=== PATIENT | female | born 1950 | race Caucasian/White ===

== ENCOUNTER → 2016-09-14 | Outpatient (CLI) | payer MEDICARE, BC ==
[2016-09-14 14:17] LABS: Basophils % (A) 0 %; CH 30.9; CHCM 32.2; Eosinophils # (A) 0.3 k/uL (0-0.7); Eosinophils % (A) 4 %; HCT 43.9 % (34.0-46.0); HDW 2.76; HGB 14.2 gm/dL (11.4-16.0); Luc # (Auto) 0.19; Luc % (Auto) 2; Lymphocytes % (A) 49 %; MCH 31.2 pg (25.0-35.0); MCHC 32.4 g/dL (31.0-37.0); MCV 96.4 fL (80.0-100.0); Mean Platelet Volume 8.1; Monocytes # (A) 0.5 k/uL (0-1.0); Monocytes % (A) 6 %; Neutrophils # (A) 3.3 k/uL (1.3-7.7); Neutrophils % (A) 39 %; RBC 4.56 m/uL (3.80-5.40); RDW 13.3 % (11.5-15.5); WBC 8.3 k/uL (3.8-10.6); WBC (Perox) 8.13
== END | disposition home or self-care (01) ==
LOC: LABWHC1 13:35
PROVIDERS: ATTEND Internal Medicine
DX: D72.820 Lymphocytosis (symptomatic) (principal)
CPT/HCPCS: 36415; 85025

== ENCOUNTER 2016-09-19 17:29 | Inpatient (IN) | payer MEDICARE, BC ==
[2016-09-19] MEDS ORDERED: ALBUTEROL NEBULIZED 2.5 MG/3 ML INHALATION STA (17:47)
[2016-09-19] MEDS ORDERED: SODIUM CHLORIDE 0.9% 1,000 ML IV STA ×2 (17:47)
[2016-09-19] MEDS ORDERED: methylPREDNISolone SOD SUCCI 125 MG/2 ML VIAL IV STA (17:47)
[2016-09-19] MEDS ORDERED: IPRATROPIUM 0.5 MG/2.5 ML NEBU INHALATION STA (17:47)
[2016-09-19] MEDS ORDERED: KETOROLAC 30 MG/ML 1 ML VIAL IVP STA (18:07)
[2016-09-19] MEDS ORDERED: ACETAMINOPHEN IV (For NPO) 1,000 MG in EMPTY BAG 1 BAG IVPB STA (18:07)
[2016-09-19] MEDS ORDERED: AZITHROMYCIN 500 MG in SODIUM CHLORIDE 0.9% 250 ML IVPB STA (18:15)
[2016-09-19 18:24] LABS: Basophils % (A) 0 %; CH 31.4; CHCM 32.8; Eosinophils # (A) 0.1 k/uL (0-0.7); Eosinophils % (A) 1 %; HCT 41.5 % (34.0-46.0); HDW 2.64; Luc # (Auto) 0.08; Luc % (Auto) 1; Lymphocytes # (A) 1.1 k/uL (1.0-4.8); Lymphocytes % (A) 13 %; MCH 30.1 pg (25.0-35.0); MCHC 31.3 g/dL (31.0-37.0); MCV 96.2 fL (80.0-100.0); Mean Platelet Volume 9.1; Monocytes # (A) 0.5 k/uL (0-1.0); Monocytes % (A) 6 %; Neutrophils # (A) 6.7 k/uL (1.3-7.7); Neutrophils % (A) 79 %; RBC 4.31 m/uL (3.80-5.40); RDW 13.3 % (11.5-15.5); WBC 8.5 k/uL (3.8-10.6); WBC (Perox) 8.89
[2016-09-19 18:35] LABS: ALT 36 U/L (9-52); AST 23 U/L (14-36); Alkaline Phosphatase 122 U/L (38-126); Anion Gap 9 mmol/L; Blood Urea Nitrogen 11 mg/dL (7-17); Calcium 8.6 mg/dL (8.4-10.2); Carbon Dioxide 28 mmol/L (22-30); Chloride 103 mmol/L (98-107); Glucose 106 mg/dL (74-99); Magnesium 1.7 mg/dL (1.6-2.3); Non-African American GFR(MDRD) 58 (>60 ml/min/1.73 sqM); Potassium 4.3 mmol/L (3.5-5.1); Sodium 140 mmol/L (137-145); Total Bilirubin 0.4 mg/dL (0.2-1.3)
[2016-09-19 18:37] LABS: INR 2.9 (<1.1); Partial Thromboplastin Time 43.1 sec (22.0-30.0); Prothrombin Time 28.2 sec (9.0-12.0)
[2016-09-19 18:47] LABS: Creatine Kinase 139 U/L (30-135)
--- NOTE | 2016-09-19 18:53 | ED ---
General Adult HPI - General Chief complaint: Shortness of Breath Stated complaint: respiratory Time Seen by Provider: 09/19/16 17:34 Source: EMS, RN notes reviewed, old records reviewed Mode of arrival: EMS Limitations: no limitations - History of Present Illness Initial comments: This is a 58-year-old female to the ER for severe cough and congestion and fever as well as, severe shortness with cough and congestion. Patient has significant history of COPD, states is worse than normal COPD exacerbation, patient also notes fever and coughing up sputum. No travel history no sick contacts, no modifying factors for sent home male - Related Data Home Medications Medication Instructions Recorded Confirmed Atorvastatin [Lipitor] 20 mg PO HS 10/04/14 09/19/16 Primidone [Mysoline] 50 mg PO QID 10/04/14 09/19/16 Aspirin 81 mg PO DAILY 04/17/15 09/19/16 Albuterol Sulfate [Proair Hfa] 2 puff INHALATION RT-Q6H PRN 09/19/16 09/19/16 DULoxetine HCL [Cymbalta] 60 mg PO DAILY 09/19/16 09/19/16 Dofetilide [Tikosyn] 250 mcg PO Q12HR 09/19/16 09/19/16 Ipratropium Nebulized [Atrovent 0.5 mg INHALATION RT-QID 09/19/16 09/19/16 Nebulized] Levalbuterol Nebulized [Xopenex 1.25 mg INHALATION RT-QID 09/19/16 09/19/16 Nebulized] Methocarbamol [Robaxin-750] 750 mg PO TID PRN 09/19/16 09/19/16 Metoprolol Tartrate [Lopressor] 25 mg PO BID 09/19/16 09/19/16 Mirtazapine [Remeron] 15 mg PO HS 09/19/16 09/19/16 Potassium Chloride ER [K-Dur 20] 20 meq PO DAILY 09/19/16 09/19/16 Warfarin Sodium [Coumadin] 10 mg PO HS 09/19/16 09/19/16 clonazePAM [KlonoPIN] 1 mg PO BID 09/19/16 09/19/16 oxyCODONE HCL [Oxyir] 5 mg PO Q6H PRN 09/19/16 09/19/16 Previous Rx's Medication Instructions Recorded Budesonide-Formot 160-4.5 Mcg 2 puff INHALATION RT-BID #1 puff 10/06/14 [Symbicort 160-4.5 Mcg Inhaler] Furosemide [Lasix] 40 mg PO DAILY tab 09/02/15 Allergies Allergy/AdvReac Type Severity Reaction Status Date / Time adhesive Allergy Rash/Hives Verified 09/19/16 17:54 latex Allergy Rash/Hives Verified 09/19/16 17:54 Penicillins Allergy Unknown Verified 09/19/16 17:54 Childhood alendronate sodium AdvReac Nausea & Verified 09/19/16 17:54 [From Fosamax] Vomiting Review of Systems ROS Statement: Those systems with pertinent positive or pertinent negative responses have been documented in the HPI. ROS Other: All systems not noted in ROS Statement are negative. Past Medical History Past Medical History: Atrial Fibrillation, Atrial Flutter, Heart Failure, COPD, CVA/TIA, GERD/Reflux, Hyperlipidemia, Myocardial Infarction ([place]), Pneumonia Additional Past Medical History / Comment(s): stroke 1996 still does'nt have control of left leg or rt ankle-has balance issues, start of glaucoma rt eye not on meds yet. hiatal hernia. essential tremors takes mysoline.psoriases, Last Myocardial Infarction Date:: unk History of Any Multi-Drug Resistant Organisms: None Reported Past Surgical History: Adenoidectomy, Bladder Surgery, Heart Catheterization With Stent, Hysterectomy, Pacemaker, Tonsillectomy Additional Past Surgical History / Comment(s): repaired mitral valve ,,had rectal prolapse sx 3 years before bowel surgury d/t chronic diarrhea which left pt with a colostomy, cardioverted 10-01-14 at [facility], lt ear drum replaced. Past Anesthesia/Blood Transfusion Reactions: No Reported Reaction Additional Past Anesthesia/Blood Transfusion Reaction / Comment(s): clausterpbobia Date of Last Stent Placement:: unk Type of Cardiac Device: Unknown Device Placement Date:: unknown Past Psychological History: No Psychological Hx Reported Smoking Status: Current every day smoker Past Alcohol Use History: None Reported Additional Past Alcohol Use History / Comment(s): started smoking at age 16 smoked 1 ppd, quit last 2 Past Drug Use History: None Reported - Past Family History Father Family Medical History: CVA/TIA Additional Family Medical History / Comment(s): was an alcoholic, rheumatic fever as child,lost 2/3rds of stomach d/t etoh. age 61 Mother Additional Family Medical History / Comment(s): comitted suicide at age 54 General Exam Limitations: no limitations General appearance: alert, in no apparent distress, anxious, lethargic Head exam: Present: atraumatic, normocephalic, normal inspection Eye exam: Present: normal appearance, PERRL, EOMI. Absent: scleral icterus, conjunctival injection, periorbital swelling ENT exam: Present: normal exam, mucous membranes moist Neck exam: Present: normal inspection. Absent: tenderness, meningismus, lymphadenopathy Respiratory exam: Present: normal lung sounds bilaterally, wheezes, chest wall tenderness, accessory muscle use, decreased breath sounds, prolonged expiratory. Absent: respiratory distress, rales, rhonchi, stridor Cardiovascular Exam: Present: regular rate, normal rhythm, normal heart sounds. Absent: systolic murmur, diastolic murmur, rubs, gallop, clicks GI/Abdominal exam: Present: soft, normal bowel sounds. Absent: distended, tenderness, guarding, rebound, rigid Extremities exam: Present: normal inspection, full ROM, normal capillary refill. Absent: tenderness, pedal edema, joint swelling, calf tenderness Back exam: Present: normal inspection Neurological exam: Present: alert, oriented X3, CN II-XII intact Psychiatric exam: Present: normal affect, normal mood Skin exam: Present: warm, dry, intact, normal color. Absent: rash Course Vital Signs 09/19/16 09/19/16 09/19/16 17:42 18:14 18:18 Temperature 101.1 F H Pulse Rate 83 78 80 Respiratory 20 Rate Blood Pressure 98/58 95/53 O2 Sat by Pulse 92 L 96 Oximetry 09/19/16 09/19/16 18:51 20:00 Temperature 99.2 F Pulse Rate 80 79 Respiratory 18 Rate Blood Pressure 89/50 O2 Sat by Pulse 96 Oximetry - Reevaluation(s) Reevaluation #1: 09/19/16 19:26 Patient with minimal improvement after prolonged breathing treatment EKG Findings - EKG Comments: EKG Findings:: EKG shows sinus rhythm rate of 82, GA 152, QRS 90, QTC 486 Medical Decision Making - Medical Decision Making 58 female in to ER with severe COPD exacerbation and CHF. Patient will be placed on pulmonary status, monitoring of breathing issues, possible BiPAP., breathing treatments [id number]. Monitoring of cardiopulmonary and hemodynamic status. - Lab Data Result diagrams: 09/19/16 18:09 09/19/16 18:09 Lab Results 09/19/16 09/19/16 09/19/16 Range/Units 18:09 18:09 18:09 WBC 8.5 (3.8-10.6) k/uL RBC 4.31 (3.80-5.40) m/uL Hgb 13.0 (11.4-16.0) gm/dL Hct 41.5 (34.0-46.0) % MCV 96.2 (80.0-100.0) fL MCH 30.1 (25.0-35.0) pg MCHC 31.3 (31.0-37.0) g/dL RDW 13.3 (11.5-15.5) % Plt Count 198 (150-450) k/uL Neutrophils % 79 % Lymphocytes % 13 % Monocytes % 6 % Eosinophils % 1 % Basophils % 0 % Neutrophils # 6.7 (1.3-7.7) k/uL Lymphocytes # 1.1 (1.0-4.8) k/uL Monocytes # 0.5 (0-1.0) k/uL Eosinophils # 0.1 (0-0.7) k/uL Basophils # 0.0 (0-0.2) k/uL PT (9.0-12.0) sec INR (<1.1) APTT (22.0-30.0) sec Sodium 140 (137-145) mmol/L Potassium 4.3 (3.5-5.1) mmol/L Chloride 103 (98-107) mmol/L Carbon Dioxide 28 (22-30) mmol/L Anion Gap 9 mmol/L BUN 11 (7-17) mg/dL Creatinine 0.96 (0.52-1.04) mg/dL Est GFR (MDRD) Af Amer >60 (>60 ml/min/1.73 sqM) Est GFR (MDRD) Non-Af 58 (>60 ml/min/1.73 sqM) Glucose 106 H (74-99) mg/dL Plasma Lactic Acid Porter (0.7-2.0) mmol/L Calcium 8.6 (8.4-10.2) mg/dL Magnesium 1.7 (1.6-2.3) mg/dL Total Bilirubin 0.4 (0.2-1.3) mg/dL AST 23 (14-36) U/L ALT 36 (9-52) U/L Alkaline Phosphatase 122 (38-126) U/L Total Creatine Kinase 139 H (30-135) U/L CK-MB (CK-2) 1.0 (0.0-2.4) ng/mL CK-MB (CK-2) Rel Index 0.7 Troponin I <0.012 (0.000-0.034) ng/mL NT-Pro-B Natriuret Pep pg/mL Total Protein 7.0 (6.3-8.2) g/dL Albumin 3.9 (3.5-5.0) g/dL Influenza Type A RNA (Not Detectd) Influenza Type B (PCR) (Not Detectd) 09/19/16 09/19/16 09/19/16 Range/Units 18:09 18:09 18:09 WBC (3.8-10.6) k/uL RBC (3.80-5.40) m/uL Hgb (11.4-16.0) gm/dL Hct (34.0-46.0) % MCV (80.0-100.0) fL MCH (25.0-35.0) pg MCHC (31.0-37.0) g/dL RDW (11.5-15.5) % Plt Count (150-450) k/uL Neutrophils % % Lymphocytes % % Monocytes % % Eosinophils % % Basophils % % Neutrophils # (1.3-7.7) k/uL Lymphocytes # (1.0-4.8) k/uL Monocytes # (0-1.0) k/uL Eosinophils # (0-0.7) k/uL Basophils # (0-0.2) k/uL PT 28.2 H (9.0-12.0) sec INR 2.9 (<1.1) APTT 43.1 H (22.0-30.0) sec Sodium (137-145) mmol/L Potassium (3.5-5.1) mmol/L Chloride (98-107) mmol/L Carbon Dioxide (22-30) mmol/L Anion Gap mmol/L BUN (7-17) mg/dL Creatinine (0.52-1.04) mg/dL Est GFR (MDRD) Af Amer (>60 ml/min/1.73 sqM) Est GFR (MDRD) Non-Af (>60 ml/min/1.73 sqM) Glucose (74-99) mg/dL Plasma Lactic Acid Porter 1.3 (0.7-2.0) mmol/L Calcium (8.4-10.2) mg/dL Magnesium (1.6-2.3) mg/dL Total Bilirubin (0.2-1.3) mg/dL AST (14-36) U/L ALT (9-52) U/L Alkaline Phosphatase (38-126) U/L Total Creatine Kinase (30-135) U/L CK-MB (CK-2) (0.0-2.4) ng/mL CK-MB (CK-2) Rel Index Troponin I (0.000-0.034) ng/mL NT-Pro-B Natriuret Pep 2000 pg/mL Total Protein (6.3-8.2) g/dL Albumin (3.5-5.0) g/dL Influenza Type A RNA (Not Detectd) Influenza Type B (PCR) (Not Detectd) 09/19/16 Range/Units 18:09 WBC (3.8-10.6) k/uL RBC (3.80-5.40) m/uL Hgb (11.4-16.0) gm/dL Hct (34.0-46.0) % MCV (80.0-100.0) fL MCH (25.0-35.0) pg MCHC (31.0-37.0) g/dL RDW (11.5-15.5) % Plt Count (150-450) k/uL Neutrophils % % Lymphocytes % % Monocytes % % Eosinophils % % Basophils % % Neutrophils # (1.3-7.7) k/uL Lymphocytes # (1.0-4.8) k/uL Monocytes # (0-1.0) k/uL Eosinophils # (0-0.7) k/uL Basophils # (0-0.2) k/uL PT (9.0-12.0) sec INR (<1.1) APTT (22.0-30.0) sec Sodium (137-145) mmol/L Potassium (3.5-5.1) mmol/L Chloride (98-107) mmol/L Carbon Dioxide (22-30) mmol/L Anion Gap mmol/L BUN (7-17) mg/dL Creatinine (0.52-1.04) mg/dL Est GFR (MDRD) Af Amer (>60 ml/min/1.73 sqM) Est GFR (MDRD) Non-Af (>60 ml/min/1.73 sqM) Glucose (74-99) mg/dL Plasma Lactic Acid Porter (0.7-2.0) mmol/L Calcium (8.4-10.2) mg/dL Magnesium (1.6-2.3) mg/dL Total Bilirubin (0.2-1.3) mg/dL AST (14-36) U/L ALT (9-52) U/L Alkaline Phosphatase (38-126) U/L Total Creatine Kinase (30-135) U/L CK-MB (CK-2) (0.0-2.4) ng/mL CK-MB (CK-2) Rel Index Troponin I (0.000-0.034) ng/mL NT-Pro-B Natriuret Pep pg/mL Total Protein (6.3-8.2) g/dL Albumin (3.5-5.0) g/dL Influenza Type A RNA Not Detected (Not Detectd) Influenza Type B (PCR) Not Detected (Not Detectd) - Radiology Data Radiology results: report reviewed (Chest x-ray is positive for CHF), image reviewed Disposition Clinical Impression: Acute exacerbation of chronic obstructive airways disease, Fever, Congestive heart failure Disposition: ADMITTED IP TO THIS HOSP Condition: Fair
[2016-09-19 19:00] LABS: Troponin I <0.012 ng/mL (0.000-0.034)
[2016-09-19] MEDS ORDERED: PNEUMONIA PROTOCOL UTILIZED 1 EACH MISC PO PRN (19:27)
--- NOTE | 2016-09-19 20:02 | XR ---
EXAMINATION TYPE: XR chest 2V DATE OF EXAM: 09/19/2016 7:55 PM COMPARISON: 09/01/2015 HISTORY: Productive cough TECHNIQUE: Frontal and lateral views of the chest are obtained. FINDINGS: There is pulmonary interstitial edema. Heart size is normal. There are sternal wires. Ther e is a valve prosthesis noted. There is very small pleural effusions. IMPRESSION: Pulmonary edema with very small pleural effusions. Edema is improved compared to 09/01/19 16. This is consistent with congestive heart failure that is improved compared to last exam.
[2016-09-19] MEDS ORDERED: CEFEPIME 2 GM in SODIUM CHLORIDE 0.9% 50 ML IVPB STA (20:17)
[2016-09-19] MEDS ORDERED: SODIUM CHLORIDE 0.9% 500 ML IV ONE (20:17)
[2016-09-19] MEDS ORDERED: SODIUM CHLORIDE 0.9% 1,000 ML IV ONE (20:17)
[2016-09-19] MEDS: IPRATROPIUM-ALBUTEROL 3 ML NEB INHALATION SCH (20:41)
[2016-09-19] MEDS: SODIUM CHLORIDE 0.9% 1,000 ML IV SCH (21:54)
[2016-09-19] MEDS ORDERED: clonazePAM 1 MG TAB PO STA (22:12)
[2016-09-19] MEDS ORDERED: DOFETILIDE 250 MCG CAP PO STA (22:13)
[2016-09-19] MEDS ORDERED: MIRTAZAPINE 15 MG TAB PO STA (22:14)
[2016-09-19] MEDS ORDERED: WARFARIN 10 MG TAB PO ONE (22:15)
[2016-09-19 23:42] VITALS: BMI 27.4
[2016-09-20] MEDS: METOPROLOL TARTRATE 25 MG TAB PO SCH ×3 (00:18→21:44)
[2016-09-20] MEDS: NICOTINE 21MG/24HR PATCH TRANSDERM SCH ×2 (00:24→09:43)
[2016-09-20] MEDS: SODIUM CHLORIDE 0.9% 1,000 ML IV SCH ×2 (00:27→15:00)
[2016-09-20] MEDS ORDERED: SODIUM CHLORIDE 0.9% 1,000 ML IV ONE (01:32)
[2016-09-20 03:16] LABS: Glucose,Whole Blood 135 mg/dL (75-99)
[2016-09-20] MEDS ORDERED: NOREPINEPHRINE 4 MG-0.9% NS PMX 250 ML IV ONE (03:18)
[2016-09-20] MEDS ORDERED: NALOXONE 0.4 MG/ML 1 ML VIAL IV PRN (03:21)
[2016-09-20] MEDS ORDERED: NOREPINEPHRINE 4 MG in SODIUM CHLORIDE 0.9% 250 ML IV SCH (03:30)
[2016-09-20 04:02] LABS: Appearance,Urine Clear (Clear); Bilirubin,Urine Negative (Negative); Glucose,Urine (UA) Negative (Negative); Ketones,Urine Trace (Negative); Leukocyte Esterase,Urine Negative (Negative); Nitrite,Urine Negative (Negative); PH, Urine 5.5 (5.0-8.0); Protein,Urine Trace (Negative); Specific Gravity,Urine 1.017 (1.001-1.035); UA Billing (MACRO vs. MICRO) CHEM; Urobilinogen,Urine <2.0 mg/dL (<2.0)
[2016-09-20 05:26] LABS: Basophils % (A) 0 %; CH 30.5; CHCM 30.9; Eosinophils % (A) 0 %; HCT 36.2 % (34.0-46.0); HDW 2.64; HGB 11.2 gm/dL (11.4-16.0); Hypochromasia Slight; Luc # (Auto) 0.05; Luc % (Auto) 1; Lymphocytes # (A) 0.8 k/uL (1.0-4.8); Lymphocytes % (A) 13 %; MCH 30.8 pg (25.0-35.0); MCV 99.4 fL (80.0-100.0); Mean Platelet Volume 8.1; Monocytes # (A) 0.2 k/uL (0-1.0); Monocytes % (A) 3 %; Neutrophils # (A) 4.9 k/uL (1.3-7.7); Neutrophils % (A) 83 %; RBC 3.65 m/uL (3.80-5.40); RDW 13.2 % (11.5-15.5); WBC 5.9 k/uL (3.8-10.6); WBC (Perox) 6.38
[2016-09-20 05:34] LABS: INR 2.4 (<1.1); Prothrombin Time 22.7 sec (9.0-12.0)
[2016-09-20 05:40] LABS: Anion Gap 11 mmol/L; Blood Urea Nitrogen 17 mg/dL (7-17); Carbon Dioxide 20 mmol/L (22-30); Chloride 109 mmol/L (98-107); Glucose 148 mg/dL (74-99); Magnesium 1.7 mg/dL (1.6-2.3); Non-African American GFR(MDRD) >60 (>60 ml/min/1.73 sqM); Phosphorous 3.8 mg/dL (2.5-4.5); Potassium 4.4 mmol/L (3.5-5.1); Sodium 140 mmol/L (137-145)
[2016-09-20] MEDS ORDERED: Magnesium Replacement Protocol 1 EACH MISC MISCELLANE PRN (06:12)
[2016-09-20] MEDS: IPRATROPIUM-ALBUTEROL 3 ML NEB INHALATION SCH ×2 (07:50→11:35)
[2016-09-20] MEDS: MAGNESIUM SULFATE-D5W PMX 1 GM in DEXTROSE/WATER 1 100ML.BAG IVPB SCH ×2 (08:13→08:58)
--- NOTE | 2016-09-20 08:43 | XR ---
EXAMINATION TYPE: XR chest 1V DATE OF EXAM: 09/20/2016 6:38 AM COMPARISON: 09/19/2016 HISTORY: Difficulty breathing TECHNIQUE: Single frontal view of the chest is obtained. FINDINGS: Heart is enlarged. Postoperative changes are seen. Coarsened interstitium is stable. No pl eural effusion or pneumothorax. IMPRESSION: 1. COPD with cardiomegaly and interstitial pattern likely representing a combination of pulmonary fib rosis and superimposed venous congestion.
[2016-09-20] MEDS ORDERED: ENOXAPARIN 40 MG/0.4 ML SYRINGE SQ SCH (09:00)
[2016-09-20] MEDS: PANTOPRAZOLE 40 MG/10 ML VIAL IV SCH (09:39)
--- NOTE | 2016-09-20 11:36 | P.CNPUL ---
History of Present Illness Consult date: 09/20/16 Reason for consult: dyspnea History of present illness: 66-year-old female patient with known history of COPD, pulmonary fibrosis, chronic cardiac disease with paroxysmal atrial fibrillation/flutter with previous amiodarone treatment it got discontinued because of pulmonary fibrosis and the patient was replaced with a consent and was maintained on long-term articulation with warfarin, presents to the emergency department because of progressive worsening shortness of breath. The patient is still smoking about 1 pack of cigarettes a day. She was having increased chest congestion, sputum production, wheezing and a sense and she was found to be hypotensive. Based on that, she was initially admitted to the medical floor and then got moved to the intensive care unit. At this point in time, the patient's history of any chest pain however she is having still cough and congestion and wheezing. She was given IV fluids and the patient got a total of 2 L in the emergency department and 1 L. ICU and currently she is on IV fluids maintenance at 100 mL an hour of normal saline and the patient is on 5 mics of norepinephrine infusion. Urine output is adequate and the patient is producing 50-100 mL an hour. We are the process of weaning the pressors. The patient was given 1 dose of Solu Medrol in the emergency pH was also given a dose of cefepime and Zithromax. Chest x-ray showing chronic interstitial changes and fibrosis and lung bases bilaterally and there is no evidence of any acute consolidation. No change in mental status. No hemoptysis. No pleurisy. No major swelling lower extremities. She is quite anxious. She has chronic history of depression/ anxiety and insomnia.. The most recent echocardiogram that was obtained here in the hospital was from 2016 and it showed a preserved LV function and mild aortic stenosis. The rest of the valvular structures were essentially within normal limits. Note that her cardiac surgery was performed at [facility] back in 2013. Review of Systems 12 point review of system was done and the positive findings are almost above in history of present illness Past Medical History Past Medical History: Atrial Fibrillation, Atrial Flutter, Coronary Artery Disease (CAD), Heart Failure, COPD, CVA/TIA, GERD/Reflux, Hyperlipidemia, Myocardial Infarction ([place]), Pneumonia Additional Past Medical History / Comment(s): History of mitral regurgitation with a previous mitral valve replacement and tricuspid valve repair, coronary artery disease with previous cardiac catheterization and stenting, chronic atrial fibrillation/flutter, AICD placement, COPD, pulmonary fibrosis, glucoma, hiatal hernia, psoriasis, tremors, stroke 1996 still does'nt have control of left leg or rt ankle-has balance issues Last Myocardial Infarction Date:: unk History of Any Multi-Drug Resistant Organisms: None Reported Past Surgical History: Adenoidectomy, Bladder Surgery, Bowel Resection, Heart Catheterization With Stent, Hysterectomy, Tonsillectomy Additional Past Surgical History / Comment(s): repaired mitral valve, rectal prolapse sx 3 years before bowel surgury d/t chronic diarrhea which left pt with a colostomy, AICD placement, cardioverted 10-01-14 at [facility], lt ear drum replaced, mitral valve replacement and tricuspid valve repair, cardiac catheterization with insertion of a coronary stent, hysterectomy, tonsillectomy Past Anesthesia/Blood Transfusion Reactions: No Reported Reaction Additional Past Anesthesia/Blood Transfusion Reaction / Comment(s): clausterpbobia Date of Last Stent Placement:: unk Type of Cardiac Device: Unknown Device Placement Date:: unknown Past Psychological History: No Psychological Hx Reported Smoking Status: Current every day smoker Past Alcohol Use History: None Reported Additional Past Alcohol Use History / Comment(s): started smoking at age 16 smoked 1 ppd Past Drug Use History: None Reported - Past Family History Father Family Medical History: CVA/TIA Additional Family Medical History / Comment(s): was an alcoholic, rheumatic fever as child,lost 2/3rds of stomach d/t etoh. age 61 Mother Additional Family Medical History / Comment(s): comitted suicide at age 54 Medications and Allergies Home Medications Medication Instructions Recorded Confirmed Type Atorvastatin [Lipitor] 20 mg PO HS 10/04/14 09/19/16 History Primidone [Mysoline] 50 mg PO QID 10/04/14 09/19/16 History Aspirin 81 mg PO DAILY 04/17/15 09/19/16 History Albuterol Sulfate [Proair Hfa] 2 puff INHALATION RT-Q6H PRN 09/19/16 09/19/16 History DULoxetine HCL [Cymbalta] 60 mg PO DAILY 09/19/16 09/19/16 History Dofetilide [Tikosyn] 250 mcg PO Q12HR 09/19/16 09/19/16 History Ipratropium Nebulized [Atrovent 0.5 mg INHALATION RT-QID 09/19/16 09/19/16 History Nebulized] Levalbuterol Nebulized [Xopenex 1.25 mg INHALATION RT-QID 09/19/16 09/19/16 History Nebulized] Methocarbamol [Robaxin-750] 750 mg PO TID PRN 09/19/16 09/19/16 History Metoprolol Tartrate [Lopressor] 25 mg PO BID 09/19/16 09/19/16 History Mirtazapine [Remeron] 15 mg PO HS 09/19/16 09/19/16 History Potassium Chloride ER [K-Dur 20] 20 meq PO DAILY 09/19/16 09/19/16 History Warfarin Sodium [Coumadin] 10 mg PO HS 09/19/16 09/19/16 History clonazePAM [KlonoPIN] 1 mg PO BID 09/19/16 09/19/16 History oxyCODONE HCL [Oxyir] 5 mg PO Q6H PRN 09/19/16 09/19/16 History Allergies Allergy/AdvReac Type Severity Reaction Status Date / Time adhesive Allergy Rash/Hives Verified 09/19/16 17:54 latex Allergy Rash/Hives Verified 09/19/16 17:54 Penicillins Allergy Unknown Verified 09/19/16 17:54 Childhood alendronate sodium AdvReac Nausea & Verified 09/19/16 17:54 [From Fosamax] Vomiting Physical Exam Vitals: Vital Signs Temp Pulse Pulse Resp BP BP BP 09/20/16 09:00 98.3 F 99 28 H 89/49 09/20/16 08:06 88 09/20/16 08:00 94 26 H 105/56 09/20/16 07:50 84 09/20/16 07:00 74 21 119/61 09/20/16 06:00 68 24 107/53 09/20/16 05:00 64 20 76/48 09/20/16 04:00 96.1 F L 66 17 116/70 09/20/16 03:00 64 20 76/42 09/20/16 02:39 76 16 76/43 09/20/16 01:38 72 81/46 09/20/16 01:20 72/43 76/50 09/19/16 23:27 97.7 F 78 16 86/51 09/19/16 23:06 78 16 93/50 09/19/16 21:54 74 16 95/58 09/19/16 21:06 78 16 96/54 09/19/16 20:57 74 09/19/16 20:43 74 09/19/16 20:41 97.7 F 78 16 86/51 09/19/16 20:00 99.2 F 79 18 89/50 Pulse Ox 09/20/16 09:00 99 09/20/16 08:06 09/20/16 08:00 99 09/20/16 07:50 09/20/16 07:00 97 09/20/16 06:00 98 09/20/16 05:00 97 09/20/16 04:00 98 09/20/16 03:00 97 09/20/16 02:39 96 09/20/16 01:38 96 09/20/16 01:20 09/19/16 23:27 92 L 09/19/16 23:06 95 09/19/16 21:54 97 09/19/16 21:06 09/19/16 20:57 09/19/16 20:43 09/19/16 20:41 92 L 09/19/16 20:00 96 Intake and Output 09/19/16 09/20/16 09/20/16 22:59 06:59 14:59 Intake Total 540 391.44 Output Total 200 140 Balance 340 251.44 Intake: Intake, IV Titration 300 391.44 Amount Magnesium Sulfate-D5w Pmx 100 1 gm In Dextrose/Water 1 100ml.bag @ 100 mls/hr IVPB Q1H SHERRIE Rx#: [id number] Norepinephrine 4 mg In 91.44 Sodium Chloride 0.9% 250 ml @ Titrate IV .Q0M SHERRIE Rx#:[id number] Sodium Chloride 0.9% 1, 300 200 000 ml @ 100 mls/hr IV . Q10H SHERRIE Rx#:[id number] Oral 240 Output: Urine 200 140 Other: Voiding Method Indwelling Catheter Indwelling Catheter # Bowel Movements 0 Weight 68.039 kg Head exam was generally normal. There was no scleral icterus or corneal arcus. Mucous membranes were moist. Neck is supple and the patient has bilateral JVDs and there is no goiter or neck masses. Lungs sounds are diminished in lung bases. There is diffuse extremity wheezes throughout the lung is bilaterally. The patient has significant prolongation of expiratory phase of breathing. Crackles can be also appreciated the lung bases bilaterally. Heart sounds are regular, positive since 2, and there is accentuation of the second heart sound. Abdominal exam revealed normal bowel sounds. The abdomen was soft, non-tender , and without masses, organomegaly, or appreciable enlargement of the abdominal aorta.Examination of the extremities revealed easily palpable radial, femoral and pedal pulses. There was no cyanosis, clubbing or edema. Skin the patient has a scar of previous thoracotomy over the anterior chest area. Results - Laboratory Findings CBC and BMP: 09/20/16 05:08 09/20/16 05:08 PT/INR, D-dimer PT 22.7 sec (9.0-12.0) H 09/20/16 05:08 INR 2.4 (<1.1) 09/20/16 05:08 Abnormal lab findings: Abnormal Labs 09/20/16 09/20/16 09/20/16 03:07 03:40 05:08 RBC 3.65 L Hgb 11.2 L Lymphocytes # 0.8 L PT Chloride Carbon Dioxide Glucose POC Glucose (mg/dL) 135 H Calcium Urine Protein Trace H Urine Ketones Trace H 09/20/16 09/20/16 05:08 05:08 RBC Hgb Lymphocytes # PT 22.7 H Chloride 109 H Carbon Dioxide 20 L Glucose 148 H POC Glucose (mg/dL) Calcium 8.0 L Urine Protein Urine Ketones - Diagnostic Findings Chest x-ray: image reviewed Assessment and Plan Plan: Assessment 1 acute shortness of breath, secondary to an acute COPD exacerbation with 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 Chest x-ray shows no acute pulmonary infiltrates or pneumonias and the findings are essentially chronic and consistent with pulmonary fibrosis. 2 acute hypotension, rule out underlying sepsis. No evidence of any cardiogenic shock and the patient is currently on 5 mics of norepinephrine infusion for for blood pressure control 3 paroxysmal atrial fibrillation/flutter and the patient is on anticoagulants with a therapeutic PT/INR. 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 6 valvular heart disease with mitral valve replacement and tricuspid valve repair 7 CVA/TIA, 1996 left side without any major residual deficits for now 8 glucoma 9 hiatal hernia 10 tremors 11 psoriasis 12 chronic anxiety/depression/insomnia. Plan Start the patient Xopenex and Atrovent of breast units [id number]. Put the patient IV Solu Medrol 60 every 6 hours. Continue the same antibiotic coverage which included a combination of cefepime and Zithromax. Resume the Tykosin and the Lopressor for rate control. Continued deterioration with Coumadin and monitor the patient's PT/INR maintaining INR between 2 and 3. Repeat the echocardiogram. Smoking cessation counseling was done. Resume all of the outpatient medications including the Cymbalta and clonazepam. Stop the Lovenox for now as the patient is fully anticoagulated. Keep the patient intensive care unit. Consult cardiology. We'll continue to follow.
[2016-09-20] MEDS ORDERED: METHOCARBAMOL 750 MG TAB PO PRN (11:39)
[2016-09-20] MEDS: LEVALBUTEROL NEB (CONC) 1.25 MG/0.5 ML AMP INHALATION SCH ×3 (11:43→21:06)
[2016-09-20] MEDS: IPRATROPIUM 0.5 MG/2.5 ML NEBU INHALATION SCH ×3 (11:44→21:06)
[2016-09-20] MEDS ORDERED: DOFETILIDE 250 MCG CAP PO SCH (11:45)
[2016-09-20] MEDS: ACETAMINOPHEN TAB 325 MG TAB PO PRN ×2 (11:53→17:28)
[2016-09-20] MEDS ORDERED: CEFEPIME 2 GM in SODIUM CHLORIDE 0.9% 50 ML IVPB SCH (12:00)
[2016-09-20] MEDS: methylPREDNISolone SOD SUCCI 125 MG/2 ML VIAL IV SCH ×3 (12:17→23:21)
[2016-09-20] MEDS: PRIMIDONE 50 MG TAB PO SCH ×3 (12:17→21:47)
[2016-09-20] MEDS: DULoxetine HCL 60 MG CAPSULE.DR PO SCH (12:17)
[2016-09-20] MEDS: ASPIRIN 81 MG CHEW PO SCH (12:17)
[2016-09-20] MEDS: clonazePAM 1 MG TAB PO SCH ×2 (12:18→15:09)
[2016-09-20] MEDS ORDERED: TIGECYCLINE 100 MG in SODIUM CHLORIDE 0.9% 100 ML IVPB ONE (16:00)
[2016-09-20] MEDS: OSELTAMIVIR 75 MG CAP PO SCH (18:39)
[2016-09-20] MEDS: ATORVASTATIN 20 MG TAB PO SCH (21:45)
[2016-09-20] MEDS: MIRTAZAPINE 15 MG TAB PO SCH (21:46)
--- NOTE | 2016-09-20 23:31 | HP ---
DATE OF ADMISSION: DATE OF SERVICE: 09/20/2016 CHIEF COMPLAINT: Shortness of breath. HISTORY OF PRESENT ILLNESS: This 66-year-old woman with a past medical history of multiple medical problems, including COPD, history of pulmonary fibrosis, history of possible CHF, history of multi-valvular heart disease, being followed by a primary physician in the outpatient setting, was having shortness of breath and cough for the past several weeks, according to her, which has worsened over the past couple of days, and the patient came to [facility] and was admitted for further evaluation and treatment. Patient was also found to be hypotensive and the possibility of CHF is also considered. Chest x-ray showed significant pulmonary fibrosis, and pneumonia is also a possibility. Patient was started on broad-spectrum antibiotics. Multiple members of the family around her had flu symptoms, according to her, even though no one was diagnosed positively. However, the patient also had a flu shot this year, according to her. There is no history of any headache, loss of consciousness, seizures. Patient was given 2 L or IV fluid bolus in the ER and started on Levophed, about 2 mcg, at this time. PAST MEDICAL HISTORY: 1. History of pulmonary fibrosis. 2. History of atrial flutter/fibrillation. 3. History of CAD. 4. History of COPD. 5. History of CHF. 6. CVA. 7. TIA. 8. GERD. 9. Myocardial infarction. 10. History of pneumonia. 11. History of adenoidectomy. 12. Bladder surgery. HOME MEDICATIONS: 1. Oxyir 5 mg q.6 p.r.n. 2. Klonopin 1 mg p.o. b.i.d. 3. Coumadin 10 mg p.o. at bedtime. 4. Mysoline 50 mg p.o. q.i.d. 5. K-Dur 20 mEq p.o. daily. 6. Remeron 15 mg at bedtime. 7. Lopressor 25 mg p.o. b.i.d. 8. Robaxin 750 mg p.o. t.i.d. p.r.n. 9. Xopenex 1.25 q.i.d. 10. Atrovent 0.5 q.i.d. 11. Lasix 40 mg p.o. daily. 12. Tikosyn 250 mcg p.o. b.i.d. 13. Cymbalta 60 mg p.o. daily. 14. Symbicort 160/4.5 two puffs b.i.d. 15. Lipitor 20 mg at bedtime. 16. Aspirin 81 mg p.o. daily. 17. Albuterol 2 puffs q.6 p.r.n. ALLERGIES: 1. ADHESIVES. 2. LATEX. 3. PENICILLIN. 4. FOSAMAX. FAMILY HISTORY: History of CVA, TIA. History of alcohol. SOCIAL HISTORY: History of smoking on a daily basis. No history of alcohol intake. REVIEW OF SYSTEMS: ENT: No diminished hearing. No diminished vision. CARDIOVASCULAR: As mentioned earlier. RESPIRATORY SYSTEM: As mentioned earlier. GI: No nausea. : No dysuria. NERVOUS SYSTEM: No numbness or weakness. ALLERGY/IMMUNOLOGY: No asthma or hayfever. MUSCULOSKELETAL: As mentioned earlier. HEMATOLOGY/ONCOLOGY: No history of anemia. ENDOCRINE: No history of diabetes, hypothyroidism. CONSTITUTIONAL: As mentioned earlier. DERMATOLOGY: Negative. RHEUMATOLOGY: Negative. PSYCHIATRY: As mentioned earlier. PHYSICAL EXAM: Patient is alert and oriented x3. Pulse is 85. Blood pressure is 117/74 on pressor support. Respiration 26. Temperature 97.6. Pulse ox is 96%. The blood pressure was down to 86/51. Temperature was 101 on admission. HEENT: Conjunctivae normal. Oral mucosa moist. NECK: Accessory muscles of respiration are acting. No lymph node enlargement. No carotid bruit. CARDIOVASCULAR: S1, S2 muffled. No S3. No S4. Regular. RESPIRATORY SYSTEM: Breath sounds diminished at the bases. Breathing efforts are markedly increased. Bilateral scattered rhonchi and expiratory wheezing and a few crackles are also heard. ABDOMEN: Soft, obese, nontender. No mass palpable. LEGS: Minimal edema. NERVOUS SYSTEM: Higher function as mentioned earlier. Moves all 4 limbs. No focal motor or sensory deficit. LYMPHATICS: No lymph node palpable in neck, axilla or groin. SKIN: No ulcer, rash, bleeding. JOINTS: No active deformity or arthropathy. LABS: WBC 5.9, hemoglobin 11.2. Otherwise, sodium 140, potassium 4.3. Creatine kinase glucose 106. ASSESSMENT: 1. Shortness of breath, probably multifactorial, including chronic obstructive pulmonary disease, acute exacerbation, as well as pulmonary fibrosis, acute exacerbation, with possible acute pneumonia, possibly Gram-negative with severe sepsis and septic shock and hypotension, present on admission with acute respiratory failure. 2. Coumadin monitoring. 3. Anemia, normocytic. 4. Atrial flutter/fibrillation. 5. History of congestive heart failure. 6. History of coronary artery disease. 7. History of cerebrovascular accident, transient ischemic attack. 8. Gastroesophageal reflux disease. 9. Hyperlipidemia. 10. History of myocardial infarction. 11. History of pneumonia. 12. History of mitral valve replacement and tricuspid valve repair for mitral regurgitation. 13. History of coronary artery disease and stent. 14. History of automatic implantable cardioverter defibrillator. 15. History of glaucoma. 16. History of hiatal hernia. 17. History of psoriasis. 18. History of adenoidectomy. 19. History of claustrophobia. 20. Continued ongoing nicotine dependence. 21. FULL CODE. RECOMMENDATIONS AND DISCUSSION: In this 66-year-old woman who presented with multiple complex medical issues, we will monitor the patient closely, continue the current medications, continue symptomatic treatment. Continue with pressor support, broad-spectrum IV antibiotics. Patient was started on Zithromax and cefepime. Dr. Silva was consulted. Otherwise, beta blockers cautiously. Smoking cessation, Habitrol. DVT prophylaxis. Monitor PT, INR closely. Solu-Medrol. Monitor blood sugars closely. Overall prognosis is extremely guarded because of multiple complex medical issues. Further recommendations to follow. I will consult Cardiology as well. See orders for further details. ZOILAD
[2016-09-21] MEDS: ACETAMINOPHEN TAB 325 MG TAB PO PRN (00:33)
[2016-09-21] MEDS: NICOTINE 21MG/24HR PATCH TRANSDERM SCH (00:33)
[2016-09-21] MEDS: SODIUM CHLORIDE 0.9% 1,000 ML IV SCH ×3 (03:24→21:48)
[2016-09-21 05:13] LABS: Basophils % (A) 0 %; CH 30.9; CHCM 31.7; Eosinophils % (A) 0 %; HCT 34.2 % (34.0-46.0); HDW 2.76; HGB 11.1 gm/dL (11.4-16.0); Luc # (Auto) 0.03; Luc % (Auto) 1; Lymphocytes # (A) 0.8 k/uL (1.0-4.8); Lymphocytes % (A) 13 %; MCH 31.6 pg (25.0-35.0); MCHC 32.3 g/dL (31.0-37.0); MCV 97.9 fL (80.0-100.0); Mean Platelet Volume 8.8; Monocytes # (A) 0.2 k/uL (0-1.0); Monocytes % (A) 3 %; Neutrophils # (A) 5.1 k/uL (1.3-7.7); Neutrophils % (A) 84 %; RDW 13.6 % (11.5-15.5); WBC 6.1 k/uL (3.8-10.6)
[2016-09-21 05:19] LABS: INR 1.7 (<1.1); Prothrombin Time 16.1 sec (9.0-12.0)
[2016-09-21 05:32] LABS: Anion Gap 6 mmol/L; Blood Urea Nitrogen 16 mg/dL (7-17); Calcium 8.2 mg/dL (8.4-10.2); Carbon Dioxide 26 mmol/L (22-30); Chloride 110 mmol/L (98-107); Glucose 149 mg/dL (74-99); Magnesium 2.2 mg/dL (1.6-2.3); Non-African American GFR(MDRD) >60 (>60 ml/min/1.73 sqM); Phosphorous 2.7 mg/dL (2.5-4.5); Potassium 4.7 mmol/L (3.5-5.1); Sodium 142 mmol/L (137-145)
[2016-09-21] MEDS: methylPREDNISolone SOD SUCCI 125 MG/2 ML VIAL IV SCH ×4 (05:57→23:50)
[2016-09-21 07:55] LABS: Glucose,Whole Blood 139 mg/dL (75-99)
[2016-09-21] MEDS: DULoxetine HCL 60 MG CAPSULE.DR PO SCH (08:28)
[2016-09-21] MEDS: OSELTAMIVIR 75 MG CAP PO SCH ×2 (08:28→21:45)
[2016-09-21] MEDS: ASPIRIN 81 MG CHEW PO SCH (08:28)
[2016-09-21] MEDS: PRIMIDONE 50 MG TAB PO SCH ×4 (08:28→21:45)
[2016-09-21] MEDS: clonazePAM 1 MG TAB PO SCH ×2 (08:28→21:50)
[2016-09-21] MEDS: PANTOPRAZOLE 40 MG/10 ML VIAL IV SCH (08:29)
--- NOTE | 2016-09-21 08:29 | XR ---
EXAMINATION TYPE: XR chest 1V DATE OF EXAM: 09/21/2016 6:20 AM COMPARISON: Prior chest x-ray August HISTORY: Congestive heart failure TECHNIQUE: Single frontal view of the chest is obtained. FINDINGS: Patient is post median sternotomy and cardiac valve replacement. The heart is enlarged. In terstitium and central vascularity are increased. No pneumothorax or pleural effusion. IMPRESSION: Findings are compatible with patient's history, follow-up to resolution.
[2016-09-21] MEDS: POTASSIUM CHLORIDE ER 20 MEQ TAB.ER PO SCH (08:30)
[2016-09-21] MEDS: METOPROLOL TARTRATE 25 MG TAB PO SCH ×2 (08:31→21:45)
[2016-09-21] MEDS: INSULIN LISPRO (humaLOG) 300 UNIT/3 ML VIAL SQ SCH ×4 (08:32→21:44)
[2016-09-21] MEDS: TIGECYCLINE 50 MG in SODIUM CHLORIDE 0.9% 50 ML IVPB SCH ×2 (08:35→21:45)
[2016-09-21] MEDS: LEVALBUTEROL NEB (CONC) 1.25 MG/0.5 ML AMP INHALATION SCH ×4 (08:39→19:59)
[2016-09-21] MEDS: IPRATROPIUM 0.5 MG/2.5 ML NEBU INHALATION SCH ×4 (08:39→19:59)
[2016-09-21] MEDS ORDERED: AZITHROMYCIN 500 MG in SODIUM CHLORIDE 0.9% 250 ML IVPB SCH (09:00)
--- NOTE | 2016-09-21 09:47 | ECHOF ---
Referral Reason:chf MEASUREMENTS -------- HEIGHT: 157.5 cm WEIGHT: 68.0 kg BP: 96/55 RVIDd: 2.4 cm (< 3.3) IVSd: 1.1 cm (0.6 - 1.1) LVIDd: 4.6 cm (3.9 - 5.3) LVPWd: 1.3 cm (0.6 - 1.1) IVSs: 1.8 cm LVIDs: 3.1 cm LVPWs: 1.5 cm LAESV Index (A-L): 36.58 ml/m Ao Diam: 3.1 cm (2.0 - 3.7) AV Cusp: 1.8 cm (1.5 - 2.6) LA Diam: 5.0 cm (2.7 - 3.8) MV E Francisco: 1.73 m/s MV DecT: 248 ms MV A Francisco: 1.07 m/s MV E/A Ratio: 1.61 AV maxP.89 mmHg AV meanP.11 mmHg RAP: 5.00 mmHg RVSP: 32.95 mmHg FINDINGS -------- Undetermined rhythm. AICD This was a technically good study. There is mild concentric left ventricular hypertrophy. Overall left ventricular systolic function is low-normal with, an EF between 50 - 55 %. There is paradoxical/dysynergic septal motion consistent with post-operative status. The right ventricle is normal in size and function. LA is moderately dilated 34-39 ml/m2 RA appears enlarged. Aortic valve is trileaflet and is mildly thickened. There is trace mitral regurgitation. Normal Mechanical prosthetic valve. Mild tricuspid regurgitation present. TVrepair. Trace/mild (physiologic) pulmonic regurgitation. The aortic root size is normal. The pericardium is normal. CONCLUSIONS -------- 1. Undetermined rhythm. 2. Aortic valve is trileaflet and is mildly thickened. 3. There is trace mitral regurgitation. 4. Normal Mechanical prosthetic valve. 5. Mild tricuspid regurgitation present. 6. TVrepair. 7. Trace/mild (physiologic) pulmonic regurgitation. 8. The aortic root size is normal. 9. The pericardium is normal. 10. AICD 11. This was a technically good study. 12. There is mild concentric left ventricular hypertrophy. 13. Overall left ventricular systolic function is low-normal with, an EF between 50 - 55 %. 14. There is paradoxical/dysynergic septal motion consistent with post-operative status. 15. The right ventricle is normal in size and function. 16. LA is moderately dilated 34-39 ml/m2 17. RA appears enlarged. E COMMERCE ANALYST: Kerrie Angel RDCS
--- NOTE | 2016-09-21 10:38 | P.PN ---
Subjective 66-year-old female patient with known history of COPD, pulmonary fibrosis, chronic cardiac disease with paroxysmal atrial fibrillation/flutter with previous amiodarone treatment it got discontinued because of pulmonary fibrosis and the patient was replaced with a consent and was maintained on long-term articulation with warfarin, presents to the emergency department because of progressive worsening shortness of breath. The patient is still smoking about 1 pack of cigarettes a day. She was having increased chest congestion, sputum production, wheezing and a sense and she was found to be hypotensive. Based on that, she was initially admitted to the medical floor and then got moved to the intensive care unit. At this point in time, the patient's history of any chest pain however she is having still cough and congestion and wheezing. She was given IV fluids and the patient got a total of 2 L in the emergency department and 1 L. ICU and currently she is on IV fluids maintenance at 100 mL an hour of normal saline and the patient is on 5 mics of norepinephrine infusion. Urine output is adequate and the patient is producing 50-100 mL an hour. We are the process of weaning the pressors. The patient was given 1 dose of Solu Medrol in the emergency pH was also given a dose of cefepime and Zithromax. Chest x-ray showing chronic interstitial changes and fibrosis and lung bases bilaterally and there is no evidence of any acute consolidation. No change in mental status. No hemoptysis. No pleurisy. No major swelling lower extremities. She is quite anxious. She has chronic history of depression/ anxiety and insomnia.. The most recent echocardiogram that was obtained here in the hospital was from 2016 and it showed a preserved LV function and mild aortic stenosis. The rest of the valvular structures were essentially within normal limits. Note that her cardiac surgery was performed at [facility] back in 2013. On 09/21/2016 the patient is being seen in follow-up. The patient was screened for influenza and she checked positive for influenza A. She was started on Tamiflu 75 mg by mouth twice a day. Note that there was a concern of an underlying pneumonia and for that reason the patient was started on tigecycline knowing that this antibiotic as the least amount of interaction with Tykosine. I further discussed the case with the journeyman meat cutter and I and up stopping the patient's Tykosine due to a series of interactions with various medications that we use in the intensive care unit. The patient's cardiac rhythm is still sinus for now. Note that the patient is improved compared to yesterday. The patient is off pressors since yesterday. She was briefly placed on norepinephrine infusion which was discontinued yesterday. Currently she is maintaining home blood pressure. She is currently on a normal saline infusion at the rate of 100 mL an hour. Afebrile. She is free of any chest pain. No nausea or vomiting. No abdominal pain. Chest x-ray today shows some chronic interstitial changes of fibrosis and lung bases with some limited infiltration of the left lung base and an underlying left lower lobe pneumonia cannot be completely excluded. Meanwhile, the patient's INR is dropped down to 1.7 and the patient was receiving 10 mg of Coumadin today. Objective - Vital Signs Vital signs: Vital Signs Temp 98.7 F 09/21/16 08:00 Pulse 57 L 09/21/16 10:00 Resp 20 09/21/16 10:00 BP 114/59 09/21/16 10:00 Pulse Ox 100 09/21/16 10:00 Intake & Output 09/20/16 09/21/16 09/21/16 18:59 06:59 18:59 Intake Total 1891.615 1991 400 Output Total 1290 2185 515 Balance 189.667 -985 -115 Weight 77.8 kg Intake: IV 1100 400 Sodium Chloride 0.9% 1, 1100 400 000 ml @ 20 mls/hr IV . Q24H [facility] Rx#:[id number] Intake, IV Titration 1479.667 100 Amount Magnesium Sulfate-D5w Pmx 200 1 gm In Dextrose/Water 1 100ml.bag @ 100 mls/hr IVPB Q1H [facility] Rx#: [id number] Norepinephrine 4 mg In 129.667 Sodium Chloride 0.9% 250 ml @ Titrate IV .Q0M [facility] Rx#:[id number] Sodium Chloride 0.9% 1, 1100 100 000 ml @ 20 mls/hr IV . Q24H [facility] Rx#:[id number] Tigecycline 50 mg In 50 Sodium Chloride 0.9% 50 ml @ 50 mls/hr IVPB Q12HR [facility] Rx#:[id number] Output: Urine 1290 2185 515 Other: Voiding Method Indwelling Catheter Indwelling Catheter Indwelling Catheter # Bowel Movements 0 - Exam Head exam was generally normal. There was no scleral icterus or corneal arcus. Mucous membranes were moist. Neck is supple and the patient has bilateral JVDs and there is no goiter or neck masses. Lungs sounds are diminished in lung bases. There is diffuse extremity wheezes throughout the lung is bilaterally. The patient has significant prolongation of expiratory phase of breathing. Crackles can be also appreciated the lung bases bilaterally. Heart sounds are regular, positive since 2, and there is accentuation of the second heart sound. Abdominal exam revealed normal bowel sounds. The abdomen was soft, non-tender , and without masses, organomegaly, or appreciable enlargement of the abdominal aorta.Examination of the extremities revealed easily palpable radial, femoral and pedal pulses. There was no cyanosis, clubbing or edema. Skin the patient has a scar of previous thoracotomy over the anterior chest area. - Labs CBC & Chem 7: 09/21/16 04:44 09/21/16 04:44 Labs: Abnormal Lab Results - Last 24 Hours (Table) 09/20/16 09/21/16 09/21/16 Range/Units 05:08 04:44 04:44 RBC 3.50 L (3.80-5.40) m/uL Hgb 11.1 L (11.4-16.0) gm/dL Lymphocytes # 0.8 L (1.0-4.8) k/uL PT 16.1 H (9.0-12.0) sec Chloride (98-107) mmol/L Glucose (74-99) mg/dL POC Glucose (mg/dL) (75-99) mg/dL Calcium (8.4-10.2) mg/dL C-Reactive Protein 44.0 H (<10.0) mg/L Influenza Type A RNA (Not Detectd) 09/21/16 09/21/16 09/21/16 Range/Units 04:44 07:53 08:17 RBC (3.80-5.40) m/uL Hgb (11.4-16.0) gm/dL Lymphocytes # (1.0-4.8) k/uL PT (9.0-12.0) sec Chloride 110 H (98-107) mmol/L Glucose 149 H (74-99) mg/dL POC Glucose (mg/dL) 139 H (75-99) mg/dL Calcium 8.2 L (8.4-10.2) mg/dL C-Reactive Protein (<10.0) mg/L Influenza Type A RNA Detected H (Not Detectd) Microbiology - Last 24 Hours (Table) 09/20/16 08:55 Gram Stain - Preliminary Sputum 09/20/16 03:40 Urine Culture - Preliminary Urine,Catheterized Assessment and Plan Plan: Assessment 1 acute shortness of breath, secondary to an acute COPD exacerbation with 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 Chest x-ray shows no acute pulmonary infiltrates or pneumonias and the findings are essentially chronic and consistent with pulmonary fibrosis. On 017 the patient shortness of breath has improved. The patient was diagnosed having an acute influenza taken bronchitis/pneumonia and the patient was started on Tamiflu. The patient was placed in respiratory isolation. She is less short of breath compared to yesterday. She is currently on 2 L of oxygen nasal cannula. 2 acute hypotension, rule out underlying sepsis. No evidence of any cardiogenic shock and the patient is currently on 5 mics of norepinephrine infusion for for blood pressure control On 09/21/2016, the patient's hemodynamics is stable and the patient is off pressors 3 paroxysmal atrial fibrillation/flutter and the patient is on anticoagulants with a therapeutic PT/INR. The patient is also on Tykosin and Lopressor for rate control On 09/21/2016, the patient is currently off TYKOSIN, and the patient is still in sinus rhythm with a subtherapeutic PT/INR. The patient will be given 10 mg of Coumadin today. 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 Plan Continue Xopenex and Atrovent about treatments around the clock. Continue insulin Medrol for another 24 hours. Continue the tigecycline. Continue the Tamiflu. Give the patient undergoes a Coumadin today to adjust the PT/INR and bring the INR above 2. The patient is off pressors. The patient can be moved to a telemetry unit today to be further monitored.
[2016-09-21 12:23] LABS: Hemoglobin A1C 5.7 % (4.2-6.1)
[2016-09-21 12:23] LABS: Glucose,Whole Blood 97 mg/dL (75-99)
[2016-09-21 16:58] LABS: Glucose,Whole Blood 142 mg/dL (75-99)
[2016-09-21 21:44] LABS: Glucose,Whole Blood 161 mg/dL (75-99)
[2016-09-21] MEDS: MIRTAZAPINE 15 MG TAB PO SCH (21:44)
[2016-09-21] MEDS: WARFARIN 10 MG TAB PO SCH (21:44)
[2016-09-21] MEDS: ATORVASTATIN 20 MG TAB PO SCH (21:44)
[2016-09-22] MEDS: methylPREDNISolone SOD SUCCI 125 MG/2 ML VIAL IV SCH ×2 (06:16→13:34)
--- NOTE | 2016-09-22 06:50 | PN ---
DATE OF SERVICE: 09/21/2016 This 66-year-old woman who was admitted with significant respiratory difficulties with possible pneumonia, Gram-negative and as well as hypotension significant cardiac and pulmonary including pulmonary fibrosis and COPD has been tested for positive for influenza A. The patient has also had pseudomonas grown from the sputum culture. Patient is being treated on antivirals and as well as . Patient is on Pulmonary and Cardiology are following the patient closely. PAST MEDICAL HISTORY: Reviewed. REVIEW OF SYSTEMS: CARDIOVASCULAR: As mentioned earlier.. RESPIRATORY: As mentioned earlier. Patient is still short of breath. GI: No nausea. : No dysuria. NERVOUS SYSTEM: No numbness or weakness. Current medications are reviewed and include: 1. Tylenol 650 q.4 p.r.n. 2. Aspirin 81 mg p.o. daily. 3. Lipitor 20 mg. 4. Klonopin 1 mg b.i.d. 5. Cymbalta. 6. Humalog. 7. Atrovent. 8. Xopenex. 9. Robaxin. 10. Solu-Medrol 60 IV q.6. 11. Lopressor 25 mg b.i.d. 12. Remeron 15 mg q.h.s. 13. Narcan. 14. Habitrol. 15. Tamiflu. 16. Protonix. 17. K-Dur. 18. Mysoline. 19. Tigecycline 50 mg b.i.d. 20. Coumadin 10 mg q.h.s. PHYSICAL EXAMINATION: The patient is alert and oriented x3. Pulse is 70, blood pressure 111/71, respirations 16, temperature normal, pulse ox 99% on 2 L. HEENT: Conjunctivae normal. NECK: No jugular venous distention. CARDIOVASCULAR: S1 and S2, muffled. RESPIRATORY: Breath sounds diminished at the bases. A few scattered rhonchi and crackles. Expiratory wheezing also present. ABDOMEN: Soft, nontender. No mass palpable. LEGS: No edema, no swelling. NERVOUS SYSTEM: Higher function as mentioned. Moves all 4 limbs. No focal motor or sensory deficits. LYMPHATICS: No lymphadenopathy of neck, axillae or groin. SKIN: No ulcer, rash or bleeding. LABS: WBC 6.1, hemoglobin 11.1. Chloride 110. Otherwise, glucose 149. Calcium is 8.2. Influenza A is positive. ASSESSMENT: 1. Shortness of breath possibly multifactorial including chronic obstructive pulmonary disease acute exacerbation as well as pulmonary fibrosis acute exacerbation with possible acute Gram-negative pneumonia, possibly secondary to pseudomonas with severe sepsis, septic shock and hypotension, present on admission with acute hypoxic respiratory failure. 2. Acute Influenza A. 3. Coumadin monitoring. 4. Anemia, normocytic. 5. Atrial flutter, fibrillation history. 6. History of congestive heart failure. 7. History of coronary artery disease. 8. History of cerebrovascular accident, transient ischemic attack. 9. Gastroesophageal reflux disease. 10. Hyperlipidemia. 11. History of myocardial infarction. 12. History of pneumonia. 13. History of mitral valve replacement and tricuspid valve repair mitral regurgitation. 14. History of coronary artery disease and stent. 15. Automatic implantable cardioverter-defibrillator history. 16. History of glaucoma. 17. History of hiatal hernia. 18. History of psoriasis. 19. History of adenoidectomy. 20. History of claustrophobia. 21. Continued ongoing nicotine dependence. 22. FULL CODE. RECOMMENDATIONS AND DISCUSSION: This 66-year-old woman who presented with multiple complex medical issues as dictated above has been closely monitored in the ICU. The patient currently on broad-spectrum IV antibiotics as mentioned earlier. Will continue to monitor. Continue with bronchodilators and pressor support also. The blood pressure significantly improving at this time off Levophed drip at this time. The Tikosyn has been stopped because of the multiple interactions per Dr. Silva. Otherwise, will continue to monitor. Repeat labs will be offered. Continue with flu treatment. The prognosis extremely guarded because of multiple complex medical issues. Discussed with the patient. Discussed with the staff. Further recommendations to follow. MTDD
[2016-09-22] MEDS: IPRATROPIUM 0.5 MG/2.5 ML NEBU INHALATION SCH ×4 (07:38→18:57)
[2016-09-22] MEDS: LEVALBUTEROL NEB (CONC) 1.25 MG/0.5 ML AMP INHALATION SCH ×4 (07:38→18:57)
[2016-09-22 08:01] LABS: Glucose,Whole Blood 126 mg/dL (75-99)
[2016-09-22] MEDS: INSULIN LISPRO (humaLOG) 300 UNIT/3 ML VIAL SQ SCH ×4 (08:23→21:57)
[2016-09-22] MEDS: ASPIRIN 81 MG CHEW PO SCH (08:24)
[2016-09-22] MEDS: METOPROLOL TARTRATE 25 MG TAB PO SCH ×2 (08:25→20:47)
[2016-09-22] MEDS: NICOTINE 21MG/24HR PATCH TRANSDERM SCH (08:25)
[2016-09-22] MEDS: DULoxetine HCL 60 MG CAPSULE.DR PO SCH (08:25)
[2016-09-22] MEDS: PRIMIDONE 50 MG TAB PO SCH ×3 (08:26→20:45)
[2016-09-22] MEDS: PANTOPRAZOLE 40 MG TABLET PO SCH (08:26)
[2016-09-22] MEDS: POTASSIUM CHLORIDE ER 20 MEQ TAB.ER PO SCH (08:26)
[2016-09-22] MEDS: OSELTAMIVIR 75 MG CAP PO SCH ×2 (08:26→20:46)
[2016-09-22] MEDS: clonazePAM 1 MG TAB PO SCH ×2 (08:27→20:58)
[2016-09-22 08:49] LABS: INR 1.2 (<1.1); Prothrombin Time 11.8 sec (9.0-12.0)
[2016-09-22 08:53] LABS: Basophils % (A) 0 %; CH 30.7; CHCM 31.7; Eosinophils % (A) 0 %; HCT 36.2 % (34.0-46.0); HDW 2.72; HGB 11.5 gm/dL (11.4-16.0); Hypochromasia Slight; Luc # (Auto) 0.05; Luc % (Auto) 1; Lymphocytes # (A) 1.3 k/uL (1.0-4.8); Lymphocytes % (A) 15 %; MCH 31.1 pg (25.0-35.0); MCHC 31.8 g/dL (31.0-37.0); MCV 97.7 fL (80.0-100.0); Mean Platelet Volume 8.5; Monocytes # (A) 0.2 k/uL (0-1.0); Monocytes % (A) 2 %; Neutrophils # (A) 7.3 k/uL (1.3-7.7); Neutrophils % (A) 82 %; RDW 13.5 % (11.5-15.5); WBC 8.8 k/uL (3.8-10.6); WBC (Perox) 9.75
[2016-09-22 09:02] LABS: Anion Gap 8 mmol/L; Blood Urea Nitrogen 23 mg/dL (7-17); Calcium 8.9 mg/dL (8.4-10.2); Carbon Dioxide 27 mmol/L (22-30); Chloride 108 mmol/L (98-107); Glucose 119 mg/dL (74-99); Non-African American GFR(MDRD) >60 (>60 ml/min/1.73 sqM); Phosphorous 3.8 mg/dL (2.5-4.5); Potassium 4.7 mmol/L (3.5-5.1); Sodium 143 mmol/L (137-145)
--- NOTE | 2016-09-22 10:17 | XR ---
EXAMINATION TYPE: XR chest 1V DATE OF EXAM: 09/22/2016 9:42 AM HISTORY: Difficulty breathing. REFERENCE: Previous study dated 09/21/2016. FINDINGS: There has been a midline sternotomy and mitral valvular replacement. The heart is mildly enlarged. There is vascular congestion and pulmonary edema. No definite pleural f luid is seen. There has been no interval change in the appearance of the chest. IMPRESSION: CONTINUING CHANGES OF PULMONARY EDEMA LIKELY ON THE BASIS OF HEART FAILURE.
[2016-09-22] MEDS: TIGECYCLINE 50 MG in SODIUM CHLORIDE 0.9% 50 ML IVPB SCH (10:39)
[2016-09-22] MEDS: SODIUM CHLORIDE 0.9% 1,000 ML IV SCH (10:40)
[2016-09-22 11:31] LABS: Glucose,Whole Blood 162 mg/dL (75-99)
[2016-09-22] MEDS ORDERED: FUROSEMIDE 10 MG/ML 4 ML VIAL IV STA (14:17)
[2016-09-22 17:20] LABS: Glucose,Whole Blood 113 mg/dL (75-99)
--- NOTE | 2016-09-22 17:49 | P.PN ---
Subjective 66-year-old female patient with known history of COPD, pulmonary fibrosis, chronic cardiac disease with paroxysmal atrial fibrillation/flutter with previous amiodarone treatment it got discontinued because of pulmonary fibrosis and the patient was replaced with a consent and was maintained on long-term articulation with warfarin, presents to the emergency department because of progressive worsening shortness of breath. The patient is still smoking about 1 pack of cigarettes a day. She was having increased chest congestion, sputum production, wheezing and a sense and she was found to be hypotensive. Based on that, she was initially admitted to the medical floor and then got moved to the intensive care unit. At this point in time, the patient's history of any chest pain however she is having still cough and congestion and wheezing. She was given IV fluids and the patient got a total of 2 L in the emergency department and 1 L. ICU and currently she is on IV fluids maintenance at 100 mL an hour of normal saline and the patient is on 5 mics of norepinephrine infusion. Urine output is adequate and the patient is producing 50-100 mL an hour. We are the process of weaning the pressors. The patient was given 1 dose of Solu Medrol in the emergency pH was also given a dose of cefepime and Zithromax. Chest x-ray showing chronic interstitial changes and fibrosis and lung bases bilaterally and there is no evidence of any acute consolidation. No change in mental status. No hemoptysis. No pleurisy. No major swelling lower extremities. She is quite anxious. She has chronic history of depression/ anxiety and insomnia.. The most recent echocardiogram that was obtained here in the hospital was from 2016 and it showed a preserved LV function and mild aortic stenosis. The rest of the valvular structures were essentially within normal limits. Note that her cardiac surgery was performed at [facility] back in 2013. On 09/21/2016 the patient is being seen in follow-up. The patient was screened for influenza and she checked positive for influenza A. She was started on Tamiflu 75 mg by mouth twice a day. Note that there was a concern of an underlying pneumonia and for that reason the patient was started on tigecycline knowing that this antibiotic as the least amount of interaction with Tykosine. I further discussed the case with the station mechanic apprentice and I and up stopping the patient's Tykosine due to a series of interactions with various medications that we use in the intensive care unit. The patient's cardiac rhythm is still sinus for now. Note that the patient is improved compared to yesterday. The patient is off pressors since yesterday. She was briefly placed on norepinephrine infusion which was discontinued yesterday. Currently she is maintaining home blood pressure. She is currently on a normal saline infusion at the rate of 100 mL an hour. Afebrile. She is free of any chest pain. No nausea or vomiting. No abdominal pain. Chest x-ray today shows some chronic interstitial changes of fibrosis and lung bases with some limited infiltration of the left lung base and an underlying left lower lobe pneumonia cannot be completely excluded. Meanwhile, the patient's INR is dropped down to 1.7 and the patient was receiving 10 mg of Coumadin today. On 09/22/2016 the patient is feeling better. She was moved out of the intensive care unit the patient is currently ambulating without any major difficulties. As mentioned earlier she checked positive for influenza A and she is on Tamiflu. I had started the patient on tigecycline and I'm going to discontinue the antibiotics. As for her Rx situation, the patient is still in a sinus rhythm. She was on Tikosyn as an outpatient basis and this medication will be restarted at a dose of 250 milligrams by mouth twice a day. No loading will be utilized. Meanwhile, the patient is on anticoagulation with warfarin. The PT/INR has dropped subtherapeutic and the patient will be given 10 mg of warfarin today. She is hemodynamically stable. Objective - Vital Signs Vital signs: Vital Signs Temp 96.3 F L 09/22/16 15:00 Pulse 57 L 09/22/16 15:00 Resp 16 09/22/16 15:00 BP 119/58 09/22/16 15:00 Pulse Ox 97 09/22/16 15:00 Intake & Output 09/21/16 09/22/16 09/22/16 18:59 06:59 18:59 Intake Total 920 480 500 Output Total 1645 2225 600 Balance -725 -1745 -100 Intake: IV 560 120 Sodium Chloride 0.9% 1, 560 120 000 ml @ 20 mls/hr IV . Q24H [facility] Rx#:[id number] Oral 360 360 500 Output: Urine 1645 2225 600 Uretheral (Velazquez) 200 Other: Voiding Method Indwelling Catheter Indwelling Catheter Indwelling Catheter # Voids 1 - Exam Head exam was generally normal. There was no scleral icterus or corneal arcus. Mucous membranes were moist. Neck is supple and the patient has bilateral JVDs and there is no goiter or neck masses. Lungs sounds are diminished in lung bases. There is diffuse extremity wheezes throughout the lung is bilaterally. The patient has significant prolongation of expiratory phase of breathing. Crackles can be also appreciated the lung bases bilaterally. Heart sounds are regular, positive since 2, and there is accentuation of the second heart sound. Abdominal exam revealed normal bowel sounds. The abdomen was soft, non-tender , and without masses, organomegaly, or appreciable enlargement of the abdominal aorta.Examination of the extremities revealed easily palpable radial, femoral and pedal pulses. There was no cyanosis, clubbing or edema. Skin the patient has a scar of previous thoracotomy over the anterior chest area. - Labs CBC & Chem 7: 09/22/16 07:56 09/22/16 07:56 Labs: Abnormal Lab Results - Last 24 Hours (Table) 09/21/16 09/22/16 09/22/16 Range/Units 21:43 07:55 07:56 RBC 3.70 L (3.80-5.40) m/uL Chloride (98-107) mmol/L BUN (7-17) mg/dL Glucose (74-99) mg/dL POC Glucose (mg/dL) 161 H 126 H (75-99) mg/dL 09/22/16 09/22/16 09/22/16 Range/Units 07:56 11:27 17:14 RBC (3.80-5.40) m/uL Chloride 108 H (98-107) mmol/L BUN 23 H (7-17) mg/dL Glucose 119 H (74-99) mg/dL POC Glucose (mg/dL) 162 H 113 H (75-99) mg/dL Assessment and Plan Plan: Assessment 1 acute shortness of breath, secondary to an acute COPD exacerbation with 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 Chest x-ray shows no acute pulmonary infiltrates or pneumonias and the findings are essentially chronic and consistent with pulmonary fibrosis. On the patient shortness of breath has improved. The patient was diagnosed having an acute influenza taken bronchitis/pneumonia and the patient was started on Tamiflu. The patient was placed in respiratory isolation. She is less short of breath compared to yesterday. She is currently on 2 L of oxygen nasal cannula. On 09/22/2016, the patient is even better. She is ambulating. Antibiotics will be continued and the patient will be taken off tigecycline. We'll continue the Tamiflu. She has no specific respiratory complaints at the time being. 2 acute hypotension, rule out underlying sepsis. No evidence of any cardiogenic shock and the patient is currently on 5 mics of norepinephrine infusion for for blood pressure control On 09/21/2016, the patient's hemodynamics is stable and the patient is off pressors On 09/22/2016 the patient is still hemodynamically stable without any hypotension. 3 paroxysmal atrial fibrillation/flutter and the patient is on anticoagulants with a therapeutic PT/INR. The patient is also on Tykosin and Lopressor for rate control On 09/21/2016, the patient is currently off TYKOSIN, and the patient is still in sinus rhythm with a subtherapeutic PT/INR. The patient will be given 10 mg of Coumadin today. On 09/22/2016, the patient will be restarted back on Tikosyn and the patient will be given 10 mg of Coumadin for a subtherapeutic PT/INR. 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 Plan Continue Xopenex and Atrovent about treatments around the clock. Restart Tikosyn at 250 mg by mouth twice a day. Discontinue the tigecycline. Continue the Tamiflu. His continue the Solu-Medrol and start the patient on a prednisone burst taper. Potential discharge in the next 24- orally 8 hours depending on the patient's overall clinical condition. As for the subtherapeutic INR, the patient will be given 10 mg of Coumadin today and follow -up PT/INR we'll continue the morning.
[2016-09-22] MEDS: DOFETILIDE 250 MCG CAP PO SCH (18:12)
[2016-09-22] MEDS: predniSONE 20 MG TAB PO SCH (18:12)
--- NOTE | 2016-09-22 19:47 | PN ---
DATE OF SERVICE: 09/22/2016 This 66-year-old woman who was admitted with significant respiratory difficulties as well as COPD, acute exacerbation, also had possible Gram-negative pneumonia. The patient also had pseudomonas grown from the culture. Patient is positive for influenza A also. The patient also has severe sepsis. She is still complaining of significant shortness of breath. A chest x-ray done today which is reviewed by me showed continuing pulmonary edema-like changes, reported as pulmonary edema-like changes. The patient is being followed by Dr. Silva as well. NT-proBNP is only 2000 and a 2-D echo showed ejection fraction about 50% to 55%. Past medical history reviewed. REVIEW OF SYSTEMS: CARDIOVASCULAR SYSTEM: As mentioned earlier. RESPIRATORY SYSTEM: As mentioned earlier. GI: No nausea. : No dysuria. NERVOUS SYSTEM: No numbness or weakness. Current medications are reviewed and include: 1. Tylenol 650 q.4 p.r.n. 2. Aspirin 81 mg daily. 3. Lipitor. 4. Klonopin. 5. Cymbalta. 6. Humalog. 7. Atrovent. 8. Xopenex. 9. Robaxin. 10. Solu-Medrol 60 IV q.6. 11. Remeron. 12. Habitrol 21. 13. Tamiflu. 14. Oxyir. 15. Protonix. 16. Tikosyn. PHYSICAL EXAMINATION: Patient is alert and oriented x3. Pulse is 53, blood pressure 124/61, respiratory rate 16, temperature 97.1, pulse ox 98% on 2 L. HEENT: Conjunctivae normal. NECK: No jugular venous distention. CARDIOVASCULAR SYSTEM: S1, S2 muffled. RESPIRATORY SYSTEM: Breath sounds diminished at the bases. Bilateral scattered rhonchi and crackles. ABDOMEN: Soft, non-tender. No mass palpable. LEGS: No edema. No swelling. NERVOUS SYSTEM: No focal deficit. LABS: Hemoglobin 11.5. INR 1.2. Glucose 162. UA noted. Influenza A is positive. ASSESSMENT: 1. Shortness of breath, possibly multifactorial, including chronic obstructive pulmonary disease, acute exacerbation, as well as pulmonary fibrosis, acute exacerbation, with possibly Gram-negative pneumonia possibly secondary to pseudomonas and severe sepsis, septic shock, hypotension, present on admission, with acute hypoxic respiratory failure, status post BiPAP. 2. Acute influenza A. 3. Coumadin monitoring. 4. Anemia, normocytic. 5. Atrial flutter/fibrillation history. 6. History of congestive heart failure. 7. History of coronary artery disease. 8. History of cerebrovascular accident, transient ischemic attack. 9. Gastroesophageal reflux disease. 10. Hyperlipidemia. 11. History of myocardial infarction. 12. History of pneumonia. 13. History of mitral replacement as well as tricuspid valve repair with mitral regurgitation. 14. History of coronary artery disease and stent. 15. Automatic implantable cardioverter defibrillator history. 16. History of glaucoma. 17. History of hiatal hernia. 18. History of psoriasis. 19. History of adenoidectomy. 20. History of claustrophobia. 21. Continued ongoing nicotine dependence. 22. FULL CODE. RECOMMENDATIONS AND DISCUSSION: I recommend to continue with the current medications, continue with the monitoring, symptomatic treatment. Otherwise, we will monitor the patient closely. Guarded prognosis because of multiple complex medical issues. Repeat labs. See orders for further details. Further recommendations to follow. I would also recommend a dose of Lasix. Monitor PT, INR closely.
[2016-09-22] MEDS: MIRTAZAPINE 15 MG TAB PO SCH (20:47)
[2016-09-22] MEDS: ATORVASTATIN 20 MG TAB PO SCH (20:47)
[2016-09-22] MEDS: WARFARIN 10 MG TAB PO SCH (20:48)
[2016-09-22 21:16] LABS: Glucose,Whole Blood 167 mg/dL (75-99)
[2016-09-23] MEDS: PRIMIDONE 50 MG TAB PO SCH ×3 (01:28→11:39)
[2016-09-23 07:45] LABS: Glucose,Whole Blood 148 mg/dL (75-99)
[2016-09-23] MEDS: LEVALBUTEROL NEB (CONC) 1.25 MG/0.5 ML AMP INHALATION SCH ×2 (07:49→11:03)
[2016-09-23] MEDS: IPRATROPIUM 0.5 MG/2.5 ML NEBU INHALATION SCH ×2 (07:49→11:03)
[2016-09-23] MEDS: DOFETILIDE 250 MCG CAP PO SCH (08:03)
[2016-09-23 08:06] VITALS: BP 91/41; RESP 16; TEMP 97.9
[2016-09-23] MEDS: PANTOPRAZOLE 40 MG TABLET PO SCH (08:07)
[2016-09-23] MEDS: POTASSIUM CHLORIDE ER 20 MEQ TAB.ER PO SCH (08:07)
[2016-09-23] MEDS: NICOTINE 21MG/24HR PATCH TRANSDERM SCH (08:07)
[2016-09-23] MEDS: INSULIN LISPRO (humaLOG) 300 UNIT/3 ML VIAL SQ SCH ×2 (08:07→11:56)
[2016-09-23] MEDS: METOPROLOL TARTRATE 25 MG TAB PO SCH (08:07)
[2016-09-23] MEDS: ASPIRIN 81 MG CHEW PO SCH (08:07)
[2016-09-23] MEDS: predniSONE 20 MG TAB PO SCH (08:07)
[2016-09-23] MEDS: clonazePAM 1 MG TAB PO SCH (08:07)
[2016-09-23] MEDS: OSELTAMIVIR 75 MG CAP PO SCH (08:07)
[2016-09-23] MEDS: DULoxetine HCL 60 MG CAPSULE.DR PO SCH (08:07)
[2016-09-23 09:31] LABS: Basophils % (A) 0 %; CH 30.9; CHCM 31.9; Eosinophils % (A) 0 %; HCT 40.3 % (34.0-46.0); HDW 2.77; HGB 12.7 gm/dL (11.4-16.0); Luc # (Auto) 0.15; Luc % (Auto) 2; Lymphocytes % (A) 20 %; MCH 30.7 pg (25.0-35.0); MCHC 31.4 g/dL (31.0-37.0); MCV 97.5 fL (80.0-100.0); Mean Platelet Volume 9.1; Monocytes # (A) 0.6 k/uL (0-1.0); Monocytes % (A) 7 %; Neutrophils % (A) 71 %; RBC 4.13 m/uL (3.80-5.40); RDW 13.5 % (11.5-15.5); WBC 9.8 k/uL (3.8-10.6); WBC (Perox) 10.07
[2016-09-23 09:50] LABS: INR 1.3 (<1.1); Prothrombin Time 12.7 sec (9.0-12.0)
[2016-09-23 10:00] LABS: Anion Gap 10 mmol/L; Blood Urea Nitrogen 27 mg/dL (7-17); Carbon Dioxide 29 mmol/L (22-30); Chloride 104 mmol/L (98-107); Glucose 134 mg/dL (74-99); Non-African American GFR(MDRD) >60 (>60 ml/min/1.73 sqM); Potassium 3.6 mmol/L (3.5-5.1); Sodium 143 mmol/L (137-145)
[2016-09-23 11:06] VITALS: PULSE 68
[2016-09-23 12:04] LABS: Glucose,Whole Blood 108 mg/dL (75-99)
--- NOTE | 2016-09-23 15:01 | P.PN ---
Subjective 66-year-old female patient with known history of COPD, pulmonary fibrosis, chronic cardiac disease with paroxysmal atrial fibrillation/flutter with previous amiodarone treatment it got discontinued because of pulmonary fibrosis and the patient was replaced with a consent and was maintained on long-term articulation with warfarin, presents to the emergency department because of progressive worsening shortness of breath. The patient is still smoking about 1 pack of cigarettes a day. She was having increased chest congestion, sputum production, wheezing and a sense and she was found to be hypotensive. Based on that, she was initially admitted to the medical floor and then got moved to the intensive care unit. At this point in time, the patient's history of any chest pain however she is having still cough and congestion and wheezing. She was given IV fluids and the patient got a total of 2 L in the emergency department and 1 L. ICU and currently she is on IV fluids maintenance at 100 mL an hour of normal saline and the patient is on 5 mics of norepinephrine infusion. Urine output is adequate and the patient is producing 50-100 mL an hour. We are the process of weaning the pressors. The patient was given 1 dose of Solu Medrol in the emergency pH was also given a dose of cefepime and Zithromax. Chest x-ray showing chronic interstitial changes and fibrosis and lung bases bilaterally and there is no evidence of any acute consolidation. No change in mental status. No hemoptysis. No pleurisy. No major swelling lower extremities. She is quite anxious. She has chronic history of depression/ anxiety and insomnia.. The most recent echocardiogram that was obtained here in the hospital was from 2016 and it showed a preserved LV function and mild aortic stenosis. The rest of the valvular structures were essentially within normal limits. Note that her cardiac surgery was performed at [facility] back in 2013. She is seen again today to 2016 in follow-up. She is awake and alert in no acute distress. She is maintaining a normal sinus rhythm. She denies any worsening shortness of breath, cough or congestion. His been up ambulating in the hallway without any distress. He is maintaining good O2 saturations in the upper 90s on room air. She is afebrile. Objective - Vital Signs Vital signs: Vital Signs Temp 97.9 F 09/23/16 07:00 Pulse 68 09/23/16 11:15 Resp 16 09/23/16 07:00 BP 91/41 09/23/16 07:00 Pulse Ox 97 09/23/16 07:45 Intake & Output 09/22/16 09/23/16 09/23/16 18:59 06:59 18:59 Intake Total 500 480 Output Total 600 402 Balance -100 78 Intake: Oral 500 480 Output: Urine 600 402 Uretheral (Velazquez) 200 Other: Voiding Method Indwelling Catheter Toilet # Voids 3 0 3 # Bowel Movements 0 - Exam GENERAL EXAM: Alert, active, comfortable in no apparent distress. HEAD: Normocephalic. EYES: Normal reaction of pupils, equal size. NOSE: Clear with pink turbinates. THROAT: No erythema or exudates. NECK: No masses, no JVD. CHEST: No chest wall deformity. LUNGS: Equal air entry with no crackles, wheeze, rhonchi or dullness. CVS: S1 and S2 normal with no audible mumurs, regular rhythm. ABDOMEN: No hepatosplenomegaly, normal bowel sounds, no guarding or rigidity. SPINE: No scoliosis or deformity SKIN: No rashes CENTRAL NERVOUS SYSTEM: No focal deficits, tone is normal in all 4 extremities. Extremities: There is no significant peripheral edema. No clubbing, no cyanosis. Peripheral pulses are intact. - Labs CBC & Chem 7: 09/23/16 08:58 09/23/16 08:58 Labs: Abnormal Lab Results - Last 24 Hours (Table) 09/22/16 09/22/16 09/23/16 Range/Units 17:14 21:14 07:25 PT (9.0-12.0) sec BUN (7-17) mg/dL Glucose (74-99) mg/dL POC Glucose (mg/dL) 113 H 167 H 148 H (75-99) mg/dL 09/23/16 09/23/16 09/23/16 Range/Units 08:58 08:58 11:54 PT 12.7 H (9.0-12.0) sec BUN 27 H (7-17) mg/dL Glucose 134 H (74-99) mg/dL POC Glucose (mg/dL) 108 H (75-99) mg/dL Microbiology - Last 24 Hours (Table) 09/20/16 08:55 Gram Stain - Preliminary Sputum Sputum Culture - Preliminary Pseudomonas aeruginosa Yeast species Assessment and Plan Plan: Assessment 1 acute shortness of breath, secondary to an acute COPD exacerbation with 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 Chest x-ray shows no acute pulmonary infiltrates or pneumonias and the findings are essentially chronic and consistent with pulmonary fibrosis. On the patient shortness of breath has improved. The patient was diagnosed having an acute influenza taken bronchitis/pneumonia and the patient was started on Tamiflu. The patient was placed in respiratory isolation. She is less short of breath compared to yesterday. She is currently on 2 L of oxygen nasal cannula. On 09/22/2016, the patient is even better. She is ambulating. Antibiotics will be continued and the patient will be taken off tigecycline. We'll continue the Tamiflu. She has no specific respiratory complaints at the time being. On 09/23/2016 the patient has been up and plating in the hallway. She denies any worsening shortness of breath, cough or congestion. No pulmonary complaints. She remains in sinus rhythm. 2 acute hypotension, rule out underlying sepsis. No evidence of any cardiogenic shock and the patient is currently on 5 mics of norepinephrine infusion for for blood pressure control On 09/21/2016, the patient's hemodynamics is stable and the patient is off pressors On 09/22/2016 the patient is still hemodynamically stable without any hypotension. 3 paroxysmal atrial fibrillation/flutter and the patient is on anticoagulants with a therapeutic PT/INR. The patient is also on Tykosin and Lopressor for rate control On 09/21/2016, the patient is currently off TYKOSIN, and the patient is still in sinus rhythm with a subtherapeutic PT/INR. The patient will be given 10 mg of Coumadin today. On 09/22/2016, the patient will be restarted back on Tikosyn and the patient will be given 10 mg of Coumadin for a subtherapeutic PT/INR. 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 Plan The patient was seen and evaluated by Dr. Silva. She'll continue with her current medications including her Tamiflu. We will increase her activity as tolerated. The patient is cleared for discharge from the pulmonary standpoint.
--- NOTE | 2016-09-24 08:47 | DS ---
DATE OF ADMISSION: 09/19/2016 DATE OF DISCHARGE: 09/23/2016 FINAL DIAGNOSES: 1. Shortness of breath, possible multifactorial including chronic obstructive pulmonary disease acute exacerbation, as well as pulmonary fibrosis acute exacerbation with possibly Gram-negative pneumonia, possibly secondary to pseudomonas and severe sepsis, septic shock, hypotension, present on admission, with acute hypoxic respiratory failure, status post BiPAP. 2. Acute influenza A. 3. Coumadin monitoring. 4. Anemia, normocytic. 5. Atrial fibrillation history. 6. History of congestive heart failure. 7. History of coronary artery disease. 8. History of cerebrovascular accident, transient ischemic attack. 9. Gastroesophageal reflux disease. 10. Hyperlipidemia. 11. History of myocardial infarction . 12. History of pneumonia. 13. History of mitral replacement as well as tricuspid valve repair with mitral regurgitation. 14. History of coronary artery disease and stent. 15. Automatic implantable cardioverter-defibrillator. 16. History of glaucoma. 17. History of hiatal hernia. 18. History of scoliosis. 19. History of adenoidectomy. 20. History of claustrophobia. 21. Continued ongoing nicotine dependence. 22. FULL CODE. 23. Chronic hypoxic respiratory failure on home oxygen nasal cannula. DISCHARGE DISPOSITION: The patient will be discharged in a stable condition with guarded prognosis. Total time taken 35 minutes. HISTORY OF PRESENT ILLNESS: This 66-year-old woman with a past medical history of multiple complex medical issues as mentioned earlier was admitted with shortness of breath which is probably multifactorial. The patient was treated with broad-spectrum IV antibiotics. The influenza A was positive also. The patient was monitored in the ICU. Pressor support was given. The patient was given Tamiflu also. The patient improved significantly. Dr. Silva saw the patient. On exam, vitals are stable. CARDIOVASCULAR SYSTEM: S1, S2 muffled. RESPIRATORY: A few scattered rhonchi and crackles. ABDOMEN: Soft. NERVOUS SYSTEM: No focal deficits. The patient had a nebulizer and oxygen at home. DISCHARGE ADVICE: 1. Diet is cardiac. 2. Activity limited until followup. 3. Follow up with Dr. Wong in 2 to 3 days. 4. Follow up with Dr. Toure as advised. 5. No smoking. Medications are: 1. ProAir HFA 2 puffs q.i.d. p.r.n. 2. Aspirin 81 mg daily. 3. Lipitor 20 mg q.h.s. 4. Symbicort 160/4.5 two puffs b.i.d. 5. Cymbalta 60 mg p.o. daily. 6. Tikosyn 250 mcg p.o. 7. Lasix 40 mg p.o. daily. 8. Albuterol and Xopenex updrafts q.i.d. and p.r.n. 9. Robaxin 750 mg p.o. t.i.d. 10. Lopressor 25 mg p.o. b.i.d. 11. Remeron 15 mg q.h.s. 12. Habitrol 21 daily. 13. Tamiflu 75 mg p.o. b.i.d. for 3 more days. 14. Protonix 40 mg p.o. daily. 15. K-Dur 20 mEq p.o. daily. 16. Mysoline 50 mg p.o. q.i.d. 17. Coumadin 10 mg p.o. q.h.s. CBC, BMP, PT, INR continue to monitor in the outpatient setting. 18. Klonopin 1 mg p.o. b.i.d. 19. OxyIR 5 mg q.6 p.r.n. 20. Prednisone taper that will 40 mg daily for 3 days; 30 for 3 days; 20 for 3 days; 10 for 3 days and then discontinue. Once again, the patient will be discharged in stable condition with guarded prognosis. MTDD
== END 2016-09-23 14:29 | disposition home or self-care (01) | DRG 871 ==
LOC: EC 17:29 → 5MS5E 19:27 → 6ICU 09-20 03:14 → 4MS4W 09-22 00:20
PROVIDERS: ADMIT Hospitalist; ATTEND Hospitalist
DX: A41.9 Sepsis, unspecified organism (principal); R65.21 Severe sepsis with septic shock; J96.21 Acute and chronic respiratory failure with hypoxia; J15.6 Pneumonia due to other Gram-negative bacteria; I95.9 Hypotension, unspecified; J84.10 Pulmonary fibrosis, unspecified; I50.9 Heart failure, unspecified; I48.92 Unspecified atrial flutter; J44.1 Chronic obstructive pulmonary disease with (acute) exacerbation; J44.0 Chronic obstructive pulmonary disease with (acute) lower respiratory infection; B96.5 Pseudomonas (aeruginosa) (mallei) (pseudomallei) as the cause of diseases classified elsewhere; I48.0 Paroxysmal atrial fibrillation; Z99.81 Dependence on supplemental oxygen; I48.2 Chronic atrial fibrillation; J11.1 Influenza due to unidentified influenza virus with other respiratory manifestations; I25.10 Atherosclerotic heart disease of native coronary artery without angina pectoris; D64.9 Anemia, unspecified; I34.0 Nonrheumatic mitral (valve) insufficiency; I69.398 Other sequelae of cerebral infarction; T46.2X5S Adverse effect of other antidysrhythmic drugs, sequela; F41.9 Anxiety disorder, unspecified; I35.0 Nonrheumatic aortic (valve) stenosis; F32.9 Major depressive disorder, single episode, unspecified; E78.5 Hyperlipidemia, unspecified; I25.2 Old myocardial infarction; M41.9 Scoliosis, unspecified; K44.9 Diaphragmatic hernia without obstruction or gangrene; K21.9 Gastro-esophageal reflux disease without esophagitis; H40.9 Unspecified glaucoma; G25.0 Essential tremor; G47.00 Insomnia, unspecified; F40.240 Claustrophobia; F17.210 Nicotine dependence, cigarettes, uncomplicated; L40.9 Psoriasis, unspecified; Z79.82 Long term (current) use of aspirin; Z79.01 Long term (current) use of anticoagulants; Z71.6 Tobacco abuse counseling; Z95.810 Presence of automatic (implantable) cardiac defibrillator; Z93.3 Colostomy status; Z95.5 Presence of coronary angioplasty implant and graft; Z87.01 Personal history of pneumonia (recurrent); Z95.2 Presence of prosthetic heart valve; Z78.9 Other specified health status; Z81.1 Family history of alcohol abuse and dependence; Z81.8 Family history of other mental and behavioral disorders; Z90.49 Acquired absence of other specified parts of digestive tract; Z90.710 Acquired absence of both cervix and uterus; Z82.3 Family history of stroke; Z91.040 Latex allergy status; Z88.0 Allergy status to penicillin; Z88.8 Allergy status to other drugs, medicaments and biological substances; Z91.048 Other nonmedicinal substance allergy status; Z79.51 Long term (current) use of inhaled steroids; Z79.899 Other long term (current) drug therapy; Z79.891 Long term (current) use of opiate analgesic; Z63.79 Other stressful life events affecting family and household
CPT/HCPCS: 36415; 71010; 71020; 80048; 80053; 81003; 82550; 82553; 83036; 83605; 83735; 83880; 84100; 84484; 85025; 85610; 85730; 86140; 87040; 87070; 87077; 87086; 87186; 87205; 87502; 93005; 93306; 94640; 94644; 94760; 96361; 96365; 96367; 96375; 99285

== ENCOUNTER → 2016-10-27 | Outpatient (CLI) | payer MEDICARE, BC ==
[2016-10-27 13:58] LABS: Basophils # (A) 0.1 k/uL (0-0.2); Basophils % (A) 1 %; CH 30.5; CHCM 31.8; Eosinophils # (A) 0.1 k/uL (0-0.7); Eosinophils % (A) 1 %; HCT 43.8 % (34.0-46.0); HDW 2.79; HGB 13.5 gm/dL (11.4-16.0); Hypochromasia Slight; Luc # (Auto) 0.24; Luc % (Auto) 3; Lymphocytes # (A) 4.3 k/uL (1.0-4.8); Lymphocytes % (A) 46 %; MCH 29.8 pg (25.0-35.0); MCHC 30.8 g/dL (31.0-37.0); MCV 96.5 fL (80.0-100.0); Monocytes # (A) 0.5 k/uL (0-1.0); Monocytes % (A) 6 %; Neutrophils # (A) 4.1 k/uL (1.3-7.7); Neutrophils % (A) 44 %; RBC 4.53 m/uL (3.80-5.40); RDW 13.4 % (11.5-15.5); WBC 9.3 k/uL (3.8-10.6); WBC (Perox) 9.07
== END | disposition home or self-care (01) ==
LOC: LABWHC1 12:01
PROVIDERS: ATTEND Internal Medicine
DX: D72.829 Elevated white blood cell count, unspecified (principal)
CPT/HCPCS: 36415; 85025

== ENCOUNTER → 2016-11-24 | Outpatient (CLI) | payer MEDICARE, BC ==
--- NOTE | 2016-11-24 18:27 | CT ---
EXAMINATION TYPE: CT sinus wo con DATE OF EXAM: 11/24/2016 5:57 PM COMPARISON: 07/03/2013 HISTORY: Facial pressure and congestion CT DLP: 556 mGycm Automated exposure control for dose reduction was used. FINDINGS: There is mild mucosal thickening in the right ethmoid sinus. There is mild mucosal thickening in the right maxillary sinus. There is bilateral patency of the ostiomeatal complex. There is been resection of the middle nasal turbinates. Nasal septum deviates slightly to the left side. The orbital margins are intact. The maxilla is intact. IMPRESSION: PREVIOUS SURGERY. MILD ETHMOID AND MAXILLARY SINUSITIS ON THE RIGHT SIDE. THE SINUSITIS APPEARS WORSE THAN OLD CT SCAN OF 07/03/2013. Nasal turbinate atrophy noted.
== END ==
LOC: RADCTMAIN 17:39
PROVIDERS: ATTEND Otolaryngology
DX: J32.8 Other chronic sinusitis (principal); Z98.890 Other specified postprocedural states
CPT/HCPCS: 70486

== ENCOUNTER 2016-12-15 09:17 | Day surgery (SDC) | payer MEDICARE, BC ==
[2016-12-13 13:39] VITALS: BMI 27.4
[~2016-12-15 09:17] MED LIST: DEXAMETHASONE SOD PHOSPHATE 10 MG/ML 1 ML VIAL IV ONE; HYDROmorphone 1 MG/ML 1 ML SYRINGE IVP PRN; LACTATED RINGERS 1,000 ML IV SCH; MIDAZOLAM 2 MG/2 ML VIAL IV PRN; ONDANSETRON 4 MG/2 ML VIAL IVP ONE; Pre Op ABX Message 1 EACH MISC MISCELLANE ONE
[2016-12-15] MEDS: OXYMETAZOLINE 0.05% NASL SPRAY 15 ML NASAL STA ×5 (10:17→10:38)
[2016-12-15] MEDS ORDERED: OXYMETAZOLINE 0.05% NASL SPRAY 15 ML EA NOSTRIL ONE (10:17)
[2016-12-15 10:42] VITALS: TEMP 97.5
[2016-12-15] MEDS ORDERED: LIDOCAINE 1%-EPI 1:100,000 20 ML VIAL SQ ONE (10:53)
[2016-12-15] MEDS ORDERED: ePHEDrine 50 MG/ML 1 ML AMP ONE (11:02)
[2016-12-15] MEDS ORDERED: SUCCINYLCHOLINE CHLORIDE 100 MG/5 ML SYR IV ONE (11:02)
[2016-12-15] MEDS ORDERED: PROPOFOL 10 MG/ML 20 ML VIAL IV ONE (11:02)
[2016-12-15] MEDS ORDERED: LIDOCAINE 1% INJ 10MG/ML (20 ML MDV) ONE (11:02)
[2016-12-15] MEDS ORDERED: fentaNYL (PF) 50 MCG/ML 2 ML AMP ONE (11:02)
[2016-12-15] MEDS ORDERED: MIDAZOLAM 2 MG/2 ML VIAL ONE (11:02)
--- NOTE | 2016-12-15 12:07 | P.OP ---
Date of Procedure: 12/15/16 Preoperative Diagnosis: Chronic sinusitis Postoperative Diagnosis: Same Procedure(s) Performed: Bilateral endoscopic sinus surgery including bilateral maxillary antrostomy bilateral anterior and posterior ethmoidectomy balloon sinus plasty of the frontal and sphenoid sinuses Anesthesia: [place] Surgeon: Timothy Mauro Estimated Blood Loss (ml): 10 Pathology: other (Sinus contents) Condition: stable Disposition: PACU Indications for Procedure: This 66-year-old white female whose had sinus surgery previously remotely but has had persistent difficulties with more recently anterior and posterior nasal drainage which was thick mucus more so right greater than left with evidence of chronic sinusitis on computed tomography scan Operative Findings: Well-healed nasal septal perforation which is large. Septum is deviated just mildly to the left posterior to this. Middle turbinates are lateralized bilaterally worse on the right than the left with scarring. Mucosal thickening bilateral maxillary sinuses and residual ethmoid sinuses with sinuses. Unremarkable mucosa in the sphenoid and frontal sinuses. Purulence left maxillary sinus also with was cultured maxillary ostia bilaterally were obstructed Description of Procedure: Patient was brought in the operative suite and placed in a supine position. The patient underwent induction of general anesthesia with oral endotracheal intubation without difficulty. The patient was prepped and draped in usual aseptic fashion. Orbits were in the operating field for monitoring The case and computed tomography scan was on the computer screen for monitoring throughout the case. 1% lidocaine with 1 100,000 epinephrine was infused submucosally lateral nasal wall and anterior tips the middle turbinates bilaterally. This allowed to work for 7 minutes vasoconstrictive effect. Full 0 endoscopic examination was performed bilaterally. Beginning on the left the middle turbinate was medialized with the [place] elevator. Max ostium was located a ballpoint probe and infundibulotomy was performed followed by uncinectomy. The maxillary ostium was enlarged at the expense of the anterior and posterior fontanelle taking care anteriorly not to injure the lacrimal bone. Anterior and posterior ethmoidectomy was then performed from anterior to posterior to the level of skull base. Balloon sinus plasty was performed of the sphenoid and frontal sinuses with the entellus light guided system. All sinuses were then explored endoscopically. Attention was then turned to the right where the procedures were followed as they had been on the right. There was purulence coming from the right maxillary sinus and therefore this was cultured. The infundibulotomy uncinectomy maxillary antrostomy anterior posterior ethmoidectomy and balloon sinus plasty of the bilateral frontal and sphenoid sinuses with the entellus light guided system and sinuses were explored. Once this completed a combination of standard and firm nasal pore nasal dressings were placed in the middle meatus under direct visualization. The patient was then suctioned in oral gastric fashion. The patient was allowed to emerge from general anesthesia was extubated in the operating suite having tolerated procedure well and was transferred to postop recovery area in satisfactory condition.
[2016-12-15 13:15] VITALS: RESP 16
[2016-12-15 13:30] VITALS: PULSE 73
[2016-12-15 13:35] VITALS: BP 91/63
== END 2016-12-15 13:50 | disposition home or self-care (01) ==
LOC: OR 09:17
PROVIDERS: ATTEND Otolaryngology
DX: J32.9 Chronic sinusitis, unspecified (principal); J32.4 Chronic pansinusitis; J34.2 Deviated nasal septum; F17.200 Nicotine dependence, unspecified, uncomplicated; M19.90 Unspecified osteoarthritis, unspecified site; J44.9 Chronic obstructive pulmonary disease, unspecified; K58.9 Irritable bowel syndrome, unspecified; I25.10 Atherosclerotic heart disease of native coronary artery without angina pectoris; I48.91 Unspecified atrial fibrillation; I49.9 Cardiac arrhythmia, unspecified; I10 Essential (primary) hypertension; E78.5 Hyperlipidemia, unspecified; J45.909 Unspecified asthma, uncomplicated; I69.354 Hemiplegia and hemiparesis following cerebral infarction affecting left non-dominant side; K21.9 Gastro-esophageal reflux disease without esophagitis; Z79.82 Long term (current) use of aspirin; Z79.2 Long term (current) use of antibiotics; Z79.01 Long term (current) use of anticoagulants; Z79.891 Long term (current) use of opiate analgesic; Z79.52 Long term (current) use of systemic steroids; Z79.899 Other long term (current) drug therapy; Z88.0 Allergy status to penicillin; Z88.8 Allergy status to other drugs, medicaments and biological substances; Z91.040 Latex allergy status
CPT/HCPCS: 88305; 85610; 87070; 87205; 87075; 87077; 87186; 31267; 31255; 31296; 31297; C1726; J2250; J1100; J2405; J2001; J3010; J0330; J2704

== ENCOUNTER → 2017-03-28 | Outpatient (CLI) | payer MEDICARE, BC ==
[2017-03-28 13:31] LABS: Anion Gap 11 mmol/L; Blood Urea Nitrogen 15 mg/dL (7-17); Calcium 9.2 mg/dL (8.4-10.2); Carbon Dioxide 28 mmol/L (22-30); Chloride 103 mmol/L (98-107); Glucose 98 mg/dL (74-99); Magnesium 2.1 mg/dL (1.6-2.3); Non-African American GFR(MDRD) 58 (>60 ml/min/1.73 sqM); Potassium 4.8 mmol/L (3.5-5.1); Sodium 142 mmol/L (137-145)
== END | disposition home or self-care (01) ==
LOC: LABWHC1 12:33
PROVIDERS: ATTEND Internal Medicine
DX: I48.1 Persistent atrial fibrillation (principal)
CPT/HCPCS: 36415; 80048; 83735

== ENCOUNTER → 2017-11-18 | Outpatient (CLI) | payer MEDICARE, BC ==
--- NOTE | 2017-11-18 11:19 | CTL ---
EXAMINATION TYPE: CT Low Dose Lung DATE OF EXAM ORDERED: 11/18/2017 HISTORY: Long-term tobacco use.. Lung cancer screening CT DLP: [address] CTDI: 2.68 mGy Automated exposure control for dose reduction was used. SCREENING VISIT: Initial study COMPARISON: CT chest and abdomen August 28, 2015 TECHNIQUE: Low dose computed tomography scan was performed through the chest at 1 mm thick sections a nd reconstructed images in the coronal plane at [address] DIAGNOSTIC QUALITY: Limited, but interpretable FINDINGS: LUNG NODULES: Present, detailed below: There is 3 mm nodule in the posterior aspect left upper lobe axial image 33 seen best MIP coronal ser ies 8 image 34 There is 4 x 3 mm nodule in the lateral aspect right upper lobe seen axial image 53 but best seen on the MIP coronal images 32 and 33. There is 5 mm nodule posterior lateral aspect right lower lobe axial image 173 seen best series 8 sharita ge 37. Just anterior medial and superior to this there is smaller 4 x 3 mm nodule axial image 166. There is right upper lobe lateral 5 x 3 mm nodule axial image 82 seen coronal series 8 image 24. There is 6 x 4 mm left upper lobe nodule axial image 72 seen coronal image 23 series 8. In the right midlung anterior aspect there is 8 x 3 mm oval nodular opacity axial image 138 There are additional scattered 4 mm smaller nodules bilateral upper lobes series 8 image 36, left mid lung series 8 image 21, left upper lung series 8 image 18 LUNGS: COPD: Severity: Severe Fibrosis: Severity: Moderate to severe apical fibrosis with some honeycombing. Moderate peripheral fi brosis bilaterally is prominent and upper lungs. Lymph nodes: No suspicious greater than 1 cm Other findings: No significant acute pulmonary process. 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 Bony thorax: Fairly moderate multilevel spurring in the thoracic spine. Supraclavicular region: No suspicious abnormality. Other: There is suspected metallic mitral valve. Main pulmonary artery at bifurcation measures 3.0 cm in diameter axial image 108, CT finding that is consistent with mild underlying pulmonary artery hyp ertension. IMPRESSION: Moderate to advanced underlying emphysematous change with fairly moderate fibrosis. No ac council pulmonary process. Scattered small nodules as detailed above, prior study had areas of infiltrate with small nodules making correlating for new or stable findings impossible or suboptimal. Largest m easured lesion is 5.5 mm mean axis. FOLLOW UP CT CHEST RECOMMENDATION: Annual low-dose lung screening CT CT LUNG RAD: Lung-Rad 2 Benign Appearance or Behavior
--- NOTE | 2017-11-18 14:05 | US ---
EXAMINATION TYPE: US abdomen complete DATE OF EXAM: 11/18/2017 COMPARISON: CT CLINICAL HISTORY: Elevated LFTS R94.5; RUQ pain radiating to back per patient EXAM MEASUREMENTS: Liver Length: 12.3 cm Gallbladder Wall: 0.2 cm CBD: 0.3 cm Spleen: 10.0 cm Right Kidney: 8.2 x 4.6 x 3.7 cm Left Kidney: 8.9 x 5.4 x 4.5 cm Pancreas: hyperechoic Liver: no masses seen Gallbladder: multiple, mobile shadowing stones Evidence for sonographic Thomas's sign: Yes CBD: wnl Spleen: wnl Right Kidney: superior cortical cyst = 1.4 x 1.4 x 0.9cm Left Kidney: wnl and cortical medullary differentiation is maintained bilaterally. Upper IVC: wnl Abd Aorta: size is wnl; irregular, intimal thickening is noted mid and distally There is no ascites. IMPRESSION: Cholelithiasis. Additional findings above.
--- NOTE | 2017-11-21 10:55 | MM ---
Reason for exam: screening (asymptomatic). Last mammogram was performed 4 years and 4 months ago. History: Patient is postmenopausal. Taking estrogen for 14 years. Physical Findings: A clinical breast exam by your physician is recommended on an annual basis and results should be correlated with mammographic findings. MG Screening Mammo w CAD Bilateral CC and MLO view(s) were taken. Prior study comparison: July 13, 2013, bilateral digital screening mammo w/CAD. The breast tissue is heterogeneously dense. This may lower the sensitivity of mammography. No suspicious abnormality. No significant changes when compared with prior studies. ASSESSMENT: Negative, BI-RAD 1 RECOMMENDATION: Routine screening mammogram of both breasts in 1 year.
== END | disposition home or self-care (01) ==
LOC: RADCTMAIN 09:34
PROVIDERS: ATTEND Internal Medicine
DX: Z12.31 Encounter for screening mammogram for malignant neoplasm of breast (principal); K80.20 Calculus of gallbladder without cholecystitis without obstruction; N28.1 Cyst of kidney, acquired; J84.10 Pulmonary fibrosis, unspecified; J43.9 Emphysema, unspecified; R91.8 Other nonspecific abnormal finding of lung field; Z12.2 Encounter for screening for malignant neoplasm of respiratory organs; Z87.891 Personal history of nicotine dependence
CPT/HCPCS: 77067; 76700; G0297

== ENCOUNTER → 2017-12-13 | Outpatient (CLI) | payer MEDICARE, BC ==
--- NOTE | 2017-12-14 08:44 | CT ---
EXAMINATION TYPE: CT abdomen pelvis w con DATE OF EXAM: 12/13/2017 HISTORY: Right sided abdominal pain and back pain. CT DLP: 1232mGycm Automated Exposure Control for Dose Reduction was Utilized. CONTRAST: CT scan of the abdomen and pelvis is performed with IV Contrast, patient injected with 100 mL of Isov ue 300. COMPARISON: 08/28/2015. FINDINGS: LUNG BASES: There is a 4 mm pulmonary nodule within the right lung base on image 1 adjacent to an add itional 4 mm pulmonary nodule on image 3. Subpleural pulmonary nodule anteriorly on image 5 measures 3 to 4 mm. Diffuse subpleural prominent reticulation and intralobular lobular septal thickening with subtle honeycombing relate to pulmonary fibrosis. LIVER/GB: No significant abnormality is appreciated. No cholelithiasis. No intrahepatic biliary ducta l dilatation. PANCREAS: No significant abnormality is seen. No ductal dilatation. SPLEEN: No significant abnormality is seen. No splenomegaly. ADRENALS: No significant abnormality is seen. No nodularity or thickening. KIDNEYS: There is a 1.5 cm right upper pole renal cyst and too small to accurately characterize 5 mm left lower pole hypoattenuated renal lesion. No hydronephrosis is seen. BOWEL: Diverting ostomy is seen within the left mid abdomen with decompression of the distal descendi ng colon. There is herniation of mesenteric fat into the ostomy site. Sutures are noted at the sigmoi d colon. Scattered colonic diverticula are present without pericolonic fat stranding. Appendix is air -filled and within normal limits. Small bowel demonstrates no focal bowel wall thickening. No dilatio n. UTERUS/ADNEXA: Surgically absent uterus. Ovaries are nonvisualized. LYMPH NODES: No greater than 1cm abdominal or pelvic lymph nodes are appreciated. OSSEOUS STRUCTURES: Minimal multilevel degenerative changes of the visualized thoracolumbar spine are noted. OTHER: Moderate calcific atheromatous changes are seen in the abdominal aorta and its branches. Abdom inal aorta is of normal course and caliber. IMPRESSION: 1. No significant CT finding is seen to account for patient's clinical symptoms. 2. Redemonstration of pulmonary fibrosis and multiple subcentimeter pulmonary nodules. Again follow-u p low dose CT is recommended in one year from the prior low-dose CT on 11/18/2017. 3. Colonic diverticulosis without evidence of diverticulitis and uncomplicated left paracentral ostom y.
== END | disposition home or self-care (01) ==
LOC: RADCTMAIN 17:21
PROVIDERS: ATTEND Surgery
DX: K57.30 Diverticulosis of large intestine without perforation or abscess without bleeding (principal)
CPT/HCPCS: 82565; 84520; 74177; 36415; Q9967

== ENCOUNTER → 2022-03-01 | Outpatient (CLI) | payer MEDICARE, BC ==
[2022-03-01 23:00] LABS: INR 1.26 (0.90-1.11); Prothrombin Time 14.1 sec (9.9-11.9)
[2022-03-02 00:15] LABS: African American GFR (CKD) 90.9 (60.0-200.0); Anion Gap 13.2 mmol/L (10.00-18.00); BUN/Creat Ratio 9.46 Ratio (12.00-20.00); Blood Urea Nitrogen 7.1 mg/dL (9.0-27.0); Calcium 9.5 mg/dL (8.7-10.3); Carbon Dioxide 23.4 mmol/L (20.0-27.5); Non-African American GFR(CKD) 78.4 (60.0-200.0); Potassium 5.4 mmol/L (3.5-5.5)
[2022-03-02 00:57] LABS: Basophils # (A) 0.02 X 10*3/uL (0.00-0.10); Basophils % (A) 0.2 %; Eosinophils # (A) 0.18 X 10*3/uL (0.04-0.35); Eosinophils % (A) 2.1 %; HCT 44.5 % (37.2-46.3); HGB 13.3 g/dL (12.0-15.0); Immature Grans, Automated 0.1 %; Lymphocytes # (A) 4.35 X 10*3/uL (0.90-5.00); Lymphocytes % (A) 50.6 %; MCH 28.5 pg (27.0-32.0); MCHC 29.9 g/dL (32.0-37.0); MCV 95.5 fL (80.0-97.0); Mean Platelet Volume 11.9 fL (9.5-12.2); Monocytes % (A) 5.8 %; NRBC Per 100 WBC 0 /100 WBCS (0.0-0.0); Neutrophils # (A) 3.54 X 10*3/uL (1.80-7.70); Neutrophils % (A) 41.2 %; Platelet Count 323 X 10*3/uL (140-440); RBC 4.66 X 10*6/uL (4.10-5.20); RDW 13.4 % (11.5-14.5)
== END | disposition home or self-care (01) ==
LOC: LABWHC1 15:06
PROVIDERS: ATTEND Internal Medicine
DX: I48.91 Unspecified atrial fibrillation (principal)
CPT/HCPCS: 36415; 80048; 85025; 85610

== ENCOUNTER → 2022-07-21 | Outpatient (CLI) | payer MEDICARE, BC ==
--- NOTE | 2022-07-21 10:19 | US ---
EXAMINATION TYPE: US abdomen complete DATE OF EXAM: 07/21/2022 COMPARISON: CLINICAL HISTORY: R10.11 RIGHT UPPER QUADRANT PAIN. Previous modality showed gall stones. RUQ pain. TECHNIQUE: Multiple sonographic images of the abdomen are obtained. FINDINGS: EXAM MEASUREMENTS: Liver Length: 13.5 cm Gallbladder Wall: 0.1 cm CBD: 0.3 cm Spleen: 9.0 cm Right Kidney: 9.0 x 3.9 x 3.4 cm Left Kidney: 8.9 x 3.9 x 4.6 cm Pancreas: wnl Liver: wnl Gallbladder: Multiple mobile stones Evidence for sonographic Thomas's sign: neg CBD: wnl Spleen: wnl Right Kidney: Upper lateral cortical simple appearing cyst = 1.7 x 1.6 x 1.4 cm Left Kidney: Mid cortical simple appearing cyst = 1.2 x 1.1 x 1.0 cm Upper IVC: wnl Abd Aorta: Plaque visualized. No AAA seen at time of scan. The liver is homogenous. The intrahepatic portion of the IVC and proximal abdominal aorta are within normal limits. Common bile duct is unremarkable. The visualized portions of the pancreas are homog enous. The spleen is unremarkable. Kidneys are symmetric and free of hydronephrosis. IMPRESSION: 1. Uncomplicated cholelithiasis. 2. Simple cysts bilateral kidneys.
== END | disposition home or self-care (01) ==
LOC: RADUSWWP 08:07
PROVIDERS: ATTEND Internal Medicine
DX: K80.20 Calculus of gallbladder without cholecystitis without obstruction (principal); N28.1 Cyst of kidney, acquired
CPT/HCPCS: 76700

== ENCOUNTER → 2022-07-21 | Outpatient (CLI) | payer MEDICARE, BC ==
--- NOTE | 2022-07-21 08:38 | CT ---
EXAMINATION TYPE: CT sinus wo con DATE OF EXAM: 07/21/2022 COMPARISON: 11/24/2016 HISTORY: 72-year-old female J32.9, Chronic sinusitis. CT DLP: 592 mGycm Automated exposure control for dose reduction was used. TECHNIQUE: Noncontrast axial views of the paranasal sinuses were obtained. Coronal and sagittal refor matted images were obtained from the axial views for evaluation of nasal cavity, osteomeatal complex and skull base integrity. FINDINGS: PARANASAL SINUSES: There is moderate to severe mucosal thickening throughout the right maxillary sinus with small air-fl uid level. Interval development of reactive new osteogenesis of the right maxillary sinus wall. There is extensive resection changes throughout the right nasal cavity. Additional resection of the l eft middle turbinate. Resection changes extending up into the bilateral ethmoid air cells. There is r esidual moderate mucosal thickening anterior ethmoid air cells on both sides. Mild mucosal thickening extends up into the bifrontal sinuses and also into the sphenoid sinuses. Overall changes have incre ased from 11/24/2016. Trace mucosal thickening within the left maxillary sinus with interval medial left maxillary antrecto my. THE NASAL CAVITY: Opacification of the right maxillary sinus extends to the level of the maxillary infundibulum. The le ft osteomeatal complex is widely patent. There is leftward nasal septal deviation. The visualized brain shows mild to moderate cerebral cortical volume loss. Skull base, sella, and orb its show no gross abnormality. Trace fluid is noted within the posterior left mastoid air cells. Mastoid air cells and middle ear ca vities are otherwise well pneumatized. Reformatted images confirm above findings. IMPRESSION: 1. 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 Additional resection changes of the left middle turbinate. Resection extends up into the bilateral e thmoid air cells. As compared to 2016, there has been interval medial left maxillary antrectomy. 2. Moderate to severe acute on chronic right maxillary sinusitis. Interval development of right maxil kp sinus reactive danette-osteogenesis. 3. Moderate mucosal thickening anterior ethmoid air cells and mild within the bifrontal sinuses, both sphenoid sinuses, left maxillary sinus. Overall changes have increased from 11/24/2016. 4. Prominent leftward nasal septal deviation.
== END | disposition home or self-care (01) ==
LOC: RADCTMAIN 08:04
PROVIDERS: ATTEND Otolaryngology
DX: J32.0 Chronic maxillary sinusitis (principal); J34.2 Deviated nasal septum; J34.89 Other specified disorders of nose and nasal sinuses
CPT/HCPCS: 70486

== ENCOUNTER 2022-09-03 20:03 | Emergency (ER) | payer MEDICARE, BC ==
[2022-09-03 20:11] VITALS: BP 112/74; PULSE 70; RESP 18; TEMP 97.2
[2022-09-03] MEDS ORDERED: ACETAMINOPHEN TAB 325 MG TAB PO STA (21:09)
[2022-09-03] MEDS ORDERED: TOPICAL SKIN ADHESIVE 1 EACH AMP TOPICAL ONE (21:22)
--- NOTE | 2022-09-03 21:39 | XR ---
EXAMINATION TYPE: XR chest 1V portable DATE OF EXAM: 09/03/2022 COMPARISON: 09/22/2016 HISTORY: Cough. Short of breath TECHNIQUE: Single view FINDINGS: There is no heart failure nor confluent pneumonic infiltrate. There are sternal wires. Ther e is left axillary pacemaker. No pleural effusion. IMPRESSION: No active cardiopulmonary disease. There is improved inspiration compared to old exam.
--- NOTE | 2022-09-03 21:41 | XR ---
EXAMINATION TYPE: XR hand complete LT DATE OF EXAM: 09/03/2022 COMPARISON: NONE HISTORY: Pain TECHNIQUE: 3 views FINDINGS: Metacarpals are intact. There is some narrowing of the IP joint spaces. There is narrowing and spurring at the scaphoid trapezium joint. No fracture seen. IMPRESSION: There is some osteoarthritis. No fracture seen. There is tiny metallic foreign body in th e soft tissues at the distal phalanx of the ring finger.
[2022-09-03 21:43] LABS: Basophils % (A) 0 %; Eosinophils # (A) 0.4 k/uL (0-0.7); Eosinophils % (A) 5 %; HCT 41.9 % (34.0-46.0); HGB 13.1 gm/dL (11.4-16.0); Lymphocytes # (A) 3.2 k/uL (1.0-4.8); Lymphocytes % (A) 43 %; MCH 30.2 pg (25.0-35.0); MCHC 31.3 g/dL (31.0-37.0); MCV 96.4 fL (80.0-100.0); Mean Platelet Volume 9.1; Monocytes # (A) 0.4 k/uL (0-1.0); Monocytes % (A) 6 %; Neutrophils # (A) 3.3 k/uL (1.3-7.7); Neutrophils % (A) 45 %; Platelet Count 224 k/uL (150-450); RBC 4.34 m/uL (3.80-5.40); RDW 12.9 % (11.5-15.5); WBC 7.4 k/uL (3.8-10.6)
--- NOTE | 2022-09-03 21:49 | XR ---
EXAMINATION TYPE: XR forearm LT DATE OF EXAM: 09/03/2022 COMPARISON: NONE HISTORY: Pain TECHNIQUE: 2 view FINDINGS: The radius and ulna appear intact. I see no fracture nor dislocation. Carpal bones are inta ct. There is narrowing and spurring at the scaphoid trapezium joint. Elbow joint is intact. IMPRESSION: No acute abnormality of the left forearm.
[2022-09-03 21:52] LABS: Potassium 4.1 mmol/L (3.5-5.1)
[2022-09-03 21:53] LABS: Calcium 8.9 mg/dL (8.4-10.2)
[2022-09-03 21:55] LABS: INR 1.3 (<1.2); Partial Thromboplastin Time 28.9 sec (22.0-30.0); Prothrombin Time 13.6 sec (9.0-12.0)
--- NOTE | 2022-09-03 21:58 | XR ---
EXAMINATION TYPE: XR tibia fibula LT DATE OF EXAM: 09/03/2022 COMPARISON: NONE HISTORY: Pain TECHNIQUE: 4 views FINDINGS: The tibia and fibula appear intact. No fracture seen. Knee joint and ankle joint appear int act. IMPRESSION: Negative left tibia and fibula exam. No fracture.
--- NOTE | 2022-09-03 22:00 | XR ---
EXAMINATION TYPE: XR pelvis AP view DATE OF EXAM: 09/03/2022 COMPARISON: NONE HISTORY: Fall. Pain TECHNIQUE: Single view FINDINGS: There is intact pelvic ring. There is deformity of the inferior pubic rami consistent with old fractures. There is reina and transverse screw fixing old intertrochanteric fracture left femur. No acute fracture seen. Sacroiliac joints are intact. IMPRESSION: No acute abnormality of the pelvis. No fracture.
--- NOTE | 2022-09-03 22:35 | CT ---
EXAMINATION TYPE: CT brain raymond bales con DATE OF EXAM: 09/03/2022 COMPARISON: None HISTORY: fall CT DLP: 1239.6 mGycm Automated exposure control for dose reduction was used. Images of the brain and cervical spine obtained with no contrast. There is cerebral cortical atrophy. There is no mass effect or midline shift. No sign of intracranial hemorrhage. Calvarium is intact. There is normal aeration of the mastoid sinuses. There is mucosal t hickening in the maxillary ethmoid and sphenoid sinuses. Sella turcica is normal. No evidence of orbital mass. The cervical vertebra have normal alignment. There is degenerative disc space narrowing at C5-6 and C 6-7 with spurring of the endplates. There is mild multilevel hypertrophic cervical facet arthropathy. No subluxation. Prevertebral soft tissues are intact. IMPRESSION: Cerebral atrophy. There is pansinusitis. Spondylotic changes in the lower cervical spine. No acute abnormality of the cervical spine. No acute intracranial abnormality.
[2022-09-03] MEDS ORDERED: DIPH,PERTUS(ACELL)TETVAC-LF 0.5 ML VIAL IM ONE (22:47)
--- NOTE | 2022-09-03 22:55 | ED ---
General Adult HPI - General Chief complaint: Skin/Abscess/Foreign Body Stated complaint: Fall, Arm & Leg Injury Time Seen by Provider: 09/03/22 20:49 Source: patient, RN notes reviewed, old records reviewed Mode of arrival: ambulatory Limitations: no limitations - History of Present Illness Initial comments: Patient is a 72-year-old female with past medical history remarkable for atrial fibrillation, asthma, CAD, COPD presents following a mechanical fall. Patient states she is doing going on steps and was slippery from the snow. States she lost her balance as she was opening a door and her leg got stuck in the door as well as her arm. Somehow fell forward onto her side. States she is lacerations located over her left forearm, left foreleg. States she is on Coumadin. Does not believe she hit her head. No loss consciousness. No neck pain. Denies any back pain otherwise, chest pain, shortness of breath. Denies any abdominal pain, nausea, vomiting. States she when she fell she did fall near garbage and was concerned for possible contamination the wounds. Wants to be reevaluated. Has no other acute complaints at this time. - Related Data Home Medications Medication Instructions Recorded Confirmed Atorvastatin [Lipitor] 20 mg PO HS 10/04/14 12/15/16 Primidone [Mysoline] 50 mg PO QID 10/04/14 12/15/16 Aspirin 81 mg PO DAILY 04/17/15 12/15/16 DULoxetine HCL [Cymbalta] 60 mg PO DAILY 09/19/16 12/15/16 Dofetilide [Tikosyn] 250 mcg PO BID 09/19/16 12/15/16 Ipratropium Nebulized [Atrovent 0.5 mg INHALATION RT-QID PRN 09/19/16 12/15/16 Nebulized 0.2 MG/ML] Levalbuterol Nebulized [Xopenex 1.25 mg INHALATION RT-QID 09/19/16 12/15/16 Nebulized] Metoprolol Tartrate [Lopressor] 25 mg PO BID-W/MEALS 09/19/16 12/15/16 Mirtazapine [Remeron] 30 mg PO HS 09/19/16 12/15/16 Potassium Chloride ER [K-Dur 20] 20 meq PO AC-LUNCH 09/19/16 12/15/16 Warfarin Sodium [Coumadin] 1 tab PO DIRECTED 09/19/16 12/15/16 clonazePAM [KlonoPIN] 1 mg PO TID 09/19/16 12/15/16 methocarbamoL [Robaxin-750] 750 mg PO TID PRN 09/19/16 12/15/16 oxyCODONE HCL [OxyIR] 5 mg PO Q6H PRN 09/19/16 12/15/16 Furosemide [Lasix] 40 mg PO W/LUNCH 12/13/16 12/15/16 Previous Rx's Medication Instructions Recorded Albuterol Sulfate [Proair Hfa] 2 puff INHALATION RT-Q6H PRN #0 09/23/16 Nicotine 21Mg/24Hr Patch [Habitrol] 1 patch TRANSDERM DAILY #30 patch 09/23/16 Allergies Allergy/AdvReac Type Severity Reaction Status Date / Time adhesive Allergy Rash/Hives Verified 09/03/22 20:11 latex Allergy Rash/Hives Verified 09/03/22 20:11 Penicillins Allergy Unknown Verified 09/03/22 20:11 Childhood alendronate sodium AdvReac Nausea & Verified 09/03/22 20:11 [From Fosamax] Vomiting Review of Systems ROS Statement: Those systems with pertinent positive or pertinent negative responses have been documented in the HPI. Review of Systems: CONST: Denies fever EYES: Denies blurry vision ENT: Denies nasal congestion C/V: Denies Chest pain RESP: Denies shortness of breath GI: Denies abdominal pain : Denies dysuria SKIN: Endorses lacerations MSK: Denies joint pain. NEURO: Denies headache ROS Other: All systems not noted in ROS Statement are negative. Past Medical History Past Medical History: Atrial Fibrillation, Atrial Flutter, Asthma, Coronary Artery Disease (CAD), Heart Failure, COPD, CVA/TIA, GERD/Reflux, Hyperlipidemia Additional Past Medical History / Comment(s): tremors. osteoporosis, compression fx. pulmonary fibrosis Last Myocardial Infarction Date:: unk History of Any Multi-Drug Resistant Organisms: None Reported Past Surgical History: Adenoidectomy, Bladder Surgery, Bowel Resection, Cardiac Valve Replacement, Ear Surgery, Heart Catheterization With Stent, Hysterectomy, Tonsillectomy Additional Past Surgical History / Comment(s): colostomy. open heart x2 Past Anesthesia/Blood Transfusion Reactions: No Reported Reaction Additional Past Anesthesia/Blood Transfusion Reaction / Comment(s): clausterpbobia. pt is combative when coming out of anesthesia Date of Last Stent Placement:: unk Type of Cardiac Device: Unknown Device Placement Date:: unknown Past Psychological History: No Psychological Hx Reported Smoking Status: Never smoker Past Alcohol Use History: None Reported Past Drug Use History: None Reported - Past Family History Father Family Medical History: CVA/TIA Additional Family Medical History / Comment(s): was an alcoholic, rheumatic fever as child,lost 2/3rds of stomach d/t etoh. age 61 Mother Additional Family Medical History / Comment(s): comitted suicide at age 54 General Exam - General Exam Comments Initial Comments: General: Appears in no acute distress. HEAD: Normal with no signs of head trauma. Negative magaña sign. Negative raccoon eyes. EYES: PERRLA, EOMI, conjunctiva normal, no discharge. Pupils are 3 mm and equal bilaterally. ENT: Hearing grossly intact, normal oropharynx. RESPIRATORY: Clear breath sounds bilaterally. No wheezes, rales, or rhonchi. C/V: Regular rate and rhythm. S1 and S2 auscultated. Peripheral pulses 2+ intact throughout. ABD: Abd is soft, nontender, nondistended EXT: Normal range of motion, no obvious deformity. Pelvis is stable. No midline cervical, thoracic, lumbar spine tenderness to palpation. SKIN: Superficial skin abrasions and tears located over the anterior tibia as well as the left posterior forearm and posterior hand. Not actively bleeding. NEURO: Alert and oriented x 4. Cranial nerves II-XII intact. No focal sensory or strength deficits. GCS of 15. NIH of 0. Limitations: no limitations Course Vital Signs 09/03/22 09/03/22 20:07 21:30 Temperature 97.2 F L Pulse Rate 70 70 Respiratory 18 18 Rate Blood Pressure 112/74 112/74 O2 Sat by Pulse 96 96 Oximetry Medical Decision Making - Medical Decision Making Was pt. sent in by a medical professional or institution ([facility], CONSUMER RECRUITER, urgent care, hospital, or usp...) When possible be specific @ -No Did you speak to anyone other than the patient for history (EMS, parent, family, police, friend...)? What history was obtained from this source @ -No Did you review nursing and triage notes (agree or disagree)? Why? @ -I reviewed and agree with nursing and triage notes Were old charts reviewed (outside hosp., previous admission, EMS record, old EKG, old radiological studies, urgent care reports/EKG's, usp records)? Report findings @ -No old charts were reviewed Differential Diagnosis (chest pain, altered mental status, abdominal pain women, abdominal pain men, vaginal bleeding, weakness, fever, dyspnea, syncope, headache, dizziness, GI bleed, back pain, seizure, CVA, palpatations, mental health)? @ -Mechanical fall, laceration, intracranial injury on blood thinners, supratherapeutic INR EKG interpreted by me (3pts min.). @ -None done X-rays interpreted by me (1pt min.). @ -Chest x-ray revealed no acute cardio palmar process, infiltrate, injury. Pelvic x-ray revealed no evidence of acute pelvic injury. X-rays of the left tib-fib, forearm, hand all negative for acute bony traumatic injuries. CT interpreted by me (1pt min.). @ -CT brain, C-spine revealed no acute intracranial process, injury, cervical spine injury. Radiology did note pansinusitis. U/S interpreted by me (1pt. min.). @ -None done What testing was considered but not performed or refused? (CT, X-rays, U/S, labs)? Why? @ -None What meds were considered but not given or refused? Why? @ -Will hold NSAIDs as there is concern for possible intracranial injury as she fell on blood thinners. Did you discuss the management of the patient with other professionals (dharmesh payne i.e. , PA, CONSUMER RECRUITER, lab, RT, psych nurse, health and social care teacher, motor vehicle licence examiner, teacher, staff readiness officer, case therapist)? Give summary @ -No Was smoking cessation discussed for >3mins.? @ -No Was critical care preformed (if so, how long)? @ -No Were there social determinants of health that impacted care today? How? (Homelessness, low income, unemployed, alcoholism, drug addiction, transportati on, low edu. Level, literacy, decrease access to med. care, senior care, rehab)? @ -No Was there de-escalation of care discussed even if they declined (Discuss DNR or withdrawal of care, Hospice)? DNR status @ -No What co-morbidities impacted this encounter? (DM, HTN, Smoking, COPD, CAD, Cancer, CVA, ARF, Chemo, Hep., AIDS, mental health diagnosis, sleep apnea, morbid obesity)? @ -Left-sided sensory deficits and weakness secondary to prior stroke which is chronic and affects her ability to ambulate. Was patient admitted / discharged? Hospital course, mention meds given and route, prescriptions, significant lab abnormalities, going to OR and other pertinent info. @ -Based on the patient's presentation and physical exam, I'm concerned for mechanical fall with possible injuries to her left lower leg, left forearm. Cannot rule out intracranial trauma she is on Coumadin. Last INR was 2.0 on Tuesday. We will repeat basic labs including INR and obtained x-rays of the left upper extremity and left lower extremity. Wounds will be cleaned. We will update her tetanus. CT brain and C-spine will be obtained. She was in agreement this plan. She'll receive Tylenol for pain control. Vital signs within acceptable limits. Exam is relatively unremarkable. Imaging revealed no obvious injuries. Laboratory studies revealed a subtherapeutic INR of 1.3. Remainder the labs are unremarkable. I discussed the workup with the patient. Wounds were cleaned by an educational program assistant mid-level provider. I believe it is safe for her to be discharged home at this time. She was in agreement with this plan. Discussed the obtaining INR in a few days and to continue Coumadin as prescribed. She was in agreement with this plan. Strict return precautions were discussed. I instructed the patient to follow up with their PCP in the next 1-3 days. I explained that the patient should return to the emergency department if they experience any worsening symptoms. Strict return precautions were discussed with the patient. The patient expressed understanding of these instructions. I answered all questions that the patient had. The patient was discharged home in good condition with their prescriptions and follow up information. Undiagnosed new problem with uncertain prognosis? @ -No Drug Therapy requiring intensive monitoring for toxicity (Heparin, Nitro, Insulin, Cardizem)? @ -No Were any procedures done? @ -No Diagnosis/symptom? @ -Acute lacerations Acute, or Chronic, or Acute on Chronic? @ -Acute Uncomplicated (without systemic symptoms) or Complicated (systemic symptoms)? @ -Uncomplicated Side effects of treatment? @ -No Exacerbation, Progression, or Severe Exacerbation? @ -No Poses a threat to life or bodily function? How? (Chest pain, [place], [place], pneumonia, PE, COPD, DKA, ARF, appy, cholecystitis, CVA, Diverticulitis, Homicidal, Suicidal, threat to staff... and all critical care pts) @ -No Diagnosis/symptom? @ -Mechanical fall Acute, or Chronic, or Acute on Chronic? @ -Acute Uncomplicated (without systemic symptoms) or Complicated (systemic symptoms)? @ -Uncomplicated Side effects of treatment? @ -none Exacerbation, Progression, or Severe Exacerbation] @ -no Poses a threat to life or bodily function? @ -no Diagnosis/symptom? @ -Subtherapeutic INR Acute, or Chronic, or Acute on Chronic? @ -Acute Uncomplicated (without systemic symptoms) or Complicated (systemic symptoms)? @ -Uncomplicated Side effects of treatment? @ -none Exacerbation, Progression, or Severe Exacerbation] @ -no Poses a threat to life or bodily function? @ -no - Lab Data Result diagrams: 09/03/22 21:28 09/03/22 21:28 Lab Results 09/03/22 09/03/22 09/03/22 Range/Units 21:28 21:28 21:28 WBC 7.4 (3.8-10.6) k/uL RBC 4.34 (3.80-5.40) m/uL Hgb 13.1 (11.4-16.0) gm/dL Hct 41.9 (34.0-46.0) % MCV 96.4 (80.0-100.0) fL MCH 30.2 (25.0-35.0) pg MCHC 31.3 (31.0-37.0) g/dL RDW 12.9 (11.5-15.5) % Plt Count 224 (150-450) k/uL MPV 9.1 Neutrophils % 45 % Lymphocytes % 43 % Monocytes % 6 % Eosinophils % 5 % Basophils % 0 % Neutrophils # 3.3 (1.3-7.7) k/uL Lymphocytes # 3.2 (1.0-4.8) k/uL Monocytes # 0.4 (0-1.0) k/uL Eosinophils # 0.4 (0-0.7) k/uL Basophils # 0.0 (0-0.2) k/uL PT 13.6 H (9.0-12.0) sec INR 1.3 H (<1.2) APTT 28.9 (22.0-30.0) sec Sodium 140 (137-145) mmol/L Potassium 4.1 (3.5-5.1) mmol/L Chloride 104 (98-107) mmol/L Carbon Dioxide 33 H (22-30) mmol/L Anion Gap 3 mmol/L BUN 17 (7-17) mg/dL Creatinine 0.83 (0.52-1.04) mg/dL Est GFR (CKD-EPI)AfAm 81 (>60 ml/min/1.73 sqM) Est GFR (CKD-EPI)NonAf 70 (>60 ml/min/1.73 sqM) Glucose 109 H (74-99) mg/dL Calcium 8.9 (8.4-10.2) mg/dL Disposition Clinical Impression: Fall, Abrasions of multiple sites, Subtherapeutic anticoagulation Disposition: HOME SELF-CARE Condition: Good Instructions (If sedation given, give patient instructions): Fall Prevention for Older Adults (ED) Is patient prescribed a controlled substance at d/c from ED?: No Referrals: Yoan Quiroz DO [Primary Care Provider] - 1-2 days Time of Disposition: 22:50
== END 2022-09-03 23:24 | disposition home or self-care (01) ==
LOC: EC 20:03
DX: S50.812A Abrasion of left forearm, initial encounter (principal); R79.1 Abnormal coagulation profile; E78.5 Hyperlipidemia, unspecified; I25.10 Atherosclerotic heart disease of native coronary artery without angina pectoris; I25.2 Old myocardial infarction; I48.91 Unspecified atrial fibrillation; I50.9 Heart failure, unspecified; J44.9 Chronic obstructive pulmonary disease, unspecified; K21.9 Gastro-esophageal reflux disease without esophagitis; Z79.01 Long term (current) use of anticoagulants; Z79.82 Long term (current) use of aspirin; Z79.899 Other long term (current) drug therapy; Z88.0 Allergy status to penicillin; Z91.040 Latex allergy status; Z23 Encounter for immunization; W10.9XXA Fall (on) (from) unspecified stairs and steps, initial encounter
CPT/HCPCS: 36415; 70450; 71045; 72125; 72170; 80048; 85025; 85610; 85730; 90471; 90715; 99284

== ENCOUNTER 2022-09-15 09:40 | Day surgery (SDC) | payer MEDICARE, BC ==
[2022-09-10 13:26] VITALS: BMI 19.5
[~2022-09-15 09:40] MED LIST changes: +CLINDAMYCIN 500 MG in DEXTROSE 5% IN WATER 50 ML IVPB ONE; -DEXAMETHASONE SOD PHOSPHATE 10 MG/ML 1 ML VIAL IV ONE; +DEXAMETHASONE SOD PHOSPHATE 4 MG/ML 1 ML VIAL IV PRN; +FAMOTIDINE 20 MG/2 ML VIAL IV PRN; -HYDROmorphone 1 MG/ML 1 ML SYRINGE IVP PRN; -LACTATED RINGERS 1,000 ML IV SCH; -MIDAZOLAM 2 MG/2 ML VIAL IV PRN; -ONDANSETRON 4 MG/2 ML VIAL IVP ONE; +ONDANSETRON 4 MG/2 ML VIAL IVP PRN; -Pre Op ABX Message 1 EACH MISC MISCELLANE ONE
[2022-09-15] MEDS: OXYMETAZOLINE 0.05% NASL SPRAY 1 SPRAY BOTTLE EA NOSTRIL PRN ×4 (10:30→10:45)
[2022-09-15] MEDS ORDERED: LACTATED RINGERS 1,000 ML IV ONE (10:30)
[2022-09-15] MEDS ORDERED: OXYMETAZOLINE 0.05% NASL SPRAY 1 SPRAY BOTTLE EA NOSTRIL ONE (10:50)
[2022-09-15] MEDS ORDERED: LIDOCAINE 1%-EPI 1:100,000 20 ML VIAL SUBMUCOSAL ONE ×2 (10:59→11:32)
[2022-09-15] MEDS ORDERED: BACITRACIN ZINC 500 UNIT/GM OINT 28.4 GM TUBE TOPICAL ONE ×2 (11:00→11:32)
[2022-09-15 11:08] LABS: INR 0.9 (<1.2); Prothrombin Time 9.8 sec (9.0-12.0)
[2022-09-15] MEDS ORDERED: MIDAZOLAM 2 MG/2 ML VIAL ONE (11:15)
[2022-09-15] MEDS ORDERED: PHENYLEPHRINE-0.9% NACL SYG 1,000 MCG/10 ML SYRINGE ONE (11:15)
[2022-09-15] MEDS ORDERED: ePHEDrine 50 MG/ML 1 ML VIAL ONE (11:15)
[2022-09-15] MEDS ORDERED: LIDOCAINE 2% INJ 20 MG/ML (2 ML VIAL) ONE (11:15)
[2022-09-15] MEDS ORDERED: SUCCINYLCHOLINE CHLORIDE 200 MG/10 ML VIAL IV ONE (11:15)
[2022-09-15] MEDS ORDERED: PROPOFOL 10 MG/ML 20 ML VIAL IV ONE (11:15)
[2022-09-15] MEDS ORDERED: CLINDAMYCIN 150 MG/ML 4 ML VIAL ONE (11:15)
[2022-09-15] MEDS ORDERED: fentaNYL (PF) 50 MCG/ML 2 ML AMP ONE (11:15)
--- NOTE | 2022-09-15 12:00 | P.PCN ---
Date of Procedure: 09/15/22 Preoperative Diagnosis: Chronic sinusitis Postoperative Diagnosis: Same Procedure(s) Performed: Bilateral revision endoscopic sinus surgery including right maxillary antrostomy, bilateral anterior and posterior ethmoidectomy with bilateral frontal exploration and bilateral sphenoidotomy with exploration Anesthesia: [place] Surgeon: Timothy Mauro Estimated Blood Loss (ml): 5 Pathology: other (Sinus contents) Condition: stable Disposition: PACU Indications for Procedure: This 72-year-old white female whose had difficulties with chronic and recurrent sinusitis. She's had sinus surgery previously but has had recurrent difficulties with sinusitis with evidence of this also on CT of chronic sinus disease Operative Findings: Diffuse inflammation of the right maxillary sinus bilateral anterior and posterior ethmoid sinuses frontal and sphenoid sinuses. Scarring in the middle meatus bilaterally with evidence of previous surgery with middle turbinate missing on the right. Purulence in the right maxillary sinus cultured Description of Procedure: The patient was brought in the operative suite and placed in a supine position. Patient underwent induction of general anesthesia with oral endotracheal intubation without difficulty. The patient was prepped and draped in usual aseptic fashion with the orbits in the operating field for monitoring throughout the case computed tomography scan was on the computer screen for review throughout the case. Percent lidocaine with 1-100,000 epinephrine was infused submucosally lateral nasal bravo bilaterally. This was left to work for 7 minutes vasoconstrictive effect. Full 0 endoscopic examination is performed bilaterally. Proceeding on the left the residual anterior posterior ethmoid air cells were opened with microdebrider frontal sinusotomy performed with giraffe forceps and curved suctioning and exploration performed sphenoidotomy performed with straight suction and straight Blakesley forceps. Exploration performed. Attention was then turned to the right where the ethmoidectomiesrevision, frontal sinusotomy and sphenoidotomy with exploration of both of the sinuses was performed as it was on the left. The right maxillary ostium was small and there was purulence coming from this which was cultured. The maxillary antrostomy was enlarged at the expense of the anterior and posterior fontanelle taking care anteriorly not to injure the lacrimal bone. Culture was performed and thickened mucosa removed from the posterior wall of the maxillary sinus. Good hemostasis was noted and therefore no packing was required. The patient was suctioned in oral gastric fashion and was allowed to emerge from general anesthesia having tolerated procedure well was extubated in the operating suite and transferred to postop recovery area in satisfactory condition
[2022-09-15 12:15] VITALS: TEMP 97
[2022-09-15] MEDS ORDERED: DEXAMETHASONE SOD PHOSPHATE 4 MG/ML 1 ML VIAL IV ONE (13:03)
[2022-09-15] MEDS ORDERED: LIDOCAINE 1% (10MG/ML) FOR IV START INTRADERMA PRN (13:03)
[2022-09-15] MEDS ORDERED: HYDROmorphone 0.5 MG/0.5 ML SYRINGE IVP PRN (13:03)
[2022-09-15] MEDS ORDERED: METOCLOPRAMIDE 5 MG/ML 2 ML VIAL IVP PRN (13:03)
[2022-09-15] MEDS ORDERED: LACTATED RINGERS 1,000 ML IV SCH (13:03)
[2022-09-15] MEDS ORDERED: ONDANSETRON 4 MG/2 ML VIAL IVP ONE (13:03)
[2022-09-15 13:14] VITALS: PULSE 60; RESP 18
[2022-09-15 13:15] VITALS: BP 108/73
== END 2022-09-15 13:35 | disposition home or self-care (01) ==
LOC: OR 09:40
PROVIDERS: ATTEND Otolaryngology
DX: J32.9 Chronic sinusitis, unspecified (principal); I11.0 Hypertensive heart disease with heart failure; I50.9 Heart failure, unspecified; I25.10 Atherosclerotic heart disease of native coronary artery without angina pectoris; J44.9 Chronic obstructive pulmonary disease, unspecified; I48.91 Unspecified atrial fibrillation; F17.210 Nicotine dependence, cigarettes, uncomplicated; I48.92 Unspecified atrial flutter; J84.10 Pulmonary fibrosis, unspecified; I69.354 Hemiplegia and hemiparesis following cerebral infarction affecting left non-dominant side; Z79.899 Other long term (current) drug therapy; Z98.890 Other specified postprocedural states; Z88.8 Allergy status to other drugs, medicaments and biological substances; Z88.0 Allergy status to penicillin; Z91.040 Latex allergy status
CPT/HCPCS: 85610; 87070; 87205; 87075; 31257; 31276; 31267; J2250; J0330; J1100; J2405; J3010; J2370; J2704; J2001; 87077; 87186; 88305

== ENCOUNTER 2022-09-18 14:47 | Emergency (ER) | payer MEDICARE, BC ==
[2022-09-18 15:05] VITALS: TEMP 97.5
--- NOTE | 2022-09-18 15:15 | ED ---
General Adult HPI - General Chief complaint: Extremity Injury, Lower Stated complaint: lt leg poss infection Time Seen by Provider: 09/18/22 15:12 Source: patient Mode of arrival: wheelchair Limitations: no limitations - History of Present Illness Initial comments: Patient presents to the ED with her friend for evaluation. Patient states that she had a mechanical fall 2 weeks ago, and she sustained a wound to her left jackson at that time. Patient had negative left tib/fib x-rays obtained in the ER at that time. Patient states over the past 10 days or so she has noticed increased pain and "puffiness" to the wound along her left jackson. Patient states that she has been applying a lubricant ointment without any improvement. Patient is concerned that the wound may be infected. Patient denies fever or chills, any other site of pain, dyspnea, dizziness, nausea or vomiting, or any other symptoms or complaints. Of note, patient states that she recently had sinus surgery, and she states that she just started on a 7-day course of doxycycline yesterday (post sinus surgery). - Related Data Home Medications Medication Instructions Recorded Confirmed Atorvastatin [Lipitor] 20 mg PO HS 10/04/14 09/15/22 Primidone [Mysoline] 100 mg PO QID 10/04/14 09/15/22 Aspirin 81 mg PO DAILY 04/17/15 09/15/22 DULoxetine HCL [Cymbalta] 60 mg PO QAM 09/19/16 09/15/22 Ipratropium Nebulized [Atrovent 0.5 mg INHALATION RT-QID PRN 09/19/16 09/15/22 Nebulized 0.2 MG/ML] Levalbuterol Nebulized [Xopenex 1.25 mg INHALATION RT-QID 09/19/16 09/15/22 Nebulized] Mirtazapine [Remeron] 30 mg PO HS 09/19/16 09/15/22 Warfarin Sodium [Coumadin] 10 mg PO DAILY 09/19/16 09/15/22 clonazePAM [KlonoPIN] 1 mg PO BID 09/19/16 09/15/22 methocarbamoL [Robaxin-750] 750 mg PO BID PRN 09/19/16 09/15/22 oxyCODONE HCL [OxyIR] 5 mg PO Q6H PRN 09/19/16 09/15/22 Sotalol [Betapace] 120 mg PO BID 09/10/22 09/15/22 Previous Rx's Medication Instructions Recorded Albuterol Sulfate [Proair Hfa] 2 puff INHALATION RT-Q6H PRN #0 09/23/16 Allergies Allergy/AdvReac Type Severity Reaction Status Date / Time adhesive Allergy Rash/Hives Verified 09/15/22 10:01 latex Allergy Rash/Hives Verified 09/15/22 10:01 Penicillins Allergy Unknown Verified 09/15/22 10:01 Childhood alendronate sodium AdvReac Nausea & Verified 09/15/22 10:01 [From Fosamax] Vomiting Review of Systems ROS Statement: Those systems with pertinent positive or pertinent negative responses have been documented in the HPI. ROS Other: All systems not noted in ROS Statement are negative. Past Medical History Past Medical History: Atrial Fibrillation, Atrial Flutter, Asthma, Coronary Artery Disease (CAD), Heart Failure, COPD, CVA/TIA, GERD/Reflux, Hyperlipidemia Additional Past Medical History / Comment(s): tremors. osteoporosis, compression fx. pulmonary fibrosis Last Myocardial Infarction Date:: unk History of Any Multi-Drug Resistant Organisms: None Reported Past Surgical History: Adenoidectomy, Bladder Surgery, Bowel Resection, Cardiac Valve Replacement, Ear Surgery, Heart Catheterization With Stent, Hysterectomy, Tonsillectomy Additional Past Surgical History / Comment(s): colostomy. open heart x2 Past Anesthesia/Blood Transfusion Reactions: No Reported Reaction Additional Past Anesthesia/Blood Transfusion Reaction / Comment(s): clausterpbobia. pt is combative when coming out of anesthesia Date of Last Stent Placement:: unk Type of Cardiac Device: Unknown Device Placement Date:: unknown Past Psychological History: No Psychological Hx Reported Smoking Status: Never smoker Past Alcohol Use History: None Reported Past Drug Use History: None Reported - Past Family History Father Family Medical History: CVA/TIA Additional Family Medical History / Comment(s): was an alcoholic, rheumatic fever as child,lost 2/3rds of stomach d/t etoh. age 61 Mother Additional Family Medical History / Comment(s): comitted suicide at age 54 General Exam Limitations: no limitations General appearance: alert, in no apparent distress Head exam: Present: atraumatic, normocephalic Eye exam: Present: normal appearance ENT exam: Present: mucous membranes moist Respiratory exam: Present: normal lung sounds bilaterally. Absent: respiratory distress, wheezes, rales, rhonchi, stridor Cardiovascular Exam: Present: regular rate, normal rhythm, normal heart sounds, other (Normal dorsalis pedis pulses bilaterally) Extremities exam: Present: other (An approximately 6 cm healing wound is noted to the patient's left jackson region with minimal surrounding erythema and tenderness; no fluctuance, drainage or crepitation is appreciated). Absent: pedal edema, calf tenderness Neurological exam: Present: alert, oriented X3. Absent: motor sensory deficit Psychiatric exam: Present: normal affect, normal mood Skin exam: Present: warm, dry, normal color Course Vital Signs 09/18/22 09/18/22 15:02 15:34 Temperature 97.5 F L Pulse Rate 62 60 Respiratory 18 16 Rate Blood Pressure 109/64 110/60 O2 Sat by Pulse 96 98 Oximetry Medical Decision Making - Medical Decision Making Was pt. sent in by a medical professional or institution (, PA, SLIP MAKER, urgent care, hospital, or jail...) When possible be specific @ -No Did you speak to anyone other than the patient for history (EMS, parent, family, police, friend...)? What history was obtained from this source @ -No Did you review nursing and triage notes (agree or disagree)? Why? @ -I reviewed and agree with nursing and triage notes Were old charts reviewed (outside hosp., previous admission, EMS record, old EKG, old radiological studies, urgent care reports/EKG's, jail records)? Report findings @ -No old charts were reviewed Differential Diagnosis (chest pain, altered mental status, abdominal pain women, abdominal pain men, vaginal bleeding, weakness, fever, dyspnea, syncope, headache, dizziness, GI bleed, back pain, seizure, CVA, palpatations, mental health)? @ -wound infection, cellulitis, nonhealing wound, healing wound EKG interpreted by me (3pts min.). @ -None done X-rays interpreted by me (1pt min.). @ -None done CT interpreted by me (1pt min.). @ -None done U/S interpreted by me (1pt. min.). @ -None done What testing was considered but not performed or refused? (CT, X-rays, U/S, labs)? Why? @ -None What meds were considered but not given or refused? Why? @ -None Did you discuss the management of the patient with other professionals (professionals i.e. , PA, SLIP MAKER, lab, RT, psych nurse, foster care social worker, liquor establishment manager, teacher, special officer, case filler)? Give summary @ -No Was smoking cessation discussed for >3mins.? @ -No Was critical care preformed (if so, how long)? @ -No Were there social determinants of health that impacted care today? How? (Homelessness, low income, unemployed, alcoholism, drug addiction, transportation, low edu. Level, literacy, decrease access to med. care, [facility], rehab)? @ -No Was there de-escalation of care discussed even if they declined (Discuss DNR or withdrawal of care, Hospice)? DNR status @ -No What co-morbidities impacted this encounter? (DM, HTN, Smoking, COPD, CAD, Cancer, CVA, ARF, Chemo, Hep., AIDS, mental health diagnosis, sleep apnea, morbid obesity)? @ -None Was patient admitted / discharged? Hospital course, mention meds given and route, prescriptions, significant lab abnormalities, going to OR and other pertinent info. @ -[Patient's wound appears to be healing well with minimal if any evidence of mild cellulitis. Patient is afebrile. I do not suspect any deep tissue infection at this time. Patient was just started on a 7 day course of doxyc ycline status post sinus surgery yesterday, and I have advised that she continue that course of antibiotics until completed, which will provide coverage for her left leg wound cellulitis. Patient was instructed to return to the ED should she develop drainage of pus, a fever, worsening redness, increased pain/swelling, or new or worsening symptoms. Patient was also advised to follow up closely with her primary care provider. Patient feel comfortable with this plan. Drug Therapy requiring intensive monitorig or toxicity (Heparin, Nitro, Insulin, Cardizem)? @ -[No] Were any procedures done? @ -[No] Diagnoissymptom? mild left leg wound cellulitis Acute, o Cronic, or Acute on Chronc? @ - acute Uncomplicated (without systemic sympoms) orComplicated (systemic symptoms)? @ -uncomplicated Side effects of treatment? @ -[No] xacerbaion, Progression, or Severe Exacrbtion? @ -[No] Poses a threat to life or bodily function Hw? (Chest pain, [place], [place], pneumonia, PE, COPD, DKA, ARF, appy, cholecystitis, CVA, Diverticulitis, Homicidal, Suicidal, threat to staff... and all critical care pts) @ -[No] Disposition Clinical Impression: Cellulitis of left lower extremity Disposition: HOME SELF-CARE Condition: Stable Instructions (If sedation given, give patient instructions): Cellulitis (ED) Additional Instructions: Return to the ER immediately should you develop increased redness/swelling/pain, drainage of pus, a fever, shortness of breath, feeling dizzy or faint, or new or worsening symptoms. Follow up closely with your primary care provider. Is patient prescribed a controlled substance at d/c from ED?: No Referrals: Yoan Quiroz DO [Primary Care Provider] - 1-2 days Time of Disposition: 15:47
[2022-09-18 15:35] VITALS: BP 110/60; PULSE 60; RESP 16
== END 2022-09-18 16:01 | disposition home or self-care (01) ==
LOC: EC 14:47
DX: L03.116 Cellulitis of left lower limb (principal); E78.5 Hyperlipidemia, unspecified; J45.909 Unspecified asthma, uncomplicated; I48.91 Unspecified atrial fibrillation; Z90.710 Acquired absence of both cervix and uterus; Z90.89 Acquired absence of other organs; Z88.0 Allergy status to penicillin; Z91.040 Latex allergy status; Z95.2 Presence of prosthetic heart valve; Z79.82 Long term (current) use of aspirin; Z79.899 Other long term (current) drug therapy; Z79.01 Long term (current) use of anticoagulants
CPT/HCPCS: 99283

== ENCOUNTER 2023-01-10 13:35 | Emergency (ER) | payer MEDICARE, BC ==
[2023-01-10 13:47] VITALS: TEMP 97.9
[2023-01-10] MEDS ORDERED: SODIUM CHLORIDE 0.9% 1,000 ML IV STA (14:35)
[2023-01-10 15:02] VITALS: RESP 20
--- NOTE | 2023-01-10 15:05 | ED ---
General Adult HPI - General Chief complaint: Abdominal Pain Stated complaint: Colostomy problem Time Seen by Provider: 01/10/23 14:10 Source: patient, RN notes reviewed, old records reviewed Mode of arrival: wheelchair Limitations: no limitations - History of Present Illness Initial comments: This is a 72-year-old female presents emergency department stating that she's had no output whatsoever for 5 days out of her colostomy. Patient states this is never happened before. Patient states she has quite a bit of abdominal pain mostly on the right side from the lower abdomen to the upper abdomen. Patient denies any nausea vomiting. Patient states the last time she had a bowel movement when she took Ex-Lax. Patient denies any fever chills. Patient denies any other symptoms at this time. - Related Data Home Medications Medication Instructions Recorded Confirmed Atorvastatin [Lipitor] 20 mg PO HS 10/04/14 09/15/22 Primidone [Mysoline] 100 mg PO QID 10/04/14 09/15/22 Aspirin 81 mg PO DAILY 04/17/15 09/15/22 DULoxetine HCL [Cymbalta] 60 mg PO QAM 09/19/16 09/15/22 Ipratropium Nebulized [Atrovent 0.5 mg INHALATION RT-QID PRN 09/19/16 09/15/22 Nebulized 0.2 MG/ML] Levalbuterol Nebulized [Xopenex 1.25 mg INHALATION RT-QID 09/19/16 09/15/22 Nebulized] Mirtazapine [Remeron] 30 mg PO HS 09/19/16 09/15/22 Warfarin Sodium [Coumadin] 10 mg PO DAILY 09/19/16 09/15/22 clonazePAM [KlonoPIN] 1 mg PO BID 09/19/16 09/15/22 methocarbamoL [Robaxin-750] 750 mg PO BID PRN 09/19/16 09/15/22 oxyCODONE HCL [OxyIR] 5 mg PO Q6H PRN 09/19/16 09/15/22 Sotalol [Betapace] 120 mg PO BID 09/10/22 09/15/22 Previous Rx's Medication Instructions Recorded Albuterol Sulfate [Proair Hfa] 2 puff INHALATION RT-Q6H PRN #0 09/23/16 Allergies Allergy/AdvReac Type Severity Reaction Status Date / Time adhesive Allergy Rash/Hives Verified 09/15/22 10:01 latex Allergy Rash/Hives Verified 09/15/22 10:01 Penicillins Allergy Unknown Verified 09/15/22 10:01 Childhood alendronate sodium AdvReac Nausea & Verified 09/15/22 10:01 [From Fosamax] Vomiting Review of Systems ROS Statement: Those systems with pertinent positive or pertinent negative responses have been documented in the HPI. ROS Other: All systems not noted in ROS Statement are negative. Past Medical History Past Medical History: Atrial Fibrillation, Atrial Flutter, Asthma, Coronary Artery Disease (CAD), Heart Failure, COPD, CVA/TIA, GERD/Reflux, Hyperlipidemia Additional Past Medical History / Comment(s): tremors. osteoporosis, compression fx. pulmonary fibrosis Last Myocardial Infarction Date:: unk History of Any Multi-Drug Resistant Organisms: None Reported Past Surgical History: Adenoidectomy, Bladder Surgery, Bowel Resection, Cardiac Valve Replacement, Ear Surgery, Heart Catheterization With Stent, Hysterectomy, Tonsillectomy Additional Past Surgical History / Comment(s): colostomy. open heart x2. watchman device to chest Past Anesthesia/Blood Transfusion Reactions: No Reported Reaction Additional Past Anesthesia/Blood Transfusion Reaction / Comment(s): clausterpbobia. pt is combative when coming out of anesthesia Date of Last Stent Placement:: unk Type of Cardiac Device: Unknown Device Placement Date:: unknown Past Psychological History: No Psychological Hx Reported Smoking Status: Never smoker Past Alcohol Use History: None Reported Past Drug Use History: None Reported - Past Family History Father Family Medical History: CVA/TIA Additional Family Medical History / Comment(s): was an alcoholic, rheumatic fever as child,lost 2/3rds of stomach d/t etoh. age 61 Mother Additional Family Medical History / Comment(s): comitted suicide at age 54 General Exam - General Exam Comments Initial Comments: GENERAL: Patient is well-developed and well-nourished. Patient is nontoxic and well- hydrated and is in mild distress. ENT: Neck is soft and supple. No significant lymphadenopathy is noted. Oropharynx is clear. Moist mucous membranes. Neck has full range of motion without eliciting any pain. EYES: The sclera were anicteric and conjunctiva were pink and moist. Extraocular movements were intact and pupils were equal round and reactive to light. Eyelids were unremarkable. PULMONARY: Unlabored respirations. Good breath sounds bilaterally. No audible rales rhonchi or wheezing was noted. CARDIOVASCULAR: There is a regular rate and rhythm without any murmurs gallops or rubs. ABDOMEN: Soft patient complains of some tenderness along the right side but no dist ention. SKIN: Skin is clear with no lesions or rashes and otherwise unremarkable. NEUROLOGIC: Patient is alert and oriented x3. Cranial nerves II through XII are grossly intact. Motor and sensory are also intact. Normal speech, volume and content. Symmetrical smile. MUSCULOSKELETAL: Normal extremities with adequate strength and full range of motion. LYMPHATICS: No significant lymphadenopathy is noted PSYCHIATRIC: Normal psychiatric evaluation. Limitations: no limitations Course Vital Signs 01/10/23 01/10/23 01/10/23 13:43 14:11 15:00 Temperature 97.9 F Pulse Rate 65 61 63 Respiratory 20 18 20 Rate Blood Pressure 83/58 129/89 138/77 O2 Sat by Pulse 95 99 98 Oximetry Medical Decision Making - Medical Decision Making Was pt. sent in by a medical professional or institution (, PA, FUNERAL HOME ASSISTANT, urgent care, hospital, or halfway...) When possible be specific @ -No Did you speak to anyone other than the patient for history (EMS, parent, family, police, friend...)? What history was obtained from this source @ -No Did you review nursing and triage notes (agree or disagree)? Why? @ -I reviewed and agree with nursing and triage notes Were old charts reviewed (outside hosp., previous admission, EMS record, old EKG, old radiological studies, urgent care reports/EKG's, halfway records)? Report findings @ -No old charts were reviewed Differential Diagnosis (chest pain, altered mental status, abdominal pain women, abdominal pain men, vaginal bleeding, weakness, fever, dyspnea, syncope, headache, dizziness, GI bleed, back pain, seizure, CVA, palpatations, mental health, musculoskeletal)? @ -I reviewed prior lab work and charts on this patient EKG interpreted by me (3pts min.). @ -As above X-rays interpreted by me (1pt min.). @ -KUB shows constipation CT interpreted by me (1pt min.). @ -CT was interpreted by myself and shows mild constipation. No obstruction noted U/S interpreted by me (1pt. min.). @ -None done What testing was considered but not performed or refused? (CT, X-rays, U/S, labs)? Why? @ -None What meds were considered but not given or refused? Why? @ -None Did you discuss the management of the patient with other professionals (professionals i.e. Dr., PA, FUNERAL HOME ASSISTANT, lab, RT, psych nurse, social services specialist, southeast regional sales manager, teacher, bomb squad officer, pillowcase maker)? Give summary @ -No Was smoking cessation discussed for >3mins.? @ -No Was critical care preformed (if so, how long)? @ -No Were there social determinants of health that impacted care today? How? (Freddie elessness, low income, unemployed, alcoholism, drug addiction, transportation, low edu. Level, literacy, decrease access to med. care, shelter, rehab)? @ -No Was there de-escalation of care discussed even if they declined (Discuss DNR or withdrawal of care, Hospice)? DNR status @ -No What co-morbidities impacted this encounter? (DM, HTN, Smoking, COPD, CAD, Cancer, CVA, ARF, Chemo, Hep., AIDS, mental health diagnosis, sleep apnea, morbid obesity)? @ -None Was patient admitted / discharged? Hospital course, mention meds given and route, prescriptions, significant lab abnormalities, going to OR and other pertinent info. @ -Patient had no vomiting well-nourished. No nausea. Patient had no stool production. Patient's CAT scan showed just some constipation no obstruction patient felt comfortable going home and will return if necessary. Patient also make an appointment with her surgeon Undiagnosed new problem with uncertain prognosis? @ -No Drug Therapy requiring intensive monitoring for toxicity (Heparin, Nitro, Insulin, Cardizem)? @ -No Were any procedures done? @ -No Diagnosis/symptom? @ -Constipation Acute, or Chronic, or Acute on Chronic? @ -Acute Uncomplicated (without systemic symptoms) or Complicated (systemic symptoms)? @ -Uncomplicated Side effects of treatment? @ -No Exacerbation, Progression, or Severe Exacerbation? @ -No Poses a threat to life or bodily function? How? (Chest pain, [place], [place], pneumonia, PE, COPD, DKA, ARF, appy, cholecystitis, CVA, Diverticulitis, Homicidal, Suicidal, threat to staff... and all critical care pts) @ -No - Lab Data Result diagrams: 01/10/23 14:59 01/10/23 14:59 Lab Results 01/10/23 01/10/23 Range/Units 14:59 14:59 WBC 7.2 (3.8-10.6) k/uL RBC 3.65 L (3.80-5.40) m/uL Hgb 11.2 L (11.4-16.0) gm/dL Hct 34.5 (34.0-46.0) % MCV 94.7 (80.0-100.0) fL MCH 30.6 (25.0-35.0) pg MCHC 32.3 (31.0-37.0) g/dL RDW 13.2 (11.5-15.5) % Plt Count 418 (150-450) k/uL MPV 8.9 Neutrophils % 58 % Lymphocytes % 31 % Monocytes % 6 % Eosinophils % 3 % Basophils % 0 % Neutrophils # 4.2 (1.3-7.7) k/uL Lymphocytes # 2.3 (1.0-4.8) k/uL Monocytes # 0.4 (0-1.0) k/uL Eosinophils # 0.2 (0-0.7) k/uL Basophils # 0.0 (0-0.2) k/uL Sodium 139 (137-145) mmol/L Potassium 4.3 (3.5-5.1) mmol/L Chloride 101 (98-107) mmol/L Carbon Dioxide 28 (22-30) mmol/L Anion Gap 10 mmol/L BUN 14 (7-17) mg/dL Creatinine 0.71 (0.52-1.04) mg/dL Est GFR (CKD-EPI)AfAm >90 (>60 ml/min/1.73 sqM) Est GFR (CKD-EPI)NonAf 85 (>60 ml/min/1.73 sqM) Glucose 83 (74-99) mg/dL Calcium 9.2 (8.4-10.2) mg/dL Total Bilirubin 0.4 (0.2-1.3) mg/dL AST 25 (14-36) U/L ALT 19 (4-34) U/L Alkaline Phosphatase 175 H (38-126) U/L Total Protein 7.0 (6.3-8.2) g/dL Albumin 3.8 (3.5-5.0) g/dL Amylase 54 (30-110) U/L Lipase 104 (23-300) U/L Disposition Clinical Impression: Constipation Disposition: HOME SELF-CARE Condition: Good Instructions (If sedation given, give patient instructions): Constipation (ED), High Fiber Diet (ED) Is patient prescribed a controlled substance at d/c from ED?: No Referrals: Yoan Quiroz DO [Primary Care Provider] - 1-2 days Time of Disposition: 17:12
[2023-01-10 15:23] LABS: Basophils % (A) 0 %; Eosinophils # (A) 0.2 k/uL (0-0.7); Eosinophils % (A) 3 %; HCT 34.5 % (34.0-46.0); HGB 11.2 gm/dL (11.4-16.0); Lymphocytes # (A) 2.3 k/uL (1.0-4.8); Lymphocytes % (A) 31 %; MCH 30.6 pg (25.0-35.0); MCHC 32.3 g/dL (31.0-37.0); MCV 94.7 fL (80.0-100.0); Mean Platelet Volume 8.9; Monocytes # (A) 0.4 k/uL (0-1.0); Monocytes % (A) 6 %; Neutrophils # (A) 4.2 k/uL (1.3-7.7); Neutrophils % (A) 58 %; Platelet Count 418 k/uL (150-450); RBC 3.65 m/uL (3.80-5.40); RDW 13.2 % (11.5-15.5); WBC 7.2 k/uL (3.8-10.6)
[2023-01-10 15:34] LABS: ALT 19 U/L (4-34); AST 25 U/L (14-36); African American GFR (CKD) >90 (>60 ml/min/1.73 sqM); Albumin 3.8 g/dL (3.5-5.0); Alkaline Phosphatase 175 U/L (38-126); Amylase 54 U/L (30-110); Anion Gap 10 mmol/L; Blood Urea Nitrogen 14 mg/dL (7-17); Calcium 9.2 mg/dL (8.4-10.2); Carbon Dioxide 28 mmol/L (22-30); Chloride 101 mmol/L (98-107); Glucose 83 mg/dL (74-99); Lipase 104 U/L (23-300); Non-African American GFR(CKD) 85 (>60 ml/min/1.73 sqM); Potassium 4.3 mmol/L (3.5-5.1); Sodium 139 mmol/L (137-145); Total Bilirubin 0.4 mg/dL (0.2-1.3)
--- NOTE | 2023-01-10 15:38 | XR ---
EXAMINATION TYPE: XR KUB DATE OF EXAM: 01/10/2023 Comparison: None Clinical History: 72-year-old female abdominal pain. Patient with colostomy. Has been constipated for 6 days. Findings: Right atrial right ventricular pacer lead noted. Prosthetic aortic valve. Additional annuloplasty rin g. Retained epicardial pacer leads. Reticular interstitial changes in the lower lungs. No evidence for free intraperitoneal air. No dilated small bowel or air-fluid levels. Moderate stool in the mid and lower abdomen. No suspicious calcifications are seen. Partially visualized antegrade intramedullary nail and screw fixation proximal left femur. Impression: Moderate stool burden may reflect constipation. Nonobstructive bowel gas pattern. No free air.
--- NOTE | 2023-01-10 16:52 | CT ---
EXAMINATION TYPE: CT abdomen pelvis w con DATE OF EXAM: 01/10/2023 COMPARISON: 12/13/2017 INDICATION: constipation, pain. hx of bowel resection. pt has colostomy. DLP: 493.2 mGycm, Automated exposure control for dose reduction was used. CONTRAST: 100ml mL of Isovue 300. Study performed without Oral Contrast TECHNIQUE: Axial images were obtained from above the diaphragm to the pubic rami in the axial plane a t 5 mm thick sections. Reconstructed images are reviewed on the computer in the coronal plane. FINDINGS: Limited CT sections are obtained the lung bases. The lung bases are clear. CT ABDOMEN: An ostomy site is in the anterior left upper quadrant of the abdomen. Note is made of sabrina e mesenteric herniation opening for the ostomy through the anterior abdominal wall. Liver: Normal Spleen: Normal Pancreas: Normal Adrenal glands: The adrenal glands are normal. Gallbladder: Normal Kidneys: No masses are evident. No hydronephrosis is present. There is a 2.1 cm cyst in the posteri or medial upper pole right kidney. Delayed images were obtained through the kidneys, cortical renal cyst is better evaluated on the delayed images within the left kidney. Aorta: Vascular calcification is within the aorta. Inferior vena cava: Normal. CT PELVIS: Beam hardening artifact from the left hip and is present. Fecal debris is within the visualized portions of the colon. The rectal stump appears decompressed. D istal descending colon exits the ostomy site. The study is without oral contrast limiting the evaluat ion. No dilated loops of bowel. Some fecal debris is scattered through the visualized colon. Study is without oral contrast. Appendix: Normal as visualized. Urinary bladder: Normal. Genitourinary structures: Uterus and ovaries are not identified. Osseous structures: No suspicious lytic or sclerotic lesions. Facet degenerative changes within the l umbar spine. IMPRESSIONS: 1. No significant fecal retention. No suspicious dilated loops of bowel are evident. 2. Some mesenteric fat appears herniated adjacent to the colostomy site. 3. Renal cysts.
[2023-01-10 17:12] VITALS: PULSE 62
[2023-01-10 17:25] VITALS: BP 148/87
== END 2023-01-10 17:31 | disposition home or self-care (01) ==
LOC: EC 13:35
DX: K59.00 Constipation, unspecified (principal); I48.91 Unspecified atrial fibrillation; I25.10 Atherosclerotic heart disease of native coronary artery without angina pectoris; I50.9 Heart failure, unspecified; J44.9 Chronic obstructive pulmonary disease, unspecified; E78.5 Hyperlipidemia, unspecified; Z86.73 Personal history of transient ischemic attack (TIA), and cerebral infarction without residual deficits; Z79.82 Long term (current) use of aspirin; Z79.01 Long term (current) use of anticoagulants; Z79.899 Other long term (current) drug therapy; Z91.09 Other allergy status, other than to drugs and biological substances; Z88.0 Allergy status to penicillin; Z91.040 Latex allergy status; Z88.8 Allergy status to other drugs, medicaments and biological substances
CPT/HCPCS: 36415; 80053; 82150; 83690; 85025; 74018; 74177; 99284; 96360; Q9967

== ENCOUNTER → 2023-01-11 | Outpatient (CLI) | payer MEDICARE, BC ==
--- NOTE | 2023-01-13 08:43 | NM ---
EXAMINATION TYPE: NM bone scan whole body DATE OF EXAM: 01/11/2023 COMPARISON: Correlation CT abdomen pelvis 01/10/2023 CLINICAL INDICATION: Female, 72 years old with history of M47.816; lumbar and bilateral hip pain for a year. Patient with history of prior fractures to the pelvis, left collar bone, left foot, left hip, and right humerus. Previous left hip surgery one year ago. TECHNIQUE: Delayed whole-body scanning was performed following the injection of 22.6 mCi Tc 99m MDP. Images acquired 3 hours post injection. FINDINGS: Scattered degenerative tracer activity is present especially at the shoulders, base of the thumbs, an d both knees. Some activity at the proximal left femur likely relating to the patient's intramedullary nail and scr ew fixation. Foci of increased activity probably relating to interlocking screws and heterotopic ossi fication. There is focal increased activity involving the left anterior third rib end and right posterior media l aspect of the seventh rib. Focal intense band of abnormal activity involving the L2, T10, and T8 vertebral bodies. No other foca l intense abnormal activity seen. IMPRESSION: 1. Consider further evaluation with CT chest to assess focal intense activity involving the left ante rior third rib end the medial aspect of the right seventh rib. Suspect a posttraumatic etiology. [place] static disease can't be excluded clinically. 2. Intense band of tracer activity involving the T8, T10, and L2 vertebral bodies. Findings compatibl e with compression fractures. Probably osteoporotic compression fractures in the absence of any known primary neoplasm. 3. Scattered degenerative tracer activity as above. Activity about the patient's proximal left femur likely related to heterotopic ossification and indwelling hardware.
== END | disposition home or self-care (01) ==
LOC: RADNMMAIN 10:44
PROVIDERS: ATTEND Physical Medicine & Rehabilitation
DX: M47.816 Spondylosis without myelopathy or radiculopathy, lumbar region (principal)
CPT/HCPCS: 78306; A9503

== ENCOUNTER 2023-01-14 18:56 | Emergency (ER) | payer MEDICARE, BC ==
[2023-01-14 19:39] VITALS: TEMP 98.2
--- NOTE | 2023-01-14 20:48 | ED ---
Fall HPI - General Chief Complaint: Fall Stated Complaint: Fall Time Seen by Provider: 01/14/23 20:10 Source: patient, family Mode of arrival: wheelchair - History of Present Illness Initial Comments: Patient is a 72-year-old female presenting with chief complaint of fall. Patient had a trip and fall from standing position earlier today. She is complaining of pain and swelling to the left wrist. She believes she did hit her head, denies loss of consciousness. Patient is on Plavix. She is also complaining of some left-sided rib pain, patient has had some left-sided rib s oreness ever since placement of her watchman, pain is localized to under the breast. No headache, neck pain, vision or hearing changes, numbness, tingling, weakness, nausea, vomiting, dizziness, palpitations, shortness of breath, abdominal pain. - Related Data Home Medications Medication Instructions Recorded Confirmed Atorvastatin [Lipitor] 20 mg PO HS 10/04/14 09/15/22 Primidone [Mysoline] 100 mg PO QID 10/04/14 09/15/22 Aspirin 81 mg PO DAILY 04/17/15 09/15/22 DULoxetine HCL [Cymbalta] 60 mg PO QAM 09/19/16 09/15/22 Ipratropium Nebulized [Atrovent 0.5 mg INHALATION RT-QID PRN 09/19/16 09/15/22 Nebulized 0.2 MG/ML] Levalbuterol Nebulized [Xopenex 1.25 mg INHALATION RT-QID 09/19/16 09/15/22 Nebulized] Mirtazapine [Remeron] 30 mg PO HS 09/19/16 09/15/22 Warfarin Sodium [Coumadin] 10 mg PO DAILY 09/19/16 09/15/22 clonazePAM [KlonoPIN] 1 mg PO BID 09/19/16 09/15/22 methocarbamoL [Robaxin-750] 750 mg PO BID PRN 09/19/16 09/15/22 oxyCODONE HCL [OxyIR] 5 mg PO Q6H PRN 09/19/16 09/15/22 Sotalol [Betapace] 120 mg PO BID 09/10/22 09/15/22 Previous Rx's Medication Instructions Recorded Albuterol Sulfate [Proair Hfa] 2 puff INHALATION RT-Q6H PRN #0 09/23/16 Allergies Allergy/AdvReac Type Severity Reaction Status Date / Time adhesive Allergy Rash/Hives Verified 01/14/23 19:40 latex Allergy Rash/Hives Verified 01/14/23 19:40 Penicillins Allergy Unknown Verified 01/14/23 19:40 Childhood alendronate sodium AdvReac Nausea & Verified 01/14/23 19:40 [From Fosamax] Vomiting ruber Allergy Rash/Hives Uncoded 01/14/23 19:40 Review of Systems ROS Statement: Those systems with pertinent positive or pertinent negative responses have been documented in the HPI. ROS Other: All systems not noted in ROS Statement are negative. Past Medical History Past Medical History: Atrial Fibrillation, Atrial Flutter, Asthma, Coronary Artery Disease (CAD), Heart Failure, COPD, CVA/TIA, GERD/Reflux, Hyperlipidemia Additional Past Medical History / Comment(s): tremors. osteoporosis, compression fx. pulmonary fibrosis. COVID 10/14 Last Myocardial Infarction Date:: unk History of Any Multi-Drug Resistant Organisms: None Reported Past Surgical History: Adenoidectomy, Bladder Surgery, Bowel Resection, Cardiac Valve Replacement, Ear Surgery, Heart Catheterization With Stent, Hysterectomy, Tonsillectomy Additional Past Surgical History / Comment(s): colostomy. open heart x2. watchman device to chest Past Anesthesia/Blood Transfusion Reactions: No Reported Reaction Additional Past Anesthesia/Blood Transfusion Reaction / Comment(s): clausterpbobia. pt is combative when coming out of anesthesia Date of Last Stent Placement:: unk Type of Cardiac Device: Unknown Device Placement Date:: unknown Past Psychological History: No Psychological Hx Reported Smoking Status: Never smoker Past Alcohol Use History: None Reported Past Drug Use History: None Reported - Past Family History Father Family Medical History: CVA/TIA Additional Family Medical History / Comment(s): was an alcoholic, rheumatic fever as child,lost 2/3rds of stomach d/t etoh. age 61 Mother Additional Family Medical History / Comment(s): comitted suicide at age 54 General Exam Limitations: no limitations General appearance: alert, in no apparent distress Head exam: Present: atraumatic, normocephalic, normal inspection Eye exam: Present: normal appearance, PERRL, EOMI. Absent: scleral icterus, conjunctival injection, periorbital swelling Pupils: Present: normal accommodation Neck exam: Present: normal inspection, full ROM Respiratory exam: Present: normal lung sounds bilaterally. Absent: respiratory distress, wheezes, rales, rhonchi, stridor Cardiovascular Exam: Present: regular rate, normal rhythm, normal heart sounds. Absent: systolic murmur, diastolic murmur, rubs, gallop, clicks Neurological exam: Present: alert, oriented X3, CN II-XII intact Expanded Patient oriented to: Present: person, place, time Speech: Present: fluid speech Cranial nerves: EOM's Intact: Normal Eye Response: (4) open spontaneously Motor Response: (6) obeys commands Verbal Response: (5) oriented Olmitz Total: 15 Psychiatric exam: Present: normal affect, normal mood Skin exam: Present: warm, dry, intact, normal color. Absent: rash Course Vital Signs 01/14/23 01/14/23 19:34 21:21 Temperature 98.2 F Pulse Rate 64 65 Respiratory 20 18 Rate Blood Pressure 97/59 118/80 O2 Sat by Pulse 97 99 Oximetry Procedures - Orthopedic Splinting/Casting Injury #1 Side: left Upper Extremity Injury Location: wrist Upper Extremity Immobilizer: thumb spica Medical Decision Making - Medical Decision Making Was pt. sent in by a medical professional or institution (, PA, MARINE SERVICE OPERATOR, urgent care, hospital, or intermediate...) When possible be specific @ -No Did you speak to anyone other than the patient for history (EMS, parent, family, police, friend...)? What history was obtained from this source @ -No Did you review nursing and triage notes (agree or disagree)? Why? @ -I reviewed and agree with nursing and triage notes Were old charts reviewed (outside hosp., previous admission, EMS record, old EKG, old radiological studies, urgent care reports/EKG's, intermediate records)? Report findings @ -No old charts were reviewed Differential Diagnosis (chest pain, altered mental status, abdominal pain women, abdominal pain men, vaginal bleeding, weakness, fever, dyspnea, syncope, headache, dizziness, GI bleed, back pain, seizure, CVA, palpatations, mental health, musculoskeletal)? @ -Differential Musculoskeletal Muscular strain, contusion, ligament sprain, fracture, arthritis, septic arthritis, bursitis, cellulitis, muscle spasm, nerve compression, DVT, arterial occlusion, herpes zoster, electrolyte abnormality, tumor.... This is not meant to be in all inclusive list EKG interpreted by me (3pts min.). @ -As above X-rays interpreted by me (1pt min.). @ -East x-ray shows no fracture or dislocation. X-ray of the ribs with chest x-ray shows no posttraumatic change. CT interpreted by me (1pt min.). @ -CT of the brain and cervical spine shows no acute intracranial process or cervical spine fracture U/S interpreted by me (1pt. min.). @ -None done What testing was considered but not performed or refused? (CT, X-rays, U/S, l abs)? Why? @ -None What meds were considered but not given or refused? Why? @ -None Did you discuss the management of the patient with other professionals (professionals i.e. , PA, MARINE SERVICE OPERATOR, lab, RT, psych nurse, social work nurse, lottery sales clerk, teacher, corporate responsibility officer, medical case worker)? Give summary @ -No Was smoking cessation discussed for >3mins.? @ -No Was critical care preformed (if so, how long)? @ -No Were there social determinants of health that impacted care today? How? (Homelessness, low income, unemployed, alcoholism, drug addiction, transportation, low edu. Level, literacy, decrease access to med. care, [facility], rehab)? @ -No Was there de-escalation of care discussed even if they declined (Discuss DNR or withdrawal of care, Hospice)? DNR status @ -No What co-morbidities impacted this encounter? (DM, HTN, Smoking, COPD, CAD, Cancer, CVA, ARF, Chemo, Hep., AIDS, mental health diagnosis, sleep apnea, morbid obesity)? @ -None Was patient admitted / discharged? Hospital course, mention meds given and route, prescriptions, significant lab abnormalities, going to OR and other pertinent info. @ -Discharged home. Patient is a 72-year-old female presenting for evaluation post trip and fall at home. She is on Plavix, no loss of consciousness. She is complaining of left wrist pain and left-sided rib soreness. X-rays show no fracture or dislocation as well as no posttraumatic change on rib x-ray. CT is negative for any acute process. Patient is having a great amount of tenderness to the wrist despite negative x-ray, she will be placed in a splint and instructed to follow up with orthopedics, [facility]. Follow-up with PCP. Report back to ER with any new or worsening symptoms. Discussed return parameters and answered all questions. Patient conveyed verbal understanding and agreed to the plan. I discussed this case in detail with my attending Dr. Blevins Undiagnosed new problem with uncertain prognosis? @ -No Drug Therapy requiring intensive monitoring for toxicity (Heparin, Nitro, Insulin, Cardizem)? @ -No Were any procedures done? @ -Thumb spica splint applied Diagnosis/symptom? @ -Wrist sprain Acute, or Chronic, or Acute on Chronic? @ -Acute Uncomplicated (without systemic symptoms) or Complicated (systemic symptoms)? @ -Uncomplicated Side effects of treatment? @ -No Exacerbation, Progression, or Severe Exacerbation? @ -No Poses a threat to life or bodily function? How? (Chest pain, [place], [place], pneumonia, PE, COPD, DKA, ARF, appy, cholecystitis, CVA, Diverticulitis, Homicidal, Suicidal, threat to staff... and all critical care pts) @ -No Disposition Clinical Impression: Wrist sprain Disposition: HOME SELF-CARE Condition: Good Instructions (If sedation given, give patient instructions): Head Injury (ED), Wrist Sprain (ED) Additional Instructions: Follow-up with PCP and orthopedics. Report back to ER with any new or worsening symptoms. Take Motrin and Tylenol as needed for pain control. Is patient prescribed a controlled substance at d/c from ED?: No Referrals: Yoan Quiroz DO [Primary Care Provider] - 1-2 days Hussain Bourgeois MD [Medical Doctor] - 1-2 days Time of Disposition: 22:35
--- NOTE | 2023-01-14 21:21 | CT ---
EXAMINATION TYPE: CT brain raymond wo con DATE OF EXAM: 01/14/2023 COMPARISON: 09/03/2022 HISTORY: Fall CT DLP: 1240.6 mGycm, Automated exposure control for dose reduction was used. CONTRAST: Patient injected with 0 mL of Isovue 300. CT of the brain is performed utilizing 3 mm thick sections through the posterior fossa and 3 mm thick sections through the remaining calvarium. Study is performed within 24 hours of arrival to the hospital. No abnormal hyperdensity is present to suggest an acute intracranial hemorrhage. No mass lesion is evident. No acute infarcts are evident. Tiny lacunar infarct is in the region of the right caudate head. This appears old. Ventricles and sulci are prominent for the patient age. There is an air-fluid level within the right maxillary sinus. There is a prior sinus surgery. Because thickening is through the paranasal sinus regions greater on the right than the anterior left. Front al sinuses are clear. Some mild mucosal thickening is posteriorly within the sphenoid sinuses. Some f luid appears to be within the inferior left mastoid air cells. Right mastoid air cells are clear. IMPRESSIONS: 1. Atrophy. 2. Old tiny lacunar infarct right caudate head. 3. Clinical consideration for acute right maxillary sinusitis. Some chronic monroy sinusitis may be pres ent. CT cervical spine. COMPARISON: None CT of the cervical spine is performed in the axial plane at 2 mm thick sections. Reconstructed image s in the coronal, and sagittal plane are reviewed on the computer. No acute fractures are evident. Vertebral body alignment is normal. There is loss of disc height at C5-6 C6-7. Posterior endplate spurring is present at these levels. No AP spinal canal stenosis is present. Vertebral body heights are preserved. No spinal canal stenosis is evident. Mild left foraminal narrowing is present C3-4 C4-5. Moderate to severe bilateral foraminal narrowing is present C5-6 and more moderate foraminal stenosis bilaterally C6-7 IMPRESSIONS: 1. Degenerative disc change C5-6 C6-7 with posterior endplate spurring. 2. Foraminal stenosis greatest at C5-6 due to uncovertebral joint hypertrophy. 3. No acute osseous abnormality cervical spine.
[2023-01-14 21:23] VITALS: BP 118/80; PULSE 65; RESP 18
--- NOTE | 2023-01-14 21:24 | XR ---
EXAMINATION TYPE: XR wrist complete LT DATE OF EXAM: 01/14/2023 COMPARISON: None HISTORY: Fall, pain TECHNIQUE: 4 view left wrist FINDINGS: No acute fracture or dislocation is evident. Mild diffuse joint space narrowing is present. Structures are osteopenic. Soft tissues appear normal. Follow up exams can be performed 7-10 days from acute trauma for continued pain. Nuclear medicine bon e scan be recommended for pain at the anatomic snuff box. IMPRESSION: 1. No acute osseous abnormality left wrist. 2. Osteopenia. Correlate with bone density.
--- NOTE | 2023-01-14 21:27 | XR ---
EXAMINATION TYPE: XR ribs LT w pa chest xray DATE OF EXAM: 01/14/2023 COMPARISON: 10/07/2022 INDICATION: Fall, pain TECHNIQUE: Single frontal view of the chest is obtained. FINDINGS: The heart size is normal. Mediastinum appears normal. Sternotomy wires are present from prior cardia c valve surgery. Pacemaker overlies left chest. The pulmonary vasculature is somewhat prominent. No focal consolidation is evident. No pneumothorax is evident. No displaced rib fractures are identif ied. IMPRESSION: 1. Mild vascular prominence. 2. No acute posttraumatic change is identified a follow-up can be performed as clinically indicated.
[2023-01-14] MEDS ORDERED: ACETAMINOPHEN TAB 325 MG TAB PO STA (22:11)
== END 2023-01-14 22:46 | disposition home or self-care (01) ==
LOC: EC 18:56
DX: S63.502A Unspecified sprain of left wrist, initial encounter (principal); E78.5 Hyperlipidemia, unspecified; I25.10 Atherosclerotic heart disease of native coronary artery without angina pectoris; I25.2 Old myocardial infarction; I48.91 Unspecified atrial fibrillation; I50.9 Heart failure, unspecified; J44.9 Chronic obstructive pulmonary disease, unspecified; Z79.02 Long term (current) use of antithrombotics/antiplatelets; Z79.82 Long term (current) use of aspirin; Z82.3 Family history of stroke; Z79.899 Other long term (current) drug therapy; Z79.01 Long term (current) use of anticoagulants; Z88.0 Allergy status to penicillin; Z91.040 Latex allergy status; Z88.8 Allergy status to other drugs, medicaments and biological substances; Z86.16 Personal history of COVID-19; W01.0XXA Fall on same level from slipping, tripping and stumbling without subsequent striking against object, initial encounter
CPT/HCPCS: 29125; 70450; 72125; 93005; 99284

== ENCOUNTER → 2023-01-26 | Outpatient (CLI) | payer MEDICARE, BC ==
[2023-01-26 16:16] LABS: Prothrombin Time 10.4 sec (9.0-12.0)
[2023-01-26 21:32] LABS: HCT 34.6 % (37.2-46.3); HGB 10.6 d/dL (12.0-15.0); MCHC 30.6 d/dL (32.0-37.0); MCV 94.8 FL (80.0-97.0); Mean Platelet Volume 10.8 FL (9.5-12.2); NRBC Per 100 WBC 0 X 10*3/uL (0.00-0.01); Platelet Count 434 X 10*3/uL (140-440); RBC 3.65 X 10*6/uL (4.10-5.20); RDW 13.3 % (11.5-14.5)
[2023-01-27 02:40] LABS: BUN/Creat Ratio 22.44 Ratio (12.00-20.00); Blood Urea Nitrogen 20.2 mg/dL (9.0-27.0); Calcium 9.8 mg/dL (8.7-10.3); Carbon Dioxide 25.7 mmol/L (21.6-31.8); Chloride 102 mmol/L (96-109); Glucose 93 mg/dL (70-110); Potassium 5.4 mmol/L (3.5-5.5); Sodium 139 mmol/L (135-145)
== END | disposition home or self-care (01) ==
LOC: LABMAIN 13:39
DX: I48.0 Paroxysmal atrial fibrillation (principal)
CPT/HCPCS: 80048; 85027; 85610

== ENCOUNTER → 2023-02-08 | Outpatient (CLI) | payer MEDICARE, BC ==
[2023-02-08 13:36] LABS: African American GFR (CKD) >90 (>60 ml/min/1.73 sqM); Blood Urea Nitrogen 15 mg/dL (7-17); Non-African American GFR(CKD) 82 (>60 ml/min/1.73 sqM)
--- NOTE | 2023-02-08 14:47 | CT ---
EXAMINATION TYPE: CT chest w con CT DLP: 137.70 mGycm, Automated exposure control for dose reduction was used. DATE OF EXAM: 02/08/2023 2:05 PM COMPARISON: 08/28/2015. Nuclear medicine bone scan 01/08/2023, CT chest 11/18/2017 CLINICAL INDICATION:Female, 72 years old with history of C79.51 SECONDARY MALIGNANT NEOPLASM OF BONE, SECONDARY MALIGNANT NEOPLASM OF BONE vs rib FX. Left anterior third rib and right seventh rib increased about activity and nuclear medicine scan. TECHNIQUE: Multiple axial images were obtained through the chest. Sagittal and coronal reformats were created for review. Contrast used:90 mL of Isovue 300 with IV Contrast Oral contrast used: none. FINDINGS: LUNGS/ PLEURA: No focal consolidation, pneumothorax or pleural effusion. There is centrilobular and p araseptal emphysema changes throughout the lungs. Right lower lobe pulmonary nodule measuring 4 mm th ey have been present in 2016. HEART: Atrial appendage occlusion device. There is contrast extending into the atrial appendage. Ther e is a prosthetic mitral valve. Cardiac conduction leads terminating in the right atrium and right ve ntricle. MEDIASTINUM: No gross evidence of adenopathy. VASCULATURE: No aortic aneurysm. No evidence for filling defect within the pulmonary arterial vascul ature to suggest pulmonary embolus. MUSCULOSKELETAL: Multilevel disc degeneration changes throughout the spine. Sternotomy wires are pres ent. There is a rib fracture of the left third rib with callus formation. Additional fracture suspected at left sixth rib at the costochondral junction. The posterior left seventh rib demonstrates some scler osis. No definitive fracture visualized. Uptake within the spine seen on prior suggestive of compress ion deformities involving T7, T10 and L2 SOFT TISSUES/LYMPH NODES: Unremarkable. LOWER NECK: No significant findings. UPPER ABDOMEN: Right renal cyst. Diffuse low-attenuation to the liver parenchyma. IMPRESSION: 1. Anterior left third and sixth rib fractures suggested one of which corresponds with the finding o n nuclear medicine bone scan of left anterior rib. 2. The posterior right rib #7 uptake has some mild sclerosis in this region etiology unclear. Not se en on 2018 study. Could be posttraumatic given patients other bony injuries. 3. Right lower lung nodule which appears to be present from 2016 study. 4. Compression fractures at T7, T10 and L2 vertebral bodies correlating with nuclear medicine scan. Mild retropulsion at T10. Disc be further evaluated for acuity with MRI. 5. Moderate to severe centrilobular emphysema changes. 6. Left atrial appendage occlusion device which is patent there is contrast within the left atrial a ppendage. 7. Prosthetic mitral valve.
== END | disposition home or self-care (01) ==
LOC: RADCTMAIN 12:38
PROVIDERS: ATTEND Internal Medicine
DX: C79.51 Secondary malignant neoplasm of bone (principal); J43.2 Centrilobular emphysema; S22.42XA Multiple fractures of ribs, left side, initial encounter for closed fracture; S22.070A Wedge compression fracture of T9-T10 vertebra, initial encounter for closed fracture; R91.1 Solitary pulmonary nodule; Z95.2 Presence of prosthetic heart valve
CPT/HCPCS: 82565; 84520; 71260; 36415; Q9967

== ENCOUNTER → 2023-04-20 | Outpatient (CLI) | payer MEDICARE, BC ==
[2023-04-20 11:32] VITALS: BP 147/86; PULSE 72; RESP 15; TEMP 97.8
--- NOTE | 2023-04-20 12:35 | XR ---
EXAM TYPE: LUMBAR SPINE X RAY SERIES COMPARISON: 03/29/2023 HISTORY: Back pain TECHNIQUE: 4 views are submitted. FINDINGS: Diffuse osteopenia. There are multiple compression deformities with a grade 1 anterolisthesis of L4 o n L5. Multilevel facet arthropathy. Vascular calcifications are noted. Epicardial lead and epidural l ead noted. Multilevel facet arthropathy. IMPRESSION: 1. Diffuse osteopenia with multiple endplate compression deformities of indeterminate age. A grade 1 anterolisthesis L4 on L5. Correlate with MRI as clinically warranted.
--- NOTE | 2023-04-21 07:58 | P.PAINPG ---
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 Pt states pain level is provoked at 10 /10 in intensity, constant, localized in the lower lumbar spine, sharp in character w shooting pain towards the BL hips. Pain is provoked by bending. Pain is alleviated by medications (Oxycodone 10mg TID prn, ASA), use of a lumbar suport brace, repositioning and rest. PMH: OA, aFib, aFlutter, Asthma, CAD, CHF, COPD, CVA, GERD, Hyperlipidemia, Pulmonary Fibrosis, OP PSH: Adenoidectomy, Bladder Surgery, Bowel Resection/ Colostomy, Cardiac Valve Replacement, Ear Surgery, Heart Catheterization With Stent (Date unknown), Open Heart Surgery x2 w Watchman Device, Hysterectomy, Tonsillectomy SH: Negative x3 FH: Mo- Suicide at age 52. Fa- CVA/ ETOH abuse/ Rheumatic Fever/ at age 59. All: See list Meds: See list REVIEW OF ORGAN SYSTEMS: CONSTITUTIONAL: No fevers or chills. No recent weight loss. NEUROLOGICAL: + numbness and tingling along the distal extremities. No seizure disorders or headaches. MUSCULOSKELETAL: + pain PSYCHIATRIC: Denies current depression or suicidal thoughts. Physical Examinations : Constitutional : Cooperative , not in acute distress . Neurologic : Cranial nerve II to XII intact. No focal neurological deficits. Psychiatric : alert & oriented x 3. Matching mood & appropriate affect. Judgment & insight intact. Musculoskeletal : Cervical Spine Motor strength in the deltoid and biceps: Normal right side. Normal Left side Motor strength biceps and the wrist extensors: Normal right side . Normal left side Motor strength in the triceps muscle: Normal right side. Normal left side Deep tendon reflexes: Normal at the biceps. Normal at Brachioradialis. Normal at triceps Vertebral body tenderness to deep palpation over Cervical facet loading test: positive bilaterally Spurling test: positive bilaterally Neck distraction test: positive bilaterally Josue sign: positive bilaterally Lumbar spine Motor strength lower extremities ,thigh and legs 5/5 Right side , 5/5 Left side Deep tendon reflexes : Normal Knee Jerk. Normal Ankle Jerk Vertebral body tenderness over L4, L5 Lambert Test positive Lumbar facet Loading Test: positive Right / positive Left Range of motion of the lumbar spine Flexion 30 degrees, extension 10 degrees Straight Leg Raise test: Left/ Right positive at degree Dustin test: positive right / positive left. Severe tenderness over the Sacroiliac joint on the Right / Left sides Gaenslen test: positive bilaterally Seated flexion test: positive bilaterally. Sacral spine : Severe tenderness over the Sacroiliac joint: right side / left side Range of motion: Flexion of the lumbar spine <60 degrees Range of motion: Extension of the lumbar spine <20 degrees Gaenslen's Test positive Forest's Test positive Dustin test: positive right side / left side Thigh Thrust Test Sacral Thrust Test Imaging: None on file Assessment/ Plan : Lumbar DDD Recommendation of x ray lumbar spine re: M51.36 May need additional testing if indicated. PT x 6 wks re: M51.36 Follow up in 4 wks for a re evaluation. All questions answered. I have spent greater than 30 minutes on patient care today. Dr Cadena was available by phone for the evaluation of this patient. The time was used to review the medical records including relevant urine studies and Prescription history (MAPs), review of the available imaging, evaluation and examination of the patient, coordination of care with the medical staff and if applicable referring physicians, as well as creation of the medical record PQRS Narrative: Smoking Status Current some day smoker Home Medications: Ambulatory Orders Atorvastatin [Lipitor] 20 mg PO HS 10/04/14 Primidone [Mysoline] 100 mg PO QID 10/04/14 Aspirin 81 mg PO DAILY 04/17/15 DULoxetine HCL [Cymbalta] 60 mg PO QAM 09/19/16 Ipratropium Nebulized [Atrovent Nebulized 0.2 MG/ML] 0.5 mg INHALATION RT-QID PRN 09/19/16 Levalbuterol Nebulized [Xopenex Nebulized] 1.25 mg INHALATION RT-QID 09/19/16 Mirtazapine [Remeron] 30 mg PO HS 09/19/16 Warfarin Sodium [Coumadin] 10 mg PO DAILY 09/19/16 clonazePAM [KlonoPIN] 1 mg PO BID 09/19/16 methocarbamoL [Robaxin-750] 750 mg PO BID PRN 09/19/16 oxyCODONE HCL [OxyIR] 5 mg PO Q6H PRN 09/19/16 Albuterol Sulfate [Proair Hfa] 2 puff INHALATION RT-Q6H PRN #0 09/23/16 Sotalol [Betapace] 120 mg PO BID 09/10/22 Controlled Substance Measures - Controlled Substance Measures Is patient prescribed a controlled substance at discharge?: No
== END ==
LOC: PNWHC3 10:40
PROVIDERS: ATTEND Anesthesiology
DX: M51.36 Other intervertebral disc degeneration, lumbar region (principal); M43.16 Spondylolisthesis, lumbar region; M85.80 Other specified disorders of bone density and structure, unspecified site; F17.200 Nicotine dependence, unspecified, uncomplicated; Z79.82 Long term (current) use of aspirin; M19.90 Unspecified osteoarthritis, unspecified site; I48.91 Unspecified atrial fibrillation; I25.10 Atherosclerotic heart disease of native coronary artery without angina pectoris; J44.9 Chronic obstructive pulmonary disease, unspecified; I63.9 Cerebral infarction, unspecified; K21.9 Gastro-esophageal reflux disease without esophagitis; E78.5 Hyperlipidemia, unspecified; Z91.048 Other nonmedicinal substance allergy status; T07.XXXA Unspecified multiple injuries, initial encounter; Z91.040 Latex allergy status; Z88.0 Allergy status to penicillin; Z88.8 Allergy status to other drugs, medicaments and biological substances
CPT/HCPCS: 72100; G0463; 99211

== ENCOUNTER → 2023-04-22 | Outpatient (CLI) | payer MEDICARE, BC ==
--- NOTE | 2023-04-22 14:56 | NM ---
EXAMINATION TYPE: NM bone scan whole body DATE OF EXAM: 04/22/2023 COMPARISON: 01/11/2023 CLINICAL INDICATION: Female, 73 years old with history of S22.060D wedge compressio fx; Delayed whole-body scanning was performed following the injection of 21.4 mCi Tc 99m MDP. Images acq uired 4 hours post injection. FINDINGS: There is intense abnormal uptake involving the mid thoracic spine is abnormal uptake involving the mi d and lower lumbar spine. No abnormal uptake at L5-S1. Abnormal uptake involving the left femur is stable. 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 Abnormal uptake involving the bilateral knees stable and likely post arthritic. Abnormal mild intensity uptake involving the rib cage. Likely on the basis of previous fracture. Abnormal uptake involving the maxilla compatible with periodontal disease. More mild to moderate uptake intensity in the cervical, thoracic and lumbar spine is most likely dege nerative. Abnormal uptake involving the wrists likely post arthritic. IMPRESSION: 1. There is new intense uptake in L5-S1. Recommend x-ray correlation. 2. Intense abnormal uptake over the remaining thoracic and lumbar segments is stable compatible with history of previous compression fracture. 3. Abnormal uptake involving the left femur is stable compatible with previous surgery and trauma het erotopic ossification.
== END | disposition home or self-care (01) ==
LOC: RADNMMAIN 09:59
PROVIDERS: ATTEND Orthopaedic Surgery Orthopaedic Surgery of the Spine
DX: S32.040A Wedge compression fracture of fourth lumbar vertebra, initial encounter for closed fracture (principal); S22.060D Wedge compression fracture of T7-T8 vertebra, subsequent encounter for fracture with routine healing; S22.070D Wedge compression fracture of T9-T10 vertebra, subsequent encounter for fracture with routine healing; S32.020D Wedge compression fracture of second lumbar vertebra, subsequent encounter for fracture with routine healing; S32.038D Other fracture of third lumbar vertebra, subsequent encounter for fracture with routine healing; M79.18 Myalgia, other site; M51.34 Other intervertebral disc degeneration, thoracic region; M25.78 Osteophyte, vertebrae; J44.9 Chronic obstructive pulmonary disease, unspecified; M43.17 Spondylolisthesis, lumbosacral region; F17.218 Nicotine dependence, cigarettes, with other nicotine-induced disorders; Y99.9 Unspecified external cause status
CPT/HCPCS: 78306; A9503

== ENCOUNTER → 2023-05-11 | Outpatient (CLI) | payer MEDICARE, BC ==
[2023-05-11 11:03] LABS: African American GFR (CKD) 65 (>60 ml/min/1.73 sqM); Blood Urea Nitrogen 25 mg/dL (7-17); Non-African American GFR(CKD) 56 (>60 ml/min/1.73 sqM)
--- NOTE | 2023-05-11 13:28 | CT ---
EXAMINATION TYPE: CT ChestAbdPelvis w con DATE OF EXAM: 05/11/2023 COMPARISON: CT lumbar spine on 04/29/[address] chest on 02/08/2023. CT abdomen and pelvis on 01/10/2023 . HISTORY: Neoplasm of uncertain behavior of bone CT DLP: 413.60 mGycm Automated exposure control for dose reduction was used. CONTRAST: CT scan of the chest, abdomen and pelvis is performed with Oral Contrast and with IV Contrast, patien t injected with 80 mL of Isovue 300. FINDINGS: CHEST: Mediastinum and [place]: There is no axillary, mediastinal or hilar lymphadenopathy. Pleural and Pericardial spaces: There are no pleural or pericardial effusions. Cardiovascular: The thoracic aorta is normal in size without evidence of aneurysm or dissection. Occl usion device is present. Left-sided pacemaker and leads are unchanged. Pulmonary Artery: There are no central pulmonary arterial filling defects. Lung Parenchyma and Airways: There is severe diffuse centrilobular emphysema. Unchanged 4.9 mm right lower lobe pulmonary nodule on series 4 image 35. No new nodules are seen. ABDOMEN: Liver and Biliary system: Normal. Adrenal glands: Normal. Kidneys and ureters: Unchanged right renal cyst and unchanged subcentimeter hypodensities within the left kidney that are too small to fully characterize.. Spleen: Normal. Pancreas: Normal. Gallbladder: Normal. Lymph nodes, Peritoneum and mesentery: There is no mesenteric or retroperitoneal lymphadenopathy. Gastrointestinal tract: There are no dilated loops of bowel or free intraperitoneal air. . There is a left lower quadrant colostomy. Descending colonic stump is noted with scattered colonic diverticul i in this region as well as the sigmoid colon. Aorta/IVC: There is moderate vascular calcification throughout the abdominal aorta without evidence of aneurysmal dilation or dissection.. IVC normal. Abdominal wall: Normal. PELVIS: Fluid: There is no free fluid in the pelvis. Lymph Nodes: There is no pelvic or inguinal lymphadenopathy.. Urinary bladder: Normal. BONES: There is a left total hip arthroplasty which is partially included on the evaluation. The bon es are diffusely demineralized. Multilevel degenerative disc and facet changes are noted. There are m ultiple new compression deformities seen throughout the lumbar spine when compared to the examination of 01/10/2023, however similar appearance to the more recent CT lumbar spine. ADDITIONAL SIGNIFICANT FINDINGS: None. IMPRESSION: 1. Severe diffuse bony demineralization with numerous compression deformities throughout the thoraci c and lumbar spine which are very similar in appearance to the recent CT lumbar spine. 2. No additional acute findings identified. 3. Findings otherwise noted above.
== END | disposition home or self-care (01) ==
LOC: RADCTMAIN 10:04
PROVIDERS: ATTEND Internal Medicine Hematology & Oncology
DX: D48.0 Neoplasm of uncertain behavior of bone and articular cartilage (principal); R93.89 Abnormal findings on diagnostic imaging of other specified body structures; J44.9 Chronic obstructive pulmonary disease, unspecified; E78.5 Hyperlipidemia, unspecified; M48.54XA Collapsed vertebra, not elsewhere classified, thoracic region, initial encounter for fracture
CPT/HCPCS: 82565; 84520; 71260; 74177; 36415; Q9967

== ENCOUNTER → 2023-06-01 | Outpatient (CLI) | payer MEDICARE, BC ==
[2023-06-01 13:08] VITALS: BP 132/63; PULSE 67; RESP 16; TEMP 97.8
--- NOTE | 2023-06-01 14:50 | P.PAINPG ---
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 Pt states pain level is provoked at 7/10 in intensity, constant, localized in the lower lumbar spine, sharp in character w shooting pain towards the BL hips and thighs. Pain is provoked by bending. Pain is alleviated by medications, use of a lumbar support brace, repositioning and rest. Pt is not PT candidate and has been rejected from physician guided exercises due to multiple compression fractures. Interventional procedures include DENIES Medications include Oxycodone 10mg #90, ASA REVIEW OF ORGAN SYSTEMS: CONSTITUTIONAL: No fevers or chills. No recent weight loss. NEUROLOGICAL: + numbness and tingling along the distal extremities. No seizure disorders or headaches. MUSCULOSKELETAL: + pain PSYCHIATRIC: Denies current depression or suicidal thoughts. Physical Examinations : Constitutional : Cooperative , not in acute distress . Neurologic : Cranial nerve II to XII intact. No focal neurological deficits. Psychiatric : alert & oriented x 3. Matching mood & appropriate affect. Judgment & insight intact. Musculoskeletal : Cervical Spine Motor strength in the deltoid and biceps: Normal right side. Normal Left side Motor strength biceps and the wrist extensors: Normal right side . Normal left side Motor strength in the triceps muscle: Normal right side. Normal left side Deep tendon reflexes: Normal at the biceps. Normal at Brachioradialis. Normal at triceps Vertebral body tenderness to deep palpation over Cervical facet loading test: positive bilaterally Spurling test: positive bilaterally Neck distraction test: positive bilaterally Josue sign: positive bilaterally Lumbar spine Motor strength lower extremities ,thigh and legs 5/5 Right side , 5/5 Left side Deep tendon reflexes : Normal Knee Jerk. Normal Ankle Jerk Vertebral body tenderness over L4, L5 Lambert Test positive Lumbar facet Loading Test: positive Right / positive Left Range of motion of the lumbar spine Flexion 30 degrees, extension 10 degrees Straight Leg Raise test: Left/ Right positive at degree Dustin test: positive right / positive left. Severe tenderness over the Sacroiliac joint on the Right / Left sides Gaenslen test: positive bilaterally Seated flexion test: positive bilaterally. Sacral spine : Severe tenderness over the Sacroiliac joint: right side / left side Range of motion: Flexion of the lumbar spine <60 degrees Range of motion: Extension of the lumbar spine <20 degrees Gaenslen's Test positive Forest's Test positive Dustin test: positive right side / left side Thigh Thrust Test Sacral Thrust Test Imaging: CT noncontrast of the lumbar spine from 04/29/23 reviewed Assessment/ Plan : Lumbar DDD Recommendation of medication management. Pt provided me w bottle of her last remaining Oxycodone 10mg #2. Disposed of in waste container. Fentanyl 25mcg/h #15 w 1 RF. Use, side effects, adverse reactions and safe storage discussed. Opiate/ narcotic agreement signed today 06/01/23. Pt acknowledged understanding. All questions answered. I have spent greater than 30 minutes on patient care today. Dr Cadena was available by phone for the evaluation of this patient. The time was used to review the medical records including relevant urine studies and Prescription history (MAPs), review of the available imaging, evaluation and examination of the patient, coordination of care with the medical staff and if applicable referring physicians, as well as creation of the medical record PQRS Narrative: Smoking Status Current some day smoker Hx Alcohol Use (MH) No Home Medications: Ambulatory Orders Atorvastatin [Lipitor] 20 mg PO HS 10/04/14 Primidone [Mysoline] 100 mg PO QID 10/04/14 Aspirin 81 mg PO DAILY 04/17/15 DULoxetine HCL [Cymbalta] 60 mg PO QAM 09/19/16 Ipratropium Nebulized [Atrovent Nebulized 0.2 MG/ML] 0.5 mg INHALATION RT-QID PRN 09/19/16 Levalbuterol Nebulized [Xopenex Nebulized] 1.25 mg INHALATION RT-QID 09/19/16 Mirtazapine [Remeron] 30 mg PO HS 09/19/16 Warfarin Sodium [Coumadin] 10 mg PO DAILY 09/19/16 clonazePAM [KlonoPIN] 1 mg PO BID 09/19/16 methocarbamoL [Robaxin-750] 750 mg PO BID PRN 09/19/16 oxyCODONE HCL [OxyIR] 5 mg PO Q6H PRN 09/19/16 Albuterol Sulfate [Proair Hfa] 2 puff INHALATION RT-Q6H PRN #0 09/23/16 Sotalol [Betapace] 120 mg PO BID 09/10/22 Controlled Substance Measures - Controlled Substance Measures Is patient prescribed a controlled substance at discharge?: Yes When asked, does pt state using other controlled substances?: No If prescribed controlled substance>3 days was MAPS reviewed?: Yes If Rx opioid, was Start Talking consent form obtained?: Yes Was information provided regarding opioid addiction?: Yes
== END ==
LOC: PNWHC3 10:35
PROVIDERS: ATTEND Specialist
DX: M51.36 Other intervertebral disc degeneration, lumbar region (principal); Z79.82 Long term (current) use of aspirin; Z91.048 Other nonmedicinal substance allergy status; Z91.040 Latex allergy status; Z88.0 Allergy status to penicillin; Z88.8 Allergy status to other drugs, medicaments and biological substances; Z72.0 Tobacco use
CPT/HCPCS: 99211

== ENCOUNTER → 2023-07-27 | Outpatient (CLI) | payer MEDICARE, BC ==
--- NOTE | 2023-07-27 13:45 | XR ---
EXAMINATION TYPE: XR chest 2V DATE OF EXAM: 07/27/2023 COMPARISON: 05/14/2023 TECHNIQUE: PA and lateral views submitted. HISTORY: Pain FINDINGS: The lungs are clear and there is no pneumothorax, pleural effusion, or focal pneumonia. Heart size normal and no overt failure. Osseous structures demonstrate hypertrophic and degenerative changes of the spine. The heart is prominent in size and there is a diffuse interstitial pattern. Diffuse osteop enia with arthropathy of the AC joints. Prosthetic heart valve postmedian sternotomy changes. Pacemak er stable. Compression fractures in the thoracic spine have been reported by prior CT scan. IMPRESSION: 1. Emphysematous changes correlate for chronic pulmonary fibrosis. A mild superimposed interstitial p neumonitis or venous congestion not excluded.
[2023-07-28 09:57] LABS: Serum Amphetamine Negative; Serum Barbiturates Positive; Serum Benzodiazepine Negative; Serum Cocaine Negative; Serum Methadone Negative; Serum Opiates Negative; Serum Phencyclidine Negative; Serum Propoxyphene Negative; Serum THC (Cannabis) Negative
== END | disposition home or self-care (01) ==
LOC: LABWHC1 13:15
PROVIDERS: ATTEND Physician Assistant Medical
DX: Z02.83 Encounter for blood-alcohol and blood-drug test (principal); R07.82 Intercostal pain
CPT/HCPCS: 36415; 71046; 80307

== ENCOUNTER → 2023-07-27 | Outpatient (CLI) | payer MEDICARE, BC ==
--- NOTE | 2023-07-27 13:05 | P.PAINPG ---
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 Pt states she fell against a wall 1 wk ago and believes she has rib fractures. Pt states pain level is provoked at 7/10 in intensity, constant, localized in the lower lumbar spine, predominantly axial, sharp in character w shooting pain towards the BL flanks. Pain is provoked by bending, twisting. Pain is alleviated by medications, use of a lumbar support brace, repositioning and rest. Pt is not PT candidate and has been rejected from physician guided exercises due to multiple compression fractures. Interventional procedures include DENIES Medications include Oxycodone 10mg #90, ASA REVIEW OF ORGAN SYSTEMS: CONSTITUTIONAL: No fevers or chills. No recent weight loss. NEUROLOGICAL: + numbness and tingling along the distal extremities. No seizure disorders or headaches. MUSCULOSKELETAL: + pain PSYCHIATRIC: Denies current depression or suicidal thoughts. Physical Examinations : Constitutional : Cooperative , not in acute distress . Neurologic : Cranial nerve II to XII intact. No focal neurological deficits. Psychiatric : alert & oriented x 3. Matching mood & appropriate affect. Judgment & insight intact. Musculoskeletal : Cervical Spine Motor strength in the deltoid and biceps: Normal right side. Normal Left side Motor strength biceps and the wrist extensors: Normal right side . Normal left side Motor strength in the triceps muscle: Normal right side. Normal left side Deep tendon reflexes: Normal at the biceps. Normal at Brachioradialis. Normal at triceps Vertebral body tenderness to deep palpation over Cervical facet loading test: positive bilaterally Spurling test: positive bilaterally Neck distraction test: positive bilaterally Josue sign: positive bilaterally Thoracic spine Diffuse L R chest wall TTP, no ecchymosis, no edema Lumbar spine Motor strength lower extremities ,thigh and legs 5/5 Right side , 5/5 Left side Deep tendon reflexes : Normal Knee Jerk. Normal Ankle Jerk Vertebral body tenderness over L4, L5 Lambert Test positive Lumbar facet Loading Test: positive Right / positive Left Range of motion of the lumbar spine Flexion 30 degrees, extension 10 degrees Straight Leg Raise test: Left/ Right positive at degree Dustin test: positive right / positive left. Severe tenderness over the Sacroiliac joint on the Right / Left sides Gaenslen test: positive bilaterally Seated flexion test: positive bilaterally. Sacral spine : Severe tenderness over the Sacroiliac joint: right side / left side Range of motion: Flexion of the lumbar spine <60 degrees Range of motion: Extension of the lumbar spine <20 degrees Gaenslen's Test positive Forest's Test positive Dustin test: positive right side / left side Thigh Thrust Test Sacral Thrust Test Imaging: CT noncontrast of the lumbar spine from 04/29/23 reviewed Assessment/ Plan : Lumbar DDD Recommendation of medication management. Has ample supply of Celebrex. Fentanyl 25mcg/h #15 w 1 RF. Use, side effects, adverse reactions and safe storage discussed. Opiate/ narcotic agreement signed 06/01/23. Blood tox screen Z02.83 07/27/23. Script for CXR to rule out rib fractures R07.82. Pt acknowledged understanding. All questions answered. I have spent greater than 30 minutes on patient care today. Dr Cadena was available by phone for the evaluation of this patient. The time was used to review the medical records including relevant urine studies and Prescription history (MAPs), review of the available imaging, evaluation and examination of the patient, coordination of care with the medical staff and if applicable referring physicians, as well as creation of the medical record PQRS Narrative: Smoking Status Current some day smoker Hx Alcohol Use (MH) No Home Medications: Ambulatory Orders Atorvastatin [Lipitor] 20 mg PO HS 10/04/14 Primidone [Mysoline] 100 mg PO QID 10/04/14 Aspirin 81 mg PO DAILY 04/17/15 DULoxetine HCL [Cymbalta] 60 mg PO QAM 09/19/16 Ipratropium Nebulized [Atrovent Nebulized 0.2 MG/ML] 0.5 mg INHALATION RT-QID PRN 09/19/16 Levalbuterol Nebulized [Xopenex Nebulized] 1.25 mg INHALATION RT-QID 09/19/16 Mirtazapine [Remeron] 30 mg PO HS 09/19/16 Warfarin Sodium [Coumadin] 10 mg PO DAILY 09/19/16 clonazePAM [KlonoPIN] 1 mg PO BID 09/19/16 methocarbamoL [Robaxin-750] 750 mg PO BID PRN 09/19/16 Albuterol Sulfate [Proair Hfa] 2 puff INHALATION RT-Q6H PRN #0 09/23/16 Sotalol [Betapace] 120 mg PO BID 09/10/22 Celecoxib [CeleBREX] 100 mg PO BID 30 Days #60 cap 06/21/23 fentaNYL 25MCG/HR PATCH [Duragesic 25MCG/HR] 1 patch TRANSDERM Q48H 30 Days #15 patch 07/27/23 fentaNYL 25MCG/HR PATCH [Duragesic 25MCG/HR] 25 mcg TRANSDERM Q48H 30 Days #15 patch 07/27/23 Controlled Substance Measures - Controlled Substance Measures Is patient prescribed a controlled substance at discharge?: Yes When asked, does pt state using other controlled substances?: Yes If prescribed controlled substance>3 days was MAPS reviewed?: Yes
[2023-07-27 14:17] VITALS: BP 129/87; PULSE 69; RESP 15; TEMP 98.6
== END ==
LOC: PNWHC3 12:30
PROVIDERS: ATTEND Specialist
DX: Z02.83 Encounter for blood-alcohol and blood-drug test (principal); M51.36 Other intervertebral disc degeneration, lumbar region; R07.89 Other chest pain; F17.200 Nicotine dependence, unspecified, uncomplicated; Z79.82 Long term (current) use of aspirin; Z91.040 Latex allergy status; Z91.048 Other nonmedicinal substance allergy status; Z88.0 Allergy status to penicillin; Z88.8 Allergy status to other drugs, medicaments and biological substances
CPT/HCPCS: 99211

== ENCOUNTER → 2023-09-26 | Outpatient (CLI) | payer MEDICARE, BC ==
[2023-09-26 12:13] VITALS: BP 124/70; PULSE 60; RESP 15; TEMP 98.6
--- NOTE | 2023-09-26 14:00 | P.PAINPG ---
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 Pt states she fell against a wall 1 wk ago and believes she has rib fractures. Pt states pain level is provoked at 7/10 in intensity, constant, localized in the lower lumbar spine, predominantly axial, sharp in character w shooting pain towards the BL flanks. Pain is provoked by bending, twisting. Pain is alleviated by medications, use of a lumbar support brace, use of a wheelchair for ambulatory assistance, repositioning and rest. Pt is not PT candidate and has been rejected from physician guided exercises due to multiple compression fractures. Blood tox screen from 07/27/23 negative for Opiates, positive for barbituates. Will repeat drug screen today. Interventional procedures include DENIES Medications include Oxycodone 10mg #90, ASA REVIEW OF ORGAN SYSTEMS: CONSTITUTIONAL: No fevers or chills. No recent weight loss. NEUROLOGICAL: + numbness and tingling along the distal extremities. No seizure disorders or headaches. MUSCULOSKELETAL: + pain PSYCHIATRIC: Denies current depression or suicidal thoughts. Physical Examinations : Constitutional : Cooperative , not in acute distress . Neurologic : Cranial nerve II to XII intact. No focal neurological deficits. Psychiatric : alert & oriented x 3. Matching mood & appropriate affect. Judgment & insight intact. Musculoskeletal : Cervical Spine Motor strength in the deltoid and biceps: Normal right side. Normal Left side Motor strength biceps and the wrist extensors: Normal right side . Normal left side Motor strength in the triceps muscle: Normal right side. Normal left side Deep tendon reflexes: Normal at the biceps. Normal at Brachioradialis. Normal at triceps Vertebral body tenderness to deep palpation over Cervical facet loading test: positive bilaterally Spurling test: positive bilaterally Neck distraction test: positive lena aterally Josue sign: positive bilaterally Thoracic spine Diffuse L R chest wall TTP, no ecchymosis, no edema Lumbar spine Motor strength lower extremities ,thigh and legs 5/5 Right side , 5/5 Left side Deep tendon reflexes : Normal Knee Jerk. Normal Ankle Jerk Vertebral body tenderness over L4, L5 Lambert Test positive Lumbar facet Loading Test: positive Right / positive Left Range of motion of the lumbar spine Flexion 30 degrees, extension 10 degrees Straight Leg Raise test: Left/ Right positive at degree Dustin test: positive right / positive left. Severe tenderness over the Sacroiliac joint on the Right / Left sides Gaenslen test: positive bilaterally Seated flexion test: positive b ilaterally. Sacral spine : Severe tenderness over the Sacroiliac joint: right side / left side Range of motion: Flexion of the lumbar spine <60 degrees Range of motion: Extension of the lumbar spine <20 degrees Gaenslen's Test positive Forest's Test positive Dustin test: positive right side / left side Thigh Thrust Test Sacral Thrust Test Imaging: CT noncontrast of the lumbar spine from 04/29/23 reviewed Assessment/ Plan : Lumbar DDD Recommendation of medication management and repeat UDS . Fentanyl 25mcg/h #15 w 1 RF. Use, side effects, adverse reactions and safe storage discussed. Opiate/ narcotic agreement signed 06/01/23. Blood tox screen Z02.83 07/27/23. Pt acknowledged understanding. All questions answered. I have spent greater than 30 minutes on patient care today. Dr Cadena was available by phone for the evaluation of this patient. The time was used to review the medical records including relevant urine studies and Prescription history (MAPs), review of the available imaging, evaluation and examination of the patient, coordination of care with the medical staff and if applicable referring physicians, as well as creation of the medical record PQRS Narrative: Smoking Status Current some day smoker Hx Alcohol Use (MH) No Home Medications: Ambulatory Orders Atorvastatin [Lipitor] 20 mg PO HS 10/04/14 Primidone [Mysoline] 100 mg PO QID 10/04/14 Aspirin 81 mg PO DAILY 04/17/15 DULoxetine HCL [Cymbalta] 60 mg PO QAM 09/19/16 Ipratropium Nebulized [Atrovent Nebulized 0.2 MG/ML] 0.5 mg INHALATION RT-QID PRN 09/19/16 Levalbuterol Nebulized [Xopenex Nebulized] 1.25 mg INHALATION RT-QID 09/19/16 Mirtazapine [Remeron] 30 mg PO HS 09/19/16 Warfarin Sodium [Coumadin] 10 mg PO DAILY 09/19/16 clonazePAM [KlonoPIN] 1 mg PO BID 09/19/16 methocarbamoL [Robaxin-750] 750 mg PO BID PRN 09/19/16 Albuterol Sulfate [Proair Hfa] 2 puff INHALATION RT-Q6H PRN #0 09/23/16 Sotalol [Betapace] 120 mg PO BID 09/10/22 Celecoxib [CeleBREX] 100 mg PO BID 30 Days #60 cap 06/21/23 fentaNYL 25MCG/HR PATCH [Duragesic 25MCG/HR] 1 patch TRANSDERM Q48H 30 Days #15 patch 09/26/23 fentaNYL 25MCG/HR PATCH [Duragesic 25MCG/HR] 25 mcg TRANSDERM Q48H 30 Days #15 patch 09/26/23 Controlled Substance Measures - Controlled Substance Measures Is patient prescribed a controlled substance at discharge?: Yes When asked, does pt state using other controlled substances?: Yes If prescribed controlled substance>3 days was MAPS reviewed?: Yes
== END ==
LOC: PNWHC3 11:08
PROVIDERS: ATTEND Specialist
DX: M51.36 Other intervertebral disc degeneration, lumbar region (principal); F17.200 Nicotine dependence, unspecified, uncomplicated; Z51.81 Encounter for therapeutic drug level monitoring; Z79.82 Long term (current) use of aspirin; Z91.048 Other nonmedicinal substance allergy status; Z91.040 Latex allergy status; Z88.0 Allergy status to penicillin; Z88.8 Allergy status to other drugs, medicaments and biological substances
CPT/HCPCS: 80307; G0463; 99212

== ENCOUNTER 2023-11-07 10:08 | Emergency (ER) | payer MEDICARE, BC ==
[2023-11-07] MEDS: MORPHINE SULFATE 2 MG/ML SYRINGE IVP STA ×2 (10:23→11:55)
[2023-11-07] MEDS: KETOROLAC 15 MG/ML 1 ML VIAL IVP STA (10:24)
--- NOTE | 2023-11-07 10:29 | ED ---
Upper Extremity HPI - General Chief Complaint: Extremity Injury, Upper Stated Complaint: Arm Fracture Time Seen by Provider: 11/07/23 10:13 Source: patient, family, RN notes reviewed Mode of arrival: EMS Limitations: no limitations - History of Present Illness Initial Comments: This is a 73-year-old female who presents to the emergency department for a r ight arm injury. Patient states that she was getting ready for bed last night when she fell. She does fall on occasions, sometimes due to her slippery floor and sometimes due to generalized weakness as a result of a prior stroke. She did not have any dizziness prior to the fall or any other symptoms. When she fell she landed on her right arm, and has since had increasing pain to the right wrist and forearm. Believes that she may have hit her head, but does not recall what part of the head and denies any loss of consciousness. States that she would have lightly bumped it if anything. Not taking any blood thinners. Denies any current headaches, dizziness, nausea, or vomiting. Also reports pain over the right lower rib cage. MD Complaint: Injury to:: right, arm, wrist - Related Data Home Medications Medication Instructions Recorded Confirmed Primidone [Mysoline] 100 mg PO QID 10/04/14 11/07/23 Aspirin 81 mg PO DAILY 04/17/15 11/07/23 clonazePAM [KlonoPIN] 1 mg PO BID@0900,1400 09/19/16 11/07/23 Sotalol [Betapace] 120 mg PO BID 09/10/22 11/07/23 ALPRAZolam [Xanax] 1 mg PO HS 11/07/23 11/07/23 DULoxetine HCL [Cymbalta] 60 mg PO DAILY 11/07/23 11/07/23 Mirtazapine [Remeron] 30 mg PO HS 11/07/23 11/07/23 Simvastatin [Zocor] 40 mg PO HS 11/07/23 11/07/23 Previous Rx's Medication Instructions Recorded fentaNYL 25MCG/HR PATCH [Duragesic 1 patch TRANSDERM Q48H 30 Days #15 09/26/23 25MCG/HR] patch Lidocaine 5% Patch [Lidoderm 5% 1 patch TOPICAL DAILY PRN #30 patch 11/07/23 Patch] methocarbamoL [Robaxin-750] 1,500 mg PO TID PRN #30 tab 11/07/23 Allergies Allergy/AdvReac Type Severity Reaction Status Date / Time adhesive Allergy Rash/Hives Verified 11/07/23 11:32 latex Allergy Rash/Hives Verified 11/07/23 11:32 Penicillins Allergy Unknown Verified 11/07/23 11:32 Childhood alendronate sodium AdvReac Nausea & Verified 11/07/23 11:32 [From Fosamax] Vomiting ruber Allergy Rash/Hives Uncoded 11/07/23 11:32 Review of Systems ROS Statement: Those systems with pertinent positive or pertinent negative responses have been documented in the HPI. ROS Other: All systems not noted in ROS Statement are negative. Past Medical History Past Medical History: Atrial Fibrillation, Atrial Flutter, Asthma, Coronary Artery Disease (CAD), Heart Failure, COPD, CVA/TIA, GERD/Reflux, Hyperlipidemia Additional Past Medical History / Comment(s): tremors. osteoporosis, compression fx. pulmonary fibrosis. COVID 10/14 Last Myocardial Infarction Date:: unk History of Any Multi-Drug Resistant Organisms: None Reported Past Surgical History: Adenoidectomy, Bladder Surgery, Bowel Resection, Cardiac Valve Replacement, Ear Surgery, Heart Catheterization With Stent, Hysterectomy, Tonsillectomy Additional Past Surgical History / Comment(s): colostomy. open heart x2. watchman device to chest Past Anesthesia/Blood Transfusion Reactions: No Reported Reaction Additional Past Anesthesia/Blood Transfusion Reaction / Comment(s): clauste rpbobia. pt is combative when coming out of anesthesia Date of Last Stent Placement:: unk Type of Cardiac Device: Unknown Device Placement Date:: unknown Smoking Status: Current some day smoker - Past Family History Father Family Medical History: CVA/TIA Additional Family Medical History / Comment(s): was an alcoholic, rheumatic fever as child,lost 2/3rds of stomach d/t etoh. age 61 Mother Additional Family Medical History / Comment(s): comitted suicide at age 54 General Exam Limitations: no limitations General appearance: alert, in no apparent distress Head exam: Present: atraumatic, normocephalic, normal inspection Eye exam: Present: normal appearance, PERRL, EOMI. Absent: scleral icterus, conjunctival injection, periorbital swelling Respiratory exam: Present: normal lung sounds bilaterally. Absent: respiratory distress, wheezes, rales, rhonchi, stridor Cardiovascular Exam: Present: regular rate, normal rhythm, normal heart sounds. Absent: systolic murmur, diastolic murmur, rubs, gallop, clicks Extremities exam: Present: other (Ecchymosis, swelling, and tenderness to the dorsal aspect of the right wrist and forearm. 2+ radial pulses. Full ROM of all 5 digits.) Neurological exam: Present: alert, oriented X3, CN II-XII intact Psychiatric exam: Present: normal affect, normal mood Skin exam: Present: warm, dry, intact, normal color. Absent: rash Course Vital Signs 11/07/23 11/07/23 10:09 12:11 Temperature 97 F L 97.9 F Pulse Rate 72 60 Respiratory 17 19 Rate Blood Pressure 145/97 108/57 O2 Sat by Pulse 93 L 94 L Oximetry Procedures - Orthopedic Splinting/Casting Injury #1 Side: right Upper Extremity Injury Location: wrist Upper Extremity Immobilizer: volar splint Medical Decision Making - Medical Decision Making This is a 73 year old female who presents to the emergency department for a right arm injury. Was pt. sent in by a medical professional or institution? @ -No Did you speak to anyone other than the patient for history? @ -No Did you review nursing and triage notes? @ -Yes, and I agree, it is accurate with regards to the patient's symptoms. Were old charts reviewed? @ -No Differential Diagnosis? @ -Differential Musculoskeletal: Muscular strain, contusion, ligament sprain, fracture, arthritis, septic arthritis, bursitis, cellulitis, muscle spasm, nerve compression, DVT, arterial occlusion, herpes zoster, electrolyte abnormality, tumor.... This is not meant to be in all inclusive list EKG interpreted by me (3pts min.)? @ -Not obtained X-rays interpreted by me (1pt min.)? @ -X-ray of the right hand, wrist, and forearm obtained. My interpretation identifies a distal radius fracture. X-ray of the chest and right rib cage obtained. My interpretation identifies a fracture to the seventh rib. CT interpreted by me (1pt min.)? @ -Not obtained U/S interpreted by me (1pt. min.)? @ -Not obtained What testing was considered but not performed? (CT, X-rays, U/S, labs)? Why? @ -None What meds were considered but not given? Why? @ -None Did you discuss the management of the patient with other professionals? @ -No Did you reconcile home meds? @ -No Was smoking cessation discussed for >3mins.? @ -No Was critical care preformed (if so, how long)? @ -No Were there social determinants of health that impacted care today? How? (Homelessness, low income, unemployed, alcoholism, drug addiction, transportation, low edu. Level, literacy, decrease access to med. care, [facility], rehab)? @ -No Was there de-escalation of care discussed even if they declined? (Discuss DNR or withdrawal of care, Hospice)? @ -No What co-morbidities impacted this encounter? (DM, HTN, Smoking, COPD, CAD, Cancer, CVA, Hep., AIDS, mental health diagnosis, sleep apnea, morbid obesity)? @ -Osteoporosis Was patient admitted / discharged? @ -Discharged. X-ray of the right hand, wrist, and forearm obtained demonstrating an acute intra-articular fracture of the distal right radius with dorsal angulation. There is also a possible small displaced ulnar styloid process fracture. X-ray of the chest and right rib cage obtained as well. This identified a mildly displaced fracture of the right seventh rib. No pneumothorax is identified. The right arm was placed in a volar splint and the distal radius fracture was manipulated back into place in the process. The patient had minor blunt head trauma and no imaging of the brain was obtained as she has a GCS of 15, has no neurological symptoms or deficits, no signs of a basilar skull fracture, and is not on any anticoagulation. Her pain was managed in the emergency department. Patient states that she has a history of stomach ulcers and cannot take NSAIDs. She was given a prescription for lidocaine patches and Robaxin with dosing instructions reviewed. Case management made the patient an appointment with orthopedics for 11/09. She also discussed home care with the patient, due to the patient's concerns of her house layout limiting her ability to use ambulation aids such as a walker or wheelchair, which she needs, as well as the current fracture limiting her use of the right arm and making it more difficult to care for herself. Case management advised she discuss these concerns with her primary care provider and orthopedics at her follow-up appointment. Respiratory therapy educated the patient on incentive spirometry, and she is advised to take several deep breaths an hour despite the pain to reduce the risk of developing a secondary pneumonia. Patient discharged home in stable condition. Undiagnosed new problem with uncertain prognosis? @ -None Drug Therapy requiring intensive monitoring for toxicity (Heparin, Nitro, Insulin, Cardizem)? @ -None Were any procedures done? @ -Volar splint application to the right wrist. Diagnosis/symptom? @ -Fall, distal radius fracture, rib fracture, minor blunt head trauma Acute, or Chronic, or Acute on Chronic? @ -Acute Uncomplicated (without systemic symptoms) or Complicated (systemic symptoms)? @ -Uncomplicated Side effects of treatment? @ -None Exacerbation, Progression, or Severe Exacerbation] @ -Not applicable Poses a threat to life or bodily function? @ -This will limit her use of the right arm for the mean time. Return precautions reviewed in depth, the patient is instructed to return to the emergency department with any new, worsening, or concerning symptoms. Patient verbalized understanding. This case was discussed in detail with the attending ED physician, Dr. Zuluaga. Presentation, findings, and treatment plan discussed in detail as well. - Radiology Data Radiology results: report reviewed, image reviewed Disposition Clinical Impression: Distal radius fracture, right, Fall, Right rib fracture, Blunt head injury Disposition: HOME SELF-CARE Instructions (If sedation given, give patient instructions): Wrist Fracture in Adults (ED), Rib Fracture (ED), Splint Care (ED) Additional Instructions: Return to the emergency department with any new, worsening, or concerning symptoms. You can take the Robaxin as 1 to 2 tablets up to 3-4 times daily. Be aware that this may make you drowsy. You can also apply the lidocaine patches daily. Follow up with orthopedics as scheduled and discuss the possibility of home care with them. Make sure you also take several deep breaths an hour despite the pain to reduce the risk of developing a secondary pneumonia from the rib fracture. Prescriptions: Lidocaine 5% Patch [Lidoderm 5% Patch] 1 patch TOPICAL DAILY PRN #30 patch PRN Reason: Pain methocarbamoL [Robaxin-750] 1,500 mg PO TID PRN #30 tab PRN Reason: Pain Is patient prescribed a controlled substance at d/c from ED?: No Referrals: Yoan Quiroz DO [Primary Care Provider] - 1-2 days Ellis Saeed MD [STAFF PHYSICIAN] - 11/10/23 8:50 am (Please bring photo ID and insurance cards to appointment.) Forms: Assisted Living Facilities, Help In The Home, Area PCPs Time of Disposition: 11:58
--- NOTE | 2023-11-07 11:13 | XR ---
EXAMINATION TYPE: XR forearm RT DATE OF EXAM: 11/07/2023 COMPARISON: NONE HISTORY: Pain Two views of the forearm demonstrate comminuted intra-articular fracture of the distal radius. Dorsal angulation. Chondrocalcinosis noted involving the ulnar carpal joint. Diffuse osteopenia. Mild first MCP joint ar thropathy. There is a pathologic joint effusion of the elbow. Diffuse osteopenia with arthropathy of the first carpometacarpal joint. IMPRESSION: 1. Comminuted intra-articular displaced fracture distal radius. 2. Pathologic joint effusion of the elbow assess for fracture or occult fracture.
--- NOTE | 2023-11-07 11:14 | XR ---
EXAMINATION TYPE: XR wrist complete RT, XR hand complete RT DATE OF EXAM: 11/07/2023 11:02 AM CLINICAL INDICATION:Female, 73 years old with history of Pain after fall; COMPARISON: Radiograph same day. TECHNIQUE: XR wrist complete RT, XR hand complete RT; examined in the Frontal, navicular, lateral, a nd oblique. FINDINGS/IMPRESSION: 1. Acute intra-articular fracture of the distal right radius with dorsal angulation. There is soft t issue swelling. No additional fractures visualized. 2. Possible small displaced ulnar styloid process fracture. 3. Multifocal degeneration changes with joint space narrowing osteophyte formation.
--- NOTE | 2023-11-07 11:30 | XR ---
EXAMINATION TYPE: XR ribs RT w pa chest xray DATE OF EXAM: 11/07/2023 COMPARISON: 07/27/2023 TECHNIQUE: PA and lateral views submitted. HISTORY: Pain FINDINGS: Cardiac device with poststernotomy changes. Subsegmental changes left lung base with coarsening of in terstitium suggestive of chronic interstitial lung disease. No pneumothorax. Prosthetic heart valve a nd epicardial lead. Diffuse osteophyte old trauma left shoulder and right humerus. There are multiple chronic appearing r ib deformities involving the right rib cage. Findings are suspicious for an acute mildly displaced fr acture involving the lateral margin right seventh rib. IMPRESSION: 1. Acute mildly displaced fracture right seventh rib with no pneumothorax. Multiple additional chroni c rib cage deformities.
[2023-11-07] MEDS: LIDOCAINE 4% PATCH TOPICAL ONE (11:55)
[2023-11-07 12:19] VITALS: BP 108/57; PULSE 60; RESP 19; TEMP 97.9
== END 2023-11-07 12:42 | disposition home or self-care (01) ==
LOC: EC 10:08
DX: S22.31XA Fracture of one rib, right side, initial encounter for closed fracture (principal); S52.571A Other intraarticular fracture of lower end of right radius, initial encounter for closed fracture; S52.591A Other fractures of lower end of right radius, initial encounter for closed fracture; S52.611A Displaced fracture of right ulna styloid process, initial encounter for closed fracture; I48.91 Unspecified atrial fibrillation; I25.10 Atherosclerotic heart disease of native coronary artery without angina pectoris; I50.9 Heart failure, unspecified; J44.89 Other specified chronic obstructive pulmonary disease; E78.5 Hyperlipidemia, unspecified; F17.200 Nicotine dependence, unspecified, uncomplicated; Z79.82 Long term (current) use of aspirin; Z79.899 Other long term (current) drug therapy; Z91.041 Radiographic dye allergy status; Z91.040 Latex allergy status; Z88.0 Allergy status to penicillin; Z88.8 Allergy status to other drugs, medicaments and biological substances; W06.XXXA Fall from bed, initial encounter
CPT/HCPCS: 99284; 96374; 96375; 96376; 29125; 71101; 73090; 73110; 73130; J2270; J1885

== ENCOUNTER 2023-11-08 21:37 | Inpatient (IN) | payer MEDICARE, BC ==
--- NOTE | 2023-11-08 22:36 | ED ---
General Adult HPI - General Chief complaint: Weakness Stated complaint: weakness Time Seen by Provider: 11/08/23 21:40 Source: patient, EMS Mode of arrival: EMS Limitations: no limitations - History of Present Illness Initial comments: Cherelle is a 73yo F returns to the ER today via EMS for evaluation of weakness, falls and confusion. Patient states she is fallen multiple times since Tuesday she was seen yesterday and had a broken right wrist and rib fractures but was discharged home. Patient lives at home alone. She did have a friend stay with her and they noted that she had an abnormal gait, multiple near falls in which her friend caught her and a couple more falls today 1 in which she believes she struck her head but did not lose consciousness. Friend at bedside also reports that the patient currently seems confused seems as though she has been hallucinating she was picking up things that were not on the floor. - Related Data Home Medications Medication Instructions Recorded Confirmed Primidone [Mysoline] 100 mg PO QID 10/04/14 11/07/23 Aspirin 81 mg PO DAILY 04/17/15 11/07/23 clonazePAM [KlonoPIN] 1 mg PO BID@0900,1400 09/19/16 11/07/23 Sotalol [Betapace] 120 mg PO BID 09/10/22 11/07/23 ALPRAZolam [Xanax] 1 mg PO HS 11/07/23 11/07/23 DULoxetine HCL [Cymbalta] 60 mg PO DAILY 11/07/23 11/07/23 Mirtazapine [Remeron] 30 mg PO HS 11/07/23 11/07/23 Simvastatin [Zocor] 40 mg PO HS 11/07/23 11/07/23 Previous Rx's Medication Instructions Recorded fentaNYL 25MCG/HR PATCH [Duragesic 1 patch TRANSDERM Q48H 30 Days #15 09/26/23 25MCG/HR] patch Lidocaine 5% Patch [Lidoderm 5% 1 patch TOPICAL DAILY PRN #30 patch 11/07/23 Patch] methocarbamoL [Robaxin-750] 1,500 mg PO TID PRN #30 tab 11/07/23 Allergies Allergy/AdvReac Type Severity Reaction Status Date / Time adhesive Allergy Rash/Hives Verified 11/07/23 11:32 latex Allergy Rash/Hives Verified 11/07/23 11:32 Penicillins Allergy Unknown Verified 11/07/23 11:32 Childhood alendronate sodium AdvReac Nausea & Verified 11/07/23 11:32 [From Fosamax] Vomiting ruber Allergy Rash/Hives Uncoded 11/07/23 11:32 Review of Systems ROS Statement: Those systems with pertinent positive or pertinent negative responses have been documented in the HPI. ROS Other: All systems not noted in ROS Statement are negative. Past Medical History Past Medical History: Atrial Fibrillation, Atrial Flutter, Asthma, Coronary Artery Disease (CAD), Heart Failure, COPD, CVA/TIA, GERD/Reflux, Hyperlipidemia Additional Past Medical History / Comment(s): tremors. osteoporosis, compression fx. pulmonary fibrosis. COVID 10/14 Last Myocardial Infarction Date:: unk History of Any Multi-Drug Resistant Organisms: None Reported Past Surgical History: Adenoidectomy, Bladder Surgery, Bowel Resection, Cardiac Valve Replacement, Ear Surgery, Heart Catheterization With Stent, Hysterectomy, Tonsillectomy Additional Past Surgical History / Comment(s): colostomy. open heart x2. watchman device to chest Past Anesthesia/Blood Transfusion Reactions: No Reported Reaction Additional Past Anesthesia/Blood Transfusion Reaction / Comment(s): clausterpbobia. pt is combative when coming out of anesthesia Date of Last Stent Placement:: unk Type of Cardiac Device: Unknown Device Placement Date:: unknown Smoking Status: Current some day smoker - Past Family History Father Family Medical History: CVA/TIA Additional Family Medical History / Comment(s): was an alcoholic, rheumatic fever as child,lost 2/3rds of stomach d/t etoh. age 61 Mother Additional Family Medical History / Comment(s): comitted suicide at age 54 General Exam - General Exam Comments Initial Comments: Physical Exam GENERAL: Patient is well-developed and well-nourished. Patient is nontoxic and well-hydrated and is in no distress. HENT: Normocephalic, Atraumatic. EYES: PERRL, EOMI PULMONARY: Tachypneic with splinting respirations pain on the right CARDIOVASCULAR: RRR Warm and well perfused extremities ABDOMEN: Non-distended SKIN: Significant bruising over right arm : Deferred NEUROLOGIC: Alert and oriented to person and place but confused about events of the day Normal speech Left-sided deficits from previous stroke MUSCULOSKELETAL: Right forearm in splint PSYCHIATRIC: No SI/HI Limitations: no limitations Course Vital Signs 11/08/23 11/08/23 21:39 23:37 Temperature 98.3 F Pulse Rate 75 60 Respiratory 16 16 Rate Blood Pressure 144/91 144/91 O2 Sat by Pulse 98 100 Oximetry Medical Decision Making - Medical Decision Making Was pt. sent in by a medical professional or institution (, SAGAR, MECHANICAL SPECIALIST, urgent care, hospital, or skilled nursing...) When possible be specific @ -No Did you speak to anyone other than the patient for history (EMS, parent, family, police, friend...)? What history was obtained from this source @ -Yes family at bedside Did you review nursing and triage notes (agree or disagree)? Why? @ -I reviewed and agree with nursing and triage notes Were old charts reviewed (outside hosp., previous admission, EMS record, old EKG, old radiological studies, urgent care reports/EKG's, skilled nursing records)? Report findings @ -Previous visit was reviewed Differential Diagnosis (chest pain, altered mental status, abdominal pain women, abdominal pain men, vaginal bleeding, weakness, fever, dyspnea, syncope, headache, dizziness, GI bleed, back pain, seizure, CVA, palpatations, mental health)? @ -Differential Weakness: Hypoglycemia, shock, sepsis, hyponatremia, anemia, infection, NV, ETOH, adverse medicine reaction, overdose, stroke, this is not meant to be an all-inclusive list. EKG interpreted by me (3pts min.). @ -As above X-rays interpreted by me (1pt min.). @ -None done CT interpreted by me (1pt min.). @ -Head CT with normal aging changes U/S interpreted by me (1pt. min.). @ -None done What testing was considered but not performed or refused? (CT, X-rays, U/S, labs)? Why? @ -None What meds were considered but not given or refused? Why? @ -None Did you discuss the management of the patient with other professionals (professionals i.e. , SAGAR, MECHANICAL SPECIALIST, lab, RT, psych nurse, licensed master social worker, supervisor [employer], teacher, disability liaison officer, senior case manager)? Give summary @ -Admitting physician Dr. Awan Was smoking cessation discussed for >3mins.? @ -No Was critical care preformed (if so, how long)? @ -No Were there social determinants of health that impacted care today? How? (Homelessness, low income, unemployed, alcoholism, drug addiction, transportation, low edu. Level, literacy, decrease access to med. care, correction, rehab)? @ -No Was there de-escalation of care discussed even if they declined (Discuss DNR or withdrawal of care, Hospice)? DNR status @ -No What co-morbidities impacted this encounter? (DM, HTN, Smoking, COPD, CAD, Cancer, CVA, ARF, Chemo, Hep., AIDS, mental health diagnosis, sleep apnea, morbid obesity)? @ -None Was patient admitted / discharged? Hospital course, mention meds given and route, prescriptions, significant lab abnormalities, going to OR and other pertinent info. @ -Admit Patient was seen and evaluated. Patient with multiple falls, generalized weakness and confusion. Workup was unremarkable here however given that the patient has broken ribs broken wrist and multiple falls at home she is not safe for discharge and will likely require placement. Dr. Lofton accepts the admi ssion. Undiagnosed new problem with uncertain prognosis? @ -No Drug Therapy requiring intensive monitoring for toxicity (Heparin, Nitro, Insulin, Cardizem)? @ -No Were any procedures done? @ -No Diagnosis/symptom? @ -Generalized weakness, multiple falls, rib fracture, wrist fracture Acute, or Chronic, or Acute on Chronic? @ -Acute Uncomplicated (without systemic symptoms) or Complicated (systemic symptoms)? @ -Complicated Side effects of treatment? @ -No Exacerbation, Progression, or Severe Exacerbation? @ -No Poses a threat to life or bodily function? How? (Chest pain, USA, NV, pneumonia, PE, COPD, DKA, ARF, appy, cholecystitis, CVA, Diverticulitis, Homicidal, Suicidal, threat to staff... and all critical care pts) @ -Potentially falls can lead to traumatic injury that can cause - Lab Data Result diagrams: 11/08/23 23:38 11/08/23 23:38 Lab Results 11/08/23 11/08/23 11/08/23 Range/Units 23:38 23:38 23:38 WBC 8.8 (3.8-10.6) k/uL RBC 3.63 L (3.80-5.40) m/uL Hgb 11.6 (11.4-16.0) gm/dL Hct 35.5 (34.0-46.0) % MCV 97.8 (80.0-100.0) fL MCH 32.1 (25.0-35.0) pg MCHC 32.8 (31.0-37.0) g/dL RDW 15.8 H (11.5-15.5) % Plt Count 225 (150-450) k/uL MPV 11.6 Neutrophils % 66 % Lymphocytes % 26 % Monocytes % 6 % Eosinophils % 0 % Basophils % 0 % Neutrophils # 5.8 (1.3-7.7) k/uL Lymphocytes # 2.3 (1.0-4.8) k/uL Monocytes # 0.6 (0-1.0) k/uL Eosinophils # 0.0 (0-0.7) k/uL Basophils # 0.0 (0-0.2) k/uL PT 9.9 L (10.0-12.5) sec INR 0.9 (<1.2) APTT 27.7 (22.0-30.0) sec Sodium 135 L (137-145) mmol/L Potassium 4.2 (3.5-5.1) mmol/L Chloride 101 (98-107) mmol/L Carbon Dioxide 26 (22-30) mmol/L Anion Gap 8 mmol/L BUN 12 (7-17) mg/dL Creatinine 0.59 (0.52-1.04) mg/dL Est GFR (CKD-EPI)AfAm >90 (>60 ml/min/1.73 sqM) Est GFR (CKD-EPI)NonAf >90 (>60 ml/min/1.73 sqM) Glucose 73 L (74-99) mg/dL Calcium 8.1 L (8.4-10.2) mg/dL Total Bilirubin 0.9 (0.2-1.3) mg/dL AST 36 (14-36) U/L ALT 28 (4-34) U/L Alkaline Phosphatase 117 (38-126) U/L Total Protein 6.6 (6.3-8.2) g/dL Albumin 3.3 L (3.5-5.0) g/dL Urine Color Urine Appearance (Clear) Urine pH (5.0-8.0) Ur Specific [place] (1.001-1.035) Urine Protein (Negative) Urine Glucose (UA) (Negative) Urine Ketones (Negative) Urine Blood (Negative) Urine Nitrite (Negative) Urine Bilirubin (Negative) Urine Urobilinogen (<2.0) mg/dL Ur Leukocyte Esterase (Negative) Urine Opiates Screen (NotDetected) Ur Oxycodone Screen (NotDetected) Urine Methadone Screen (NotDetected) Ur Barbiturates Screen (NotDetected) U Tricyclic Antidepress (NotDetected) Ur Phencyclidine Scrn (NotDetected) Ur Amphetamines Screen (NotDetected) U Methamphetamines Scrn (NotDetected) U Benzodiazepines Scrn (NotDetected) Urine Cocaine Screen (NotDetected) U Marijuana (THC) Screen (NotDetected) 11/08/23 Range/Units 23:59 WBC (3.8-10.6) k/uL RBC (3.80-5.40) m/uL Hgb (11.4-16.0) gm/dL Hct (34.0-46.0) % MCV (80.0-100.0) fL MCH (25.0-35.0) pg MCHC (31.0-37.0) g/dL RDW (11.5-15.5) % Plt Count (150-450) k/uL MPV Neutrophils % % Lymphocytes % % Monocytes % % Eosinophils % % Basophils % % Neutrophils # (1.3-7.7) k/uL Lymphocytes # (1.0-4.8) k/uL Monocytes # (0-1.0) k/uL Eosinophils # (0-0.7) k/uL Basophils # (0-0.2) k/uL PT (10.0-12.5) sec INR (<1.2) APTT (22.0-30.0) sec Sodium (137-145) mmol/L Potassium (3.5-5.1) mmol/L Chloride (98-107) mmol/L Carbon Dioxide (22-30) mmol/L Anion Gap mmol/L BUN (7-17) mg/dL Creatinine (0.52-1.04) mg/dL Est GFR (CKD-EPI)AfAm (>60 ml/min/1.73 sqM) Est GFR (CKD-EPI)NonAf (>60 ml/min/1.73 sqM) Glucose (74-99) mg/dL Calcium (8.4-10.2) mg/dL Total Bilirubin (0.2-1.3) mg/dL AST (14-36) U/L ALT (4-34) U/L Alkaline Phosphatase (38-126) U/L Total Protein (6.3-8.2) g/dL Albumin (3.5-5.0) g/dL Urine Color Colorless Urine Appearance Clear (Clear) Urine pH 6.0 (5.0-8.0) Ur Specific [place] 1.012 (1.001-1.035) Urine Protein Trace H (Negative) Urine Glucose (UA) Negative (Negative) Urine Ketones 2+ H (Negative) Urine Blood Negative (Negative) Urine Nitrite Negative (Negative) Urine Bilirubin Negative (Negative) Urine Urobilinogen <2.0 (<2.0) mg/dL Ur Leukocyte Esterase Negative (Negative) Urine Opiates Screen Detected H (NotDetected) Ur Oxycodone Screen Not Detected (NotDetected) Urine Methadone Screen Not Detected (NotDetected) Ur Barbiturates Screen Detected H (NotDetected) U Tricyclic Antidepress Not Detected (NotDetected) Ur Phencyclidine Scrn Not Detected (NotDetected) Ur Amphetamines Screen Not Detected (NotDetected) U Methamphetamines Scrn Not Detected (NotDetected) U Benzodiazepines Scrn Detected H (NotDetected) Urine Cocaine Screen Not Detected (NotDetected) U Marijuana (THC) Screen Not Detected (NotDetected) Disposition Clinical Impression: Falls frequently, Confusion, Right rib fracture, Distal radius fracture, right, High risk for readmission Disposition: ADMITTED IP TO THIS HOSP Condition: Serious Is patient prescribed a controlled substance at d/c from ED?: No
[2023-11-08] MEDS: SODIUM CHLORIDE 0.9% 500 ML 500 ML IV ONE (23:40)
[2023-11-08] MEDS: MORPHINE SULFATE 4 MG/ML SYRINGE IVP STA (23:41)
[2023-11-09 00:25] LABS: ALT 28 U/L (4-34); African American GFR (CKD) >90 (>60 ml/min/1.73 sqM); Anion Gap 8 mmol/L; Blood Urea Nitrogen 12 mg/dL (7-17); Calcium 8.1 mg/dL (8.4-10.2); Carbon Dioxide 26 mmol/L (22-30); Chloride 101 mmol/L (98-107); Glucose 73 mg/dL (74-99); Non-African American GFR(CKD) >90 (>60 ml/min/1.73 sqM); Sodium 135 mmol/L (137-145); Total Bilirubin 0.9 mg/dL (0.2-1.3)
[2023-11-09 00:31] LABS: INR 0.9 (<1.2); Partial Thromboplastin Time 27.7 sec (22.0-30.0); Prothrombin Time 9.9 sec (10.0-12.5)
[2023-11-09 00:33] LABS: Basophils % (A) 0 %; Eosinophils % (A) 0 %; HCT 35.5 % (34.0-46.0); HGB 11.6 gm/dL (11.4-16.0); Lymphocytes # (A) 2.3 k/uL (1.0-4.8); Lymphocytes % (A) 26 %; MCH 32.1 pg (25.0-35.0); MCHC 32.8 g/dL (31.0-37.0); MCV 97.8 fL (80.0-100.0); Mean Platelet Volume 11.6; Monocytes # (A) 0.6 k/uL (0-1.0); Monocytes % (A) 6 %; Neutrophils # (A) 5.8 k/uL (1.3-7.7); Neutrophils % (A) 66 %; Platelet Count 225 k/uL (150-450); RBC 3.63 m/uL (3.80-5.40); RDW 15.8 % (11.5-15.5); WBC 8.8 k/uL (3.8-10.6)
[2023-11-09 00:46] LABS: AST 36 U/L (14-36); Albumin 3.3 g/dL (3.5-5.0); Alkaline Phosphatase 117 U/L (38-126); Potassium 4.2 mmol/L (3.5-5.1); Total Protein 6.6 g/dL (6.3-8.2)
[2023-11-09 00:49] LABS: Appearance,Urine Clear (Clear); Bilirubin,Urine Negative (Negative); Blood,Urine Negative (Negative); Color,Urine Colorless; Glucose,Urine (UA) Negative (Negative); Ketones,Urine 2+ (Negative); Leukocyte Esterase,Urine Negative (Negative); Nitrite,Urine Negative (Negative); Protein,Urine Trace (Negative); Specific Gravity,Urine 1.012 (1.001-1.035); Urobilinogen,Urine <2.0 mg/dL (<2.0)
--- NOTE | 2023-11-09 00:50 | XR ---
EXAM: XR Chest, 1 View CLINICAL HISTORY: ITS.REASON XR Reason: altered mental status, recent rib fracture TECHNIQUE: Frontal view of the chest. COMPARISON: No relevant prior studies available. IMPRESSION: Cardiomegaly. Mild vascular congestion
--- NOTE | 2023-11-09 00:50 | CT ---
EXAM: CT Head Without Intravenous Contrast CLINICAL HISTORY: ITS.REASON CT Reason: falls, altered TECHNIQUE: Axial computed tomography images of the head/brain without intravenous contrast. CTDI is 26 mGy and DLP is 587.2 mGy-cm. This CT exam was performed using one or more of the following dose reduction techniques: automated exposure control, adjustment of the mA and/or kV according to patient size, and/or use of iterative reconstruction technique. COMPARISON: No relevant prior studies available. FINDINGS: Brain: No hemorrhage or mass effect. Ventricles: No hydrocephalus. Bones/joints: Unremarkable. Soft tissues: Unremarkable. Sinuses: Maxillary sinus air fluid level. Mastoid air cells: Clear. IMPRESSION: No acute hemorrhage, hydrocephalus, or mass effect. EXAM: CT Cervical Spine Without Intravenous Contrast CLINICAL HISTORY: ITS.REASON CT Reason: falls, altered TECHNIQUE: Axial computed tomography images of the cervical spine without intravenous contrast. CTDI is 26 mGy and DLP is 587.2 mGy-cm. This CT exam was performed using one or more of the following dose reduction techniques: automated exposure control, adjustment of the mA and/or kV according to patient size, and/or use of iterative reconstruction technique. COMPARISON: No relevant prior studies available. FINDINGS: Vertebrae: No acute fracture. Discs/spinal canal/neural foramina: degenerative changes. Soft tissues: No prevertebral swelling. Severe COPD. IMPRESSION: No acute fracture or subluxation.
[2023-11-09 00:57] LABS: Amphetamine Screen,Urine Not Detected (NotDetected); Barbiturate Screen,Urine Detected (NotDetected); Benzodiazepines Screen,Urine Detected (NotDetected); Cocaine Screen,Urine Not Detected (NotDetected); Methadone Screen, Urine Not Detected (NotDetected); Opiate Screen,Urine Detected (NotDetected); Oxycodone Screen, Urine Not Detected (NotDetected); Phencyclidine Screen,Urine Not Detected (NotDetected); Tricyclic Antidepressant,Urine Not Detected (NotDetected); Urn Cannabinoid Scrn Not Detected (NotDetected)
[2023-11-09] MEDS ORDERED: NALOXONE 0.4 MG/ML 1 ML VIAL IV PRN (02:18)
[2023-11-09] MEDS ORDERED: MELATONIN 5 MG TABLET PO PRN (04:57)
--- NOTE | 2023-11-09 05:04 | P.HPIM ---
History of Present Illness H&P Date: 11/09/23 Chief Complaint: Frequent falling 73-year-old female with COPD on 2 L oxygen, A-fib not on blood thinners status post pacemaker and Watchman procedure Patient was brought in by family due to frequent falling at home. She sustained a fall yesterday resulted in some broken wrist and she was sent home however since then she had 8 more falls patient herself denies any loss of consciousness denies any associated symptoms with the falls denies any chest pain trouble breathing dizziness or lightheadedness or palpitations however she does report occasional head injury with these falls she just feels weak momentarily and falls. She struggles to get up after that usually seeks help for family with helper after around. Due to these falls family feels patient is unsafe to live alone and asking for placement Otherwise patient denies any recent changes in medications denies any fevers chills denies any chest pain trouble breathing denies any nausea vomiting changes in bowel or urinary habits Patient does admit to tobacco smoking denies any street drugs or heavy alcohol review of systems Pertinent positives as noted in HPI. All other systems were reviewed and are negative on exam Constitutional: No acute distress, conversant Eyes: Anicteric sclerae, moist conjunctiva, Pupils equal round reactive to light ENMT: NC/AT Oropharynx clear, no erythema, or exudates Neck: Supple, no masses, or JVD No carotid bruits No thyromegaly Lungs: Diminished breath sounds with scattered wheezing Clear to percussion Normal respiratory effort, no accessory muscle use Cardiovascular: Heart regular in rate and rhythm, No murmurs, gallops, or rubs No peripheral edema Abdominal: Soft Nontender, no guarding, rebound or rigidity Abdomen moving with respiration Normoactive bowel sounds Left colostomy bag in place functional no bleeding Extremities: Right forearm with back splint and surgical wrap due to recent fracture no digital cyanosis No clubbing Pedal pulses intact and symmetrical Radial pulses intact and symmetrical No calf tenderness Psychiatric: Alert and oriented to person, place and time Neuro Muscles Strength 4/5 in all 4 extremities Sensation to light touch grossly present throughout Cranial nerves II-XII grossly intact, Past Medical History Past Medical History: Atrial Fibrillation, Atrial Flutter, Asthma, Coronary Artery Disease (CAD), Heart Failure, COPD, CVA/TIA, GERD/Reflux, Hyperlipidemia Additional Past Medical History / Comment(s): tremors. osteoporosis, compression fx. pulmonary fibrosis. COVID 10/14 Last Myocardial Infarction Date:: unk History of Any Multi-Drug Resistant Organisms: None Reported Past Surgical History: Adenoidectomy, Bladder Surgery, Bowel Resection, Cardiac Valve Replacement, Ear Surgery, Heart Catheterization With Stent, Hysterectomy, Tonsillectomy Additional Past Surgical History / Comment(s): colostomy. open heart x2. watchman device to chest Past Anesthesia/Blood Transfusion Reactions: No Reported Reaction Additional Past Anesthesia/Blood Transfusion Reaction / Comment(s): clausterpbobia. pt is combative when coming out of anesthesia Date of Last Stent Placement:: unk Type of Cardiac Device: Unknown Device Placement Date:: unknown Smoking Status: Current some day smoker - Past Family History Father Family Medical History: CVA/TIA Additional Family Medical History / Comment(s): was an alcoholic, rheumatic fever as child,lost 2/3rds of stomach d/t etoh. age 61 Mother Additional Family Medical History / Comment(s): comitted suicide at age 54 Medications and Allergies Home Medications Medication Instructions Recorded Confirmed Type Primidone [Mysoline] 100 mg PO QID 10/04/14 11/07/23 History Aspirin 81 mg PO DAILY 04/17/15 11/07/23 History clonazePAM [KlonoPIN] 1 mg PO BID@0900,1400 09/19/16 11/07/23 History Sotalol [Betapace] 120 mg PO BID 09/10/22 11/07/23 History fentaNYL 25MCG/HR PATCH [Duragesic 1 patch TRANSDERM Q48H 30 Days #15 09/26/23 11/07/23 Rx 25MCG/HR] patch ALPRAZolam [Xanax] 1 mg PO HS 11/07/23 11/07/23 History DULoxetine HCL [Cymbalta] 60 mg PO DAILY 11/07/23 11/07/23 History Lidocaine 5% Patch [Lidoderm 5% 1 patch TOPICAL DAILY PRN #30 patch 11/07/23 Rx Patch] Mirtazapine [Remeron] 30 mg PO HS 11/07/23 11/07/23 History Simvastatin [Zocor] 40 mg PO HS 11/07/23 11/07/23 History methocarbamoL [Robaxin-750] 1,500 mg PO TID PRN #30 tab 11/07/23 Rx Allergies Allergy/AdvReac Type Severity Reaction Status Date / Time adhesive Allergy Rash/Hives Verified 11/07/23 11:32 latex Allergy Rash/Hives Verified 11/07/23 11:32 Penicillins Allergy Unknown Verified 11/07/23 11:32 Childhood alendronate sodium AdvReac Nausea & Verified 11/07/23 11:32 [From Fosamax] Vomiting ruber Allergy Rash/Hives Uncoded 11/07/23 11:32 Physical Exam Vitals: Vital Signs Temp Pulse Resp BP Pulse Ox 11/08/23 23:37 60 16 144/91 100 11/08/23 21:39 98.3 F 75 16 144/91 98 Intake and Output 11/08/23 11/08/23 11/09/23 14:59 22:59 06:59 Other: Weight 42.638 kg Results CBC & Chem 7: 11/08/23 23:38 11/08/23 23:38 Labs: Abnormal Lab Results - Last 24 Hours (Table) 11/08/23 11/08/23 11/08/23 Range/Units 23:38 23:38 23:38 RBC 3.63 L (3.80-5.40) m/uL RDW 15.8 H (11.5-15.5) % PT 9.9 L (10.0-12.5) sec Sodium 135 L (137-145) mmol/L Glucose 73 L (74-99) mg/dL Calcium 8.1 L (8.4-10.2) mg/dL Albumin 3.3 L (3.5-5.0) g/dL Urine Protein (Negative) Urine Ketones (Negative) Urine Opiates Screen (NotDetected) Ur Barbiturates Screen (NotDetected) U Benzodiazepines Scrn (NotDetected) 11/08/23 Range/Units 23:59 RBC (3.80-5.40) m/uL RDW (11.5-15.5) % PT (10.0-12.5) sec Sodium (137-145) mmol/L Glucose (74-99) mg/dL Calcium (8.4-10.2) mg/dL Albumin (3.5-5.0) g/dL Urine Protein Trace H (Negative) Urine Ketones 2+ H (Negative) Urine Opiates Screen Detected H (NotDetected) Ur Barbiturates Screen Detected H (NotDetected) U Benzodiazepines Scrn Detected H (NotDetected) Assessment and Plan Assessment: 73-year-old female with COPD on 2 L nasal cannula A-fib status post pacemaker and Watchman patient is not on any blood thinner she is coming to the hospital due to frequent falling I discussed the case with ED doctor and accepted the admission for subacute right wrist fracture with frequent falling and evaluation for placement with anticipated length of stay less than 2 midnights Right wrist fracture X-ray showed acute intra-articular fracture of the distal right radius with dorsal angulation soft tissue swelling with possible displaced ulnar styloid process multifocal degenerative changes with joint narrowing Currently in surgical dressing and splint Ortho consultation Frequent falling Fall precautions PT evaluation Cardiac monitoring Monitor vital signs CT of the brain and C-spine both unremarkable no acute intracranial pathology no acute fractures Urine analysis negative for any infection Chest x-ray showed some mild pulmonary vascular congestion Blood work overall unremarkable white count 8.8 hemoglobin 11.6 Sodium 135 potassium 4.2 BUN 12 creatinine 0.59 COPD compensated Chronic hypoxic respiratory failure Continue supplemental oxygen as needed Continue with DuoNebs scheduled and as needed A-fib not on blood thinners status post Watchman procedure and pacemaker Verify home medications Full code DVT prophylaxis heparin subcu 3 times daily
[2023-11-09] MEDS ORDERED: IPRATROPIUM-ALBUTEROL 3 ML NEB INHALATION PRN (05:07)
[2023-11-09] MEDS: SODIUM CHLORIDE 0.9% 1,000 ML IV SCH (05:19)
[2023-11-09] MEDS: MORPHINE SULFATE 4 MG/ML SYRINGE IVP PRN (07:29)
[2023-11-09] MEDS ORDERED: LIDOCAINE 4% PATCH TOPICAL PRN (08:44)
[2023-11-09] MEDS ORDERED: DEXTROSE 50% SYRINGE 50 ML IVP PRN ×2 (08:55)
[2023-11-09] MEDS ORDERED: HYDROcodone/APAP 5-325MG 1 EACH TAB PO PRN (09:01)
[2023-11-09] MEDS: IPRATROPIUM-ALBUTEROL 3 ML NEB INHALATION SCH (09:15)
[2023-11-09] MEDS: ASPIRIN 81 MG PO SCH (10:08)
[2023-11-09] MEDS: DULoxetine HCL 60 MG CAPSULE.DR PO SCH (10:09)
[2023-11-09] MEDS: HEPARIN SODIUM,PORCINE 5,000 UNIT/ML 1 ML VIAL SQ SCH (10:09)
[2023-11-09] MEDS: SOTALOL 120 MG TAB PO SCH (10:09)
[2023-11-09] MEDS: PRIMIDONE 50 MG TAB PO SCH (10:09)
[2023-11-09] MEDS: IBUPROFEN 600 MG TAB PO PRN (11:46)
[2023-11-09] MEDS: ALPRAZolam 0.5 MG TAB PO PRN (11:46)
--- NOTE | 2023-11-09 12:06 | P.CNOR ---
History of Present Illness - HPI Consult date: 11/09/23 History of present illness: This is a 73-year-old female who is admitted after multiple falls. Orthopedics is consulted due to a right wrist fracture. Patient is seen and evaluated at bedside today. Patient states that she fell on 11/06/2023, and presented to the emergency room on 11/07/2023 for evaluation. Patient was discharged home initially, but was taken to the hospital again via EMS on 11/08/2023 for multiple falls and confusion. Patient reports pain in the right wrist and states that she is [id number]. Patient states that she lives at home, but will likely need rehab for a short time. Patient denies any fever/chills, numbness, weakness or tingling. Patient's past medical history significant for atrial fibrillation, atrial flutter, asthma, coronary artery disease, heart failure, COPD, history of CVA/TIA, GERD/reflux, pulmonary fibrosis and hyperlipidemia. Review of Systems See HPI. Past Medical History Past Medical History: Atrial Fibrillation, Atrial Flutter, Asthma, Coronary Artery Disease (CAD), Heart Failure, COPD, CVA/TIA, GERD/Reflux, Hyperlipidemia Additional Past Medical History / Comment(s): tremors. osteoporosis, compression fx. pulmonary fibrosis. COVID 10/14. Hx. of Cocaine abuse- currently attends [employer]. Last Myocardial Infarction Date:: unk History of Any Multi-Drug Resistant Organisms: None Reported Past Surgical History: Adenoidectomy, Bladder Surgery, Bowel Resection, Cardiac Valve Replacement, Ear Surgery, Heart Catheterization With Stent, Hysterectomy, Tonsillectomy Additional Past Surgical History / Comment(s): colostomy. open heart x2. watchman device to chest Past Anesthesia/Blood Transfusion Reactions: No Reported Reaction Additional Past Anesthesia/Blood Transfusion Reaction / Comm: claustropbobia. pt is combative when coming out of anesthesia Date of Last Stent Placement:: unk Type of Cardiac Device: Unknown Device Placement Date:: unknown Past Psychological History: No Psychological Hx Reported Smoking Status: Current some day smoker Past Alcohol Use History: None Reported Additional Past Alcohol Use History / Comment(s): started smoking at age 16 smoked 1 ppd Past Drug Use History: Cocaine Additional Drug Use History / Comment(s): Per son patient has Hx. of Cocaine abuse-currently goes to [employer] meetings. Clean for almost 20 years. - Past Family History Father Family Medical History: CVA/TIA Additional Family Medical History / Comment(s): was an alcoholic, rheumatic feve r as child,lost 2/3rds of stomach d/t etoh. age 61 Mother Additional Family Medical History / Comment(s): comitted suicide at age 54 Medications and Allergies Home Medications Medication Instructions Recorded Confirmed Type Primidone [Mysoline] 100 mg PO QID 10/04/14 11/09/23 History Aspirin 81 mg PO DAILY 04/17/15 11/09/23 History clonazePAM [KlonoPIN] 1 mg PO BID@0900,1400 09/19/16 11/09/23 History Sotalol [Betapace] 120 mg PO BID 09/10/22 11/09/23 History ALPRAZolam [Xanax] 1 mg PO HS 11/07/23 11/09/23 History DULoxetine HCL [Cymbalta] 60 mg PO DAILY 11/07/23 11/09/23 History Lidocaine 5% Patch [Lidoderm 5% 1 patch TOPICAL DAILY PRN #30 patch 11/07/23 11/09/23 Rx Patch] Mirtazapine [Remeron] 30 mg PO HS 11/07/23 11/09/23 History Simvastatin [Zocor] 40 mg PO HS 11/07/23 11/09/23 History methocarbamoL [Robaxin-750] 1,500 mg PO TID PRN #30 tab 11/07/23 11/09/23 Rx Allergies Allergy/AdvReac Type Severity Reaction Status Date / Time adhesive Allergy Rash/Hives Verified 11/09/23 07:22 latex Allergy Rash/Hives Verified 11/09/23 07:22 Penicillins Allergy Unknown Verified 11/09/23 07:22 Childhood rubber, unspecified Allergy Rash/Hives Verified 11/09/23 07:22 alendronate sodium AdvReac Nausea & Verified 11/09/23 07:22 [From Fosamax] Vomiting Physical Examination On exam patient is resting comfortably in bed in no acute distress. Patient is alert and oriented 3. There is a splint is clean, dry and intact right upper extremity. Salomon wrap is loosened revealing moderate ecchymosis. Compartments are soft. There is tenderness to palpation over the right wrist. Patient has good motion of the fingers of the right hand. Capillary refill is normal at <2 seconds. Sensation intact. Neurovascular status and circulatory status are intact. Results X-rays of the right wrist are reviewed revealing a mildly displaced distal radius fracture. - Labs Labs: Abnormal Lab Results - Last 24 Hours (Table) 11/08/23 11/08/23 11/08/23 Range/Units 23:38 23:38 23:38 RBC 3.63 L (3.80-5.40) m/uL RDW 15.8 H (11.5-15.5) % PT 9.9 L (10.0-12.5) sec Sodium 135 L (137-145) mmol/L Glucose 73 L (74-99) mg/dL Calcium 8.1 L (8.4-10.2) mg/dL Albumin 3.3 L (3.5-5.0) g/dL Urine Protein (Negative) Urine Ketones (Negative) Urine Opiates Screen (NotDetected) Ur Barbiturates Screen (NotDetected) U Benzodiazepines Scrn (NotDetected) 11/08/23 Range/Units 23:59 RBC (3.80-5.40) m/uL RDW (11.5-15.5) % PT (10.0-12.5) sec Sodium (137-145) mmol/L Glucose (74-99) mg/dL Calcium (8.4-10.2) mg/dL Albumin (3.5-5.0) g/dL Urine Protein Trace H (Negative) Urine Ketones 2+ H (Negative) Urine Opiates Screen Detected H (NotDetected) Ur Barbiturates Screen Detected H (NotDetected) U Benzodiazepines Scrn Detected H (NotDetected) H & H 11/08/23 Range/Units 23:38 Hgb 11.6 (11.4-16.0) gm/dL Hct 35.5 (34.0-46.0) % Coagulation 11/08/23 Range/Units 23:38 INR 0.9 (<1.2) Result Diagrams: 11/08/23 23:38 11/08/23 23:38 Assessment and Plan (1) Distal radius fracture, right Current Visit: Yes Status: Acute Code(s): S52.501A - UNSP FRACTURE OF THE LOWER END OF RIGHT RADIUS, INIT SNOMED Code(s): 39797701389742713 (2) Falls frequently Current Visit: Yes Status: Acute Code(s): R29.6 - REPEATED FALLS SNOMED Code(s): 435058893 (3) Fall Current Visit: No Status: Acute Code(s): W19.XXXA - UNSPECIFIED FALL, INITIAL ENCOUNTER SNOMED Code(s): 1115673 Plan: 1. X-rays are reviewed revealing a mildly displaced distal radius fracture. Recommend that patient maintain her short arm splint at all times. Conservative treatment is recommended at this time. Recommend outpatient follow-up with Dr. Glaser in one week.
--- NOTE | 2023-11-09 12:43 | CT ---
EXAMINATION TYPE: CT lumbar spine wo con DATE OF EXAM: 11/09/2023 COMPARISON: 04/29/2023 HISTORY: 73-year-old female with bilateral lower extremity weakness, low back pain following falls TECHNIQUE: Contiguous axial scanning of the lumbar spine without IV contrast. Coronal and sagittal re constructions performed. CT DLP: 327.5 mGycm Automated exposure control for dose reduction was used. FINDINGS: Diffuse osteopenia. Moderate facet arthropathy towards the right and moderate to advanced towards the left. Degenerative grade 1 anterolisthesis L4-L5. Remaining alignment is maintained. Mild multilevel degenerative disc disease with bulging discs throughout. Levels of ligamentum flavum thickening mid to lower lumbar spine. Mild endplate deformities are present L2 through L5 levels, unchanged from 04/29/2023. Changes result in ccyy-jy-gqrotvro spinal canal stenosis in the L2-L3 and L4-L5. Mild at L1-L2, L3-L4 , and L4-L5. No high-grade canal compromise. On the right, changes result in moderate neural foraminal stenosis at L4-L5. Mild to moderate L2-L3. Mild other levels in the lumbar spine. On the left, changes result in moderate neuroforaminal stenosis at L2-L3 and mild at additional level s. Right sided disc osteophyte complex at L4-L5 may abut the traversing right L5 nerve root. Interstitial changes have worsened in the bilateral lung bases. IMPRESSION: 1. DIFFUSE OSTEOPENIA WITH CHRONIC MILD ENDPLATE DEFORMITIES OF L2 THROUGH L5 VERTEBRA COMPARED BACK TO 04/29/2023. 2. MILD DEGENERATIVE DISC DISEASE WITH BULGING DISCS. ADDITIONAL SCATTERED LIGAMENTUM FLAVUM THICKENI NG AND HYPERTROPHIC FACET ARTHROPATHY, LEFT GREATER THAN RIGHT. DEGENERATIVE GRADE 1 ANTEROLISTHESIS AT L4-L5. 3. CHANGES RESULT IN [id number] SPINAL CANAL STENOSIS AT L2-L3 AND L4-L5. MILD AT ADDITIONAL LE VELS. NO HIGH-GRADE CANAL COMPROMISE. 4. MODERATE NEUROFORAMINAL STENOSIS ON THE RIGHT AT L4-L5 AND ON THE LEFT AT L2-L3. RIGHT-SIDED DISC OSTEOPHYTE COMPLEX AT L4-L5 MAY ABUT THE TRAVERSING RIGHT L5 NERVE ROOT. 5. INTERSTITIAL CHANGES APPEAR TO HAVE WORSENED AT THE LUNG BASES. CONSIDER PULMONARY MEDICINE REFERR AL IF NO ESTABLISHED DIAGNOSIS OR PLAN OF CARE.
[2023-11-09 12:50] VITALS: BMI 19.0
[2023-11-09 13:22] LABS: Glucose,Whole Blood 107 mg/dL (70-110)
--- NOTE | 2023-11-09 15:00 | P.PN ---
Subjective Progress Note Date: 11/09/23 Hospital course: Patient is a very pleasant 73-year-old female with a past medical history of CAD status post stent placement, valvular heart disease status post cardiac valve replacement, atrial fibrillation not on anticoagulation status post pacemaker and Watchman device placement, and COPD with pulmonary fibrosis home oxygen dependent 2 L with continued occasional nicotine use. She presented to the emergency department with family secondary to recurrent falls at home and requesting assistance with placement secondary to these recurrent falls subacute right wrist fracture enabling her to safely walk with a cane or walker independently. She underwent full evaluation in the emergency department. Vital signs upon arrival showing blood pressure 144/91, heart rate 75, respiratory rate 16, temp 98.3 F, and SpO2 of 98% on her baseline [address] head was negative for acute intracranial process. CT cervical spine negative for acute fracture or subluxation. Chest x-ray showing cardiomegaly with mild vascular congestion. Labs were completed and reviewed. CBC showing no significant abnormalities. BMP unremarkable with the exception of hyperglycemia with glucose of 73. Liver profile unremarkable. Urinalysis negative for infection. Urine drug screen positive for opiates, barbiturates, and benzodiazepines. Patient was admitted under our services with consultation to case management for assistance with placement. Physical exam: Vital signs reviewed and stable. Thin build. General: Nontoxic, no distress and appears stated age. Derm: Skin warm and dry, normal coloration for ethnicity. Head: Atraumatic, normocephalic and symmetric. Eyes: EOMs intact, no lid lag, and anicteric sclera Mouth: no lip lesions, mucus membranes moist Cardiovascular: regular rate and rhythm with normal S1S2, no murmur, positive posterior tibial pulses bilaterally, and cap refill < 2 seconds. Lungs: Respirations even, regular, and unlabored on room air. Lungs CTA bilaterally, no rhonchi, no rales, no wheezing, and no accessory muscle usage. Abdominal: soft, nontender to palpation, no guarding, no appreciable organomegaly Ext: No gross muscle atrophy, no edema, no contractures movement and sensation intact.. Ortho splint and Salomon wrap in place to right upper extremity. Movement and sensation intact to fingers. Neuro: Speech clear, face symmetrical and CN II-XII grossly intact with no noted focal neuro deficits Psych: Alert and oriented to person, place, time, and situation. Appropriate and pleasant affect. Assessment and Plan of Care: Recurrent falls at home resulting in debility and inability to complete ADLs independently Subacute right wrist fracture Polypharmacy use -Recurrent falls unclear etiology possibly secondary to polypharmacy use vs episodes of hypoglycemia vs other debility as patient reports lower back pain an d bilateral lower extremity weakness -Hold Klonopin, Xanax and Robaxin as these can all increase risk for falls, especially in the elderly. However patient very adamant regarding administration of benzodiazepines stating she has been on for greater than 5 years. Will reduce dose to Xanax 0.5 mg 3 times daily only as needed for anxiety. -Symptomatic care and pain management with Tylenol 650 mg every 6 hours as needed for mild pain/discomfort and Motrin 600 mg every 6 hours as needed for mild to moderate pain and Shelby 5/325 mg tablets as needed for severe pain.. -Order placed for CT lumbar spine secondary to recurrent falls with patient's reports of lower extremities just giving out on her and complaints of back pain. -Lidocaine patch -Ice and elevation -Orthopedic surgery consulted for evaluation -Case management consulted for assistance with placement -PT/OT consulted for evaluation -Fall precautions Chronic hypoxic respiratory failure home oxygen dependent secondary to advanced COPD and pulmonary fibrosis -Continue oxygen supplementation, baseline 2 L May titrate to maintain SpO2 equal to or greater than 90%. CAD status post stenting Valvular heart disease status postcardiac valve replacement Atrial fibrillation not on anticoagulation status post permanent pacemaker placement and Watchman device placement -Continue cardiac medication regimen with aspirin 81 mg daily, atorvastatin 20 mg nightly, and sotalol 120 mg twice daily. Data and imaging reviewed: -CT head was negative for acute intracranial process. -CT cervical spine negative for acute fracture or subluxation. -Chest x-ray showing cardiomegaly with mild vascular congestion. -Labs were completed and reviewed. CBC showing no significant abnormalities. BMP unremarkable with the exception of hyperglycemia with glucose of 73. Liver profile unremarkable. -Urinalysis negative for infection. Urine drug screen positive for opiates, barbiturates, and benzodiazepines. -Vital signs reviewed. Blood pressure 133/76, heart rate 65, respiratory rate 16, temp 98.2 F, and SpO2 of 96% on 2 L. CODE STATUS: Full code DVT prophylaxis: Heparin Anticipated discharge date: 24 to [address]: Possibly long term facility pending evaluation by PT/OT Patient was seen independently by Nurse Pracitioner. This document was prepared using [employer] dictation software. Please allow for errors in crotch piece baster, while rare they do occur. Rishi Malin, CLAIM BENEFIT SPECIALIST rendered care for this patient independently, reviewed the findings and plan as documented in the note above. I did not physically speak with or examine the patient on this date. Objective - Vital Signs Vital signs: Vital Signs Temp 98.2 F 11/09/23 07:50 Pulse 65 11/09/23 07:50 Resp 16 11/09/23 07:50 BP 133/76 11/09/23 07:50 Pulse Ox 96 11/09/23 07:50 FiO2 Intake & Output 11/08/23 11/09/23 11/09/23 18:59 06:59 18:59 Weight 42.638 kg - Labs CBC & Chem 7: 11/08/23 23:38 11/08/23 23:38 Labs: Abnormal Lab Results - Last 24 Hours (Table) 11/08/23 11/08/23 11/08/23 Range/Units 23:38 23:38 23:38 RBC 3.63 L (3.80-5.40) m/uL RDW 15.8 H (11.5-15.5) % PT 9.9 L (10.0-12.5) sec Sodium 135 L (137-145) mmol/L Glucose 73 L (74-99) mg/dL Calcium 8.1 L (8.4-10.2) mg/dL Albumin 3.3 L (3.5-5.0) g/dL Urine Protein (Negative) Urine Ketones (Negative) Urine Opiates Screen (NotDetected) Ur Barbiturates Screen (NotDetected) U Benzodiazepines Scrn (NotDetected) 11/08/23 Range/Units 23:59 RBC (3.80-5.40) m/uL RDW (11.5-15.5) % PT (10.0-12.5) sec Sodium (137-145) mmol/L Glucose (74-99) mg/dL Calcium (8.4-10.2) mg/dL Albumin (3.5-5.0) g/dL Urine Protein Trace H (Negative) Urine Ketones 2+ H (Negative) Urine Opiates Screen Detected H (NotDetected) Ur Barbiturates Screen Detected H (NotDetected) U Benzodiazepines Scrn Detected H (NotDetected)
[2023-11-09] MEDS: HYDROcodone/APAP 5-325MG 1 EACH TAB PO PRN (16:20)
[2023-11-09] MEDS: ALPRAZolam 0.5 MG TAB ONE (17:13)
[2023-11-09] MEDS: IBUPROFEN 600 MG TAB PO ONE (17:14)
[2023-11-09 17:25] LABS: Glucose,Whole Blood 193 mg/dL (70-110)
[2023-11-09] MEDS ORDERED: ALPRAZolam 1 MG TAB PO SCH (21:00)
[2023-11-09] MEDS: ATORVASTATIN 20 MG TAB PO SCH (22:27)
[2023-11-09] MEDS: MIRTAZAPINE 15 MG TAB PO SCH (22:27)
[2023-11-10 00:46] LABS: Glucose,Whole Blood 106 mg/dL (70-110)
[2023-11-10 06:00] LABS: Glucose,Whole Blood 85 mg/dL (70-110)
[2023-11-10 08:19] LABS: Glucose,Whole Blood 98 mg/dL (70-110)
--- NOTE | 2023-11-10 10:02 | P.CNOR ---
History of Present Illness - HPI Consult date: 11/10/23 Consult reason: low back pain History of present illness: Patient is seen and examined at bedside. She is known to our service. She has been having frequent falls at home and presented after a fall where she frac tured her wrist. She does not feel safe getting around at home but she is not been using her walker. She says she has chronic issues with low back pain but it has flared up since her more recent fall. She denies any new numbness tingling in her lower extremities. She denies specific weakness status spots in her lower extremities but feels unsteady when she gets up. She denies specific vertigo. She denies any chest pain or shortness of breath. She denies any fevers or chills. She is not nauseous. Review of Systems As stated per HPI. She denies acute new weakness in her lower extremities. She denies changes of bowel bladder function. She has pain at her lower back and at her right wrist. She has a walker at home but she says she does not use it She has a LSO brace at home that she has not been using She had history of lumbar fractures in the fall of last year Past Medical History Past Medical History: Atrial Fibrillation, Atrial Flutter, Asthma, Coronary Artery Disease (CAD), Heart Failure, COPD, CVA/TIA, GERD/Reflux, Hyperlipidemia Additional Past Medical History / Comment(s): tremors. osteoporosis, compression fx. pulmonary fibrosis. COVID 10/14. Hx. of Cocaine abuse-nataly leonardo attends [employer]. History of compression deformities L2-3-4 and 5 in April 2023 Last Myocardial Infarction Date:: unk History of Any Multi-Drug Resistant Organisms: None Reported Past Surgical History: Adenoidectomy, Bladder Surgery, Bowel Resection, Cardiac Valve Replacement, Ear Surgery, Heart Catheterization With Stent, Hysterectomy, Tonsillectomy Additional Past Surgical History / Comment(s): colostomy. open heart x2. watchman device to chest Past Anesthesia/Blood Transfusion Reactions: No Reported Reaction Additional Past Anesthesia/Blood Transfusion Reaction / Comm: claustropbobia. pt is combative when coming out of anesthesia Date of Last Stent Placement:: unk Type of Cardiac Device: Unknown Device Placement Date:: unknown Past Psychological History: No Psychological Hx Reported Smoking Status: Current some day smoker Past Alcohol Use History: None Reported Additional Past Alcohol Use History / Comment(s): started smoking at age 16 smoked 1 ppd Past Drug Use History: Cocaine Additional Drug Use History / Comment(s): Per son patient has Hx. of Cocaine abuse-currently goes to [id number] Clean for almost 20 years. - Past Family History Father Family Medical History: CVA/TIA Additional Family Medical History / Comment(s): was an alcoholic, rheumatic fever as child,lost 2/3rds of stomach d/t etoh. age 61 Mother Additional Family Medical History / Comment(s): comitted suicide at age 54 Medications and Allergies Home Medications Medication Instructions Recorded Confirmed Type Primidone [Mysoline] 100 mg PO QID 10/04/14 11/09/23 History Aspirin 81 mg PO DAILY 04/17/15 11/09/23 History clonazePAM [KlonoPIN] 1 mg PO BID@0900,1400 09/19/16 11/09/23 History Sotalol [Betapace] 120 mg PO BID 09/10/22 11/09/23 History ALPRAZolam [Xanax] 1 mg PO HS 11/07/23 11/09/23 History DULoxetine HCL [Cymbalta] 60 mg PO DAILY 11/07/23 11/09/23 History Lidocaine 5% Patch [Lidoderm 5% 1 patch TOPICAL DAILY PRN #30 patch 11/07/23 11/09/23 Rx Patch] Mirtazapine [Remeron] 30 mg PO HS 11/07/23 11/09/23 History Simvastatin [Zocor] 40 mg PO HS 11/07/23 11/09/23 History methocarbamoL [Robaxin-750] 1,500 mg PO TID PRN #30 tab 11/07/23 11/09/23 Rx Allergies Allergy/AdvReac Type Severity Reaction Status Date / Time adhesive Allergy Rash/Hives Verified 11/09/23 07:22 latex Allergy Rash/Hives Verified 11/09/23 07:22 Penicillins Allergy Unknown Verified 11/09/23 07:22 Childhood rubber, unspecified Allergy Rash/Hives Verified 11/09/23 07:22 alendronate sodium AdvReac Nausea & Verified 11/09/23 07:22 [From Fosamax] Vomiting Physical Examination Osteopathic Statement: *. No significant issues noted on an osteopathic structural exam other than those noted in the History and Physical/Consult. - L Spine: dermatomal strength & reflexes bilateral Strength: hip flexion: 5/5 (At her back she has some mild tenderness to palpation around the lumbosacral junction. There is no skin changes or bruising. Her lower extremities she is able to lift up off the bed independently. She is 5 out of 5 strength globally with some diffuse weakness due to her overall status. No focal) Strength: hip extension: 5/5 (No focal deficits of the lower extremities. She is able to lift her legs up off the bed independently. She has sustained dorsiflexion plantarflexion EHL) Results - Labs Labs: Abnormal Lab Results - Last 24 Hours (Table) 11/09/23 Range/Units 17:05 POC Glucose (mg/dL) 193 H (70-110) mg/dL H & H 11/08/23 Range/Units 23:38 Hgb 11.6 (11.4-16.0) gm/dL Hct 35.5 (34.0-46.0) % Coagulation 11/08/23 Range/Units 23:38 INR 0.9 (<1.2) Result Diagrams: 11/08/23 23:38 11/08/23 23:38 - Diagnostic results CT Scan - lumbar: report reviewed (The compression fractures at L2-L3-L4 and 5 do not appear changed from prior imaging from April 2023. She has significant stenosis L2-3 and L4-5 in particular. There does not appear to be any new acute disc herniation.), image reviewed (CT scan lumbar spine is reviewed. It is compared with CT scans from April 2023 as well. She has evidence of compression form is L2-L3-L4 and L5. There is significant stenosis L2-3 and L4-5. The compression deformities do not appear changed from her prior images) CT scan - lumbar myelogram: report reviewed Assessment and Plan Assessment: Recurrent falls and unsteady gait Chronic/subacute compression form is L2 L3-L4-L5, these are unchanged from prior films April 2023. Her bone scan at that point showed the most recent fracture at L5 No acute neurologic deficit Stenosis L2-3 and L4-5 Osteoporosis Right distal radius fracture Plan: Recurrent falls and unsteady gait Chronic/subacute compression form is L2 L3-L4-L5, these are unchanged from prior films April 2023. Her bone scan at that point showed the most recent fracture at L5 No acute neurologic deficit Stenosis L2-3 and L4-5 Osteoporosis Right distal radius fracture The patient has had recurrent falls that she is unsteady at home. She is not having acute neurologic change but has generalized weakness and unsteadiness. I think she can do well with continued conservative treatment and bracing. She has a brace at home and we will have her family bring this for her whenever she is out of bed. We should have therapy work with her to try to help her mobility her balance and her endurance. She has been resistant to use her walker at home and I think this is the main issue for her. I tried to encourage her to use her walker at home and therapy will work with her as well. Currently she has a distal radius fracture for her which is new. This will impede her ability to mobilize and use a walker as well. I think that she will need placement post hospitalization to ensure her safety and to increase her strengthening before she is able to go home. We do not have surgical plans for her at this point and will continue conservative management or treatment with bracing and an LSO brace we can follow her on outpatient basis in 3 to 4 weeks.
[2023-11-10 12:22] LABS: Glucose,Whole Blood 161 mg/dL (70-110)
[2023-11-10 16:32] LABS: Glucose,Whole Blood 167 mg/dL (70-110)
--- NOTE | 2023-11-10 19:02 | P.PN ---
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 She presented to the emergency department with family secondary to recurrent falls at home and requesting assistance with placement secondary to these recurrent falls subacute right wrist fracture enabling her to safely walk with a cane or walker independently. She underwent full evaluation in the emergency department. Vital signs upon arrival showing blood pressure 144/91, heart rate 75, respiratory rate 16, temp 98.3 F, and SpO2 of 98% on her baseline [address] head was negative for acute intracranial process. CT cervical spine negative for acute fracture or subluxation. Chest x-ray showing cardiomegaly with mild vascular congestion. Labs were completed and reviewed. CBC showing no significant abnormalities. BMP unremarkable with the exception of hyperglycemia with glucose of 73. Liver profile unremarkable. Urinalysis negative for infection. Urine drug screen positive for opiates, barbiturates, and benzodiazepines. Patient was admitted under our services with consultation to case management for assistance with placement. Physical exam: Vital signs reviewed and stable. Thin build. General: Nontoxic, no distress and appears stated age. Derm: Skin warm and dry, normal coloration for ethnicity. Head: Atraumatic, normocephalic and symmetric. Eyes: EOMs intact, no lid lag, and anicteric sclera Mouth: no lip lesions, mucus membranes moist Cardiovascular: regular rate and rhythm with normal S1S2, no murmur, positive posterior tibial pulses bilaterally, and cap refill < 2 seconds. Lungs: Respirations even, regular, and unlabored on room air. Lungs CTA bilaterally, no rhonchi, no rales, no wheezing, and no accessory muscle usage. Abdominal: soft, nontender to palpation, no guarding, no appreciable organomegaly Ext: No gross muscle atrophy, no edema, no contractures movement and sensation intact.. Ortho splint and Salomon wrap in place to right upper extremity. Movement and sensation intact to fingers. Neuro: Speech clear, face symmetrical and CN II-XII grossly intact with no noted focal neuro deficits Psych: Alert and oriented to person, place, time, and situation. Appropriate and pleasant affect. Assessment and Plan of Care: Recurrent falls at home resulting in debility and inability to complete ADLs independently Subacute right wrist fracture Polypharmacy use -Recurrent falls unclear etiology possibly secondary to polypharmacy use vs episodes of hypoglycemia vs other debility as patient reports lower back pain an d bilateral lower extremity weakness -Hold Klonopin, Xanax and Robaxin as these can all increase risk for falls, especially in the elderly. However patient very adamant regarding administration of benzodiazepines stating she has been on for greater than 5 years. Reduced dose to Xanax 0.5 mg 3 times daily only as needed for anxiety. -Symptomatic care and pain management with Tylenol 650 mg every 6 hours as needed for mild pain/discomfort and Motrin 600 mg every 6 hours as needed for mild to moderate pain and [place] 5/325 mg tablets as needed for severe pain.. -CT lumbar spine completed showing diffuse osteopenia with chronic mild endplate deformities of L2-L5, mild degenerative disc disease with bulging disks, changes resulting in mid to moderate spinal canal stenosis at L2-L3 and L4-L5, moderate neuroforaminal stenosis at the right at L4-L5 and on the left at L2-L3 3 with right-sided osteophyte complex at L4-L5 may abut the transversing right L5 nerve root and interstitial changes at bilateral lung bases. -Lidocaine patch -Ice and elevation -Orthopedic surgery consulted for evaluation, reviewed documentation in chart -Case management consulted for assistance with placement -PT/OT consulted for evaluation -Fall precautions Chronic hypoxic respiratory failure home oxygen dependent secondary to advanced COPD and pulmonary fibrosis -Continue oxygen supplementation, baseline 2 L May titrate to maintain SpO2 equal to or greater than 90%. CAD status post stenting Valvular heart disease status postcardiac valve replacement Atrial fibrillation not on anticoagulation status post permanent pacemaker placement and Watchman device placement -Continue cardiac medication regimen with aspirin 81 mg daily, atorvastatin 20 mg nightly, and sotalol 120 mg twice daily. Data and imaging reviewed: -CT lumbar spine completed showing diffuse osteopenia with chronic mild endplate deformities of L2-L5, mild degenerative disc disease with bulging disks, changes resulting in mid to moderate spinal canal stenosis at L2-L3 and L4-L5, moderate neuroforaminal stenosis at the right at L4-L5 and on the left at L2-L3 3 with right-sided osteophyte complex at L4-L5 may abut the transversing right L5 nerve root and interstitial changes at bilateral lung bases. -Vital signs reviewed. BP 147/81, heart rate 64, respiratory rate 16, temp 98.2 F, and SpO2 100% on patient's baseline 2 L. CODE STATUS: Full code DVT prophylaxis: Heparin Anticipated discharge date: 24 to [address]: [facility] Patient was seen independently by Nurse Pracitioner. This document was prepared using Studio[employer] dictation software. Please allow for errors in sensitometrist, while rare they do occur. Rishi Malin NP rendered care for this patient independently, reviewed the findings and plan as documented in the note above. I did not physically speak with or examine the patient on this date. Objective - Vital Signs Vital signs: Vital Signs Temp 97.9 F 11/10/23 02:00 Pulse 74 11/10/23 02:00 Resp 16 11/10/23 02:00 BP 100/56 11/10/23 02:00 Pulse Ox 98 11/10/23 02:00 FiO2 Intake & Output 11/09/23 11/10/23 11/10/23 18:59 06:59 18:59 Intake Total 1400 Balance 1400 Weight 42.638 kg Intake: Intake, IV Titration 900 Amount Sodium Chloride 0.9% 1, 900 000 ml @ 75 mls/hr IV . [id number] [facility] Rx#:[id number] Oral 500 Other: Voiding Method Toilet Bedside Commode # Voids 2 # Bowel Movements 1 - Labs CBC & Chem 7: 11/08/23 23:38 11/08/23 23:38 Labs: Abnormal Lab Results - Last 24 Hours (Table) 11/09/23 Range/Units 17:05 POC Glucose (mg/dL) 193 H (70-110) mg/dL
[2023-11-11] MEDS: DULoxetine HCL 60 MG CAPSULE.DR PO SCH (09:09)
--- NOTE | 2023-11-11 11:09 | CDI ---
reFrom: Eliane Ramirez Phone: [phone] Admit Date: 11/09/2023 12:06:00 PM Patient Name: Cherelle Aldridge Visit Number: [id number] Discharge Date: ATTENTION: The Clinical Documentation Specialists (CDI) and [facility] Coding Staff appreciate your assistance in clarifying documentation. Please respond to the clarification below the line at the bottom and electronically sign. The CDI & [facility] Coding staff will review the response and follow-up if needed. Please note: Queries are made part of the Legal Health Record. If you have any questions, please contact the author of this message via ITS. Dr. Evi Guzman: Your patient has the documented symptom of weakness in the ED note 11/07. Additional clarification regarding the etiology/cause of this symptom is requested. History/Risk Factors: AFib/Flutter, CAD, CHF, COPD, CVA/TIA, osteoporosis, compression fractures and pulmonary fibrosis who present with generalized weakness and falls, fracture of distal right radius Clinical Indicators: 11/07 ED note, HPI: "returns to ER today via EMS for evaluation of weakness, fall and confusion." 11/09 Orthopedic consult, Assessment and Plan: "The patient has had recurrent falls that she is unsteady at home. She is not having acute neurologic change but has generalized weakness and unsteadiness." 11/09 IM PN, Assessment and Plan: Recurrent falls at home resulting in debility and inability to complete ADLs independently, Subacute right wrist fracture, polypharmacy use. Recurrent falls unclear etiology possibly secondary to polypharmacy use vs episodes of hypoglycemia vs other debility as patient reports lower back pain and bilateral lower extremity weakness." 11/09 Physical Therapy Assessment: "Challenges with bed mobility, Strength, Balance, Transfers and Ambulation. Recommend MICHELLE at discharge." 11/09 Occupational Therapy Assessment: "Minimal to maximum assist with lower body ADL, minimal assist with bed mobility, unable to ambulate due to dizziness, anticipate need for MICHELLE at discharge." 10/11 CT Head, Impression: "No acute hemorrhage, hydrocephalus or mass effect." CT Cervical Spine, impression: "No acute fracture or subluxation." 11/07 Toxicology, Urine: Opiates, Barbiturate and Benzodiazepine detected Treatment: Consult Orthopedics Is there a corresponding diagnosis/etiology for this symptom of weakness? [ x ] Age related physical debility [ ] Unable to determine [ ] Other, please specify-- MTDD
[2023-11-11] MEDS: ACETAMINOPHEN TAB 325 MG TAB PO PRN (13:28)
--- NOTE | 2023-11-11 16:05 | P.PN ---
Subjective Progress Note Date: 11/11/23 Hospital course: Patient is a very pleasant 73-year-old female with a past medical history of CAD status post stent placement, valvular heart disease status post cardiac valve replacement, atrial fibrillation not on anticoagulation status post pacemaker and Watchman device placement, and COPD with pulmonary fibrosis home oxygen dependent 2 L with continued occasional nicotine use. She presented to the emergency department with family secondary to recurrent falls at home and requesting assistance with placement secondary to these recurrent falls subacute right wrist fracture enabling her to safely walk with a cane or walker independently. She underwent full evaluation in the emergency department. Vital signs upon arrival showing blood pressure 144/91, heart rate 75, respiratory rate 16, temp 98.3 F, and SpO2 of 98% on her baseline [address] head was negative for acute intracranial process. CT cervical spine negative for acute fracture or subluxation. Chest x-ray showing cardiomegaly with mild vascular congestion. Labs were completed and reviewed. CBC showing no significant abnormalities. BMP unremarkable with the exception of hyperglycemia with glucose of 73. Liver profile unremarkable. Urinalysis negative for infection. Urine drug screen positive for opiates, barbiturates, and benzodiazepines. Patient was admitted under our services with consultation to case management for assistance with placement.CT lumbar spine completed showing diffuse osteopenia with chronic mild endplate deformities of L2-L5, mild degenerative disc disease with bulging disks, changes resulting in mid to moderate spinal canal stenosis at L2-L3 and L4-L5, moderate neuroforaminal stenosis at the right at L4-L5 and on the left at L2-L3 3 with right-sided osteophyte complex at L4-L5 may abut the transversing right L5 nerve root and interstitial changes at bilateral lung bases. Physical exam: Patient seen and fully evaluated at bedside this morning. Patient appears to be doing well this morning. Patient reports she is looking forward to going to rehab tomorrow. Denies having any needs, questions, or concerns at this time. Vital signs reviewed and stable. Thin build. General: Nontoxic, no distress and appears stated age. Derm: Skin warm and dry, normal coloration for ethnicity. Head: Atraumatic, normocephalic and symmetric. Eyes: EOMs intact, no lid lag, and anicteric sclera Mouth: no lip lesions, mucus membranes moist Cardiovascular: regular rate and rhythm with normal S1S2, no murmur, positive posterior tibial pulses bilaterally, and cap refill < 2 seconds. Lungs: Respirations even, regular, and unlabored on room air. Lungs CTA bilaterally, no rhonchi, no rales, no wheezing, and no accessory muscle usage. Abdominal: soft, nontender to palpation, no guarding, no appreciable org anomegaly Ext: No gross muscle atrophy, no edema, no contractures movement and sensation intact.. Ortho splint and Salomon wrap in place to right upper extremity. Movement and sensation intact to fingers. Neuro: Speech clear, face symmetrical and CN II-XII grossly intact with no noted focal neuro deficits Psych: Alert and oriented to person, place, time, and situation. Appropriate and pleasant affect. Assessment and Plan of Care: Recurrent falls at home resulting in debility and inability to complete ADLs independently Moderate spinal canal stenosis with moderate neuroforaminal stenosis and bulging disks, resulting in bilateral lower extremity weakness Subacute right wrist fracture Polypharmacy use -Hold Klonopin, Xanax and Robaxin as these can all increase risk for falls, especially in the elderly. However patient very adamant regarding administration of benzodiazepines stating she has been on for greater than 5 years. Reduced dose to Xanax 0.5 mg 3 times daily only as needed for anxiety. -Symptomatic care and pain management with Tylenol 650 mg every 6 hours as needed for mild pain/discomfort and Motrin 600 mg every 6 hours as needed for mild to moderate pain and [place] 5/325 mg tablets as needed for severe pain.. -CT lumbar spine completed showing diffuse osteopenia with chronic mild endplate deformities of L2-L5, mild degenerative disc disease with bulging disks, changes resulting in mid to moderate spinal canal stenosis at L2-L3 and L4-L5, moderate neuroforaminal stenosis at the right at L4-L5 and on the left at L2-L3 3 with right-sided osteophyte complex at L4-L5 may abut the transversing right L5 nerve root and interstitial changes at bilateral lung bases. -Lidocaine patch -Ice and elevation of right arm -Orthopedic surgery consulted for evaluation, reviewed documentation in chart. -Orthospine consulted, recommending patient to wear previous and continue with conservative management -PT/OT following, recommending rehab -Fall precautions Chronic hypoxic respiratory failure home oxygen dependent secondary to advanced COPD and pulmonary fibrosis -Continue oxygen supplementation, baseline 2 L May titrate to maintain SpO2 equal to or greater than 90%. CAD status post stenting Valvular heart disease status postcardiac valve replacement Atrial fibrillation not on anticoagulation status post permanent pacemaker placement and Watchman device placement -Continue cardiac medication regimen with aspirin 81 mg daily, atorvastatin 20 mg nightly, and sotalol 120 mg twice daily. Data and imaging reviewed: -Vital signs reviewed. BP 158/83, heart rate 60, respiratory rate 16, temp 97.8 F, and SpO2 of 98% on baseline 3 L. CODE STATUS: Full code DVT prophylaxis: Heparin Anticipated discharge date: Per insurance authorization patient required 3 night inpatient stay, patient able to be discharged to rehab on 11/12/[address]: [facility] Patient was seen independently by Nurse Pracitioner. This document was prepared using [employer] dictation software. Please allow for errors in health promotion specialist, while rare they do occur. Rishi Malin NP rendered care for this patient independently, reviewed the findings and plan as documented in the note above. I did not physically speak with or examine the patient on this date. Objective - Vital Signs Vital signs: Vital Signs Temp 97.8 F 11/11/23 07:33 Pulse 64 11/11/23 07:49 Resp 16 11/11/23 07:33 BP 158/83 11/11/23 07:33 Pulse Ox 98 11/11/23 07:33 FiO2 Intake & Output 11/10/23 11/11/23 11/11/23 18:59 06:59 18:59 Intake Total 590 Balance 590 Intake: Oral 590 Other: Voiding Method Bedside Commode Bedside Commode # Voids 1 3 1 - Labs CBC & Chem 7: 11/08/23 23:38 11/08/23 23:38 Labs: Abnormal Lab Results - Last 24 Hours (Table) 11/10/23 11/10/23 Range/Units 12:20 16:27 POC Glucose (mg/dL) 161 H 167 H (70-110) mg/dL
[2023-11-12 00:59] LABS: Glucose,Whole Blood 89 mg/dL (70-110)
[2023-11-12] MEDS: ONDANSETRON 4 MG/2 ML VIAL IVP PRN (01:07)
--- NOTE | 2023-11-12 11:19 | P.DS ---
Providers Date of admission: 11/09/23 12:06 Expected date of discharge: 11/12/23 Attending physician: Ankita Joyce MD Consults: 11/09/23 05:06 Consult Physician Routine Consulting Provider: Hussain Bourgeois Consult Reason/Comments: right wrist fracture Do you want consulting provider notified?: Yes, Notify in am 11/09/23 15:06 Consult Physician Routine Consulting Provider: Elier Aviles Consult Reason/Comments: recurrent falls, back pain, lumbar stenosis and bulging discs Do you want consulting provider notified?: Yes Primary care physician: Yoan Quiroz DO Hospital Course: Discharge Diagnosis: Recurrent falls at home resulting in debility and inability to complete ADLs independently. Moderate spinal canal stenosis with moderate neuroforaminal stenosis and bulging disks, resulting in bilateral lower extremity weakness. Age related physical debility. Subacute right wrist fracture. Polypharmacy use Chronic hypoxic respiratory failure home oxygen dependent secondary to advanced COPD and pulmonary fibrosis Continue oxygen supplementation, baseline 2 L May titrate to maintain SpO2 equal to or greater than 90%. CAD status post stenting. Continue cardiac medication regimen with aspirin 81 mg daily, atorvastatin 20 mg nightly, and sotalol 120 mg twice daily. Valvular heart disease status post biomechanical cardiac valve replacement Atrial fibrillation not on anticoagulation status post permanent pacemaker placement and Watchman device placement Hospital course: Patient is a very pleasant 73-year-old female with a past medical history of CAD status post stent placement, valvular heart disease status post cardiac valve replacement, atrial fibrillation not on anticoagulation status post pacemaker and Watchman device placement, and COPD with pulmonary fibrosis home oxygen dependent 2 L with continued occasional nicotine use. She presented to the emergency department with family secondary to recurrent falls at home and requesting assistance with placement secondary to these recurrent falls subacute right wrist fracture enabling her to safely walk with a cane or walker independently. She underwent full evaluation in the emergency department. Vital signs upon arrival showing blood pressure 144/91, heart rate 75, respiratory rate 16, temp 98.3 F, and SpO2 of 98% on her baseline [address] head was negative for acute intracranial process. CT cervical spine negative for acute fracture or subluxation. Chest x-ray showing cardiomegaly with mild vascular congestion. Labs were completed and reviewed. CBC showing no significant abnormalities. BMP unremarkable with the exception of hyperglycemia with glucose of 73. Liver profile unremarkable. Urinalysis negative for infection. Urine drug screen positive for opiates, barbiturates, and benzodiazepines. Patient was admitted under our services with consultation to case management for assistance with placement.CT lumbar spine completed showing diffuse osteopenia with chronic mild endplate deformities of L2-L5, mild degenerative disc disease with bulging disks, changes resulting in mid to moderate spinal canal stenosis at L2-L3 and L4-L5, moderate neuroforaminal stenosis at the right at L4-L5 and on the left at L2-L3 3 with right-sided osteophyte complex at L4-L5 may abut the transversing right L5 nerve root and interstitial changes at bilateral lung bases. Patient was evaluated by orthopedic surgery and orthospine surgery teams both clearing patient from their perspective for discharge recommending outpatient follow-up in their office. She was evaluated by physical and Occupational Therapy recommending retirement facility placement for rehab upon discharge. Medically, patient is stable for discharge at this time she has received insurance authorization and accepted to [facility] for rehab. Physical exam: Vital signs reviewed and stable. Thin build. General: Nontoxic, no distress and appears stated age. Derm: Skin warm and dry, normal coloration for ethnicity. Head: Atraumatic, normocephalic and symmetric. Eyes: EOMs intact, no lid lag, and anicteric sclera Mouth: no lip lesions, mucus membranes moist Cardiovascular: regular rate and rhythm with normal S1S2, no murmur, positive posterior tibial pulses bilaterally, and cap refill < 2 seconds. Lungs: Respirations even, regular, and unlabored on room air. Lungs CTA bilaterally, no rhonchi, no rales, no wheezing, and no accessory muscle usage. Abdominal: soft, nontender to palpation, no guarding, no appreciable organomegaly Ext: No gross muscle atrophy, no edema, no contractures movement and sensation intact.. Ortho splint and Salomon wrap in place to right upper extremity. Movement and sensation intact to fingers. Neuro: Speech clear, face symmetrical and CN II-XII grossly intact with no noted focal neuro deficits Psych: Alert and oriented to person, place, time, and situation. Appropriate and pleasant affect. A total of 35 minutes of time were spent preparing this complex discharge summary. Pt was discharged on 11/12/2023 at 11:14 AM. Patient was seen independently by Nurse Practitioner. This document was prepared using [employer] dictation software. Please allow for errors in gis consultant while rare they do occur. I reviewed the documentation as provided by the SAM above, who is the original author of this note. I agree with the documented assessment and plan, with the following changes: none Patient Condition at Discharge: Stable Plan - Discharge Summary Discharge Rx Participant: Yes New Discharge Prescriptions: New Acetaminophen Tab [Tylenol] 650 mg PO Q6HR PRN tab PRN Reason: Mild Pain Or Fever > 100.5 Ipratropium-Albuterol Nebulize [Duoneb 0.5 mg-3 mg/3 ml Soln] 3 ml INHALATION RT-QID PRN each PRN Reason: Shortness Of Breath Or Wheezing Ibuprofen [Motrin] 600 mg PO QID PRN tab PRN Reason: Pain HYDROcodone/APAP 5-325MG [[place]ever 5-325] 1 each PO Q4HR PRN #6 tab PRN Reason: Moderate Pain (Scale 4 To 6) ALPRAZolam [Xanax] 0.5 mg PO TID PRN #6 tab PRN Reason: Anxiety Continue Primidone [Mysoline] 100 mg PO QID Aspirin 81 mg PO DAILY Mirtazapine [Remeron] 30 mg PO HS DULoxetine HCL [Cymbalta] 60 mg PO DAILY Sotalol [Betapace] 120 mg PO BID Simvastatin [Zocor] 40 mg PO HS Lidocaine 5% Patch [Lidoderm 5% Patch] 1 patch TOPICAL DAILY PRN #30 patch PRN Reason: Pain Discontinued clonazePAM [KlonoPIN] 1 mg PO BID@0900,1400 ALPRAZolam [Xanax] 1 mg PO HS methocarbamoL [Robaxin-750] 1,500 mg PO TID PRN #30 tab PRN Reason: Pain Discharge Medication List Primidone [Mysoline] 100 mg PO QID 10/04/14 [History] Aspirin 81 mg PO DAILY 04/17/15 [History] Sotalol [Betapace] 120 mg PO BID 09/10/22 [History] DULoxetine HCL [Cymbalta] 60 mg PO DAILY 11/07/23 [History] Lidocaine 5% Patch [Lidoderm 5% Patch] 1 patch TOPICAL DAILY PRN #30 patch 11/07/23 [Rx] Mirtazapine [Remeron] 30 mg PO HS 11/07/23 [History] Simvastatin [Zocor] 40 mg PO HS 11/07/23 [History] ALPRAZolam [Xanax] 0.5 mg PO TID PRN #6 tab 11/12/23 [Rx] Acetaminophen Tab [Tylenol] 650 mg PO Q6HR PRN tab 11/12/23 [Rx] HYDROcodone/APAP 5-325MG [Wever 5-325] 1 each PO Q4HR PRN #6 tab 11/12/23 [Rx] Ibuprofen [Motrin] 600 mg PO QID PRN tab 11/12/23 [Rx] Ipratropium-Albuterol Nebulize [Duoneb 0.5 mg-3 mg/3 ml Soln] 3 ml INHALATION RT-QID PRN each 11/12/23 [Rx] Follow up Appointment(s)/Referral(s): Merissa Glaser DO [Doctor of Osteopathic Medicine] - 1 Week Yoan Quiroz DO [Primary Care Provider] - 1-2 days Activity/Diet/Wound Care/Special Instructions: Discharged to [facility] Activity: Fall precautions in place. Ambulate with supervision/assistance with walker. Diet: Heart healthy and carb consistent diet. Avoid salts, or foods with hidden salts such as canned or boxed foods and frozen dinners. Extra salt makes your heart work harder and traps the fluid in your body for longer. Special Instructions: Take all of your medications as directed and remember to keep all of your doctor's appointments and follow-up as needed. Thank you for allowing us to participate in your care, it was truly a pleasure having you for our patient!!! Discharge Disposition: TRANSFER TO SNF/ECF
[2023-11-12 13:26] VITALS: BP 147/88; RESP 19; TEMP 98.3
[2023-11-12 16:12] VITALS: PULSE 82
== END 2023-11-12 16:05 | DRG 884 ==
LOC: EC 21:37 → 5NMEDONC 11-09 02:18 → OBSVTOIN 11-09 12:06
PROVIDERS: ADMIT Internal Medicine; ATTEND Internal Medicine
DX: R54 Age-related physical debility (principal); S22.41XA Multiple fractures of ribs, right side, initial encounter for closed fracture; I69.354 Hemiplegia and hemiparesis following cerebral infarction affecting left non-dominant side; J96.11 Chronic respiratory failure with hypoxia; S52.571A Other intraarticular fracture of lower end of right radius, initial encounter for closed fracture; S22.31XA Fracture of one rib, right side, initial encounter for closed fracture; J84.10 Pulmonary fibrosis, unspecified; I50.9 Heart failure, unspecified; I48.91 Unspecified atrial fibrillation; F14.11 Cocaine abuse, in remission; Z93.3 Colostomy status; I11.0 Hypertensive heart disease with heart failure; S09.90XA Unspecified injury of head, initial encounter; Z99.81 Dependence on supplemental oxygen; Z95.3 Presence of xenogenic heart valve; R29.6 Repeated falls; E78.5 Hyperlipidemia, unspecified; I25.10 Atherosclerotic heart disease of native coronary artery without angina pectoris; J44.89 Other specified chronic obstructive pulmonary disease; F17.210 Nicotine dependence, cigarettes, uncomplicated; M51.36 Other intervertebral disc degeneration, lumbar region; M25.78 Osteophyte, vertebrae; E16.2 Hypoglycemia, unspecified; M81.0 Age-related osteoporosis without current pathological fracture; Z74.1 Need for assistance with personal care; M48.061 Spinal stenosis, lumbar region without neurogenic claudication; R25.1 Tremor, unspecified; R41.0 Disorientation, unspecified; W19.XXXA Unspecified fall, initial encounter; Y92.009 Unspecified place in unspecified non-institutional (private) residence as the place of occurrence of the external cause; Z79.82 Long term (current) use of aspirin; Z95.5 Presence of coronary angioplasty implant and graft; Z95.0 Presence of cardiac pacemaker; Z79.899 Other long term (current) drug therapy; Z91.048 Other nonmedicinal substance allergy status; Z91.040 Latex allergy status; Z88.0 Allergy status to penicillin; Z88.8 Allergy status to other drugs, medicaments and biological substances; Z86.16 Personal history of COVID-19; I25.2 Old myocardial infarction
CPT/HCPCS: 36415; 70450; 71045; 72125; 72131; 80053; 80306; 81003; 85025; 85610; 85730; 94640; 94760; 96361; 96374; 96376; 99285

== ENCOUNTER → 2023-11-21 | Outpatient (CLI) | payer MEDICARE, BC ==
--- NOTE | 2023-11-21 14:44 | P.PAINPG ---
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 Pt states Fentanyl in conjunction w other medications was making her feel dizzy and it was stopped by a nurse practitioner some weeks ago. Pt states pain level is provoked at 7/10 in intensity, constant, localized in the lower lumbar spine, predominantly axial, sharp in character w shooting pain towards the BL flanks. Pain is provoked by bending, twisting. Pain is alleviated by medications, use of a lumbar support brace, use of a wheelchair for ambulatory assistance, repositioning and rest. Pt is not PT candidate and has been rejected from physician guided exercises due to multiple compression fractures. Interventional procedures include DENIES Medications include Oxycodone 10mg #90, ASA REVIEW OF ORGAN SYSTEMS: CONSTITUTIONAL: No fevers or chills. No recent weight loss. NEUROLOGICAL: + numbness and tingling along the distal ex tremities. No seizure disorders or headaches. MUSCULOSKELETAL: + pain PSYCHIATRIC: Denies current depression or suicidal thoughts. Physical Examinations : Constitutional : Cooperative , not in acute distress . Neurologic : Cranial nerve II to XII intact. No focal neurological deficits. Psychiatric : alert & oriented x 3. Matching mood & appropriate affect. Judgment & insight intact. Musculoskeletal : Cervical Spine Motor strength in the deltoid and biceps: Normal right side. Normal Left side Motor strength biceps and the wrist extensors: Normal right side . Normal left side Motor strength in the triceps muscle: Normal right side. Normal left side Deep tendon reflexes: Normal at the biceps. Normal at Brachioradialis. Normal at triceps Vertebral body tenderness to deep palpation over Cervical facet loading test: positive bilaterally Spurling test: positive bilaterally Neck distraction test: positive bilaterally Josue sign: positive bilaterally Thoracic spine Diffuse L R chest wall TTP, no ecchymosis, no edema Lumbar spine Motor strength lower extremities ,thigh and legs 5/5 Right side , 5/5 Left side Deep tendon reflexes : Normal Knee Jerk. Normal Ankle Jerk Vertebral body tenderness over L4, L5 Lambert Test positive Lumbar facet Loading Test: positive Right / positive Left Range of motion of the lumbar spine Flexion 30 degrees, extension 10 degrees Straight Leg Raise test: Left/ Right positive at degree Dustin test: positive right / positive left. Severe tenderness over the Sacroiliac joint on the Right / Left sides Gaenslen test: positive bilaterally Seated flexion test: positive bilaterally. Sacral spine : Severe tenderness over the Sacroiliac joint: right side / left side Range of motion: Flexion of the lumbar spine <60 degrees Range of motion: Extension of the lumbar spine <20 degrees Gaenslen's Test positive Forest's Test positive Dustin test: positive right side / left side Thigh Thrust Test Sacral Thrust Test Imaging: CT noncontrast of the lumbar spine from 04/29/23 reviewed Assessment/ Plan : Lumbar DDD Recommendation of medication management. Discontinue Fentanyl per pt request. Mobic 15mg #60 w 1 RF. Use, side effects, adverse reactions and safe storage discussed. Opiate/ narcotic agreement signed 06/01/23. Blood tox screen Z02.83 from 09/26/23 reviewed and consistent. Pt acknowledged understanding. All questions answered. I have spent greater than 30 minutes on patient care today. Dr Cadena was available by phone for the evaluation of this patient. The time was used to review the medical records including relevant urine studies and Prescription history (MAPs), review of the available imaging, evaluation and examination of the patient, coordination of care with the medical staff and if applicable referring physicians, as well as creation of the medical record PQRS Narrative: Smoking Status Current some day smoker Hx Alcohol Use (MH) No Home Medications: Ambulatory Orders Primidone [Mysoline] 100 mg PO QID 10/04/14 Aspirin 81 mg PO DAILY 04/17/15 Sotalol [Betapace] 120 mg PO BID 09/10/22 DULoxetine HCL [Cymbalta] 60 mg PO DAILY 11/07/23 Lidocaine 5% Patch [Lidoderm 5% Patch] 1 patch TOPICAL DAILY PRN #30 patch 11/07/23 Mirtazapine [Remeron] 30 mg PO HS 11/07/23 Simvastatin [Zocor] 40 mg PO HS 11/07/23 ALPRAZolam [Xanax] 0.5 mg PO TID PRN #6 tab 11/12/23 Acetaminophen Tab [Tylenol] 650 mg PO Q6HR PRN tab 11/12/23 HYDROcodone/APAP 5-325MG [[place] 5-325] 1 each PO Q4HR PRN #6 tab 11/12/23 Ibuprofen [Motrin] 600 mg PO QID PRN tab 11/12/23 Ipratropium-Albuterol Nebulize [Duoneb 0.5 mg-3 mg/3 ml Soln] 3 ml INHALATION RT-QID PRN each 11/12/23 Meloxicam [Mobic] 15 mg PO BID 30 Days #60 tab 11/21/23 Controlled Substance Measures - Controlled Substance Measures Is patient prescribed a controlled substance at discharge?: No
[2023-11-21 14:59] VITALS: BP 137/72; PULSE 64; RESP 18; TEMP 97.1
== END ==
LOC: PNWHC3 13:20
PROVIDERS: ATTEND Specialist
DX: M51.36 Other intervertebral disc degeneration, lumbar region (principal); F17.200 Nicotine dependence, unspecified, uncomplicated; Z91.048 Other nonmedicinal substance allergy status; Z91.040 Latex allergy status; Z88.0 Allergy status to penicillin; Z91.09 Other allergy status, other than to drugs and biological substances; Z88.8 Allergy status to other drugs, medicaments and biological substances
CPT/HCPCS: 99211

== ENCOUNTER 2024-05-09 22:21 | Inpatient (IN) | payer MEDICARE, BC ==
--- NOTE | 2024-05-09 23:28 | ED ---
Fall HPI - General Chief Complaint: Fall Stated Complaint: Fall Time Seen by Provider: 05/09/24 23:24 Source: patient, RN notes reviewed Mode of arrival: EMS - History of Present Illness Initial Comments: 74-year-old female presented to the ER via EMS with a chief complaint of a fall. Patient frequently falls and is on palliative care. Stepdaughter, at bedside, states in the past 7 days she has had 5 falls. She frequently gets skin tears from these falls and states more times than not she hit her head with these falls. No blood thinner use. Denies loss of consciousness. Patient states last night around 10 PM she had a fall and had to army crawl to her phone across her house. She states she called her stepdaughter around 5 AM. Patient was on the floor until 12 PM today. Stepdaughter reports she had another fall around 4 PM today as well. Patient is complaining of bilateral upper and lower extremity pain and tailbone pain. She denies any dizziness, lightheadedness, chest pain or shortness of breath prior to falls. Stepdaughter states that she was recentl y started on Bactrim due to an infected skin tear on her right jackson. Patient has received 1 dose of this. Patient denies any other complaints at this time. - Related Data Home Medications Medication Instructions Recorded Confirmed Primidone [Mysoline] 100 mg PO QID 10/04/14 11/21/23 Aspirin 81 mg PO DAILY 04/17/15 11/21/23 Sotalol [Betapace] 120 mg PO BID 09/10/22 11/21/23 DULoxetine HCL [Cymbalta] 60 mg PO DAILY 11/07/23 11/21/23 Mirtazapine [Remeron] 30 mg PO HS 11/07/23 11/21/23 Simvastatin [Zocor] 40 mg PO HS 11/07/23 11/21/23 Previous Rx's Medication Instructions Recorded Lidocaine 5% Patch [Lidoderm 5% 1 patch TOPICAL DAILY PRN #30 patch 11/07/23 Patch] ALPRAZolam [Xanax] 0.5 mg PO TID PRN #6 tab 11/12/23 Acetaminophen Tab [Tylenol] 650 mg PO Q6HR PRN tab 11/12/23 HYDROcodone/APAP 5-325MG [[place] 1 each PO Q4HR PRN #6 tab 11/12/23 5-325] Ibuprofen [Motrin] 600 mg PO QID PRN tab 11/12/23 Ipratropium-Albuterol Nebulize 3 ml INHALATION RT-QID PRN each 11/12/23 [Duoneb 0.5 mg-3 mg/3 ml Soln] Meloxicam [Mobic] 15 mg PO BID 30 Days #60 tab 11/21/23 Allergies Allergy/AdvReac Type Severity Reaction Status Date / Time adhesive Allergy Rash/Hives Verified 05/09/24 22:33 latex Allergy Rash/Hives Verified 05/09/24 22:33 Penicillins Allergy Unknown Verified 05/09/24 22:33 Childhood rubber, unspecified Allergy Rash/Hives Verified 05/09/24 22:33 alendronate sodium AdvReac Nausea & Verified 05/09/24 22:33 [From Fosamax] Vomiting Review of Systems ROS Statement: Those systems with pertinent positive or pertinent negative responses have been documented in the HPI. ROS Other: All systems not noted in ROS Statement are negative. Past Medical History Past Medical History: Atrial Fibrillation, Atrial Flutter, Asthma, Coronary Artery Disease (CAD), Heart Failure, COPD, CVA/TIA, GERD/Reflux, Hyperlipidemia Additional Past Medical History / Comment(s): tremors. osteoporosis, compressio n fx. pulmonary fibrosis. COVID 10/14. Hx. of Cocaine abuse-currently attends Narcotics Anonymous. History of compression deformities L2-3-4 and 5 in April 2023 Last Myocardial Infarction Date:: unk History of Any Multi-Drug Resistant Organisms: None Reported Past Surgical History: Adenoidectomy, Bladder Surgery, Bowel Resection, Cardiac Valve Replacement, Ear Surgery, Heart Catheterization With Stent, Hysterectomy, Tonsillectomy Additional Past Surgical History / Comment(s): colostomy. open heart x2. watchman device to chest Past Anesthesia/Blood Transfusion Reactions: No Reported Reaction Additional Past Anesthesia/Blood Transfusion Reaction / Comment(s): claustropbobia. pt is combative when coming out of anesthesia Date of Last Stent Placement:: unk Type of Cardiac Device: Unknown Device Placement Date:: unknown Past Psychological History: No Psychological Hx Reported Smoking Status: Current every day smoker Past Alcohol Use History: None Reported Past Drug Use History: None Reported - Past Family History Father Family Medical History: CVA/TIA Additional Family Medical History / Comment(s): was an alcoholic, rheumatic fever as child,lost 2/3rds of stomach d/t etoh. age 61 Mother Additional Family Medical History / Comment(s): comitted suicide at age 54 General Exam Limitations: no limitations General appearance: alert, in no apparent distress (frail appearing) Head exam: Present: atraumatic, normocephalic, normal inspection Eye exam: Present: normal appearance, PERRL, EOMI. Absent: scleral icterus, conjunctival injection, periorbital swelling Pupils: Present: normal accommodation ENT exam: Present: normal exam, normal oropharynx, mucous membranes moist Neck exam: Present: normal inspection. Absent: tenderness, meningismus, l ymphadenopathy Respiratory exam: Present: normal lung sounds bilaterally. Absent: respiratory distress, wheezes, rales, rhonchi, stridor Cardiovascular Exam: Present: regular rate, normal rhythm, normal heart sounds. Absent: systolic murmur, diastolic murmur, rubs, gallop, clicks GI/Abdominal exam: Present: soft, normal bowel sounds, other (ostomy in place LLQ). Absent: distended, tenderness, guarding, rebound, rigid Extremities exam: Present: tenderness (right lateral hip) Neurological exam: Present: alert, oriented X3, CN II-XII intact Skin exam: Present: warm, dry, normal color, other (Multiple skin tears upper and lower extremities. There is purulent drainage present to right jackson skin tear. ) Course Vital Signs 05/09/24 05/10/24 05/10/24 22:27 01:01 01:52 Temperature 97.8 F Pulse Rate 67 59 L 74 Respiratory 17 16 18 Rate Blood Pressure 108/72 82/51 135/74 O2 Sat by Pulse 94 L 100 99 Oximetry - Reevaluation(s) Reevaluation #1: 05/10/24 02:24 Case discussed with sound physician, Dr. Joyce for admission. Medical Decision Making - Medical Decision Making Was pt. sent in by a medical professional or institution (, PA, CASING TESTER, urgent care, hospital, or fci...) When possible be specific @ -No Did you speak to anyone other than the patient for history (EMS, parent, family, police, friend...)? What history was obtained from this source @ -Step daughter, at bedside, aiding in HPI and past medical history. Did you review nursing and triage notes (agree or disagree)? Why? @ -I reviewed and agree with nursing and triage notes Were old charts reviewed (outside hosp., previous admission, EMS record, old EKG, old radiological studies, urgent care reports/EKG's, fci records)? Report findings @ -No old charts were reviewed Differential Diagnosis (chest pain, altered mental status, abdominal pain women, abdominal pain men, vaginal bleeding, weakness, fever, dyspnea, syncope, headache, dizziness, GI bleed, back pain, seizure, CVA, palpatations, mental health, musculoskeletal)? @ -Differential Weakness: Hypoglycemia, shock, sepsis, hyponatremia, anemia, infection, IL, ETOH, adverse medicine reaction, overdose, stroke, this is not meant to be an all-inclusive list. EKG interpreted by me (3pts min.). @ -As above X-rays interpreted by me (1pt min.). @ -Right hip x-ray interpreted by me negative for acute osseous process. CT interpreted by me (1pt min.). @ -CT brain negative for acute intracranial process. U/S interpreted by me (1pt. min.). @ -None done What testing was considered but not performed or refused? (CT, X-rays, U/S, labs)? Why? @ -None What meds were considered but not given or refused? Why? @ -None Did you discuss the management of the patient with other professionals (professionals i.e. , PA, CASING TESTER, lab, RT, psych nurse, social services director, upset welding machine operator, teacher, department of natural resources officer, pillowcase folder)? Give summary @ -Yes, case discussed with sound physician, Dr. Joyce for admission. Was smoking cessation discussed for >3mins.? @ -No Was critical care preformed (if so, how long)? @ -No Were there social determinants of health that impacted care today? How? (Homelessness, low income, unemployed, alcoholism, drug addiction, transportation, low edu. Level, literacy, decrease access to med. care, alf, rehab)? @ -No Was there de-escalation of care discussed even if they declined (Discuss DNR or withdrawal of care, Hospice)? DNR status @ -No What co-morbidities impacted this encounter? (DM, HTN, Smoking, COPD, CAD, Cancer, CVA, ARF, Chemo, Hep., AIDS, mental health diagnosis, sleep apnea, morbid obesity)? @ -None Was patient admitted / discharged? Hospital course, mention meds given and route, prescriptions, significant lab abnormalities, going to OR and other pertinent info. @ -Admitted. 74-year-old female presented to the ER via EMS with a chief complaint of falls. Patient reports last night fell 2 days ago and was on the ground from 10 PM till noon yesterday. History and physical exam completed. Vitals within normal limits. Patient has no signs of acute distress and nontoxic-appearing. Patient ANO x 3. Multiple skin tears to bilateral upper and lower extremities. Skin tear to right jackson has surrounding erythema concerning of infection patient is currently taking Bactrim for this. No acute neurologic findings on exam. Bilateral upper and lower extremities neuro vastly intact. CBC unremarkable. CMP showing a sodium of 134, potassium 4.5, chloride 100, creatinine kinase 117. Urinalysis unremarkable. Imaging completed negative for acute process. Patient given IV Dilaudid and Zofran for pain control in the ER, with improvement. Patient did have multiple episodes of hypotension with systolic in the 70s while in the ER, this improved after IV fluids. Upon attempting to use a bedside commode nurse states patient was unable to bear weight on her legs due to weakness. Admission considered at this time for weakness and possible rehab placement. Patient is agreeable for this. Case discussed with Sound physician, Dr. Joyce for admisson. Patient admitted in stable condition for further evaluation and treatment. Case discused [facility] ED attending, Dr. Pantoja. Undiagnosed new problem with uncertain prognosis? @ -No Drug Therapy requiring intensive monitoring for toxicity (Heparin, Nitro, Insulin, Cardizem)? @ -No Were any procedures done? @ -No Diagnosis/symptom? @ -Multiple falls/weakness Acute, or Chronic, or Acute on Chronic? @ -Acute on chronic Uncomplicated (without systemic symptoms) or Complicated (systemic symptoms)? @ -Complicated Side effects of treatment? @ -No Exacerbation, Progression, or Severe Exacerbation? @ -No Poses a threat to life or bodily function? How? (Chest pain, USA, IL, pneumonia, PE, COPD, DKA, ARF, appy, cholecystitis, CVA, Diverticulitis, Homicidal, Suicidal, threat to staff... and all critical care pts) @ -Yes, falls can lead to injuries which may be life-threatening - Lab Data Result diagrams: 05/09/24 23:28 05/09/24 23:28 Lab Results 05/09/24 05/09/24 05/10/24 Range/Units 23:28 23:28 01:50 WBC 9.1 (3.8-10.6) k/uL RBC 4.12 (3.80-5.40) m/uL Hgb 13.0 (11.4-16.0) gm/dL Hct 41.5 (34.0-46.0) % MCV 100.8 H (80.0-100.0) fL MCH 31.5 (25.0-35.0) pg MCHC 31.2 (31.0-37.0) g/dL RDW 14.0 (11.5-15.5) % Plt Count 255 (150-450) k/uL MPV 10.3 Neutrophils % 61 % Lymphocytes % 29 % Monocytes % 7 % Eosinophils % 1 % Basophils % 0 % Neutrophils # 5.5 (1.3-7.7) k/uL Lymphocytes # 2.7 (1.0-4.8) k/uL Monocytes # 0.6 (0-1.0) k/uL Eosinophils # 0.1 (0-0.7) k/uL Basophils # 0.0 (0-0.2) k/uL Hypochromasia Moderate Macrocytosis Slight Sodium 134 L (137-145) mmol/L Potassium 4.5 (3.5-5.1) mmol/L Chloride 100 (98-107) mmol/L Carbon Dioxide 31 H (22-30) mmol/L Anion Gap 3 mmol/L BUN 20 H (7-17) mg/dL Creatinine 0.67 (0.52-1.04) mg/dL Est GFR (CKD-EPI)AfAm >90 (>60 ml/min/1.73 sqM) Est GFR (CKD-EPI)NonAf 86 (>60 ml/min/1.73 sqM) Glucose 84 (74-99) mg/dL Calcium 8.8 (8.4-10.2) mg/dL Total Bilirubin 0.5 (0.2-1.3) mg/dL AST 36 (14-36) U/L ALT 23 (4-34) U/L Alkaline Phosphatase 167 H (38-126) U/L Creatine Kinase 117 (30-135) U/L Total Protein 6.5 (6.3-8.2) g/dL Albumin 3.5 (3.5-5.0) g/dL Urine Color Light Yellow Urine Appearance Clear (Clear) Urine pH 6.0 (5.0-8.0) Ur Specific [place] 1.017 (1.001-1.035) Urine Protein Negative (Negative) Urine Glucose (UA) Negative (Negative) Urine Ketones Negative (Negative) Urine Blood Negative (Negative) Urine Nitrite Negative (Negative) Urine Bilirubin Negative (Negative) Urine Urobilinogen <2.0 (<2.0) mg/dL Ur Leukocyte Esterase Negative (Negative) - EKG Data -: EKG Interpreted by Me EKG Comments: EKG taken at 23: 28 showing atrial paced rhythm. Incomplete right bundle branch block. Normal axis. 0.[address] depression with inverted T waves in V3. In verted T waves in V1 V2 V3. Ventricular rate 59, ME interval 248, QRS duration 106, QT/QTc 487/487. - Radiology Data Radiology results: report reviewed, image reviewed Disposition Clinical Impression: Falls frequently, Skin tear, Weakness Disposition: ADMITTED IP TO THIS [facility] Condition: Stable Referrals: Yoan Quiroz DO [Primary Care Provider] - 1-2 days Time of Disposition: 02:25
[2024-05-09] MEDS: ONDANSETRON 4 MG/2 ML VIAL IVP STA (23:32)
[2024-05-09] MEDS: HYDROmorphone 0.5 MG/0.5 ML SYRINGE IVP STA (23:33)
[2024-05-09] MEDS: SODIUM CHLORIDE 0.9% 500 ML 500 ML IV STA (23:35)
--- NOTE | 2024-05-10 | XR ---
EXAMINATION TYPE: XR Hip RT and AP Pelvis DATE OF EXAM: 05/09/2024 COMPARISON: CT abdomen and pelvis May 11, 2023 HISTORY: Fall with pain TECHNIQUE: A single AP view of the pelvis is obtained. Two views of the right hip are obtained. FINDINGS: Osseous structures are demineralized. There is no acute fracture/dislocation evident in th e pelvis. Old healed fractures of the right superior and inferior pelvic rami are redemonstrated. Eric gical change to the left femur is partially imaged with heterotopic ossification similar to prior CT. Old healed fracture left inferior pelvic ramus is noted. Moderate axial joint space loss in both hip s. The overlying soft tissue is unremarkable. IMPRESSION: There is no acute fracture or dislocation in the pelvis or right hip. [facility], , 05/09/2024 11:58 PM
--- NOTE | 2024-05-10 00:03 | CT ---
EXAMINATION TYPE: CT brain wo con DATE OF EXAM: 05/09/2024 HISTORY: pt c/o of multiple falls with no LOC no thinners +head CT DLP: 1184.5 mGycm. Automated Exposure Control for Dose Reduction was Utilized. TECHNIQUE: CT scan of the head is performed without contrast. COMPARISON: Prior CT November 09, 2023. FINDINGS: There is no acute intracranial hemorrhage or midline shift identified. There is mild to m oderate diffuse ventricular and sulcal prominence redemonstrated. Da Silva-white matter differentiation f airly well preserved. The calvarium is intact. The globes are intact and the visualized sinuses are clear. IMPRESSION: No acute intracranial hemorrhage or midline shift. [facility], , 05/10/2024 12:01 AM
[2024-05-10] MEDS: SODIUM CHLORIDE 0.9% 500 ML 500 ML IV STA (00:45)
[2024-05-10 01:14] LABS: Basophils % (A) 0 %; Eosinophils # (A) 0.1 k/uL (0-0.7); Eosinophils % (A) 1 %; HCT 41.5 % (34.0-46.0); Hypochromasia Moderate; Lymphocytes # (A) 2.7 k/uL (1.0-4.8); Lymphocytes % (A) 29 %; MCH 31.5 pg (25.0-35.0); MCHC 31.2 g/dL (31.0-37.0); MCV 100.8 fL (80.0-100.0); Macrocytosis Slight; Mean Platelet Volume 10.3; Monocytes # (A) 0.6 k/uL (0-1.0); Monocytes % (A) 7 %; Neutrophils # (A) 5.5 k/uL (1.3-7.7); Neutrophils % (A) 61 %; Platelet Count 255 k/uL (150-450); RBC 4.12 m/uL (3.80-5.40); WBC 9.1 k/uL (3.8-10.6)
[2024-05-10 01:26] LABS: ALT 23 U/L (4-34); AST 36 U/L (14-36); African American GFR (CKD) >90 (>60 ml/min/1.73 sqM); Albumin 3.5 g/dL (3.5-5.0); Alkaline Phosphatase 167 U/L (38-126); Anion Gap 3 mmol/L; Blood Urea Nitrogen 20 mg/dL (7-17); Calcium 8.8 mg/dL (8.4-10.2); Carbon Dioxide 31 mmol/L (22-30); Chloride 100 mmol/L (98-107); Creatine Kinase 117 U/L (30-135); Glucose 84 mg/dL (74-99); Non-African American GFR(CKD) 86 (>60 ml/min/1.73 sqM); Potassium 4.5 mmol/L (3.5-5.1); Sodium 134 mmol/L (137-145); Total Bilirubin 0.5 mg/dL (0.2-1.3); Total Protein 6.5 g/dL (6.3-8.2)
[2024-05-10 02:07] LABS: Appearance,Urine Clear (Clear); Bilirubin,Urine Negative (Negative); Blood,Urine Negative (Negative); Color,Urine Light Yellow; Glucose,Urine (UA) Negative (Negative); Ketones,Urine Negative (Negative); Leukocyte Esterase,Urine Negative (Negative); Nitrite,Urine Negative (Negative); Protein,Urine Negative (Negative); Specific Gravity,Urine 1.017 (1.001-1.035); Urobilinogen,Urine <2.0 mg/dL (<2.0)
[2024-05-10] MEDS ORDERED: NALOXONE 0.4 MG/ML 1 ML VIAL IV PRN (02:22)
[2024-05-10] MEDS ORDERED: HYDROmorphone 0.5 MG/0.5 ML SYRINGE IVP PRN (02:22)
[2024-05-10] MEDS ORDERED: ONDANSETRON 4 MG/2 ML VIAL IVP PRN (02:22)
[2024-05-10] MEDS: SULFAMETHOX-TMP 800-160MG 1 EACH TAB PO STA (02:50)
[2024-05-10] MEDS: SODIUM CHLORIDE 0.9% 1,000 ML IV SCH (02:50)
[2024-05-10] MEDS ORDERED: ALPRAZolam 0.5 MG TAB PO PRN (03:59)
--- NOTE | 2024-05-10 04:10 | P.HPIM ---
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 She denies any associated chest pain trouble breathing palpitations or heart racing. Denies any associated nausea vomiting profuse sweating chest pain or trouble breathing. She indicated that she had hit her head multiple times when she falls denies any passing out or loss of consciousness denies any headache changes in vision or hearing He denies taking any blood thinners He is also getting frequent skin tears because of these falls patient will over her legs. Last night patient sustained a fall when she had to crawl to her phone to make a phone call eventually she admitted around 5 AM called her granddaughter for help she remained on the floor till noon yesterday and finally her daughter arrived to [place] and she witnessed another fall for the evening for which she decided to bring her to the hospital for evaluation review of systems Pertinent positives as noted in HPI. All other systems were reviewed and are negative on exam Constitutional: No acute distress, conversant, pleasant Eyes: Anicteric sclerae, moist conjunctiva, Pupils equal round reactive to light ENMT: NC/AT Oropharynx clear, no erythema, or exudates Neck: Supple, no masses, or JVD No carotid bruits No thyromegaly Lungs: Clear to auscultation Clear to percussion Normal respiratory effort, no accessory muscle use Cardiovascular: Heart regular in rate and rhythm, No murmurs, gallops, or rubs No peripheral edema Abdominal: Soft Nontender, no guarding, rebound or rigidity Abdomen moving with respiration Normoactive bowel sounds Colostomy bag in place no evidence of bleeding Skin: Thinning of the skin over bilateral lower extremities with multiple skin tears Extremities: No digital cyanosis No clubbing Pedal pulses intact and symmetrical Radial pulses intact and symmetrical No calf tenderness Psychiatric: Alert and oriented to person, place and time t Neuro Muscles Strength 4/5 in all 4 extremities Sensation to light touch grossly present throughout Cranial nerves II-XII grossly intact Past Medical History Past Medical History: Atrial Fibrillation, Atrial Flutter, Asthma, Coronary Artery Disease (CAD), Heart Failure, COPD, CVA/TIA, GERD/Reflux, Hyperlipidemia Additional Past Medical History / Comment(s): tremors. osteoporosis, compression fx. pulmonary fibrosis. COVID 10/14. Hx. of Cocaine abuse- currently attends Narcotics Anonymous. History of compression deformities L2-3-4 and 5 in April 2023 Last Myocardial Infarction Date:: unk History of Any Multi-Drug Resistant Organisms: None Reported Past Surgical History: Adenoidectomy, Bladder Surgery, Bowel Resection, Cardiac Valve Replacement, Ear Surgery, Heart Catheterization With Stent, Hysterectomy, Tonsillectomy Additional Past Surgical History / Comment(s): colostomy. open heart x2. watchman device to chest Past Anesthesia/Blood Transfusion Reactions: No Reported Reaction Additional Past Anesthesia/Blood Transfusion Reaction / Comment(s): claustropbobia. pt is combative when coming out of anesthesia Date of Last Stent Placement:: unk Type of Cardiac Device: Unknown Device Placement Date:: unknown Past Psychological History: No Psychological Hx Reported Smoking Status: Current every day smoker Past Alcohol Use History: None Reported Past Drug Use History: None Reported - Past Family History Father Family Medical History: CVA/TIA Additional Family Medical History / Comment(s): was an alcoholic, rheumatic fever as child,lost 2/3rds of stomach d/t etoh. age 61 Mother Additional Family Medical History / Comment(s): comitted suicide at age 54 Medications and Allergies Home Medications Medication Instructions Recorded Confirmed Type Primidone [Mysoline] 100 mg PO QID 10/04/14 11/21/23 History Aspirin 81 mg PO DAILY 04/17/15 11/21/23 History Sotalol [Betapace] 120 mg PO BID 09/10/22 11/21/23 History DULoxetine HCL [Cymbalta] 60 mg PO DAILY 11/07/23 11/21/23 History Lidocaine 5% Patch [Lidoderm 5% 1 patch TOPICAL DAILY PRN #30 patch 11/07/23 11/21/23 Rx Patch] Mirtazapine [Remeron] 30 mg PO HS 11/07/23 11/21/23 History Simvastatin [Zocor] 40 mg PO HS 11/07/23 11/21/23 History ALPRAZolam [Xanax] 0.5 mg PO TID PRN #6 tab 11/12/23 11/21/23 Rx Acetaminophen Tab [Tylenol] 650 mg PO Q6HR PRN tab 11/12/23 11/21/23 Rx HYDROcodone/APAP 5-325MG [[place] 1 each PO Q4HR PRN #6 tab 11/12/23 11/21/23 Rx 5-325] Ibuprofen [Motrin] 600 mg PO QID PRN tab 11/12/23 11/21/23 Rx Ipratropium-Albuterol Nebulize 3 ml INHALATION RT-QID PRN each 11/12/23 11/21/23 Rx [Duoneb 0.5 mg-3 mg/3 ml Soln] Meloxicam [Mobic] 15 mg PO BID 30 Days #60 tab 11/21/23 Rx Allergies Allergy/AdvReac Type Severity Reaction Status Date / Time adhesive Allergy Rash/Hives Verified 05/09/24 22:33 latex Allergy Rash/Hives Verified 05/09/24 22:33 Penicillins Allergy Unknown Verified 05/09/24 22:33 Childhood rubber, unspecified Allergy Rash/Hives Verified 05/09/24 22:33 alendronate sodium AdvReac Nausea & Verified 05/09/24 22:33 [From Fosamax] Vomiting Physical Exam Vitals: Vital Signs Temp Pulse Resp BP Pulse Ox 05/10/24 03:56 60 16 83/46 99 05/10/24 02:28 60 17 96/55 98 05/10/24 01:52 74 18 135/74 99 05/10/24 01:01 59 L 16 82/51 100 05/09/24 22:27 97.8 F 67 17 108/72 94 L Intake and Output 05/09/24 05/09/24 05/10/24 14:59 22:59 06:59 Other: Weight 42.184 kg Results CBC & Chem 7: 05/09/24 23:28 05/09/24 23:28 Labs: Abnormal Lab Results - Last 24 Hours (Table) 05/09/24 05/09/24 Range/Units 23:28 23:28 MCV 100.8 H (80.0-100.0) fL Sodium 134 L (137-145) mmol/L Carbon Dioxide 31 H (22-30) mmol/L BUN 20 H (7-17) mg/dL Alkaline Phosphatase 167 H (38-126) U/L Assessment and Plan Assessment: 74-year-old female paroxysmal A-fibDiabetes mellitus hyperlipidemia coming into the hospital for evaluation due to frequent falls family requesting placement I discussed case with ED doctor and accepted the admission for frequent falls secondary to advanced age for PT evaluation and recommendations regarding placement with anticipated length of stay less than 2 midnights Generalized weakness frequent falling Check orthostatic vitals Fluid hydration normal saline status post 2 L boluses continue with normal saline 75 cc/h Fall precautions PT evaluation Blood work overall unremarkable showing hemoglobin 13 white count 9.1 Sodium 134 potassium 4.5 BUN 20 creatinine 0.6 Paroxysmal A-fib Not on blood thinners Continue sotalol 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 daily
[2024-05-10] MEDS: SODIUM CHLORIDE 0.9% 500 ML 500 ML IV ONE (04:12)
[2024-05-10] MEDS: SOTALOL 120 MG TAB PO SCH (10:07)
[2024-05-10] MEDS: ASPIRIN 81 MG PO SCH (10:07)
[2024-05-10 14:49] VITALS: BMI 18.8
[2024-05-10] MEDS ORDERED: LIDOCAINE 4% PATCH TOPICAL PRN (16:53)
[2024-05-10] MEDS ORDERED: KETOROLAC 15 MG/ML 1 ML VIAL IVP PRN (16:57)
--- NOTE | 2024-05-10 17:28 | P.PN ---
Subjective Progress Note Date: 05/10/24 Hospital course: Patient is a very pleasant 74-year-old female with a past medical history of CAD status post stent placement, valvular heart disease status post cardiac valve replacement, atrial fibrillation not on anticoagulation and status post pacemaker placement and Watchman device, COPD and pulmonary fibrosis with chronic hypoxic respiratory failure home oxygen dependent on 2-3 L with continued nicotine dependence, and known spinal canal stenosis with moderate neuroforaminal stenosis and bulging disks with chronic lower extremity weakness. She presented to the emergency department on 05/09/2024 secondary to recurrent falls at home and worsening lower extremity weakness. Patient reports falling on floor and unable to get up all night having to crawl to phone the next morning to call for assistance. Patient was reportedly down on ground for greater than 12 hours before assistance arrived and she was transferred to the hospital for evaluation via EMS. Upon arrival to our facility, patient underwent evaluation in the emergency department. Vital signs upon arrival show blood pressure 108/72, heart rate 67, respiratory rate 17, temp 97.8 F, and SpO2 of 94% on room air. EKG was completed showing atrial paced rhythm 58 bpm with an incomplete right bundle branch block and T wave inversion in leads V1 through V3. CT head completed and reported to be negative for acute intracranial process. X-ray right hip negative for acute fracture or dislocation. Labs were completed and reviewed. CBC showing macrocytosis with MCV of 100.8 otherwise normal findings. BMP showing hyponatremia with sodium of 134, hypercarbia with bicarb of 31 and mild prerenal azotemia with BUN of 20. Blood glucose was 84. Liver profile showing elevated alkaline phosphatase of 167. Urinalysis was negative for blood, ketones, protein, or infection. Patient was admitted under our services with consultation to Physical and Occupational Therapy. Physical exam: Patient was seen and fully evaluated at bedside. She expresses frustration over her hospitalization and need to go to retirement facility but does admit to recurrent and frequent falls at home. Patient reports mild pain to right hip otherwise denies having any complaints, questions, or concerns at this time. Vital signs reviewed and stable. General: Nontoxic, no distress and appears stated age. Thin and frail. Derm: Skin warm and dry, normal coloration for ethnicity. Head: Atraumatic, normocephalic and symmetric. Eyes: EOM's intact, no lid lag, and anicteric sclera Mouth: no lip lesions, mucus membranes moist Cardiovascular: regular rate and rhythm with normal S1S2, systolic murmur, positive posterior tibial pulses bilaterally, and cap refill < 2 seconds. Lungs: Respirations even, regular, and unlabored on room air. Lungs CTA bilaterally, no rhonchi, no rales, no wheezing, and no accessory muscle usage. Abdominal: soft, nontender to palpation, no guarding, no appreciable organomegaly. Colostomy in place. Ext: ROM intact. No gross muscle atrophy, no edema, no contractures Neuro: Speech clear, face symmetrical and CN II-XII grossly intact with no noted focal neuro deficits Psych: Alert and oriented to person, place, time, and situation. Appropriate and pleasant affect. Assessment and Plan of Care: Recurrent falls at home resulting in debility and inability to complete ADLs independently Age related physical debility Polypharmacy use -Recommend holding Klonopin, Benadryl, and oxycodone as these can all increase risk for falls, especially in the elderly. Patient and patient's family very adamant on patient receiving her Klonopin. Will decrease dose to 0.5 mg twice daily. -Symptomatic care and pain management with Tylenol 650 mg every 6 hours as needed for mild pain/discomfort and Toradol 15 mg IVP every 6 hours as needed for moderate to severe pain. Continue lidocaine patch.. -PT/OT following, recommending subacute rehabilitation with 24/7 supervision. -Fall precautions to be maintained Chronic hypoxic respiratory failure home oxygen dependent secondary to advanced COPD and pulmonary fibrosis -Continue oxygen supplementation, baseline 2 L May titrate to maintain SpO2 equal to or greater than 90%. -Continue Symbicort 160-4.5 mcg inhaler 2 puffs twice daily and scheduled nebulizer treatments 4 times daily. -Recommend total smoking cessation in order placed for nicotine patch 14 mg daily. CAD status post stenting Valvular heart disease status postcardiac valve replacement Atrial fibrillation not on anticoagulation status post permanent pacemaker placement and Watchman device placement -Continue cardiac medication regimen with aspirin 81 mg daily, atorvastatin 20 mg nightly, and sotalol 120 mg twice daily. Anxiety and depression -Continue duloxetine 60 mg daily, Remeron 30 mg nightly, Zoloft 100 mg daily, and trazodone 100 mg nightly. Essential tremors -Continue primidone 100 mg 4 times daily. Data and imaging reviewed: - Labs were completed and reviewed. CBC showing macrocytosis with MCV of 100.8 otherwise normal findings. BMP showing hyponatremia with sodium of 134, hypercarbia with bicarb of 31 and mild prerenal azotemia with BUN of 20. Blood glucose was 84. Liver profile showing elevated alkaline phosphatase of 167. Urinalysis was negative for blood, ketones, protein, or infection -Vital signs reviewed. Blood pressure 119/60, heart rate 65, respiratory rate 16, temp 97.6 F, and SpO2 of 99% on 3 L. CODE STATUS: DNR/DNI DVT prophylaxis: Lovenox Anticipated discharge date: 24 to [address]: SNF Patient was seen independently by Nurse Pracitioner. This document was prepared using [employer] dictation software. Please allow for errors in farmworker, while rare they do occur. I reviewed the documentation as provided by the SAM above, who is the original author of this note. I agree with the documented assessment and plan, with the following changes: none Objective - Vital Signs Vital signs: Vital Signs Temp 97.6 F 05/10/24 08:27 Pulse 72 05/10/24 08:27 Resp 18 05/10/24 08:27 BP 133/79 05/10/24 08:27 Pulse Ox 99 05/10/24 08:27 FiO2 Intake & Output 05/09/24 05/10/24 05/10/24 18:59 06:59 18:59 Weight 42.184 kg - Labs CBC & Chem 7: 05/09/24 23:28 05/09/24 23:28 Labs: Abnormal Lab Results - Last 24 Hours (Table) 05/09/24 05/09/24 Range/Units 23:28 23:28 MCV 100.8 H (80.0-100.0) fL Sodium 134 L (137-145) mmol/L Carbon Dioxide 31 H (22-30) mmol/L BUN 20 H (7-17) mg/dL Alkaline Phosphatase 167 H (38-126) U/L
[2024-05-10] MEDS: PRIMIDONE 50 MG TAB PO SCH (18:08)
[2024-05-10] MEDS: clonazePAM 0.5 MG TAB PO SCH (18:52)
[2024-05-10] MEDS: MIRTAZAPINE 15 MG TAB PO SCH (21:00)
[2024-05-10] MEDS: traZODone HCL 100 MG TAB PO SCH (21:01)
[2024-05-10] MEDS: ATORVASTATIN 20 MG TAB PO SCH (21:01)
[2024-05-10] MEDS: SENNOSIDES-DOCUSATE SODIUM 1 EACH TAB PO SCH (21:01)
[2024-05-10] MEDS: SULFAMETHOX-TMP 800-160MG 1 EACH TAB PO SCH (21:02)
[2024-05-11] MEDS: ENOXAPARIN 40 MG/0.4 ML SYRINGE SQ SCH (08:26)
[2024-05-11] MEDS: DULoxetine HCL 60 MG CAPSULE.DR PO SCH (08:27)
[2024-05-11] MEDS: NICOTINE 14MG/24HR PATCH TRANSDERM SCH (08:27)
[2024-05-11] MEDS: SERTRALINE 100 MG TAB PO SCH (08:27)
[2024-05-11] MEDS: IPRATROPIUM 0.5 MG/2.5 ML NEBU INHALATION SCH (08:33)
[2024-05-11] MEDS: SYMBICORT 160-4.5 MCG INHALER INHALATION SCH (08:33)
--- NOTE | 2024-05-11 14:15 | P.PN ---
Subjective Progress Note Date: 05/11/24 Hospital course: Patient is a very pleasant 74-year-old female with a past medical history of CAD status post stent placement, valvular heart disease status post cardiac valve replacement, atrial fibrillation not on anticoagulation and status post pacemaker placement and Watchman device, COPD and pulmonary fibrosis with chronic hypoxic respiratory failure home oxygen dependent on 2-3 L with continued nicotine dependence, and known spinal canal stenosis with moderate neuroforaminal stenosis and bulging disks with chronic lower extremity weakness. She presented to the emergency department on 05/09/2024 secondary to recurrent falls at home and worsening lower extremity weakness. Patient reports falling on floor and unable to get up all night having to crawl to phone the next morning to call for assistance. Patient was reportedly down on ground for greater than 12 hours before assistance arrived and she was transferred to the hospital for evaluation via EMS. Upon arrival to our facility, patient underwent evaluation in the emergency department. Vital signs upon arrival show blood pressure 108/72, heart rate 67, respiratory rate 17, temp 97.8 F, and SpO2 of 94% on room air. EKG was completed showing atrial paced rhythm 58 bpm with an incomplete right bundle branch block and T wave inversion in leads V1 through V3. CT head completed and reported to be negative for acute intracranial process. X-ray right hip negative for acute fracture or dislocation. Labs were completed and reviewed. CBC showing macrocytosis with MCV of 100.8 otherwise normal findings. BMP showing hyponatremia with sodium of 134, hypercarbia with bicarb of 31 and mild prerenal azotemia with BUN of 20. Blood glucose was 84. Liver profile showing elevated alkaline phosphatase of 167. Urinalysis was negative for blood, ketones, protein, or infection. Patient was admitted under our services with consultation to Physical and Occupational Therapy. Physical exam: Patient was seen and fully evaluated at bedside. Patient resting comfortably at time of assessment, easily awoken via verbal stimuli. Patient currently denies having any questions, needs, concerns, or complaints. Patient was updated on insurance authorization requiring 3 night stay with plans for discharge to custodial facility on Tuesday. Patient denies having any questions, needs, concerns, or complaints. Vital signs reviewed and stable. General: Nontoxic, no distress and appears stated age. Thin and frail. Derm: Skin warm and dry, normal coloration for ethnicity. Multiple skin tears and bruises on upper and lower extremities. Head: Atraumatic, normocephalic and symmetric. Eyes: EOM's intact, no lid lag, and anicteric sclera Mouth: no lip lesions, mucus membranes moist Cardiovascular: regular rate and rhythm with normal S1S2, systolic murmur, positive posterior tibial pulses bilaterally, and cap refill < 2 seconds. Lungs: Respirations even, regular, and unlabored on room air. Lungs CTA bilaterally, no rhonchi, no rales, no wheezing, and no accessory muscle usage. Abdominal: soft, nontender to palpation, no guarding, no appreciable organomegaly. Colostomy in place. Ext: ROM intact. No gross muscle atrophy, no edema, no contractures Neuro: Speech clear, face symmetrical and CN II-XII grossly intact with no noted focal neuro deficits Psych: Alert and oriented to person, place, time, and situation. Appropriate and pleasant affect. Assessment and Plan of Care: Recurrent falls at home resulting in debility and inability to complete ADLs independently Age related physical debility Polypharmacy use -Recommend holding Klonopin, Benadryl, and oxycodone as these can all increase risk for falls, especially in the elderly. Patient and patient's family very adamant on patient receiving her Klonopin. Will decrease dose to 0.5 mg twice daily. -Symptomatic care and pain management with Tylenol 650 mg every 6 hours as needed for mild pain/discomfort and Toradol 15 mg IVP every 6 hours as needed for moderate to severe pain. Continue lidocaine patch.. -PT/OT following, recommending subacute rehabilitation with 24/7 supervision. -Fall precautions to be maintained Chronic hypoxic respiratory failure home oxygen dependent secondary to advanced COPD and pulmonary fibrosis -Continue oxygen supplementation, baseline 2 L May titrate to maintain SpO2 equal to or greater than 90%. -Continue Symbicort 160-4.5 mcg inhaler 2 puffs twice daily and scheduled nebulizer treatments 4 times daily. -Recommend total smoking cessation in order placed for nicotine patch 14 mg daily. CAD status post stenting Valvular heart disease status postcardiac valve replacement Atrial fibrillation not on anticoagulation status post permanent pacemaker placement and Watchman device placement -Continue cardiac medication regimen with aspirin 81 mg daily, atorvastatin 20 mg nightly, and sotalol 120 mg twice daily. Anxiety and depression -Continue duloxetine 60 mg daily, Remeron 30 mg nightly, Zoloft 100 mg daily, and trazodone 100 mg nightly. Essential tremors -Continue primidone 100 mg 4 times daily. Data and imaging reviewed: -Vital signs reviewed. Blood pressure 105/64, heart rate 60, respiratory rate 16, temp 99.7 F, and SpO2 of 99% on 2 L. CODE STATUS: DNR/DNI DVT prophylaxis: Lovenox Anticipated discharge date: Discussed in detail with social group worker, patient insurance authorization requires 3 night stay prior to discharge to rehab. Tentative discharge date 05/14/2024. Anticipated discharge place: SNF Patient was seen independently by Nurse Pracitioner. This document was prepared using [employer] dictation software. Please allow for errors in microsoft access developer, while rare they do occur. I reviewed the documentation as provided by the SAM above, who is the original author of this note. I agree with the documented assessment and plan, with the following changes: none Objective - Vital Signs Vital signs: Vital Signs Temp 99.7 F H 05/11/24 07:16 Pulse 60 05/11/24 07:16 Resp 16 05/11/24 07:16 BP 105/64 05/11/24 07:16 Pulse Ox 99 05/11/24 07:16 FiO2 Intake & Output 05/10/24 05/11/24 05/11/24 18:59 06:59 18:59 Intake Total 780 590 Output Total 2 Balance 780 588 Weight 42.184 kg Intake: Oral 780 590 Output: Urine 2 Other: Voiding Method Bedside Commode Toilet Bedside Commode # Voids 2 - Labs CBC & Chem 7: 05/09/24 23:28 05/09/24 23:28
[2024-05-12 09:18] LABS: HCT 32.7 % (37.2-46.3); HGB 10.1 g/dL (12.0-15.0); MCH 31.1 pg (27.0-32.0); MCHC 30.9 g/dL (32.0-37.0); MCV 100.6 FL (80.0-97.0); Mean Platelet Volume 11.8 FL (9.5-12.2); NRBC Per 100 WBC 0 X 10*3/uL (0.00-0.01); Platelet Count 189 X 10*3/uL (140-440); RBC 3.25 X 10*6/uL (4.10-5.20); RDW 14.7 % (11.5-14.5); WBC 6.09 X 10*3/uL (4.50-10.00)
[2024-05-12 09:38] LABS: ALT 19 U/L (8-44); AST 19 U/L (13-35); Albumin 2.8 g/dL (3.8-4.9); Alkaline Phosphatase 130 U/L (41-126); BUN/Creat Ratio 19.83 Ratio (12.00-20.00); Blood Urea Nitrogen 11.9 mg/dL (9.0-27.0); Carbon Dioxide 27.9 mmol/L (21.6-31.8); Chloride 104 mmol/L (96-109); Glucose 94 mg/dL (70-110); Magnesium 1.9 mg/dL (1.5-2.4); Potassium 4.3 mmol/L (3.5-5.5); Sodium 136 mmol/L (135-145); Total Bilirubin <0.2 mg/dL (0.3-1.2); Total Protein 4.8 g/dL (6.2-8.2)
[2024-05-12] MEDS: SODIUM CHLORIDE 0.9% 1,000 ML IV ONE (12:14)
--- NOTE | 2024-05-12 12:15 | P.PN ---
Subjective Progress Note Date: 05/12/24 Hospital course: Patient is a very pleasant 74-year-old female with a past medical history of CAD status post stent placement, valvular heart disease status post cardiac valve replacement, atrial fibrillation not on anticoagulation and status post pacemaker placement and Watchman device, COPD and pulmonary fibrosis with chronic hypoxic respiratory failure home oxygen dependent on 2-3 L with continued nicotine dependence, and known spinal canal stenosis with moderate neuroforaminal stenosis and bulging disks with chronic lower extremity weakness. She presented to the emergency department on 05/09/2024 secondary to recurrent falls at home and worsening lower extremity weakness. Patient reports falling on floor and unable to get up all night having to crawl to phone the next morning to call for assistance. Patient was reportedly down on ground for greater than 12 hours before assistance arrived and she was transferred to the hospital for evaluation via EMS. Upon arrival to our facility, patient underwent evaluation in the emergency department. Vital signs upon arrival show blood pressure 108/72, heart rate 67, respiratory rate 17, temp 97.8 F, and SpO2 of 94% on room air. EKG was completed showing atrial paced rhythm 58 bpm with an incomplete right bundle branch block and T wave inversion in leads V1 through V3. CT head completed and reported to be negative for acute intracranial process. X-ray right hip negative for acute fracture or dislocation. Labs were completed and reviewed. CBC showing macrocytosis with MCV of 100.8 otherwise normal findings. BMP showing hyponatremia with sodium of 134, hypercarbia with bicarb of 31 and mild prerenal azotemia with BUN of 20. Blood glucose was 84. Liver profile showing elevated alkaline phosphatase of 167. Urinalysis was negative for blood, ketones, protein, or infection. Patient was admitted under our services with consultation to Physical and Occupational Therapy. Physical exam: Patient was seen and fully evaluated at bedside. Patient sitting up in chair at bedside just finished getting washed up for the day and changed into a new gown. Patient denies having any pain or complaints at this time denies having any questions, needs, concerns, or complaints. She is awaiting intermediate facility placement on Tuesday. Vital signs reviewed and stable. General: Nontoxic, no distress and appears stated age. Thin and frail. Derm: Skin warm and dry, normal coloration for ethnicity. Multiple skin tears and bruises on upper and lower extremities. Head: Atraumatic, normocephalic and symmetric. Eyes: EOM's intact, no lid lag, and anicteric sclera Mouth: no lip lesions, mucus membranes moist Cardiovascular: regular rate and rhythm with normal S1S2, systolic murmur, positive posterior tibial pulses bilaterally, and cap refill < 2 seconds. Lungs: Respirations even, regular, and unlabored on room air. Lungs CTA bilaterally, no rhonchi, no rales, no wheezing, and no accessory muscle usage. Abdominal: soft, nontender to palpation, no guarding, no appreciable organomegaly. Colostomy in place. Ext: ROM intact. No gross muscle atrophy, no edema, no contractures Neuro: Speech clear, face symmetrical and CN II-XII grossly intact with no noted focal neuro deficits Psych: Alert and oriented to person, place, time, and situation. Appropriate and pleasant affect. Assessment and Plan of Care: Recurrent falls at home resulting in debility and inability to complete ADLs independently Age related physical debility Polypharmacy use -Recommend holding Klonopin, Benadryl, and oxycodone as these can all increase risk for falls, especially in the elderly. Patient and patient's family very adamant on patient receiving her Klonopin. Will decrease dose to 0.5 mg twice daily. -Symptomatic care and pain management with Tylenol 650 mg every 6 hours as needed for mild pain/discomfort and Toradol 15 mg IVP every 6 hours as needed for moderate to severe pain. Continue lidocaine patch.. -PT/OT following, recommending subacute rehabilitation with 24/7 supervision. -Fall precautions to be maintained Chronic hypoxic respiratory failure home oxygen dependent secondary to advanced COPD and pulmonary fibrosis -Continue oxygen supplementation, baseline 2 L May titrate to maintain SpO2 equal to or greater than 90%. -Continue Symbicort 160-4.5 mcg inhaler 2 puffs twice daily and scheduled nebulizer treatments 4 times daily. -Recommend total smoking cessation in order placed for nicotine patch 14 mg daily. CAD status post stenting Valvular heart disease status postcardiac valve replacement Atrial fibrillation not on anticoagulation status post permanent pacemaker placement and Watchman device placement -Continue cardiac medication regimen with aspirin 81 mg daily, atorvastatin 20 mg nightly, and sotalol 120 mg twice daily. Anxiety and depression -Continue duloxetine 60 mg daily, Remeron 30 mg nightly, Zoloft 100 mg daily, and trazodone 100 mg nightly. Essential tremors -Continue primidone 100 mg 4 times daily. Data and imaging reviewed: - Vital signs reviewed. Blood pressure 90/55, heart rate 56, respiratory rate 16, temp 97.7 F, and SpO2 of 99% on 3 L. - Morning labs reviewed. CBC showing macrocytic anemia with hemoglobin of 10.1 and MCV of 100.6. BMP unremarkable. Magnesium normal findings at 1.9. Liver profile showing elevated alkaline phosphatase of 130 otherwise normal findings. Urinalysis was negative for infection. CODE STATUS: DNR/DNI DVT prophylaxis: Lovenox Anticipated discharge date: Discussed in detail with healthcare social worker, patient insurance authorization requires 3 night stay prior to discharge to rehab. Tentative discharge date 05/14/2024. Anticipated discharge place: SNF Patient was seen independently by Nurse Pracitioner. This document was prepared using [employer] dictation software. Please allow for errors in corporate compliance manager, while rare they do occur. I reviewed the documentation as provided by the SAM above, who is the original author of this note. I agree with the documented assessment and plan, with the following changes: none Objective - Vital Signs Vital signs: Vital Signs Temp 97.7 F 05/12/24 07:14 Pulse 56 L 05/12/24 07:14 Resp 16 05/12/24 07:14 BP 90/55 05/12/24 07:14 Pulse Ox 99 05/12/24 07:14 FiO2 Intake & Output 05/11/24 05/12/24 05/12/24 18:59 06:59 18:59 Intake Total 930 1550 Balance 930 1550 Intake: Intake, IV Titration 900 Amount Sodium Chloride 0.9% 1, 900 000 ml @ 75 mls/hr IV . [id number] [facility] Rx#:[id number] Oral 930 650 Other: Voiding Method Toilet Toilet Bedside Commode Bedside Commode # Voids 1 1 - Labs CBC & Chem 7: 05/12/24 03:15 05/12/24 03:15
[2024-05-12] MEDS: guaiFENesin 600 MG TABLET.ER PO PRN (13:43)
[2024-05-13] MEDS: ACETAMINOPHEN TAB 325 MG TAB PO PRN (09:40)
[2024-05-13 09:57] LABS: HCT 32.7 % (37.2-46.3); MCH 31.8 pg (27.0-32.0); MCHC 30.6 g/dL (32.0-37.0); MCV 104.1 FL (80.0-97.0); Mean Platelet Volume 11.9 FL (9.5-12.2); NRBC Per 100 WBC 0 X 10*3/uL (0.00-0.01); Platelet Count 209 X 10*3/uL (140-440); RBC 3.14 X 10*6/uL (4.10-5.20); RDW 14.9 % (11.5-14.5); WBC 7.12 X 10*3/uL (4.50-10.00)
[2024-05-13 10:08] LABS: ALT 21 U/L (8-44); AST 25 U/L (13-35); Albumin 2.9 g/dL (3.8-4.9); Albumin/Globulin Ratio 1.45 Ratio (1.60-3.17); Alkaline Phosphatase 110 U/L (41-126); BUN/Creat Ratio 9.33 Ratio (12.00-20.00); Blood Urea Nitrogen 5.6 mg/dL (9.0-27.0); Calcium 8.1 mg/dL (8.7-10.3); Carbon Dioxide 25.8 mmol/L (21.6-31.8); Chloride 108 mmol/L (96-109); Glucose 89 mg/dL (70-110); Magnesium 1.8 mg/dL (1.5-2.4); Potassium 4.6 mmol/L (3.5-5.5); Sodium 140 mmol/L (135-145); Total Bilirubin <0.2 mg/dL (0.3-1.2); Total Protein 4.9 g/dL (6.2-8.2)
--- NOTE | 2024-05-13 11:59 | P.PN ---
Subjective Progress Note Date: 05/13/24 Hospital course: Patient is a very pleasant 74-year-old female with a past medical history of CAD status post stent placement, valvular heart disease status post cardiac valve replacement, atrial fibrillation not on anticoagulation and status post pacemaker placement and Watchman device, COPD and pulmonary fibrosis with chronic hypoxic respiratory failure home oxygen dependent on 2-3 L with continued nicotine dependence, and known spinal canal stenosis with moderate neuroforaminal stenosis and bulging disks with chronic lower extremity weakness. She presented to the emergency department on 05/09/2024 secondary to recurrent falls at home and worsening lower extremity weakness. Patient reports falling on floor and unable to get up all night having to crawl to phone the next morning to call for assistance. Patient was reportedly down on ground for greater than 12 hours before assistance arrived and she was transferred to the hospital for evaluation via EMS. Upon arrival to our facility, patient underwent evaluation in the emergency department. Vital signs upon arrival show blood pressure 108/72, heart rate 67, respiratory rate 17, temp 97.8 F, and SpO2 of 94% on room air. EKG was completed showing atrial paced rhythm 58 bpm with an incomplete right bundle branch block and T wave inversion in leads V1 through V3. CT head completed and reported to be negative for acute intracranial process. X-ray right hip negative for acute fracture or dislocation. Labs were completed and reviewed. CBC showing macrocytosis with MCV of 100.8 otherwise normal findings. BMP showing hyponatremia with sodium of 134, hypercarbia with bicarb of 31 and mild prerenal azotemia with BUN of 20. Blood glucose was 84. Liver profile showing elevated alkaline phosphatase of 167. Urinalysis was negative for blood, ketones, protein, or infection. Patient was admitted under our services with consultation to Physical and Occupational Therapy. Physical exam: Patient was seen and fully evaluated at bedside. She was resting comfortably in bed at time of assessment. Patient currently states just feeling tired and denies any other complaints or concerns at this time. Patient reports she did not sleep well last night. She denies any other questions, needs, complaints, or concerns at this time. Vital signs reviewed and stable. General: Nontoxic, no distress and appears stated age. Thin and frail. Derm: Skin warm and dry, normal coloration for ethnicity. Multiple skin tears and bruises on upper and lower extremities. Head: Atraumatic, normocephalic and symmetric. Eyes: EOM's intact, no lid lag, and anicteric sclera Mouth: no lip lesions, mucus membranes moist Cardiovascular: regular rate and rhythm with normal S1S2, systolic murmur, positive posterior tibial pulses bilaterally, and cap refill < 2 seconds. Lungs: Respirations even, regular, and unlabored on room air. Lungs CTA bilaterally, no rhonchi, no rales, no wheezing, and no accessory muscle usage. Abdominal: soft, nontender to palpation, no guarding, no appreciable organomegaly. Colostomy in place. Ext: ROM intact. No gross muscle atrophy, no edema, no contractures Neuro: Speech clear, face symmetrical and CN II-XII grossly intact with no noted focal neuro deficits Psych: Alert and oriented to person, place, time, and situation. Appropriate and pleasant affect. Assessment and Plan of Care: Recurrent falls at home resulting in debility and inability to complete ADLs independently Age related physical debility Polypharmacy use -Recommend holding Klonopin, Benadryl, and oxycodone as these can all increase risk for falls, especially in the elderly. Patient and patient's family very adamant on patient receiving her Klonopin.dose decreased to 0.5 mg twice daily. -Symptomatic care and pain management with Tylenol 650 mg every 6 hours as needed for mild pain/discomfort and Toradol 15 mg IVP every 6 hours as needed for moderate to severe pain. Continue lidocaine patch.. -PT/OT following, recommending subacute rehabilitation with 24/7 supervision. -Fall precautions to be maintained Chronic hypoxic respiratory failure home oxygen dependent secondary to advanced COPD and pulmonary fibrosis -Continue oxygen supplementation, baseline 2 L May titrate to maintain SpO2 equal to or greater than 90%. -Continue Symbicort 160-4.5 mcg inhaler 2 puffs twice daily and scheduled nebulizer treatments 4 times daily. -Recommend total smoking cessation in order placed for nicotine patch 14 mg daily. CAD status post stenting Valvular heart disease status postcardiac valve replacement Atrial fibrillation not on anticoagulation status post permanent pacemaker placement and Watchman device placement -Continue cardiac medication regimen with aspirin 81 mg daily, atorvastatin 20 mg nightly, and sotalol 120 mg twice daily. Anxiety and depression -Continue duloxetine 60 mg daily, Remeron 30 mg nightly, Zoloft 100 mg daily, and trazodone 100 mg nightly. Essential tremors -Continue primidone 100 mg 4 times daily. Data and imaging reviewed: - Vital signs reviewed. Blood pressure 90/55, heart rate 56, respiratory rate 16, temp 97.7 F, and SpO2 of 99% on 3 L. - Morning labs reviewed. CBC showing stable normocytic anemia with hemoglobin of 10.0. BMP unremarkable. Blood glucose 89. Magnesium 1.8. Liver profile normal findings with exception of hypoalbuminemia with albumin of 2.9. CODE STATUS: DNR/DNI DVT prophylaxis: Lovenox Anticipated discharge date: Discussed in detail with bilingual social worker, patient insurance authorization requires 3 night stay prior to discharge to rehab. Tentative discharge date 05/14/2024. Anticipated discharge place: SNF Patient was seen independently by Nurse Pracitioner. This document was prepared using [employer] dictation software. Please allow for errors in director global development, while rare they do occur. . Objective - Vital Signs Vital signs: Vital Signs Temp 97.9 F 05/13/24 07:28 Pulse 62 05/13/24 07:28 Resp 17 05/13/24 07:28 BP 146/77 05/13/24 07:28 Pulse Ox 98 05/13/24 07:28 FiO2 Intake & Output 05/12/24 05/13/24 05/13/24 18:59 06:59 18:59 Intake Total 540 1860 Balance 540 1860 Intake: Intake, IV Titration 900 Amount Sodium Chloride 0.9% 1, 900 000 ml @ 75 mls/hr IV . [id number] [facility] Rx#:[id number] Oral 540 960 Other: Voiding Method Toilet Toilet Bedside Commode Bedside Commode # Voids 1 4 # Bowel Movements 1 - Labs CBC & Chem 7: 05/13/24 03:56 05/13/24 03:56 Labs: Abnormal Lab Results - Last 24 Hours (Table) 05/12/24 05/12/24 Range/Units 03:15 03:15 RBC 3.25 L (4.10-5.20) X 10*6/uL Hgb 10.1 L (12.0-15.0) g/dL Hct 32.7 L (37.2-46.3) % MCV 100.6 H (80.0-97.0) FL MCHC 30.9 L (32.0-37.0) g/dL RDW 14.7 H (11.5-14.5) % Calcium 8.0 L (8.7-10.3) mg/dL Total Bilirubin <0.2 L (0.3-1.2) mg/dL Alkaline Phosphatase 130 H (41-126) U/L Total Protein 4.8 L (6.2-8.2) g/dL Albumin 2.8 L (3.8-4.9) g/dL Albumin/Globulin Ratio 1.40 L (1.60-3.17) Ratio
[2024-05-14 02:47] VITALS: PULSE 60
[2024-05-14 09:41] VITALS: BP 100/52; RESP 16; TEMP 98.3
--- NOTE | 2024-05-14 11:10 | P.DS ---
Providers Date of admission: 05/10/24 02:50 Expected date of discharge: 05/14/24 Attending physician: Ankita Joyce MD Primary care physician: Yoan Quiroz DO Hospital Course: Discharge Diagnosis: Recurrent falls at home resulting in debility and inability to complete ADLs independently. Recommend discontinuing Klonopin and oxycodone as these can all increase risk for falls, especially in the elderly. Patient and patient's family very adamant on patient receiving her Klonopin.dose decreased to 0.5 mg twice daily. Age related physical debility Polypharmacy use. Recommend discontinuing Klonopin and oxycodone as these can all increase risk for falls, especially in the elderly. Patient and patient's family very adamant on patient receiving her Klonopin.dose decreased to 0.5 mg twice daily. Chronic hypoxic respiratory failure home oxygen dependent secondary to advanced COPD and pulmonary fibrosis. Continue oxygen supplementation, baseline 2 L May titrate to maintain SpO2 equal to or greater than 90%. Continue Symbicort 160- 4.5 mcg inhaler 2 puffs twice daily and scheduled nebulizer treatments 4 times daily. Recommend continued smoking cessation in order placed for nicotine patch 14 mg daily. CAD status post stenting. Continue cardiac medication regimen with aspirin 81 mg daily, atorvastatin 20 mg nightly, and sotalol 120 mg twice daily. Valvular heart disease status postcardiac valve replacement. Atrial fibrillation not on anticoagulation status post permanent pacemaker placement and Watchman device placement. Anxiety and depression. Continue Klonopin 0.5 mg BID, duloxetine 60 mg daily, Remeron 30 mg nightly, Zoloft 100 mg daily, and trazodone 100 mg nightly. Essential tremors. Continue primidone 100 mg 4 times daily. Hospital course: Patient is a very pleasant 74-year-old female with a past medical history of CAD status post stent placement, valvular heart disease status post cardiac valve replacement, atrial fibrillation not on anticoagulation and status post pacemaker placement and Watchman device, COPD and pulmonary fibrosis with chronic hypoxic respiratory failure home oxygen dependent on 2-3 L with continued nicotine dependence, and known spinal canal stenosis with moderate neuroforaminal stenosis and bulging disks with chronic lower extremity weakness. She presented to the emergency department on 05/09/2024 secondary to recurrent falls at home and worsening lower extremity weakness. Patient reports falling on floor and unable to get up all night having to crawl to phone the next morning to call for assistance. Patient was reportedly down on ground for greater than 12 hours before assistance arrived and she was transferred to the hospital for evaluation via EMS. Upon arrival to our facility, patient under went evaluation in the emergency department. Vital signs upon arrival show blood pressure 108/72, heart rate 67, respiratory rate 17, temp 97.8 F, and SpO2 of 94% on room air. EKG was completed showing atrial paced rhythm 58 bpm with an incomplete right bundle branch block and T wave inversion in leads V1 through V3. CT head completed and reported to be negative for acute intracranial process. X-ray right hip negative for acute fracture or dislocation. Labs were completed and reviewed. CBC showing macrocytosis with MCV of 100.8 otherwise normal findings. BMP showing hyponatremia with sodium of 134, hypercarbia with bicarb of 31 and mild prerenal azotemia with BUN of 20. Blood glucose was 84. Liver profile showing elevated alkaline phosphatase of 167. Urina evaluated and recommending subacute rehabilitation with / supervision. Pt medically stable for discharge and after required 3 night hospitalization has received insurance authorization and is stable for discharge to rehab at this time,. Physical exam: Vital signs reviewed and stable. General: Nontoxic, no distress and appears stated age. Thin and frail. Derm: Skin warm and dry, normal coloration for ethnicity. Multiple skin tears and bruises on upper and lower extremities. Head: Atraumatic, normocephalic and symmetric. Eyes: EOM's intact, no lid lag, and anicteric sclera Mouth: no lip lesions, mucus membranes moist Cardiovascular: regular rate and rhythm with normal S1S2, systolic murmur, positive posterior tibial pulses bilaterally, and cap refill < 2 seconds. Lungs: Respirations even, regular, and unlabored on room air. Lungs CTA bilaterally, no rhonchi, no rales, no wheezing, and no accessory muscle usage. Abdominal: soft, nontender to palpation, no guarding, no appreciable organomegaly. Colostomy in place. Ext: ROM intact. No gross muscle atrophy, no edema, no contractures Neuro: Speech clear, face symmetrical and CN II-XII grossly intact with no noted focal neuro deficits Psych: Alert and oriented to person, place, time, and situation. Appropriate and pleasant affect. A total of 33 minutes of time were spent preparing this complex discharge summary. Pt was discharged on 05/14/2024 at 9:55 AM. Patient was seen independently by Nurse Practitioner. This document was prepared using [employer] dictation software. Please allow for errors in stage electrician helper while rare they do occur. I reviewed the documentation as provided by the SAM above, who is the original author of this note. I agree with the documented assessment and plan, with the following changes: none Patient Condition at Discharge: Stable Plan - Discharge Summary Discharge Rx Participant: No New Discharge Prescriptions: New Nicotine 14Mg/24Hr Patch [Habitrol] 1 patch TRANSDERM DAILY patch clonazePAM [KlonoPIN] 0.5 mg PO BID #6 tab Acetaminophen Tab [Tylenol] 650 mg PO Q6HR PRN tab PRN Reason: Mild Pain Or Fever > 100.5 Continue Primidone [Mysoline] 100 mg PO QID Aspirin 81 mg PO DAILY@1000 Mirtazapine [Remeron] 30 mg PO HS@2200 DULoxetine HCL [Cymbalta] 60 mg PO DAILY@1000 Fluticasone/Umeclidin/Vilanter [Trelegy Ellipta 200-62.5-25] 1 puff INHALATION RT-DAILY@1000 Sennosides/Docusate Sodium [Senna-S 8.6-50 mg Tablet] 1 tab PO HS@2200 Sertraline [Zoloft] 100 mg PO DAILY@1000 Sotalol [Betapace] 120 mg PO BID@1000,2200 Simvastatin [Zocor] 40 mg PO HS@2200 Lidocaine 5% Patch [Lidoderm 5% Patch] 1 patch TOPICAL DAILY PRN #30 patch PRN Reason: Pain diphenhydrAMINE HCL [Benadryl] 25 mg PO QID PRN PRN Reason: Allergy Symptoms guaiFENesin [Mucinex] 600 mg PO Q12H PRN PRN Reason: Congestion traZODone HCL 100 mg PO HS@2200 Discontinued clonazePAM [KlonoPIN] 1 mg PO BID@1400,1800 oxyCODONE HCL [oxyCODONE HCL (IR)] 10 mg PO TID PRN PRN Reason: Pain Sulfamethoxazole/Trimethoprim [Bactrim DS 800-160 mg] 1 tab PO BID Discharge Medication List Primidone [Mysoline] 100 mg PO QID 10/04/14 [History] Aspirin 81 mg PO DAILY@1000 04/17/15 [History] Sotalol [Betapace] 120 mg PO BID@1000,219909/10/22 [History] DULoxetine HCL [Cymbalta] 60 mg PO DAILY@99911/07/23 [History] Lidocaine 5% Patch [Lidoderm 5% Patch] 1 patch TOPICAL DAILY PRN #30 patch 11/07/23 [Rx] Mirtazapine [Remeron] 30 mg PO HS@219911/07/23 [History] Simvastatin [Zocor] 40 mg PO HS@219911/07/23 [History] Fluticasone/Umeclidin/Vilanter [Trelegy Ellipta 200-62.5-25] 1 puff INHALATION RT-DAILY@99905/10/24 [History] Sennosides/Docusate Sodium [Senna-S 8.6-50 mg Tablet] 1 tab PO HS@219905/10/24 [History] Sertraline [Zoloft] 100 mg PO DAILY@99905/10/24 [History] diphenhydrAMINE HCL [Benadryl] 25 mg PO QID PRN 05/10/24 [History] guaiFENesin [Mucinex] 600 mg PO Q12H PRN 05/10/24 [History] traZODone HCL 100 mg PO HS@219905/10/24 [History] Acetaminophen Tab [Tylenol] 650 mg PO Q6HR PRN tab 05/14/24 [Rx] Nicotine 14Mg/24Hr Patch [Habitrol] 1 patch TRANSDERM DAILY patch 05/14/24 [Rx] clonazePAM [KlonoPIN] 0.5 mg PO BID #6 tab 05/14/24 [Rx] Follow up Appointment(s)/Referral(s): Yoan Quiroz DO [Primary Care Provider] - 1-2 days Discharge Disposition: TRANSFER TO SNF/ECF
== END 2024-05-14 12:27 | DRG 884 ==
LOC: EC 22:21 → 5NMEDONC 05-10 02:50
PROVIDERS: ADMIT Internal Medicine; ATTEND Internal Medicine
DX: R54 Age-related physical debility (principal); J96.11 Chronic respiratory failure with hypoxia; E87.1 Hypo-osmolality and hyponatremia; R29.6 Repeated falls; S81.811A Laceration without foreign body, right lower leg, initial encounter; W19.XXXA Unspecified fall, initial encounter; E78.5 Hyperlipidemia, unspecified; I25.10 Atherosclerotic heart disease of native coronary artery without angina pectoris; Z95.5 Presence of coronary angioplasty implant and graft; Z51.5 Encounter for palliative care; Z66 Do not resuscitate; F32.A Depression, unspecified; F41.9 Anxiety disorder, unspecified; F17.200 Nicotine dependence, unspecified, uncomplicated; J84.10 Pulmonary fibrosis, unspecified; I48.0 Paroxysmal atrial fibrillation; M81.0 Age-related osteoporosis without current pathological fracture; Z79.899 Other long term (current) drug therapy; J44.89 Other specified chronic obstructive pulmonary disease; G25.0 Essential tremor; I45.10 Unspecified right bundle-branch block; I25.2 Old myocardial infarction; Z99.81 Dependence on supplemental oxygen; Z79.1 Long term (current) use of non-steroidal anti-inflammatories (NSAID); Z79.82 Long term (current) use of aspirin; Z93.3 Colostomy status; Z95.2 Presence of prosthetic heart valve; Z79.51 Long term (current) use of inhaled steroids
CPT/HCPCS: 36415; 70450; 73502; 80053; 81003; 82550; 83735; 85025; 85027; 93005; 94760; 96361; 96374; 96375; 99285

== ENCOUNTER 2024-07-09 14:11 | Emergency (ER) | payer MEDICARE, BC ==
--- NOTE | 2024-07-09 14:47 | ED ---
Fall HPI - General Chief Complaint: Fall Stated Complaint: FALL PAIN BUTTOCK Time Seen by Provider: 07/09/24 14:25 Source: patient, RN notes reviewed Mode of arrival: wheelchair - History of Present Illness Initial Comments: This is a 74-year-old female with history of COPD and osteoporosis presenting to the emergency department complaint of a fall occurred approximately 1 week ago. Patient states that she was in her kitchen when she tripped and fell onto her buttocks. Patient denies presyncopal symptoms before the time of fall. She denies hitting her head or loss consciousness. Patient states that she has had relatively persistent pain since time of the fall. 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 She denies loss of bladder or bowel continence or saddle anesthesias. Patient does have a history of compression fractures of her lumbar spine. - Related Data Home Medications Medication Instructions Recorded Confirmed Primidone [Mysoline] 100 mg PO QID 10/04/14 05/10/24 Aspirin 81 mg PO DAILY@99904/17/15 05/10/24 Sotalol [Betapace] 120 mg PO BID@999,219909/10/22 05/10/24 DULoxetine HCL [Cymbalta] 60 mg PO DAILY@99911/07/23 05/10/24 Mirtazapine [Remeron] 30 mg PO HS@219911/07/23 05/10/24 Simvastatin [Zocor] 40 mg PO HS@219911/07/23 05/10/24 Fluticasone/Umeclidin/Vilanter 1 puff INHALATION RT-DAILY@99905/10/24 05/10/24 [Trelegy Ellipta 200-62.5-25] Sennosides/Docusate Sodium 1 tab PO HS@219905/10/24 05/10/24 [Senna-S 8.6-50 mg Tablet] Sertraline [Zoloft] 100 mg PO DAILY@99905/10/24 05/10/24 diphenhydrAMINE HCL [Benadryl] 25 mg PO QID PRN 05/10/24 05/10/24 guaiFENesin [Mucinex] 600 mg PO Q12H PRN 05/10/24 05/10/24 traZODone HCL 100 mg PO HS@2200 05/10/24 05/10/24 Previous Rx's Medication Instructions Recorded Lidocaine 5% Patch [Lidoderm 5% 1 patch TOPICAL DAILY PRN #30 patch 11/07/23 Patch] Acetaminophen Tab [Tylenol] 650 mg PO Q6HR PRN tab 05/14/24 Nicotine 14Mg/24Hr Patch [Habitrol] 1 patch TRANSDERM DAILY patch 05/14/24 clonazePAM [KlonoPIN] 0.5 mg PO BID #6 tab 05/14/24 Allergies Allergy/AdvReac Type Severity Reaction Status Date / Time adhesive Allergy Rash/Hives Verified 07/09/24 14:19 latex Allergy Rash/Hives Verified 07/09/24 14:19 Penicillins Allergy Unknown Verified 07/09/24 14:19 Childhood rubber, unspecified Allergy Rash/Hives Verified 07/09/24 14:19 alendronate sodium AdvReac Nausea & Verified 07/09/24 14:19 [From Fosamax] Vomiting Review of Systems ROS Statement: Those systems with pertinent positive or pertinent negative responses have been documented in the HPI. ROS Other: All systems not noted in ROS Statement are negative. Past Medical History Past Medical History: Atrial Fibrillation, Atrial Flutter, Asthma, Coronary Artery Disease (CAD), Heart Failure, COPD, CVA/TIA, GERD/Reflux, Hyperlipidemia, Hypertension, Osteoarthritis (OA) Additional Past Medical History / Comment(s): tremors. osteoporosis, compression fx. pulmonary fibrosis. COVID 10/14. Hx. of Cocaine abuse- currently attends Narcotics Anonymous. History of compression deformities L2-3-4 and 5 in April 2023 Last Myocardial Infarction Date:: unk History of Any Multi-Drug Resistant Organisms: None Reported Past Surgical History: Adenoidectomy, Bladder Surgery, Bowel Resection, Cardiac Valve Replacement, Ear Surgery, Heart Catheterization With Stent, Hysterectomy, Tonsillectomy Additional Past Surgical History / Comment(s): colostomy. open heart x2. watchman device to chest Past Anesthesia/Blood Transfusion Reactions: No Reported Reaction Additional Past Anesthesia/Blood Transfusion Reaction / Comment(s): claustropbobia. pt is combative when coming out of anesthesia Date of Last Stent Placement:: unk Type of Cardiac Device: Unknown Device Placement Date:: unknown Past Psychological History: No Psychological Hx Reported Smoking Status: Former smoker Past Alcohol Use History: None Reported Past Drug Use History: None Reported - Past Family History Father Family Medical History: CVA/TIA Additional Family Medical History / Comment(s): was an alcoholic, rheumatic fever as child,lost 2/3rds of stomach d/t etoh. age 61 Mother Additional Family Medical History / Comment(s): comitted suicide at age 54 General Exam Limitations: no limitations General appearance: alert, in no apparent distress Eye exam: Present: normal appearance, PERRL, EOMI. Absent: scleral icterus, conjunctival injection, periorbital swelling Neck exam: Present: normal inspection. Absent: tenderness, meningismus, lymphadenopathy Respiratory exam: Present: normal lung sounds bilaterally, wheezes. Absent: respiratory distress, rales, rhonchi, stridor Cardiovascular Exam: Present: regular rate, normal rhythm, normal heart sounds. Absent: systolic murmur, diastolic murmur, rubs, gallop, clicks GI/Abdominal exam: Present: soft, normal bowel sounds. Absent: distended, tenderness, guarding, rebound, rigid Extremities exam: Present: normal inspection, full ROM, normal capillary refill. Absent: tenderness, pedal edema, joint swelling, calf tenderness Back exam: Present: normal inspection, tenderness (lumbar spine) Neurological exam: Present: alert, oriented X3, CN II-XII intact Course Vital Signs 07/09/24 07/09/24 14:16 16:24 Temperature 98.3 F 98.1 F Pulse Rate 66 68 Respiratory 16 18 Rate Blood Pressure 99/66 110/64 O2 Sat by Pulse 99 99 Oximetry Medical Decision Making - Medical Decision Making Was pt. sent in by a medical professional or institution (, PA, DIRECTOR SOFTWARE DEVELOPMENT, urgent care, hospital, or shelter...) When possible be specific @ -No Did you speak to anyone other than the patient for history (EMS, parent, family, police, friend...)? What history was obtained from this source @ -No Did you review nursing and triage notes (agree or disagree)? Why? @ -I reviewed and agree with nursing and triage notes Were old charts reviewed (outside hosp., previous admission, EMS record, old EKG, old radiological studies, urgent care reports/EKG's, shelter records)? Report findings @ -No old charts were reviewed Differential Diagnosis (chest pain, altered mental status, abdominal pain women, abdominal pain men, vaginal bleeding, weakness, fever, dyspnea, syncope, headache, dizziness, GI bleed, back pain, seizure, CVA, palpatations, mental health, musculoskeletal)? @ -Differential Back Pain: Strain, zoster, cauda equina syndrome, epidural abscess, vertebral osteomyelitis, discitis, fracture, subluxation, disc herniation, DJD, spinal stenosis, dissection, AAA, pancreatitis, peptic ulcer disease, pyelonephritis, kidney stone, this is not meant to be an all-inclusive list. EKG interpreted by me (3pts min.). @ -none X-rays interpreted by me (1pt min.). @ -None done CT interpreted by me (1pt min.). @ -CT of the pelvis without contrast reveals no acute pelvic or hip fracture with ORIF left hip and stable mild to moderate compression fractures of L4 and L5 U/S interpreted by me (1pt. min.). @ -None done What testing was considered but not performed or refused? (CT, X-rays, U/S, labs)? Why? @ -None What meds were considered but not given or refused? Why? @ -None Did you discuss the management of the patient with other professionals (professionals i.e. , PA, DIRECTOR SOFTWARE DEVELOPMENT, lab, RT, psych nurse, licensed clinical social worker, media consultant, teacher, chief knowledge officer, pillowcase maker)? Give summary @ -No Was smoking cessation discussed for >3mins.? @ -No Was critical care preformed (if so, how long)? @ -No Were there social determinants of health that impacted care today? How? (Homelessness, low income, unemployed, alcoholism, drug addiction, transportation, low edu. Level, literacy, decrease access to med. care, residential, rehab)? @ -No Was there de-escalation of care discussed even if they declined (Discuss DNR or withdrawal of care, Hospice)? DNR status @ -No What co-morbidities impacted this encounter? (DM, HTN, Smoking, COPD, CAD, Cancer, CVA, ARF, Chemo, Hep., AIDS, mental health diagnosis, sleep apnea, morbid obesity)? @ -None Was patient admitted / discharged? Hospital course, mention meds given and route, prescriptions, significant lab abnormalities, going to OR and other pertinent info. @ -Discharge. 74-year-old female with fall and back pain. On my evaluation the patient she does not complain of signs of distress. Patient is neurovascularly intact of bilateral lower extremities. CT unremarkable for acute process with moderate to mild compression fracture of L4-5 that are stable. Patient provided with dose of pain medication and instructed to continue supportive treatment at home and follow-up with primary care provider outpatient. Discussed with Dr. Freeman Undiagnosed new problem with uncertain prognosis? @ -No Drug Therapy requiring intensive monitoring for toxicity (Heparin, Nitro, Insulin, Cardizem)? @ -No Were any procedures done? @ -No Diagnosis/symptom? @ -back pain, fall, pelvic pain Acute, or Chronic, or Acute on Chronic? @ -Acute Uncomplicated (without systemic symptoms) or Complicated (systemic symptoms)? @ -Uncomplicated Side effects of treatment? @ -No Exacerbation, Progression, or Severe Exacerbation? @ -No Poses a threat to life or bodily function? How? (Chest pain, [place], [place], pneumonia, PE, COPD, DKA, ARF, appy, cholecystitis, CVA, Diverticulitis, Homicidal, Suicidal, threat to staff... and all critical care pts) @ -No Disposition Clinical Impression: Fall, Back pain Disposition: HOME SELF-CARE Condition: Good Instructions (If sedation given, give patient instructions): Fall Prevention for Older Adults (ED) Additional Instructions: Please return to the Emergency Department if symptoms worsen or any other concerns. Is patient prescribed a controlled substance at d/c from ED?: No Referrals: Yoan Quiroz DO [Primary Care Provider] - 1-2 days Time of Disposition: 16:12
--- NOTE | 2024-07-09 15:58 | CT ---
EXAMINATION TYPE: CT pelvis wo con DATE OF EXAM: 07/09/2024 COMPARISON: CT lumbar spine dated 11/09/2023 CLINICAL INDICATION: Female, 74 years old with history of fall, pain; [facility], fall x3 weeks ago sacral p ain and bruising CT DLP: 212.3 mGycm Automated exposure control for dose reduction was used. FINDINGS: There is no acute pelvic fracture. There is a left femoral neck compression screw and proximal femoral medullary reina for fixation of a l eft hip fracture. The right hip is intact. There is a left lower quadrant ostomy but no bowel obstruction or inflammation. No free intraperitone al air or fluid. No pelvic mass or adenopathy. There are stable [id number] insufficiency compression fractures of L4 and L5. IMPRESSION: 1. NO ACUTE PELVIC OR HIP FRACTURE. 2. OPEN REDUCTION INTERNAL FIXATION OF A LEFT HIP FRACTURE. 3. STABLE MILD TO MODERATE INSUFFICIENCY COMPRESSION FRACTURES OF L4 AND L5. [facility], , 07/09/2024 3:55 PM
[2024-07-09] MEDS: HYDROmorphone 0.5 MG/0.5 ML SYRINGE IM STA (16:18)
[2024-07-09 16:27] VITALS: BP 110/64; PULSE 68; RESP 18; TEMP 98.1
== END 2024-07-09 16:26 | disposition home or self-care (01) ==
LOC: EC 14:11
DX: M54.50 Low back pain, unspecified (principal); J44.9 Chronic obstructive pulmonary disease, unspecified; M19.90 Unspecified osteoarthritis, unspecified site; W01.0XXA Fall on same level from slipping, tripping and stumbling without subsequent striking against object, initial encounter; Z87.891 Personal history of nicotine dependence; Z91.09 Other allergy status, other than to drugs and biological substances; Z91.040 Latex allergy status; Z88.0 Allergy status to penicillin; Z91.048 Other nonmedicinal substance allergy status
CPT/HCPCS: 99283; 96372; 72192; J1171

== ENCOUNTER 2024-08-20 18:33 | Emergency (ER) | payer MEDICARE, BC ==
[2024-08-20 18:42] VITALS: RESP 16
[2024-08-20] MEDS: MORPHINE SULFATE 2 MG/ML SYRINGE IVP STA ×2 (19:28→20:58)
--- NOTE | 2024-08-20 20:17 | CT ---
EXAMINATION TYPE: CT brain cspine wo con DATE OF EXAM: 08/20/2024 7:51 PM COMPARISON: None. CLINICAL INDICATION: Female, 74 years old with history of fall, Fall from standing height and hit venessa k of head. No thinners/LOC. Laceration back of head bleed controlled. TECHNIQUE: CT of the brain is performed utilizing 3 mm thick sections through the posterior fossa and 3 mm thick sections through the remaining calvarium. Study is performed within 24 hours of arrival to the hospital. Contrast used: mL of , (none if empty) CT DLP: 1156.5 mGycm, Automated exposure control for dose reduction was used. FINDINGS: No abnormal hyperdensity is present to suggest an acute intracranial hemorrhage. No mass lesion is evident. No acute infarcts are evident. Ventricles and sulci are prominent for the patient age. Paranasal sinus thickening is present in the maxillary sinuses. Prior uncinectomies and ethmoidectomi es are evident IMPRESSIONS: 1. No acute intracranial process. Follow-up MRI can be performed as clinically indicated. 2. Mucosal thickening and postsurgical maxillary sinuses. 3. Atrophy CT cervical spine. COMPARISON: None TECHNIQUE: CT of the cervical spine is performed in the axial plane at 2 mm thick sections. Reconstr ucted images in the coronal, and sagittal plane are reviewed on the computer. FINDINGS: No acute fractures are evident. Degenerative disc changes are present greater at C5-6 and C6-7. Small posterior endplate spurs are pr esent in no spinal canal stenosis is present. Prevertebral space is normal. Some compensatory scolios is is present in the cervical spine. Vertebral body heights are preserved. No spinal canal stenosis is evident. Facet hypertrophy is present some uncovertebral joint heart is present with bilateral foraminal narro wing C5-6 C6-7 no spinal canal stenosis. Emphysematous changes and pulmonary fibrosis appears to be present within the lung apices. IMPRESSION: 1. Degenerative disc changes greatest C5-6 C6-7 with some bilateral foraminal narrowing. 2 no acute o sseous abnormality. 3. Scoliosis. 4. Note is made of pulmonary fibrosis and emphysematous type changes in the lung apices. [facility], , 08/20/2024 8:15 PM
--- NOTE | 2024-08-20 21:01 | ED ---
Fall HPI - General Chief Complaint: Fall Stated Complaint: Fall, head injury Time Seen by Provider: 08/20/24 18:43 Source: patient, EMS Mode of arrival: EMS - History of Present Illness Initial Comments: 74-year-old female presenting with chief complaint of head injury. Patient was at home in the kitchen, she states that she turned around to grab her walker and lost her balance. She fell onto her left side. She denies any blood thinners or loss of consciousness. She does have a laceration to the scalp. She denies any extremity injuries. No chest pain, difficulty breathing, abdominal pain. No neck pain, numbness, tingling, weakness, vision or hearing changes, nausea, vomiting, dizziness. - Related Data Home Medications Medication Instructions Recorded Confirmed Primidone [Mysoline] 100 mg PO QID 10/04/14 05/10/24 Aspirin 81 mg PO DAILY@99904/17/15 05/10/24 Sotalol [Betapace] 120 mg PO BID@999,219909/10/22 05/10/24 DULoxetine HCL [Cymbalta] 60 mg PO DAILY@99911/07/23 05/10/24 Mirtazapine [Remeron] 30 mg PO HS@219911/07/23 05/10/24 Simvastatin [Zocor] 40 mg PO HS@219911/07/23 05/10/24 Fluticasone/Umeclidin/Vilanter 1 puff INHALATION RT-DAILY@99905/10/24 05/10/24 [Trelegy Ellipta 200-62.5-25] Sennosides/Docusate Sodium 1 tab PO HS@219905/10/24 05/10/24 [Senna-S 8.6-50 mg Tablet] Sertraline [Zoloft] 100 mg PO DAILY@99905/10/24 05/10/24 diphenhydrAMINE HCL [Benadryl] 25 mg PO QID PRN 05/10/24 05/10/24 guaiFENesin [Mucinex] 600 mg PO Q12H PRN 05/10/24 05/10/24 traZODone HCL 100 mg PO HS@219905/10/24 05/10/24 Previous Rx's Medication Instructions Recorded Lidocaine 5% Patch [Lidoderm 5% 1 patch TOPICAL DAILY PRN #30 patch 11/07/23 Patch] Acetaminophen Tab [Tylenol] 650 mg PO Q6HR PRN tab 05/14/24 Nicotine 14Mg/24Hr Patch [Habitrol] 1 patch TRANSDERM DAILY patch 05/14/24 clonazePAM [KlonoPIN] 0.5 mg PO BID #6 tab 05/14/24 Allergies Allergy/AdvReac Type Severity Reaction Status Date / Time adhesive Allergy Rash/Hives Verified 08/20/24 18:43 latex Allergy Rash/Hives Verified 08/20/24 18:43 Penicillins Allergy Unknown Verified 08/20/24 18:43 Childhood rubber, unspecified Allergy Rash/Hives Verified 08/20/24 18:43 alendronate sodium AdvReac Nausea & Verified 08/20/24 18:43 [From Fosamax] Vomiting Review of Systems ROS Statement: Those systems with pertinent positive or pertinent negative responses have been documented in the HPI. ROS Other: All systems not noted in ROS Statement are negative. Past Medical History Past Medical History: Atrial Fibrillation, Atrial Flutter, Asthma, Coronary Artery Disease (CAD), Heart Failure, COPD, CVA/TIA, GERD/Reflux, Hyperlipidemia, Hypertension, Osteoarthritis (OA) Additional Past Medical History / Comment(s): tremors. osteoporosis, compression fx. pulmonary fibrosis. COVID 10/14. Hx. of Cocaine abuse- currently attends Narcotics Anonymous. History of compression deformities L 2-3-4 and 5 in April 2023 Last Myocardial Infarction Date:: unk History of Any Multi-Drug Resistant Organisms: None Reported Past Surgical History: Adenoidectomy, Bladder Surgery, Bowel Resection, Cardiac Valve Replacement, Ear Surgery, Heart Catheterization With Stent, Hysterectomy, Tonsillectomy Additional Past Surgical History / Comment(s): colostomy. open heart x2. watchman device to chest Past Anesthesia/Blood Transfusion Reactions: No Reported Reaction Additional Past Anesthesia/Blood Transfusion Reaction / Comment(s): claustropbobia. pt is combative when coming out of anesthesia Date of Last Stent Placement:: unk Type of Cardiac Device: Unknown Device Placement Date:: unknown Past Psychological History: Depression Smoking Status: Current every day smoker Past Alcohol Use History: None Reported Past Drug Use History: None Reported - Past Family History Father Family Medical History: CVA/TIA Additional Family Medical History / Comment(s): was an alcoholic, rheumatic f ever as child,lost 2/3rds of stomach d/t etoh. age 61 Mother Additional Family Medical History / Comment(s): comitted suicide at age 54 General Exam Limitations: no limitations General appearance: alert, in no apparent distress Head exam: Present: normocephalic Expanded Head exam: Present: laceration (3 cm laceration to the scalp) Eye exam: Present: normal appearance, PERRL, EOMI Neck exam: Present: normal inspection, full ROM. Absent: meningismus Respiratory exam: Absent: respiratory distress Cardiovascular Exam: Present: regular rate Neurological exam: Present: alert, oriented X3 Expanded Eye Response: (4) open spontaneously Motor Response: (6) obeys commands Verbal Response: (5) oriented Michelle Total: 15 Psychiatric exam: Present: normal affect, normal mood Skin exam: Present: warm, dry Course Vital Signs 08/20/24 18:35 Temperature 97.9 F Pulse Rate 71 Respiratory 16 Rate Blood Pressure 123/73 O2 Sat by Pulse 96 Oximetry Procedures - Laceration Laceration #1 Consent Obtained: verbal consent Indication: laceration Site: scalp Size (cm): 3 Description: linear Depth: simple, single layer Anesthetic Used: lidocaine 1%, without epi Anesthesia Technique: local infiltration Type of Sutures: other (dilma) Patient Tolerated Procedure: well Medical Decision Making - Medical Decision Making Was pt. sent in by a medical professional or institution (SAGAR Allan, CREDIT AND COLLECTIONS REPRESENTATIVE, urgent care, hospital, or [facility]...) When possible be specific @ -No Did you speak to anyone other than the patient for history (EMS, parent, family, police, friend...)? What history was obtained from this source @ -No Did you review nursing and triage notes (agree or disagree)? Why? @ -I reviewed and agree with nursing and triage notes Were old charts reviewed (outside hosp., previous admission, EMS record, old EKG, old radiological studies, urgent care reports/EKG's, [facility] records)? Report findings @ -No old charts were reviewed Differential Diagnosis (chest pain, altered mental status, abdominal pain women, abdominal pain men, vaginal bleeding, weakness, fever, dyspnea, syncope, headache, dizziness, GI bleed, back pain, seizure, CVA, palpatations, mental health, musculoskeletal)? @ -Differential includes uncomplicated head injury, concussion, hemorrhage, fracture, this is not an all-inclusive list EKG interpreted by me (3pts min.). @ -As above X-rays interpreted by me (1pt min.). @ -None done CT interpreted by me (1pt min.). @ -CT shows no acute intracranial process. Mucosal thickening and postsurgical maxillary sinuses. Atrophy. Degenerative disc changes greatest at C5-6 C6-7 with some bilateral foraminal narrowing. No acute osseous abnormality. Scoliosis. Note is made of pulmonary fibrosis and emphysematous type changes in the lung apices U/S interpreted by me (1pt. min.). @ -None done What testing was considered but not performed or refused? (CT, X-rays, U/S, l abs)? Why? @ -None What meds were considered but not given or refused? Why? @ -None Did you discuss the management of the patient with other professionals (professionals i.e. , PA, CREDIT AND COLLECTIONS REPRESENTATIVE, lab, RT, psych nurse, sexual assault social worker, lieutenant shift supervisor, teacher, chief wellness officer, case management manager)? Give summary @ -No Was smoking cessation discussed for >3mins.? @ -No Was critical care preformed (if so, how long)? @ -No Were there social determinants of health that impacted care today? How? (Homelessness, low income, unemployed, alcoholism, drug addiction, transportation, low edu. Level, literacy, decrease access to med. care, [facility], rehab)? @ -No Was there de-escalation of care discussed even if they declined (Discuss DNR or withdrawal of care, Hospice)? DNR status @ -No What co-morbidities impacted this encounter? (DM, HTN, Smoking, COPD, CAD, Cancer, CVA, ARF, Chemo, Hep., AIDS, mental health diagnosis, sleep apnea, morbid obesity)? @ -None Was patient admitted / discharged? Hospital course, mention meds given and route, prescriptions, significant lab abnormalities, going to OR and other pertinent info. @ -74-year-old female presenting with chief complaint of head injury. She lost her balance and fell in her kitchen today. No blood thinners or loss of consciousness. She does have a 3 cm laceration of the scalp, repaired using dilma. Her tetanus is up-to-date. CT of the brain and cervical spine is negative for acute process. Patient educated on wound care and alarm symptoms that should prompt reevaluation. Follow-up with PCP. Report back to ER with any new or worsening symptoms. Discussed return parameters and answered all questions. Patient conveyed verbal understanding and agreed to the plan. I discussed this case in detail with my attending Dr. Cárdenas Undiagnosed new problem with uncertain prognosis? @ -No Drug Therapy requiring intensive monitoring for toxicity (Heparin, Nitro, Insulin, Cardizem)? @ -No Were any procedures done? @ -Laceration repair Diagnosis/symptom? @ -Head injury, scalp laceration Acute, or Chronic, or Acute on Chronic? @ -Acute Uncomplicated (without systemic symptoms) or Complicated (systemic symptoms)? @ -Uncomplicated Side effects of treatment? @ -No Exacerbation, Progression, or Severe Exacerbation? @ -No Poses a threat to life or bodily function? How? (Chest pain, [place], [place], pneumonia, PE, COPD, DKA, ARF, appy, cholecystitis, CVA, Diverticulitis, Homicidal, Suicidal, threat to staff... and all critical care pts) @ -No Disposition Clinical Impression: Head injury, Scalp laceration Disposition: HOME SELF-CARE Condition: Good Instructions (If sedation given, give patient instructions): Head Injury (ED), Head Laceration (ED), Staple Care (ED) Additional Instructions: Follow-up with PCP. Report back to ER with any new or worsening symptoms. Do not get the area wet for 24 hours. Dilma may be removed in 7 to 10 days Is patient prescribed a controlled substance at d/c from ED?: No Referrals: Yoan Quiroz DO [Primary Care Provider] - 1-2 days Time of Disposition: 21:01
[2024-08-20 21:20] VITALS: BP 110/75; PULSE 76; TEMP 98.6
== END 2024-08-20 21:20 | disposition home or self-care (01) ==
LOC: EC 18:33
DX: S01.01XA Laceration without foreign body of scalp, initial encounter (principal); F17.200 Nicotine dependence, unspecified, uncomplicated; Z88.0 Allergy status to penicillin; Z88.8 Allergy status to other drugs, medicaments and biological substances; Z91.040 Latex allergy status; Z86.16 Personal history of COVID-19; Z86.73 Personal history of transient ischemic attack (TIA), and cerebral infarction without residual deficits; Z95.2 Presence of prosthetic heart valve; W01.0XXA Fall on same level from slipping, tripping and stumbling without subsequent striking against object, initial encounter; Y92.000 Kitchen of unspecified non-institutional (private) residence as the place of occurrence of the external cause
CPT/HCPCS: 72125; 70450; 99284; 96374; 96376; 12002; J2270

== ENCOUNTER 2024-11-14 22:05 | Emergency (ER) | payer MEDICARE, BC ==
[2024-11-14 22:48] LABS: Basophils % (A) 0 %; Eosinophils # (A) 0.1 k/uL (0-0.7); Eosinophils % (A) 1 %; HCT 36.5 % (34.0-46.0); HGB 11.5 gm/dL (11.4-16.0); Hypochromasia Slight; Lymphocytes # (A) 2.2 k/uL (1.0-4.8); Lymphocytes % (A) 20 %; MCH 30.4 pg (25.0-35.0); MCHC 31.6 g/dL (31.0-37.0); MCV 96.1 fL (80.0-100.0); Mean Platelet Volume 9.3; Monocytes # (A) 0.5 k/uL (0-1.0); Monocytes % (A) 4 %; Neutrophils # (A) 8.4 k/uL (1.3-7.7); Neutrophils % (A) 74 %; Platelet Count 239 k/uL (150-450); RDW 14.7 % (11.5-15.5); WBC 11.4 k/uL (3.8-10.6)
--- NOTE | 2024-11-14 22:52 | XR ---
EXAMINATION TYPE: XR chest 2V DATE OF EXAM: 11/14/2024 CLINICAL INDICATION: Female, 74 years old with history of Chest Pain, TECHNIQUE: Frontal and lateral views of the chest are obtained. COMPARISON: Chest x-ray 6 days earlier. FINDINGS: Overlying sternal wires are redemonstrated. There is chronic parenchymal change bilaterally with persistent left basilar opacity. There is new right basilar opacity . No pleural effusion or pn eumothorax seen bilaterally. Persistent cardiomegaly with dual lead pacemaker. Cardiac valvular surgi maury change at 2 levels along with septal closure device is redemonstrated. Osseous structures remain demineralized with multilevel mild to moderate compression type fractures in the mid thoracic spine r edemonstrated. IMPRESSION: Chronic changes and cardiomegaly with bibasilar acute infiltrates and/or atelectasis note d. [facility], , 11/14/2024 10:50 PM
[2024-11-14] MEDS: ASPIRIN 81 MG PO STA (23:02)
[2024-11-14] MEDS: predniSONE 20 MG TAB PO STA (23:03)
[2024-11-14 23:04] LABS: INR 0.9 (<1.2); Partial Thromboplastin Time 27.6 sec (22.0-30.0); Prothrombin Time 10.3 sec (10.0-12.5)
[2024-11-14 23:06] LABS: ALT 26 U/L (4-34); AST 27 U/L (14-36); African American GFR (CKD) >90 (>60 ml/min/1.73 sqM); Albumin 3.8 g/dL (3.5-5.0); Alkaline Phosphatase 112 U/L (38-126); Amylase 43 U/L (30-110); Anion Gap 9 mmol/L; Blood Urea Nitrogen 15 mg/dL (7-17); Calcium 8.7 mg/dL (8.4-10.2); Carbon Dioxide 30 mmol/L (22-30); Chloride 96 mmol/L (98-107); Glucose 129 mg/dL (74-99); Lipase 79 U/L (23-300); Magnesium 1.8 mg/dL (1.6-2.3); Non-African American GFR(CKD) >90 (>60 ml/min/1.73 sqM); Potassium 3.5 mmol/L (3.5-5.1); Sodium 135 mmol/L (137-145); Total Bilirubin 0.4 mg/dL (0.2-1.3); Total Protein 6.7 g/dL (6.3-8.2)
[2024-11-14] MEDS: ALBUTEROL NEBULIZED 2.5 MG/3 ML INHALATION STA (23:12)
[2024-11-14] MEDS: IPRATROPIUM 0.5 MG/2.5 ML NEBU INHALATION STA (23:20)
[2024-11-15] MEDS: oxyCODONE ER 10 MG TAB.ER.12H PO ONE (01:09)
[2024-11-15 01:20] LABS: Influenza A Detected (Not Detectd); Influenza B Not Detected (Not Detectd); RSV Not Detected (Not Detectd)
--- NOTE | 2024-11-15 01:23 | ED ---
Chest Pain HPI - General Chief Complaint: Chest Pain Stated Complaint: Chest Pain, Difficulty Breathing Time Seen by Provider: 11/14/24 22:17 Source: patient, EMS Mode of arrival: EMS Limitations: no limitations - History of Present Illness Initial Comments: This patient is a 74-year-old man who presents for evaluation of chest pain that started around 3 in the afternoon. Patient states he has also been having some shortness of breath associated. The patient has had mild cough. Has not noted fever or chills. No nausea/vomiting. MD Complaint: chest pain Onset/Timin -: hour(s) Onset: during rest Pain Location: substernal Pain Radiation: LUE Severity: moderate Quality: aching Consistency: constant Improves With: nothing Worsens With: nothing Anginal Symptoms: dyspnea Other Symptoms: cough - Related Data Home Medications Medication Instructions Recorded Confirmed Primidone [Mysoline] 100 mg PO QID 10/04/14 05/10/24 Aspirin 81 mg PO DAILY@99904/17/15 05/10/24 Sotalol [Betapace] 120 mg PO BID@999,219909/10/22 05/10/24 DULoxetine HCL [Cymbalta] 60 mg PO DAILY@99911/07/23 05/10/24 Mirtazapine [Remeron] 30 mg PO HS@219911/07/23 05/10/24 Simvastatin [Zocor] 40 mg PO HS@219911/07/23 05/10/24 Fluticasone/Umeclidin/Vilanter 1 puff INHALATION RT-DAILY@99905/10/24 05/10/24 [Trelegy Ellipta 200-62.5-25] Sennosides/Docusate Sodium 1 tab PO HS@219905/10/24 05/10/24 [Senna-S 8.6-50 mg Tablet] Sertraline [Zoloft] 100 mg PO DAILY@99905/10/24 05/10/24 diphenhydrAMINE HCL [Benadryl] 25 mg PO QID PRN 05/10/24 05/10/24 guaiFENesin [Mucinex] 600 mg PO Q12H PRN 05/10/24 05/10/24 traZODone HCL 100 mg PO HS@219905/10/24 05/10/24 Previous Rx's Medication Instructions Recorded Lidocaine 5% Patch [Lidoderm 5% 1 patch TOPICAL DAILY PRN #30 patch 11/07/23 Patch] Acetaminophen Tab [Tylenol] 650 mg PO Q6HR PRN tab 05/14/24 Nicotine 14Mg/24Hr Patch [Habitrol] 1 patch TRANSDERM DAILY patch 05/14/24 clonazePAM [KlonoPIN] 0.5 mg PO BID #6 tab 05/14/24 Azithromycin [Zithromax] 0 mg PO DIRECTED #6 tab 11/15/24 Allergies Allergy/AdvReac Type Severity Reaction Status Date / Time adhesive Allergy Rash/Hives Verified 11/14/24 22:16 latex Allergy Rash/Hives Verified 11/14/24 22:16 Penicillins Allergy Unknown Verified 11/14/24 22:16 Childhood rubber, unspecified Allergy Rash/Hives Verified 11/14/24 22:16 alendronate sodium AdvReac Nausea & Verified 11/14/24 22:16 [From Fosamax] Vomiting Review of Systems ROS Statement: Those systems with pertinent positive or pertinent negative responses have been documented in the HPI. ROS Other: All systems not noted in ROS Statement are negative. Constitutional: Denies: fever, chills, weakness Respiratory: Reports: cough, dyspnea. Denies: wheezes Cardiovascular: Reports: chest pain. Denies: palpitations, orthopnea, edema, syncope Gastrointestinal: Denies: abdominal pain, nausea, vomiting, diarrhea Genitourinary: Denies: dysuria, hematuria Musculoskeletal: Denies: back pain Skin: Denies: rash Neurological: Denies: headache, weakness, numbness EKG Findings - EKG Comments: EKG Findings:: There is a paced rhythm at approximately 61 bpm. - EKG Results: EKG: interpreted by ERMD - Blocks, [place], Hypertrophy, ST Abn: AV and intraventricular conduction: right bundle branch block (fixed/intermittent, complete/incomplete) (Incomplete right bundle branch block) Repolarization changes or abnormalities: Q-T interval prolongation Past Medical History Past Medical History: Atrial Fibrillation, Atrial Flutter, Asthma, Coronary Artery Disease (CAD), Heart Failure, COPD, CVA/TIA, GERD/Reflux, Hyperlipidemia, Hypertension, Osteoarthritis (OA) Additional Past Medical History / Comment(s): tremors. osteoporosis, compression fx. pulmonary fibrosis. COVID 2/23. Hx. of Cocaine abuse-current ly attends Narcotics Anonymous. History of compression deformities L2-3-4 and 5 in April 2023 Last Myocardial Infarction Date:: unk History of Any Multi-Drug Resistant Organisms: None Reported Past Surgical History: Adenoidectomy, Bladder Surgery, Bowel Resection, Cardiac Valve Replacement, Ear Surgery, Heart Catheterization With Stent, Hysterectomy, Tonsillectomy Additional Past Surgical History / Comment(s): colostomy. open heart x2. watchman device to chest Past Anesthesia/Blood Transfusion Reactions: No Reported Reaction Additional Past Anesthesia/Blood Transfusion Reaction / Comment(s): claustropbobia. pt is combative when coming out of anesthesia Date of Last Stent Placement:: unk Type of Cardiac Device: Unknown Device Placement Date:: unknown Past Psychological History: Depression Smoking Status: Current every day smoker Past Alcohol Use History: None Reported Past Drug Use History: None Reported - Past Family History Father Family Medical History: CVA/TIA Additional Family Medical History / Comment(s): was an alcoholic, rheumatic fever as child,lost 2/3rds of stomach d/t etoh. age 61 Mother Additional Family Medical History / Comment(s): comitted suicide at age 54 General Exam Limitations: no limitations General appearance: alert, in no apparent distress Head exam: Present: atraumatic, normocephalic Eye exam: Present: normal appearance. Absent: scleral icterus, conjunctival injection ENT exam: Present: normal oropharynx Neck exam: Present: normal inspection Respiratory exam: Present: rales. Absent: respiratory distress, wheezes, rhonchi, stridor, accessory muscle use Cardiovascular Exam: Present: regular rate, normal rhythm, normal heart sounds. Absent: systolic murmur, diastolic murmur, rubs, gallop GI/Abdominal exam: Present: soft. Absent: distended, tenderness, guarding, rebound, rigid, mass Extremities exam: Present: normal inspection, normal capillary refill. Absent: pedal edema, calf tenderness Back exam: Present: normal inspection. Absent: CVA tenderness (R), CVA tenderness (L) Neurological exam: Present: alert Skin exam: Present: warm, dry, intact, normal color. Absent: rash Course Vital Signs 11/14/24 11/14/24 11/14/24 22:12 23:06 23:20 Temperature 98.7 F Pulse Rate 64 68 Respiratory 18 20 Rate Blood Pressure 137/79 O2 Sat by Pulse 95 Oximetry 11/14/24 11/15/24 11/15/24 23:30 01:00 02:04 Temperature 98.6 F Pulse Rate 62 60 61 Respiratory 18 22 Rate Blood Pressure 142/80 138/88 O2 Sat by Pulse 99 100 Oximetry Chest Pain MDM - MDM The patient had chest x-ray that I interpreted as showing suspected lower lobe infiltrate bilaterally. No pneumothorax. Was pt. sent in by a medical professional or institution (, PA, HOME ASSESSMENT NURSE, urgent care, hospital, or fpc...) When possible be specific @ -[No] Did you speak to anyone other than the patient for history (EMS, parent, family, police, friend...)? What history was obtained from this source @ -[No] Did you review nursing and triage notes (agree or disagree)? Why? @ -[I reviewed and agree with nursing and triage notes] Were old charts reviewed (outside hosp., previous admission, EMS record, old EKG, old radiological studies, urgent care reports/EKG's, fpc records)? Report findings @ -[No old charts were reviewed] Differential Diagnosis (chest pain, altered mental status, abdominal pain women, abdominal pain men, vaginal bleeding, weakness, fever, dyspnea, syncope, headache, dizziness, GI bleed, back pain, seizure, CVA, palpatations, mental health, musculoskeletal)? @ -[Differential Chest Pain: Stable Angina, Unstable Angina, STEMI, NSTEMI Aortic Dissection, Pneumothorax, Musculoskeletal, Esophageal Spasm GERD, Cholecystitis, Pancreatitis, Zoster, this is not meant to be an all-inclusive list. Differential Dyspnea: Coronary syndrome, arrhythmia, tamponade, asthma, COPD, pulmonary embolism, pneumonia, pneumothorax, pulmonary effusion, anaphylaxis, diabetic ketoacidosis, flailed chest, pulmonary contusion, diaphragmatic rupture, anemia, neuromuscular, this is not meant to be an all-inclusive list. EKG interpreted by me (3pts min.). @ -[I interpreted as above] X-rays interpreted by me (1pt min.). @ -[I interpreted as above CT interpreted by me (1pt min.). @ -[None done] U/S interpreted by me (1pt. min.). @ -[None done] What testing was considered but not performed or refused? (CT, X-rays, U/S, labs)? Why? @ -[None] What meds were considered but not given or refused? Why? @ -[None] Did you discuss the management of the patient with other professionals (professionals i.e. , PA, HOME ASSESSMENT NURSE, lab, RT, psych nurse, professor of social work, control system computer scientist, teacher, contact officer, case managers)? Give summary @ -[No] Was smoking cessation discussed for >3mins.? @ -[Yes Was critical care preformed (if so, how long)? @ -[No] Were there social determinants of health that impacted care today? How? (Homelessness, low income, unemployed, alcoholism, drug addiction, transportation, low edu. Level, literacy, decrease access to med. care, fci, rehab)? @ -[No] Was there de-escalation of care discussed even if they declined (Discuss DNR or withdrawal of care, Hospice)? DNR status @ -[No] What co-morbidities impacted this encounter? (DM, HTN, Smoking, COPD, CAD, Cancer, CVA, ARF, Chemo, Hep., AIDS, mental health diagnosis, sleep apnea, morbid obesity)? @ -[Known heart disease, COPD. Was patient admitted / discharged? Hospital course, mention meds given and route, prescriptions, significant lab abnormalities, going to OR and other pertinent info. @ -[Patient is 74-year-old man who presents with chest pain and dyspnea. He does give description of pain that is consistent with angina. In addition the patient's x-ray does appear to show basilar infiltrates consistent with pneumonia. For these reasons I explained to the patient that I would like to admit him, start him on antibiotics and have cardiology see him as well. The patient was refusing that. We discussed risks involved and he still wanted to sign AGAINST MEDICAL ADVICE. The patient did start antibiotics here. We d iscussed follow-up and return parameters. He understands he can return at any time. Undiagnosed new problem with uncertain prognosis? @ -[No] Drug Therapy requiring intensive monitoring for toxicity (Heparin, Nitro, Insulin, Cardizem)? @ -[No] Were any procedures done? @ -[No] Diagnosis/symptom? @ -[Chest pain, probable angina Pneumonia Acute, or Chronic, or Acute on Chronic? @ -[Acute Uncomplicated (without systemic symptoms) or Complicated (systemic symptoms)? @ -[default] Side effects of treatment? @ -[No] Exacerbation, Progression, or Severe Exacerbation? @ -[No] Poses a threat to life or bodily function? How? (Chest pain, [place], [place], pneumonia, PE, COPD, DKA, ARF, appy, cholecystitis, CVA, Diverticulitis, Homicidal, Suicidal, threat to staff... and all critical care pts) @ -[Yes there is risk of worsening pneumonia and also risk of developing into acute coronary syndrome. All treatments are based on ideal body weight as in ED triage Disposition Clinical Impression: Pneumonia, Angina pectoris Disposition: LEFT AGAINST MEDICAL ADVICE Condition: Fair Instructions (If sedation given, give patient instructions): Angina (ED), Pneumonia (ED) Prescriptions: Azithromycin [Zithromax] 0 mg PO DIRECTED #6 tab Is patient prescribed a controlled substance at d/c from ED?: No Referrals: Yoan Quiroz DO [Primary Care Provider] - 1-2 days
[2024-11-15] MEDS: AZITHROMYCIN 500 MG TAB PO STA (01:24)
[2024-11-15 02:06] VITALS: BP 138/88; PULSE 61; RESP 22; TEMP 98.6
== END 2024-11-15 02:21 | disposition left against medical advice (07) ==
LOC: EC 22:05
DX: I25.119 Atherosclerotic heart disease of native coronary artery with unspecified angina pectoris (principal); J18.9 Pneumonia, unspecified organism; J44.9 Chronic obstructive pulmonary disease, unspecified; Z86.73 Personal history of transient ischemic attack (TIA), and cerebral infarction without residual deficits; F17.200 Nicotine dependence, unspecified, uncomplicated; Z88.0 Allergy status to penicillin; Z91.040 Latex allergy status; Z88.8 Allergy status to other drugs, medicaments and biological substances; Z53.29 Procedure and treatment not carried out because of patient's decision for other reasons
CPT/HCPCS: 36415; 94640; 93005; 85379; 80053; 82150; 83690; 83735; 84484; 85025; 85610; 85730; 87636; 71046; 99285; 96365; J0696; J7512